=== PATIENT | male | born 1945 | race African-American/Black ===

== ENCOUNTER 2017-02-03 21:07 | Observation (INO) | payer OTHER, MEDICARE ==
[~2017-02-03] VITALS: Ht 177.8 cm; Wt 87.0 kg
[~2017-02-03 21:07] MED LIST: AMLO5TAB96 PO; ASPI81TA11 PO; ATOR40TA49 PO; CARV12.52 PO; CEFT500T PO; FURO1TAB93 PO; GLIP5TAB8 PO; LISI-357 PO; POTA10IN2 PO; WARF5 PO
[2017-02-03 21:13] VITALS: BP 134/71; PULSE 86; RESP 20; TEMP 98.8; O2SAT 98
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
[2017-02-03] MEDS ORDERED: SODIUM CHLORIDE 0.9% FLUSH 10 ML FLUSH IVF PRN (21:30)
[2017-02-03 21:34] VITALS: BP 148/81; PULSE 90; RESP 18; O2SAT 97
[2017-02-03 22:00] VITALS: BP 140/84; PULSE 74; RESP 20; O2SAT 97
[2017-02-03 22:05] LABS: AUTOMATED NEUTROPHIL # 3.5 TH/MM3 (1.8-7.7); BASOPHIL % 0.5 % (0.0-2.0); EOSINOPHIL # 0.3 TH/MM3 (0-0.4); EOSINOPHIL % 5.5 % (0.0-4.0); HEMATOCRIT 38.9 % (39.0-51.0); HEMO FLAGS DIFF FINAL; LYMPH % 21.9 % (9.0-44.0); LYMPHOCYTE # 1.3 TH/MM3 (1.0-4.8); MEAN CELL VOLUME 92.8 FL (80.0-100.0); MEAN CORPUSCULAR HEMOGLOBIN 30.5 PG (27.0-34.0); MEAN CORPUSCULAR HGB CONC 32.9 % (32.0-36.0); MONO % 13.6 % (0.0-8.0); NEUT % 58.5 % (16.0-70.0); PLATELET COUNT 170 TH/MM3 (150-450); RED BLOOD COUNT 4.19 MIL/MM3 (4.50-5.90); RED CELL DISTRIBUTION WIDTH 13.9 % (11.6-17.2)
[2017-02-03 22:24] LABS: BLOOD, URINE NEG (NEG); COMMENT (UR) CULT NOT INDICATED; CULTURE IF INDICATED CULT NOT INDICATED; GLUCOSE,URINE NEG (NEG); KETONE, URINE NEG (NEG); MUCUS URINE FEW /lpf (OCC); NITRITE,URINE NEG (NEG); SQUAMOUS EPITHELIAL CELL URINE <1 /hpf (0-5); URINE COLOR LIGHT-YELLOW (YELLW/STRAW)
[2017-02-03 22:25] LABS: APTT (PATIENT) 37.2 SEC (24.3-30.1); INTERNATIONAL NORMALIZED RATIO 1.8 RATIO; PROTHROMBIN TIME - PATIENT 20.7 SEC (9.8-11.6)
[2017-02-03 22:29] LABS: AMPHETAMINE, URINE NEG (NEG); BARBITURATES, URINE NEG (NEG); COCAINE, URINE NEG (NEG)
[2017-02-03 22:29] LABS: ALT (GPT) 20 U/L (12-78); ANION GAP 10 MEQ/L (5-15); AST (GOT) 20 U/L (15-37); BLOOD UREA NITROGEN 25 MG/DL (7-18); CHLORIDE 106 MEQ/L (98-107); GLOMERULAR FILTRATION RATE 56 ML/MIN (>89); POTASSIUM 3.9 MEQ/L (3.5-5.1); SODIUM (NA) 138 MEQ/L (136-145)
[2017-02-03 22:39] LABS: ACETAMINOPHEN LESS THAN 2.0 MCG/ML (10.0-30.0); ALKALINE PHOSPHATASE 65 U/L (45-117); CREATINE KINASE 390 U/L (39-308); TOTAL BILIRUBIN ADULT 0.8 MG/DL (0.2-1.0)
[2017-02-03 22:52] LABS: CKMB 2.9 NG/ML (0.5-3.6)
--- NOTE | 2017-02-03 22:56 | RADRPT ---
EXAM DATE/TIME: 02/03/2017 22:37 [facility] COMPARISON: CHEST SINGLE AP, April 30, 2016, 22:33. INDICATIONS : Short of breath MEDICAL HISTORY : None. SURGICAL HISTORY : CABG. Pacemaker. ENCOUNTER: Initial ACUITY: 1 day PAIN SCORE: 0/10 LOCATION: Bilateral chest FINDINGS: The lungs are clear without infiltrate, nodule, or mass. There is no appreciable pleural effusion fo r technique. Heart and mediastinum are unremarkable. Left subclavian transvenous pacer wires are pre sent with tips in the right atrium and right ventricle. There is evidence for prior median sternotomy . CONCLUSION: No acute cardiopulmonary disease. Deb Guerra MD on February 03, 2017 at 22:54 Board Certified Radiologist. This report was verified electronically.
[2017-02-03] MEDS ORDERED: ONDANSETRON HCL 4 MG/2 ML VIAL IVP PRN (23:15)
[2017-02-03] MEDS ORDERED: SODIUM CHLORIDE 0.9% FLUSH 10 ML FLUSH IV FLUSH PRN (23:15)
[2017-02-03] MEDS ORDERED: NALOXONE HCL 0.4 MG/ML AMP IV PRN (23:15)
[2017-02-03] MEDS ORDERED: ACETAMINOPHEN 325 MG TAB PO PRN (23:15)
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
[2017-02-03] MEDS ORDERED: DEXTROSE 50% IN WATER 50 ML VIAL(D50) IV PUSH PRN (23:45)
[2017-02-03] MEDS ORDERED: GLUCAGON 1 MG/ML VIAL OTHER PRN (23:45)
[2017-02-03] MEDS: ASPIRIN 325 MG TAB PO SCH (23:49)
[2017-02-04] VITALS (7 sets, daily range): BP systolic 122–150; BP diastolic 58–87; PULSE 60–71; RESP 16–20; TEMP 97.7–98.8; O2SAT 95–98
[2017-02-04] MEDS ORDERED: AMLO10TA2 PO (01:30)
[2017-02-04] MEDS ORDERED: ASPI81TA11 PO (01:50)
[2017-02-04] MEDS ORDERED: CARV12.52 PO (02:01)
[2017-02-04] MEDS ORDERED: POTA10TA8 PO (02:01)
[2017-02-04] MEDS ORDERED: ATOR40TA16 PO (02:01)
[2017-02-04] MEDS ORDERED: WARF-23 PO (02:01)
[2017-02-04] MEDS ORDERED: LISI-519 PO (02:01)
[2017-02-04] MEDS ORDERED: FURO40TA PO (02:01)
[2017-02-04] MEDS ORDERED: GLIP-157 PO (02:01)
[2017-02-04 05:58] LABS: AUTOMATED NEUTROPHIL # 3.7 TH/MM3 (1.8-7.7); BASOPHIL % 0.6 % (0.0-2.0); EOSINOPHIL # 0.3 TH/MM3 (0-0.4); EOSINOPHIL % 5.4 % (0.0-4.0); HEMATOCRIT 36.4 % (39.0-51.0); HEMO FLAGS DIFF FINAL; LYMPH % 20.8 % (9.0-44.0); LYMPHOCYTE # 1.3 TH/MM3 (1.0-4.8); MEAN CORPUSCULAR HGB CONC 33.7 % (32.0-36.0); MONO % 15.9 % (0.0-8.0); NEUT % 57.3 % (16.0-70.0); PLATELET COUNT 163 TH/MM3 (150-450); RED BLOOD COUNT 3.96 MIL/MM3 (4.50-5.90); RED CELL DISTRIBUTION WIDTH 13.9 % (11.6-17.2); WHITE BLOOD COUNT 6.5 TH/MM3 (4.0-11.0)
[2017-02-04 06:17] LABS: BICARBONATE 26.6 MEQ/L (21.0-32.0); POTASSIUM 3.8 MEQ/L (3.5-5.1)
[2017-02-04 06:26] LABS: HDL CHOLESTEROL 45.9 MG/DL (40.0-60.0)
[2017-02-04] MEDS: INSULIN ASPART SUPPLEMENTAL SCALE SQ SCH ×4 (06:30→20:19)
[2017-02-04] MEDS: SODIUM CHLORIDE 0.9% FLUSH 10 ML FLUSH IV FLUSH SCH ×2 (10:03→20:20)
[2017-02-04] MEDS: ASPIRIN 325 MG TAB PO SCH (10:03)
--- NOTE | 2017-02-04 14:40 | HHI.PR ---
Subjective Remarks Upward trends in Troponin through time, despite downward trends in creatinine ( improving renal function). Patient has no complaints of chest pain. No arrhythmias seen other than baseline. Objective Vital Signs Date Time Temp Pulse Resp B/P Pulse Ox O2 Delivery O2 Flow Rate FiO2 02/04/17 12:00 97.8 61 18 122/58 98 02/04/17 08:01 98.0 67 20 125/71 97 02/04/17 03:49 98.7 64 20 150/68 95 02/04/17 01:49 64 20 138/74 95 02/04/17 01:02 80 18 143/87 97 02/03/17 22:00 74 20 140/84 97 Room Air 02/03/17 21:34 90 18 148/81 97 Room Air 02/03/17 21:13 98.8 86 20 134/71 98 Result Diagram: 02/04/1751902/04/17 05 Objective Remarks GENERAL: NAD, A&Ox3 SKIN: Warm and dry. HEAD: Normocephalic. EYES: No scleral icterus. No injection or drainage. NECK: Supple, trachea midline. No JVD or lymphadenopathy. CARDIOVASCULAR: Regular rate and rhythm without murmurs, gallops, or rubs. RESPIRATORY: Breath sounds equal bilaterally. No accessory muscle use. GASTROINTESTINAL: Abdomen soft, non-tender, nondistended. MUSCULOSKELETAL: No cyanosis, or edema. BACK: Nontender without obvious deformity. No CVA tenderness. NEURO: Right Hemiplegia, Expressive Aphasia Medications and IVs Administered Medications Medications (Trade) Dose Ordered Sig/Kaila Route PRN Reason Start Time Stop Time Status Last Admin Dose Admin Sodium Chloride (NS Flush) 2 ml BID IV FLUSH 02/04/17 09:00 02/04/17 10:03 Aspirin (Aspirin) 325 mg DAILY PO 02/03/17 23:15 02/04/17 10:03 A/P Problem List: (1) Elevated troponin ICD Code: R79.89 Assessment & Plan: Follow troponin Consult cardiology Monitor on telemetry Follow for cardiac symptoms. (2) Atrial fibrillation ICD Code: I48.91 Assessment & Plan: Follow on telemetry (3) Hyperlipidemia ICD Code: E78.5 Assessment & Plan: Statin Follow as an outpatient (4) HTN (hypertension) ICD Code: I10 Assessment & Plan: Monitor BP Adjust if needed BP controlled right now (5) DM (diabetes mellitus) ICD Code: E11.9 Assessment & Plan: Follow blood sugars Insulin Sliding Scale Diabetic Diet (6) H/O: CVA (cerebrovascular accident) ICD Code: Z86.73 Assessment & Plan: Supportive Care Baseline of expressive aphasia and right hemiparesis Juma Williamson MD February 04, 2017 14:40
[2017-02-04] MEDS: CARVEDILOL 12.5 MG TAB PO SCH (20:20)
--- NOTE | 2017-02-04 22:45 | EKG ---
Date Performed: 02/04/2017 Time Performed: 03:45:32 PTAGE: 71 years EKG: ELECTRONIC ATRIAL PACEMAKER ELECTRONIC VENTRICULAR PACEMAKER ABNORMAL RHYTHM ECG INTERPRETA TION BASED ON A DEFAULT AGE OF 40 YEARS NO PREVIOUS TRACING DOCTOR: Denver Hansen Interpretating Date/Time 02/04/2017 22:44:40
--- NOTE | 2017-02-04 22:52 | EKG ---
Date Performed: 02/03/2017 Time Performed: 21:30:33 PTAGE: 71 years EKG: ELECTRONIC VENTRICULAR PACEMAKER ABNORMAL RHYTHM ECG PREVIOUS TRACING : 05/03/2016 13.32 Compared to prior tracing no significant change DOCTOR: Denver Hansen Interpretating Date/Time 02/04/2017 22:50:25
[2017-02-05] VITALS: BP 123/73; PULSE 63; RESP 17; TEMP 97.9; O2SAT 98
[2017-02-05 04:00] VITALS: BP 136/72; PULSE 66; RESP 16; TEMP 97; O2SAT 95
[2017-02-05 05:47] LABS: HEMATOCRIT 38.3 % (39.0-51.0); MEAN CELL VOLUME 92.9 FL (80.0-100.0); MEAN CORPUSCULAR HEMOGLOBIN 30.2 PG (27.0-34.0); MEAN CORPUSCULAR HGB CONC 32.6 % (32.0-36.0); PLATELET COUNT 162 TH/MM3 (150-450); RED BLOOD COUNT 4.12 MIL/MM3 (4.50-5.90); RED CELL DISTRIBUTION WIDTH 13.9 % (11.6-17.2); REVIEW FLAG FINAL; WHITE BLOOD COUNT 6.2 TH/MM3 (4.0-11.0)
[2017-02-05] MEDS: INSULIN ASPART SUPPLEMENTAL SCALE SQ SCH (05:53)
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
[2017-02-05 08:05] VITALS: BP 121/62; PULSE 65; RESP 18; TEMP 97.9; O2SAT 95
[2017-02-05] MEDS ORDERED: LISINOPRIL 5 MG TAB PO SCH (09:00)
[2017-02-05] MEDS ORDERED: FUROSEMIDE 40 MG TAB PO SCH (09:00)
[2017-02-05] MEDS ORDERED: ASPIRIN 81 MG CHEW TAB PO SCH (09:00)
[2017-02-05] MEDS ORDERED: ATORVASTATIN 80 MG TAB PO SCH (09:00)
[2017-02-05] MEDS ORDERED: POTASSIUM CHLORIDE 10 MEQ CONTROLLED RELEASE TAB PO SCH (09:00)
[2017-02-05] MEDS: CARVEDILOL 12.5 MG TAB PO SCH (09:02)
[2017-02-05] MEDS: SODIUM CHLORIDE 0.9% FLUSH 10 ML FLUSH IV FLUSH SCH (09:03)
[2017-02-05 09:18] VITALS: PULSE 62
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
== END 2017-02-05 13:55 | disposition home or self-care (01) ==
LOC: NEPE 21:07 → NEDA 23:10 → NEPHCDU 02-04 01:05
PROVIDERS: ADMIT Hospitalist; ATTEND Hospitalist
DX: I69.320 Aphasia following cerebral infarction (principal); I69.351 Hemiplegia and hemiparesis following cerebral infarction affecting right dominant side; I48.2 Chronic atrial fibrillation; I50.9 Heart failure, unspecified; I42.9 Cardiomyopathy, unspecified; N18.9 Chronic kidney disease, unspecified; I13.0 Hypertensive heart and chronic kidney disease with heart failure and stage 1 through stage 4 chronic kidney disease, or unspecified chronic kidney disease; E11.22 Type 2 diabetes mellitus with diabetic chronic kidney disease; J44.9 Chronic obstructive pulmonary disease, unspecified; I25.10 Atherosclerotic heart disease of native coronary artery without angina pectoris; E78.00 Pure hypercholesterolemia, unspecified; E78.5 Hyperlipidemia, unspecified; A41.9 Sepsis, unspecified organism; I25.2 Old myocardial infarction; Z79.01 Long term (current) use of anticoagulants; Z95.5 Presence of coronary angioplasty implant and graft; Z95.1 Presence of aortocoronary bypass graft; Z95.810 Presence of automatic (implantable) cardiac defibrillator; Z87.891 Personal history of nicotine dependence; V43.52XA Car driver injured in collision with other type car in traffic accident, initial encounter
CPT/HCPCS: 71010; 80048; 80053; 80061; 80307; 81001; 82140; 82550; 82552; 82948; 84443; 84484; 85025; 85027; 85610; 85730; 93005; 99285; G0378; J1815

== ENCOUNTER 2017-07-19 06:32 | Emergency (ER) | payer MEDICARE ==
[~2017-07-19] VITALS: Ht 180.3 cm; Wt 108.0 kg
[~2017-07-19 06:32] MED LIST changes: +AMLO10TA2 PO; -AMLO5TAB96 PO; +ATOR40TA16 PO; -ATOR40TA49 PO; -CEFT500T PO; -FURO1TAB93 PO; +FURO40TA PO; +GLIP-157 PO; -GLIP5TAB8 PO; -LISI-357 PO; +LISI-519 PO; -POTA10IN2 PO; +POTA10TA8 PO; +WARF-23 PO; -WARF5 PO
[2017-07-19 06:34] VITALS: BP 151/72; PULSE 82; RESP 16; TEMP 98.1; O2SAT 95
[2017-07-19] MEDS ORDERED: ALFU10TA2 PO (07:26)
[2017-07-19 07:30] LABS: AUTOMATED NEUTROPHIL # 4.9 TH/MM3 (1.8-7.7); BASOPHIL # 0.1 TH/MM3 (0-0.2); BASOPHIL % 0.9 % (0.0-2.0); EOSINOPHIL # 0.1 TH/MM3 (0-0.4); EOSINOPHIL % 1.8 % (0.0-4.0); HEMATOCRIT 37.4 % (39.0-51.0); HEMO FLAGS DIFF FINAL; LYMPH % 12.1 % (9.0-44.0); LYMPHOCYTE # 0.8 TH/MM3 (1.0-4.8); MEAN CELL VOLUME 91.8 FL (80.0-100.0); MEAN CORPUSCULAR HEMOGLOBIN 30.4 PG (27.0-34.0); MEAN CORPUSCULAR HGB CONC 33.2 % (32.0-36.0); MONO % 13.5 % (0.0-8.0); NEUT % 71.7 % (16.0-70.0); PLATELET COUNT 160 TH/MM3 (150-450); RED BLOOD COUNT 4.07 MIL/MM3 (4.50-5.90); RED CELL DISTRIBUTION WIDTH 14.5 % (11.6-17.2); WHITE BLOOD COUNT 6.8 TH/MM3 (4.0-11.0)
[2017-07-19] MEDS ORDERED: traMADol HCL 50 MG TAB PO ONE (07:30)
[2017-07-19 07:39] LABS: APTT (PATIENT) 51.8 SEC (24.3-30.1); INTERNATIONAL NORMALIZED RATIO 2.6 RATIO
[2017-07-19 08:34] LABS: ALKALINE PHOSPHATASE 75 U/L (45-117); ALT (GPT) 15 U/L (12-78); ANION GAP 8 MEQ/L (5-15); AST (GOT) 14 U/L (15-37); BLOOD UREA NITROGEN 30 MG/DL (7-18); CHLORIDE 108 MEQ/L (98-107); GLOMERULAR FILTRATION RATE 56 ML/MIN (>89); POTASSIUM 3.8 MEQ/L (3.5-5.1); SODIUM (NA) 138 MEQ/L (136-145); TOTAL BILIRUBIN ADULT 1.4 MG/DL (0.2-1.0)
[2017-07-19 09:00] VITALS: BP 133/66; PULSE 77; RESP 16; O2SAT 95
--- NOTE | 2017-07-19 10:16 | RADRPT ---
EXAM DATE/TIME: 07/19/2017 08:19 [facility] COMPARISON: US LEG BILATERAL VENOUS DOPPLER, December 25, 2014, 20:09. INDICATIONS : Bilateral leg edema. MEDICAL HISTORY : Myocardial infarction. Hypercholesterolemia. CVA. Coronary artery disease. Afib. HTN. Dyspnea. [place]. SURGICAL HISTORY : CABGPacemaker. Coronary artery stent.Cardiac cath. ENCOUNTER: Initial ACUITY: 2 day PAIN SCORE: 0/10 LOCATION: Bilateral leg. TECHNIQUE: Venous ultrasound of the left and right leg was performed from the inguinal ligament to the proximal calf. Real-time, color Doppler and spectral tracing, compression and augmentation techniques were us ed. FINDINGS: RIGHT LEG: There is normal compressibility of the deep venous system from the inguinal region to the proximal ca lf. No echogenic clot is seen in the lumen of the common femoral, femoral, popliteal, and posterior tibial veins. There is a normal response of the venous system to proximal and distal augmentation an d respiration. LEFT LEG: There is normal compressibility of the deep venous system from the inguinal region to the proximal ca lf. No echogenic clot is seen in the lumen of the common femoral, femoral, popliteal, and posterior tibial veins. There is a normal response of the venous system to proximal and distal augmentation an d respiration. CONCLUSION: 1. No evidence of deep venous thrombosis. Raymond Alcaraz MD on July 19, 2017 at 9:46 Board Certified Radiologist. This report was verified electronically.
[2017-07-19] MEDS ORDERED: TRAM50TA PO (10:53)
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
== END 2017-07-19 11:15 | disposition home or self-care (01) ==
LOC: NEPC 06:32
DX: M79.605 Pain in left leg (principal); M79.604 Pain in right leg; I48.91 Unspecified atrial fibrillation; Z79.01 Long term (current) use of anticoagulants; E78.5 Hyperlipidemia, unspecified; I25.10 Atherosclerotic heart disease of native coronary artery without angina pectoris; E11.9 Type 2 diabetes mellitus without complications; I10 Essential (primary) hypertension; I25.2 Old myocardial infarction; Z95.1 Presence of aortocoronary bypass graft; Z95.810 Presence of automatic (implantable) cardiac defibrillator; Z79.82 Long term (current) use of aspirin; Z79.899 Other long term (current) drug therapy
CPT/HCPCS: 80053; 85025; 85610; 85730; 93970; 99284

== ENCOUNTER 2017-09-13 10:36 | Emergency (ER) | payer MEDICARE ==
[~2017-09-13] VITALS: Ht 180.3 cm; Wt 110.0 kg
[~2017-09-13 10:36] MED LIST changes: +ALFU10TA2 PO; -ASPI81TA11 PO; +ASPI81TA23 PO; -POTA10TA8 PO; +TRAM50TA PO
[2017-09-13 10:48] VITALS: BP 125/59; PULSE 83; RESP 20; TEMP 97.8; O2SAT 98
[2017-09-13] MEDS ORDERED: PRED20 PO ×2 (11:03→13:59)
[2017-09-13] MEDS ORDERED: WARF-21 PO (11:03)
[2017-09-13] MEDS ORDERED: GLIP5TAB8 PO (11:03)
[2017-09-13] MEDS ORDERED: GUAI600T11 PO (11:03)
[2017-09-13] MEDS ORDERED: ALBUAER3 INH ×2 (11:03→13:59)
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
[2017-09-13 11:55] LABS: AUTOMATED NEUTROPHIL # 5.6 TH/MM3 (1.8-7.7); BASOPHIL % 0.3 % (0.0-2.0); EOSINOPHIL % 0.5 % (0.0-4.0); HEMATOCRIT 34.4 % (39.0-51.0); HEMO FLAGS DIFF FINAL; LYMPH % 11.5 % (9.0-44.0); LYMPHOCYTE # 0.8 TH/MM3 (1.0-4.8); MEAN CELL VOLUME 92.7 FL (80.0-100.0); MEAN CORPUSCULAR HEMOGLOBIN 30.2 PG (27.0-34.0); MEAN CORPUSCULAR HGB CONC 32.5 % (32.0-36.0); MONO % 7.4 % (0.0-8.0); NEUT % 80.3 % (16.0-70.0); PLATELET COUNT 196 TH/MM3 (150-450); RED BLOOD COUNT 3.71 MIL/MM3 (4.50-5.90); RED CELL DISTRIBUTION WIDTH 15.6 % (11.6-17.2); WHITE BLOOD COUNT 6.9 TH/MM3 (4.0-11.0)
[2017-09-13 12:06] LABS: INTERNATIONAL NORMALIZED RATIO 5.5 RATIO; PROTHROMBIN TIME - PATIENT 54.7 SEC (9.8-11.6)
[2017-09-13 12:13] LABS: BICARBONATE 26.4 MEQ/L (21.0-32.0); MAGNESIUM 2.2 MG/DL (1.5-2.5)
--- NOTE | 2017-09-13 12:16 | RADRPT ---
EXAM DATE/TIME: 09/13/2017 11:39 [facility] COMPARISON: CHEST SINGLE AP, February 03, 2017, 22:37. INDICATIONS : Short of breath. MEDICAL HISTORY : Myocardial infarction. Hypercholesterolemia. CVA. Coronary artery disease.Afib. HTN. Dyspnea. Diabete s. SURGICAL HISTORY : CABG,Pacemaker. Coronary artery stent.Cardiac cath. ENCOUNTER: Initial ACUITY: 1 day PAIN SCORE: 0/10 LOCATION: Bilateral chest FINDINGS: A single view of the chest demonstrates cardiomegaly with interstitial edema. Evious median sternotom y. Left-sided defibrillator unchanged. No pleural effusions or edema. Osseous structures are intact. CONCLUSION: Cardiomegaly with interstitial edema. Paresh Nichols MD on September 13, 2017 at 12:14 Board Certified Radiologist. This report was verified electronically.
[2017-09-13] MEDS ORDERED: AZIT250T3 PO (13:59)
--- NOTE | 2017-09-13 14:11 | PD ---
Data Data Last Documented VS Vital Signs Date Time Temp Pulse Resp B/P (MAP) Pulse Ox O2 Delivery O2 Flow Rate FiO2 09/13/17 10:48 97.8 83 20 125/59 (81) 98 Orders Orders Complete Blood Count With Diff (09/13/17 11:22) Basic Metabolic Panel (Bmp) (09/13/17 11:22) B-Type Natriuretic Peptide (09/13/17 11:22) Prothrombin Time / Inr (Pt) (09/13/17 11:22) Act Partial Throm Time (Ptt) (09/13/17 11:22) Magnesium (Mg) (09/13/17 11:22) Chest, Single Ap (09/13/17 11:22) Iv Access Insert/Monitor (09/13/17 11:22) Ecg Monitoring (09/13/17 11:22) Oximetry (09/13/17 11:22) Albuterol-Ipratropium Neb (Duoneb Neb) (09/13/17 11:30) Electrocardiogram (09/13/17 ) Ed Discharge Order (09/13/17 13:57) Labs Laboratory Tests Test 09/13/17 11:20 White Blood Count 6.9 TH/MM3 Red Blood Count 3.71 MIL/MM3 Hemoglobin 11.2 GM/DL Hematocrit 34.4 % Mean Corpuscular Volume 92.7 FL Mean Corpuscular Hemoglobin 30.2 PG Mean Corpuscular Hemoglobin Concent 32.5 % Red Cell Distribution Width 15.6 % Platelet Count 196 TH/MM3 Mean Platelet Volume 8.4 FL Neutrophils (%) (Auto) 80.3 % Lymphocytes (%) (Auto) 11.5 % Monocytes (%) (Auto) 7.4 % Eosinophils (%) (Auto) 0.5 % Basophils (%) (Auto) 0.3 % Neutrophils # (Auto) 5.6 TH/MM3 Lymphocytes # (Auto) 0.8 TH/MM3 Monocytes # (Auto) 0.5 TH/MM3 Eosinophils # (Auto) 0.0 TH/MM3 Basophils # (Auto) 0.0 TH/MM3 CBC Comment DIFF FINAL Differential Comment Prothrombin Time 54.7 SEC Prothromb Time International Ratio 5.5 RATIO Activated Partial Thromboplast Time 46.0 SEC Blood Urea Nitrogen 19 MG/DL Creatinine 1.16 MG/DL Random Glucose 162 MG/DL Calcium Level 8.7 MG/DL Magnesium Level 2.2 MG/DL Sodium Level 142 MEQ/L Potassium Level 4.0 MEQ/L Chloride Level 109 MEQ/L Carbon Dioxide Level 26.4 MEQ/L Anion Gap 7 MEQ/L Estimat Glomerular Filtration Rate 75 ML/MIN B-Type Natriuretic Peptide 532 PG/ML MDM Supervised Visit with ADAM: Yes Narrative Course The history, exam, and medical decision-making in the associated mid-level provider note were completed with my assistance. I reviewed and agree with the findings presented. I attest that I had a [id number] encounter with the patient on the same day, and personally performed and documented my assessment and findings in the medical record. *My assessment and Findings: Well-appearing 72-year-old, [facility], shortness of breath, out of medications for COPD, wheezy on exam, a little bit of pleural effusion increased volume was some pulmonary edema, increased BMP, some lower extremity swelling. We'll encourage compliance with diuretics, treat for COPD exacerbation. Diagnosis Primary Impression: COPD (chronic obstructive pulmonary disease) Qualified Codes: J42 - Unspecified chronic bronchitis Patient Instructions: General Instructions Additional Instruction: Take medications as prescribed. Follow with PCP. Take your Lasix (furosemide) as prescribed by your doctor. See ED for any worsening symptoms. Scripts Prednisone (Prednisone) 20 Mg Tab 20 MG PO BID for 5 Days, #10 TAB 0 Refills Prov: Kd Martinez MD 09/13/17 Azithromycin (Azithromycin) 250 Mg Tab 250 MG PO DIRECTED for Infection, #6 TAB 0 Refills Take 2 tabs (500 mg) on day 1 then 1 tab daily x 4 days. Prov: dK Martinez MD 09/13/17 Albuterol 8.5 GM Inh (Proair Hfa 8.5 GM Inh) 90 Mcg/Act Aer 2 PUFF INH Q4-6H Y for SHORTNESS OF BREATH, #1 INHALER 0 Refills 108 mcg/actuation Prov: Kd Martinez MD 09/13/17 Disposition: 01 DISCHARGE HOME Condition: Stable Kd Martinez MD Sep 13, 2017 14:11
[2017-09-13] MEDS: RESP: ALBUTEROL 2.5 MG/IPRATROPIUM 0.5 MG NEB (SCH) INH ×2 (14:29→14:46)
[2017-09-13 14:49] VITALS: BP 114/65; PULSE 81; RESP 18; O2SAT 99
--- NOTE | 2017-09-14 14:07 | EKG ---
Date Performed: 09/13/2017 Time Performed: 12:44:22 PTAGE: 72 years EKG: ELECTRONIC VENTRICULAR PACEMAKER ABNORMAL RHYTHM ECG PREVIOUS TRACING : 02/04/2017 03.45 Compared to prior tracing no significant change DOCTOR: David Noel Interpretating Date/Time 09/14/2017 14:06:26
== END 2017-09-13 15:30 | disposition home or self-care (01) ==
LOC: NEPE 10:36
DX: J44.9 Chronic obstructive pulmonary disease, unspecified (principal); I51.7 Cardiomegaly; I11.0 Hypertensive heart disease with heart failure; I50.9 Heart failure, unspecified; I69.920 Aphasia following unspecified cerebrovascular disease; I48.91 Unspecified atrial fibrillation; E11.9 Type 2 diabetes mellitus without complications; I25.10 Atherosclerotic heart disease of native coronary artery without angina pectoris; R94.31 Abnormal electrocardiogram [ECG] [EKG]
CPT/HCPCS: 71010; 80048; 83735; 83880; 85025; 85610; 85730; 93005; 94640; 94664; 99285

== ENCOUNTER 2018-01-01 13:46 | Inpatient (IN) | payer OTHER, MEDICARE ==
[2018-01-01] VITALS (10 sets, daily range): BP systolic 91–150; BP diastolic 50–84; PULSE 81–95; RESP 16–26; TEMP 97.5; O2SAT 95–100
[~2018-01-01] VITALS: Ht 180.3 cm; Wt 86.2 kg
[~2018-01-01 13:46] MED LIST changes: +ALBUAER3 INH; +AZIT250T3 PO; -GLIP-157 PO; +GLIP5TAB8 PO; +GUAI600T11 PO; +PRED20 PO; +WARF-21 PO
[2018-01-01] MEDS ORDERED: SODIUM CHLORIDE 0.9% FLUSH 10 ML FLUSH IVF PRN (14:00)
--- NOTE | 2018-01-01 14:13 | PD ---
HPI Chief Complaint: Respiratory Distress Time Seen by Provider: 14:00 Travel History International Travel<30 days: No Contact w/Intl Traveler<30days: No Traveled to known affect area: No History of Present Illness HPI 72-year-old male patient with history of previous CVA, A. fib, CAD, AICD placement, CHF, multiple medical issues, was at the [facility] today when he started getting short of breath, having dyspnea on exertion, and was put on oxygen by EMS. He states it is now subsiding. He also complains of some chest discomfort and coughing. He denies any fevers, abdominal pains, or any other symptoms. Patient's history is difficult to get because of his aphasia. Modifying Factors: None Associated Signs & Symptoms: Shortness of breath Risk Factors: CHF PFSH Past Medical History Hx Anticoagulant Therapy: Yes Arthritis: No Asthma: No Atrial Fibrillation: Yes Autoimmune Disease: No Blood Disorders: No Anxiety: No Depression: No Heart Rhythm Problems: Yes Cancer: No Cardiac Catheterization: Yes (2013) Cardiovascular Problems: Yes High Cholesterol: Yes Chemotherapy: No Chest Pain: No Congestive Heart Failure: No COPD: No Cerebrovascular Accident: Yes (SUFFERS DYSARTHRIA) Coronary Artery Disease: Yes Diabetes: Yes Diminished Hearing: No Endocrine: Yes Gastrointestinal Disorders: No GERD: No Glaucoma: No Genitourinary: No Headaches: No Hepatitis: No Hiatal Hernia: No Hypertension: Yes Immune Disorder: No Kidney Stones: No Musculoskeletal: Yes (CONTRACTED RUE) Neurologic: No Psychiatric: No Reproductive: No Respiratory: Yes Immunizations Current: No Migraines: No Myocardial Infarction: Yes (X 2) Radiation Therapy: No Renal Failure: No Seizures: No Sickle Cell Disease: No Sleep Apnea: No Thyroid Disease: No Ulcer: No Past Surgical History Abdominal Surgery: No AICD: No Appendectomy: No Arteriovenous Shunt: No Body Medical Devices: STENT PLACEMENT Cardiac Surgery: Yes (CABG 2008/ PACEMAKER/DEFIB 03/22/15) Cholecystectomy: No Coronary Artery Bypass Graft: Yes (2009 x ) Coronary Stent: Yes (2 STENTS) Ear Surgery: No Endocrine Surgery: No Eye Surgery: No Genitourinary Surgery: No Gynecologic Surgery: No Insulin Pump: No Joint Replacement: No Neurologic Surgery: No Oral Surgery: No Pacemaker: Yes (PACE AND DEFIB ) Thoracic Surgery: No Other Surgery: Yes Social History Alcohol Use: No Tobacco Use: No Substance Use: No Allergies-Medications (Allergen,Severity, Reaction): Coded Allergies: rivaroxaban (Verified Allergy, Unknown, 07/19/17) Uncoded Allergies: UNKNOWN BLOOD THINNER (Allergy, Intermediate, Hives, 04/30/16) Reported Meds & Prescriptions Reported Meds & Active Scripts Active Proair Hfa 8.5 GM Inh (Albuterol Sulfate) 90 Mcg/Act Aer 2 Puff INH Q4-6H PRN 108 mcg/actuation Reported Colchicine 0.6 Mg Cap 0.6 Mg PO DAILY Mucus Relief ER (Guaifenesin) 600 Mg Tab 400 Mg PO BID PRN Warfarin 7.5 Mg Tab 7.5 Mg PO EVERY OTHER DAY Glipizide 5 Mg Tab 5 Mg PO BIDAC Take 30 minutes before a meal Alfuzosin ER 24 HR 10 Mg Tab 10 Mg PO DAILY Lisinopril 5 Mg Tab 5 Mg PO DAILY Carvedilol 12.5 Mg Tab 25 Mg PO BID Atorvastatin (Atorvastatin Calcium) 40 Mg Tab 40 Mg PO DAILY Aspirin EC (Aspirin) 81 Mg Tabdr 81 Mg PO DAILY Amlodipine (Amlodipine Besylate) 10 Mg Tab 10 Mg PO DAILY Review of Systems ROS Limitations: Speech Impaired Except as stated in HPI: all other systems reviewed are Neg Physical Exam Narrative GENERAL: Well-developed elderly -[place] male patient currently in mild respiratory distress. Awake, alert, oriented 3. SKIN: Focused skin assessment warm/dry. HEAD: Atraumatic. Normocephalic. EYES: Pupils equal and round. No scleral icterus. No injection or drainage. ENT: No nasal bleeding or discharge. Mucous membranes pink and moist. NECK: Trachea midline. No JVD. CARDIOVASCULAR: Regular rate and rhythm. No murmur appreciated. RESPIRATORY: Mild accessory muscle use. Clear to auscultation. Breath sounds equal bilaterally. GASTROINTESTINAL: Abdomen soft, non-tender, nondistended. Hepatic and splenic margins not palpable. MUSCULOSKELETAL: No obvious deformities. No clubbing. No cyanosis. No edema. NEUROLOGICAL: Awake and alert. Mild facial asymmetry. Motor grossly within normal limits. Aphasic speech. PSYCHIATRIC: Appropriate mood and affect; insight and judgment normal. Data Data Last Documented VS Vital Signs Date Time Temp Pulse Resp B/P (MAP) Pulse Ox O2 Delivery O2 Flow Rate FiO2 01/01/18 16:05 84 20 91/56 (68) 100 Nasal Cannula 2.00 01/01/18 13:54 97.5 Orders Orders Complete Blood Count With Diff (01/01/18 14:00) Comprehensive Metabolic Panel (01/01/18 14:00) B-Type Natriuretic Peptide (01/01/18 14:00) Act Partial Throm Time (Ptt) (01/01/18 14:00) Prothrombin Time / Inr (Pt) (01/01/18 14:00) Ckmb (Isoenzyme) Profile (01/01/18 14:00) Troponin I (01/01/18 14:00) Blood Culture (01/01/18 14:00) Iv Access Insert/Monitor (01/01/18 14:00) Electrocardiogram (01/01/18 14:00) Ecg Monitoring (01/01/18 14:00) Oximetry (01/01/18 14:00) Oxygen Administration (01/01/18 14:00) Chest, Single Ap (01/01/18 14:00) Sodium Chloride 0.9% Flush (Ns Flush) (01/01/18 14:00) Furosemide Inj (Lasix Inj) (01/01/18 15:45) Resp Bipap / Cpap Non Invas Vt (01/01/18 ) Admit Order (Ed Use Only) (01/01/18 16:09) Labs Laboratory Tests Test 01/01/18 14:10 White Blood Count 4.3 TH/MM3 Red Blood Count 4.04 MIL/MM3 Hemoglobin 12.3 GM/DL Hematocrit 38.2 % Mean Corpuscular Volume 94.6 FL Mean Corpuscular Hemoglobin 30.4 PG Mean Corpuscular Hemoglobin Concent 32.1 % Red Cell Distribution Width 18.1 % Platelet Count 185 TH/MM3 Mean Platelet Volume 8.3 FL Neutrophils (%) (Auto) 71.8 % Lymphocytes (%) (Auto) 11.5 % Monocytes (%) (Auto) 14.2 % Eosinophils (%) (Auto) 1.7 % Basophils (%) (Auto) 0.8 % Neutrophils # (Auto) 3.1 TH/MM3 Lymphocytes # (Auto) 0.5 TH/MM3 Monocytes # (Auto) 0.6 TH/MM3 Eosinophils # (Auto) 0.1 TH/MM3 Basophils # (Auto) 0.0 TH/MM3 CBC Comment DIFF FINAL Differential Comment Prothrombin Time 26.6 SEC Prothromb Time International Ratio 2.6 RATIO Activated Partial Thromboplast Time 33.6 SEC Blood Urea Nitrogen 40 MG/DL Creatinine 1.53 MG/DL Random Glucose 106 MG/DL Total Protein 5.5 GM/DL Albumin 2.8 GM/DL Calcium Level 7.6 MG/DL Alkaline Phosphatase 50 U/L Aspartate Amino Transf (AST/SGOT) 31 U/L Alanine Aminotransferase (ALT/SGPT) 44 U/L Total Bilirubin 1.3 MG/DL Sodium Level 143 MEQ/L Potassium Level 4.5 MEQ/L Chloride Level 114 MEQ/L Carbon Dioxide Level 20.1 MEQ/L Anion Gap 9 MEQ/L Estimat Glomerular Filtration Rate 55 ML/MIN Total Creatine Kinase 89 U/L Troponin I 0.41 NG/ML B-Type Natriuretic Peptide 1121 PG/ML MDM Medical Decision Making Medical Screen Exam Complete: Yes Emergency Medical Condition: Yes Medical Record Reviewed: Yes Interpretation(s) EKG shows a paced rhythm at a rate of 90 bpm with no signs of acute ST elevations or depressions. Laboratory Tests Test 01/01/18 14:10 Red Blood Count 4.04 MIL/MM3 (4.50-5.90) Hemoglobin 12.3 GM/DL (13.0-17.0) Hematocrit 38.2 % (39.0-51.0) Red Cell Distribution Width 18.1 % (11.6-17.2) Neutrophils (%) (Auto) 71.8 % (16.0-70.0) Monocytes (%) (Auto) 14.2 % (0.0-8.0) Lymphocytes # (Auto) 0.5 TH/MM3 (1.0-4.8) Prothrombin Time 26.6 SEC (9.8-11.6) Activated Partial Thromboplast Time 33.6 SEC (24.3-30.1) Blood Urea Nitrogen 40 MG/DL (7-18) Creatinine 1.53 MG/DL (0.60-1.30) Total Protein 5.5 GM/DL (6.4-8.2) Albumin 2.8 GM/DL (3.4-5.0) Calcium Level 7.6 MG/DL (8.5-10.1) Total Bilirubin 1.3 MG/DL (0.2-1.0) Chloride Level 114 MEQ/L (98-107) Carbon Dioxide Level 20.1 MEQ/L (21.0-32.0) Estimat Glomerular Filtration Rate 55 ML/MIN (>89) Troponin I 0.41 NG/ML (0.02-0.05) B-Type Natriuretic Peptide 1121 PG/ML (0-100) Last 24 hours Impressions Chest X-Ray 01/01/18 1400 Signed Impressions: Service Date/Time: Monday, January 01, 2018 14:15 - CONCLUSION: CHF Jeffrey Tipton MD Differential Diagnosis CHF exacerbation versus pneumonia versus anxiety attack versus dysrhythmias Narrative Course Chest x-ray lab work indicative of CHF. Patient was ordered for Lasix, initial blood pressure was okay, however the blood pressure was much lower while he was observed in the ER. BiPAP was ordered instead. At this point, plan would be to admit the patient for further treatment evaluation. Lab work does show elevated BUN and creatinine as well and patient may have some underlying renal compromise regarding this issue. Troponin is elevated likely secondary to the CHF exacerbation. Patient does not currently have chest pain. Case has been discussed with [facility] resident service for admission. He is admitted to intermediate care. Aggregate critical care time was 25 minutes. Time to perform other separately billable procedures was not included in the critical care time. My time did not include minutes spent treating any other patients simultaneously or on activities that did not directly contribute to the patient's treatment. The services I provided to this patient were to treat and/or prevent clinically significant deterioration that could result in: Worsening respiratory distress, hypotension, respiratory failure, worsening pulmonary edema, worsening CHF, cardiac dysrhythmias, I provided critical care services requiring my management, as noted below: Chart data review, documentation time, medication orders and management, vital sign assessments/reviewing monitor data, ordering and reviewing lab tests, ordering and interpreting/reviewing x-rays and diagnostic studies, care of the patient and discussion of the patient with the admitting physicians. Diagnosis Primary Impression: CHF exacerbation Additional Impressions: Elevated troponin HTN (hypertension) Admitting Information Admitting Physician Requests: Admit Lilian Dowd MD Jan 01, 2018 14:13
[2018-01-01 14:33] LABS: AUTOMATED NEUTROPHIL # 3.1 TH/MM3 (1.8-7.7); BASOPHIL % 0.8 % (0.0-2.0); EOSINOPHIL # 0.1 TH/MM3 (0-0.4); EOSINOPHIL % 1.7 % (0.0-4.0); HEMATOCRIT 38.2 % (39.0-51.0); HEMOGLOBIN 12.3 GM/DL (13.0-17.0); LYMPH % 11.5 % (9.0-44.0); LYMPHOCYTE # 0.5 TH/MM3 (1.0-4.8); MEAN CELL VOLUME 94.6 FL (80.0-100.0); MEAN CORPUSCULAR HEMOGLOBIN 30.4 PG (27.0-34.0); MEAN CORPUSCULAR HGB CONC 32.1 % (32.0-36.0); MEAN PLATELET VOLUME 8.3 FL (7.0-11.0); MONO % 14.2 % (0.0-8.0); MONOCYTE # 0.6 TH/MM3 (0-0.9); NEUT % 71.8 % (16.0-70.0); PLATELET COUNT 185 TH/MM3 (150-450); RED BLOOD COUNT 4.04 MIL/MM3 (4.50-5.90); RED CELL DISTRIBUTION WIDTH 18.1 % (11.6-17.2); WHITE BLOOD COUNT 4.3 TH/MM3 (4.0-11.0)
[2018-01-01 14:37] LABS: INTERNATIONAL NORMALIZED RATIO 2.6 RATIO; PROTHROMBIN TIME - PATIENT 26.6 SEC (9.8-11.6)
[2018-01-01] MEDS ORDERED: COLC1CAP3 PO (14:37)
--- NOTE | 2018-01-01 14:39 | RADRPT ---
EXAM DATE/TIME: 01/01/2018 14:15 [facility] COMPARISON: CHEST SINGLE AP, September 13, 2017, 11:39. INDICATIONS : Short of breath. MEDICAL HISTORY : Hypertension. Diabetes mellitus type 2. SURGICAL HISTORY : Pacemaker. CABG. 9-10 years ago. ENCOUNTER: Initial ACUITY: 1 day PAIN SCORE: 0/10 LOCATION: Bilateral chest FINDINGS: Pacemaker device is noted with control pack over the left chest. There is hazy bilateral primarily pe rihilar and basilar pleuroparenchymal opacity which looks like developing edema and effusions. Cardia c contours are partially obscured. There does appear to be moderate central vascular congestion. CONCLUSION: CHF Jeffrey Tipton MD on January 01, 2018 at 14:36 Board Certified Radiologist. This report was verified electronically.
[2018-01-01 15:03] LABS: ALT (GPT) 44 U/L (12-78)
[2018-01-01 15:06] LABS: ALBUMIN 2.8 GM/DL (3.4-5.0); AST (GOT) 31 U/L (15-37); BICARBONATE 20.1 MEQ/L (21.0-32.0); BLOOD UREA NITROGEN 40 MG/DL (7-18); CALCIUM 7.6 MG/DL (8.5-10.1); CHLORIDE 114 MEQ/L (98-107); CREATININE 1.53 MG/DL (0.60-1.30); GLOMERULAR FILTRATION RATE 55 ML/MIN (>89); GLUCOSE,RANDOM 106 MG/DL (74-106); SODIUM (NA) 143 MEQ/L (136-145)
[2018-01-01 15:15] LABS: ALKALINE PHOSPHATASE 50 U/L (45-117); TOTAL BILIRUBIN ADULT 1.3 MG/DL (0.2-1.0); TOTAL PROTEIN 5.5 GM/DL (6.4-8.2); TROPONIN I 0.41 NG/ML (0.02-0.05)
[2018-01-01] MEDS ORDERED: FUROSEMIDE 40 MG/4 ML VIAL IV PUSH ONE (15:45)
[2018-01-01] MEDS ORDERED: SODIUM CHLORIDE 0.9% FLUSH 10 ML FLUSH IV FLUSH PRN (16:15)
--- NOTE | 2018-01-01 16:23 | HHI.HP ---
[facility] Service Family Medicine Primary Care Physician [facility] Admission Diagnosis CHF exacerbation/elevated troponin Diagnoses: International Travel<30 Days: No Contact w/Intl Traveler<30days: No History of Present Illness Patient is a 72 year old male with history significant for CVA, A fib on Coumadin, AICD, CHF, diabetes, who presents for shortness of breath. His is present who provides some history as well. He was sent over from the [place] during acute visit for the symptoms. They both note that about 1-1/2 weeks ago the symptoms started up again notes that the patient had decreased appetite. Difficulty breathing has became progressively worse over this timeframe. He does not typically use oxygen at baseline but has in the past. Over the last week and a half he has been using about 2 L rate at home. This did not help. He does take Lasix at home and took a dose this morning he thinks. He did also take his antihypertensives this morning. He also has a CPAP machine that he uses "every now and then.". [facility] Manager is Dr. Aquino and reportedly had last office visit with echo 1 month ago. Unknown last EF. states that he was admitted to [facility] about a month ago for similar symptoms and was treated for a few days with diuretics and was sent home. He does use oxygen at baseline but he did return back to baseline before discharge. His long history of CHF. At time of interview is on BiPAP and he states that he feels much better than he did at home. Review of Systems ROS Limitations: Speech Impaired Constitutional: DENIES: Fever, Chills Eyes: DENIES: Blurred vision, Diplopia Respiratory: COMPLAINS OF: Shortness of breath, DENIES: Cough Cardiovascular: DENIES: Chest pain, Palpitations, Syncope Gastrointestinal: DENIES: Abdominal pain, Black stools, Bloody stools Genitourinary: DENIES: Urinary frequency, Urinary incontinence Musculoskeletal: DENIES: Joint pain, Muscle aches Integumentary: DENIES: Pruritus, Rash Hematologic/lymphatic: DENIES: Bruising, Lymphadenopathy Neurologic: COMPLAINS OF: Poor Balance, DENIES: Abnormal gait Psychiatric: DENIES: Anxiety, Depression Past Family Social History Past Medical History CVA 11-12 years ago CAD with pacemaker placed in 2049 Previous PR HTN A fib on Warfarin CHF Diabetes Past Surgical History Cardiac stents CABG 2009 Pacemaker/AICD 03/22/2015 Reported Medications Reported Meds & Active Scripts Active Proair Hfa 8.5 GM Inh (Albuterol Sulfate) 90 Mcg/Act Aer 2 Puff INH Q4-6H PRN 108 mcg/actuation Reported Colchicine 0.6 Mg Cap 0.6 Mg PO DAILY Mucus Relief ER (Guaifenesin) 600 Mg Tab 400 Mg PO BID PRN Warfarin 7.5 Mg Tab 7.5 Mg PO EVERY OTHER DAY Glipizide 5 Mg Tab 5 Mg PO BIDAC Take 30 minutes before a meal Alfuzosin ER 24 HR 10 Mg Tab 10 Mg PO DAILY Lisinopril 5 Mg Tab 5 Mg PO DAILY Carvedilol 12.5 Mg Tab 25 Mg PO BID Atorvastatin (Atorvastatin Calcium) 40 Mg Tab 40 Mg PO DAILY Aspirin EC (Aspirin) 81 Mg Tabdr 81 Mg PO DAILY Amlodipine (Amlodipine Besylate) 10 Mg Tab 10 Mg PO DAILY Allergies: Coded Allergies: rivaroxaban (Verified Allergy, Unknown, 07/19/17) Uncoded Allergies: UNKNOWN BLOOD THINNER (Allergy, Intermediate, Hives, 04/30/16) Active Ordered Medications Inpatient Medications Aspirin (Ecotrin Ec) 81 mg DAILY PO ; Start 01/02/18 at 09:00 Atorvastatin Calcium (Lipitor) 40 mg DAILY PO ; Start 01/02/18 at 09:00 Bisacodyl (Dulcolax Supp) 10 mg DAILY PRN RECTAL SEVERE CONSITIPATION; Start at 17:45 Carvedilol (Coreg) 25 mg BID PO ; Start 01/01/18 at 21:00 Colchicine (Colchicine) 0.6 mg DAILY PO ; Start 01/02/18 at 09:00; Stop at 09:00; Status DC Dextrose (D50w (Vial) Inj) 50 ml UNSCH PRN IV PUSH HYPOGLYCEMIA-SEE COMMENTS; Start 01/01/18 at 17:45 Furosemide (Lasix Inj) 40 mg ONCE ONCE IV PUSH Last administered on 01/01/18at 17:42; Start 01/01/18 at 15:45; Stop 01/01/18 at 15:46; Status DC Glucagon (Glucagon Inj) 1 mg UNSCH PRN OTHER HYPOGLYCEMIA-SEE COMMENTS; Start 01/01/18 at 17:45 Insulin Aspart (NovoLOG SUPPLEMENTAL SCALE) 1 ACHS SLIDING SCALE SQ ; Start at 21:00 Lactulose (Lactulose Liq) 30 ml DAILY PRN PO SEVERE CONSITIPATION; Start at 17:45 Magnesium Hydroxide (Milk Of Magnesia Liq) 30 ml Q12H PRN PO Mild constipation ; Start 01/01/18 at 17:45 Senna/Docusate Sodium (Natalie-Colace) 1 tab BID PO ; Start 01/01/18 at 21:00 Sennosides (Senokot) 17.2 mg Q12H PRN PO Moderate constipation; Start 01/01/18 at 17:45 Sodium Chloride (NS Flush) 2 ml BID IV FLUSH ; Start 01/01/18 at 21:00 Warfarin Sodium (Coumadin) 7.5 mg EVERY OTHER DAY PO ; Start 01/02/18 at 16:00 Family History No reported family history Social History Denies current tobacco, alcohol, illicit drug use. Remote smoker per . Lives with whose number is [phone] Physical Exam Vital Signs Vital Signs Date Time Temp Pulse Resp B/P (MAP) Pulse Ox O2 Delivery O2 Flow Rate FiO2 01/01/18 16:05 84 20 91/56 (68) 100 Nasal Cannula 2.00 01/01/18 14:00 95 Nasal Cannula 2.00 01/01/18 14:00 97 Nasal Cannula 2.00 01/01/18 13:59 96 26 98 Room Air 01/01/18 13:54 97.5 95 26 150/84 (106) 98 Physical Exam GENERAL: This is a well-nourished, well-developed male patient who is on BiPAP. SKIN: No rashes, ecchymoses or lesions. Cool and dry. HEAD: Atraumatic. Normocephalic. No temporal or scalp tenderness. EYES: Pupils equal round and reactive. Extraocular motions intact. No scleral icterus. No injection or drainage. ENT: Nose without bleeding or purulent drainage. Airway patent. On BiPAP, other exam is limited at this time NECK: Trachea midline. No JVD or lymphadenopathy. Supple, nontender, no meningeal signs. CARDIOVASCULAR: Regular rate and rhythm without murmurs, difficult to auscultate given BiPAP RESPIRATORY: Poor air movement noted. Upper airway sounds noted. GASTROINTESTINAL: Abdomen soft, non-tender, nondistended. No hepato-splenomegaly , or palpable masses. No guarding. MUSCULOSKELETAL: Extremities without clubbing, cyanosis, or edema. No joint tenderness, effusion, or edema noted. No calf tenderness. NEUROLOGICAL: Awake and alert. Cranial nerves II through XII grossly intact. Motor and sensory grossly within normal limits. Grossly normal strength. Laboratory Laboratory Tests Test 01/01/18 14:10 White Blood Count 4.3 Red Blood Count 4.04 Hemoglobin 12.3 Hematocrit 38.2 Mean Corpuscular Volume 94.6 Mean Corpuscular Hemoglobin 30.4 Mean Corpuscular Hemoglobin Concent 32.1 Red Cell Distribution Width 18.1 Platelet Count 185 Mean Platelet Volume 8.3 Neutrophils (%) (Auto) 71.8 Lymphocytes (%) (Auto) 11.5 Monocytes (%) (Auto) 14.2 Eosinophils (%) (Auto) 1.7 Basophils (%) (Auto) 0.8 Neutrophils # (Auto) 3.1 Lymphocytes # (Auto) 0.5 Monocytes # (Auto) 0.6 Eosinophils # (Auto) 0.1 Basophils # (Auto) 0.0 CBC Comment DIFF FINAL Differential Comment Prothrombin Time 26.6 Prothromb Time International Ratio 2.6 Activated Partial Thromboplast Time 33.6 Blood Urea Nitrogen 40 Creatinine 1.53 Random Glucose 106 Total Protein 5.5 Albumin 2.8 Calcium Level 7.6 Alkaline Phosphatase 50 Aspartate Amino Transf (AST/SGOT) 31 Alanine Aminotransferase (ALT/SGPT) 44 Total Bilirubin 1.3 Sodium Level 143 Potassium Level 4.5 Chloride Level 114 Carbon Dioxide Level 20.1 Anion Gap 9 Estimat Glomerular Filtration Rate 55 Total Creatine Kinase 89 Troponin I 0.41 B-Type Natriuretic Peptide 1121 Date/Time Source Procedure Growth Status 01/01/18 14:15 Blood Peripheral Aerobic Blood Culture Pending Received 01/01/18 14:15 Blood Peripheral Anaerobic Blood Culture Pending Received Result Diagram: 01/01/18 1410 01/01/18 1410 Imaging Last Impressions Chest X-Ray 01/01/18 1400 Signed Impressions: Service Date/Time: Monday, January 01, 2018 14:15 - CONCLUSION: CHF MD Velvet Bro VTE Risk Assessment Velvet VTE Risk Assessment: Mod/High Risk (score >= 2) Caprini Risk Assessment Model Point Value = 1 Point Value = 2 Point Value = 3 Point Value = 5 Age 41-60 Minor surgery BMI > 25 kg/m2 Swollen legs Varicose veins or History of unexplained or recurrent spontaneous Oral contraceptives or hormone replacement Sepsis (< 1 month) Serious lung disease, including pneumonia (< 1 month) Abnormal pulmonary function Acute myocardial infarction Congestive heart failure (< 1 month) History of inflammatory bowel disease Medical patient at bed rest Age 61-74 Arthroscopic surgery Major open surgery (> 45 min) Laparoscopic surgery (> 45 min) Malignancy Confined to bed (> 72 hours) Immobilizing plaster cast Central venous access Age >= 75 History of VTE Family history of VTE Factor V Leiden Prothrombin [id number] Lupus anticoagulant Anticardiolipin antibodies Elevated serum homocysteine Heparin-induced thrombocytopenia Other congenital or acquired thrombophilia Stroke (< 1 month) Elective arthroplasty Hip, pelvis, or leg fracture Acute spinal cord injury (< 1 month) Prophylaxis Regimen Total Risk Factor Score Risk Level Prophylaxis Regimen 0-1 Low Early ambulation 2 Moderate Order ONE of the following: *Sequential Compression Device (SCD) *Heparin 5000 units SQ BID 3-4 Higher Order ONE of the following medications: *Heparin 5000 units SQ TID *Enoxaparin/Lovenox 40 mg SQ daily (WT < 150 kg, CrCl > 30 mL/min) *Enoxaparin/Lovenox 30 mg SQ daily (WT < 150 kg, CrCl > 10-29 mL/min) *Enoxaparin/Lovenox 30 mg SQ BID (WT < 150 kg, CrCl > 30 mL/min) AND/OR *Sequential Compression Device (SCD) 5 or more Highest Order ONE of the following medications: *Heparin 5000 units SQ TID (Preferred with Epidurals) *Enoxaparin/Lovenox 40 mg SQ daily (WT < 150 kg, CrCl > 30 mL/min) *Enoxaparin/Lovenox 30 mg SQ daily (WT < 150 kg, CrCl > 10-29 mL/min) *Enoxaparin/Lovenox 30 mg SQ BID (WT < 150 kg, CrCl > 30 mL/min) AND *Sequential Compression Device (SCD) Assessment and Plan Assessment and Plan Patient is a 72-year-old admitted with CHF exacerbation. He will be admitted and patient given requiring BiPAP at time of admission with significant fluid overload complicated by hypotension. Code Status Full code Discussed Condition With Seen and discussed with Dr. Ugalde Problem List: (1) CHF exacerbation ICD Codes: I50.9 - Heart failure, unspecified Status: Acute Plan: Patient on the Dr. Aquino, presenting with acute CHF exacerbation. He reports he had an echo 1 month ago but unknown EF. Will attempt to obtain records. Patient is on BiPAP at time of admission but recent ABG overall unremarkable. CXR showing significant pulmonary edema. BNP 1121. Initial troponin 0.41 with EKG showing paced rhythm, rate 94, QTc 478. He reportedly took his amlodipine, and lisinopril this morning. * Patient on BiPAP at time of admission to facilitate improvement of symptoms. Plan is for patient to initiate Lasix for fluid management once BP tolerating better and this will likely allow patient to be weaned from BiPAP. He received 1 dose of Lasix 40 mg IV in ED. * Patient has low BP with systolic in 90s, map approximately 70s. * Will monitor fluid response and administer Lasix once BP can tolerate. * Trend cardiac enzymes and EKG, monitoring for symptoms. Elevations are mild and likely related to CHF exacerbation. He presented with no chest pain * Obtain echocardiogram * Consult cardiology * Hold antihypertensives for now, titrate antihypertensives as tolerated, would start with Lasix given fluid overload * Continue aspirin, atorvastatin * Repeat CXR in the morning (2) SALIMA (acute kidney injury) ICD Codes: N17.9 - Acute kidney failure, unspecified Status: Acute Plan: Baseline creatinine is normal based on labs from September 2017. Creatinine 1.53 with GFR 55. Suspect SALIMA related to demand. * Trend BMP * Avoid nephrotoxic agents * Careful hydration limits given fluid overload but likely kidneys will need some gentle hydration, no additional fluids for now (3) Atrial fibrillation ICD Codes: I48.91 - Atrial fibrillation Status: Chronic Plan: Chronic A. fib, not with RVR at this time. He is on warfarin 7.5 mg reportedly Saturday and Saturday with last dose not taken today. INR at goal at time of admission. * We will continue warfarin given INR at goal at this time (4) HTN (hypertension) ICD Codes: I10 - Essential (primary) hypertension Status: Chronic Plan: Chronic essential hypertension on carvedilol 25 mg twice daily, amlodipine 10 mg daily, lisinopril 5 mg daily. He presents hypotensive with fluid overload consistent with CHF exacerbation * Management as above, hold antihypertensives for now (5) Pacemaker ICD Codes: Z95.0 - Presence of cardiac pacemaker Status: Chronic Plan: Chronic, no acute events with this. Will monitor on telemetry (6) DM (diabetes mellitus) ICD Codes: E11.9 - Diabetes mellitus Status: Chronic Plan: Chronic, not on insulin. Takes glipizide 5 mg twice daily before meals * Low-dose sliding scale Novolog while inpatient (7) CVA, old, hemiparesis ICD Codes: I69.359 - Hemiparesis following cerebrovascular accident Status: Chronic Plan: No acute neurologic deficits at this time, baseline right-sided weakness and speech difficulties. Will monitor symptoms (8) Gout ICD Codes: M10.9 - Gout, unspecified Status: Chronic Plan: No acute exacerbation. Continue colchicine 0.6 mg p.o. daily (9) Fluids/Electrolytes/Nutrition/Prophylaxis Status: Acute Plan: Fluids: Fluid restrict given CHF, will monitor Electrolytes: monitor and replete as needed Nutrition: N.p.o. for now given BiPAP and increased respiratory requirements DVT Prophylaxis: Early ambulation. On warfarin is therapeutic GI Prophylaxis: [steroids/ventilator/GIB/burn] PRN anti-HTN: Clonidine 0.1mg PO PRN for SBP > 180/ and/or DBP > 100 Physician Certification 2 Midnight Certification Type: Admission for Inpatient Services Order for Inpatient Services The services are ordered in accordance with Medicare regulations or non- Medicare payer requirements, as applicable. In the case of services not specified as inpatient-only, they are appropriately provided as inpatient services in accordance with the 2-midnight benchmark. Estimated LOS (days): 3 days is the estimated time the patient will need to remain in the hospital, assuming treatment plan goals are met and no additional complications. Post-Hospital Plan: Not yet determined Problem Qualifiers (1) CHF exacerbation: Qualified Codes: I50.23 - Acute on chronic systolic (congestive) heart failure (2) Atrial fibrillation: Qualified Codes: I48.2 - Chronic atrial fibrillation (3) HTN (hypertension): Qualified Codes: I10 - Essential (primary) hypertension (4) DM (diabetes mellitus): Rocío Buitrago MD Jan 01, 2018 16:23
[2018-01-01] MEDS ORDERED: BISACODYL 10 MG SUPP RECTAL PRN (17:45)
[2018-01-01] MEDS ORDERED: LACTULOSE SYRUP 20 GM/30 ML CUP PO PRN (17:45)
[2018-01-01] MEDS ORDERED: DEXTROSE 50% IN WATER 50 ML VIAL(D50) IV PUSH PRN (17:45)
[2018-01-01] MEDS ORDERED: GLUCAGON 1 MG/ML VIAL OTHER PRN (17:45)
[2018-01-01] MEDS ORDERED: MAGNESIUM HYDROXIDE SUSP 30 ML CUP PO PRN (17:45)
[2018-01-01] MEDS ORDERED: SENNOSIDES 8.6 MG TAB PO PRN (17:45)
[2018-01-01] MEDS ORDERED: CARVEDILOL 12.5 MG TAB PO SCH (21:00)
[2018-01-01] MEDS: SODIUM CHLORIDE 0.9% FLUSH 10 ML FLUSH IV FLUSH SCH (21:00)
[2018-01-01] MEDS: INSULIN ASPART SUPPLEMENTAL SCALE SQ SCH (21:00)
[2018-01-01] MEDS: DOCUSATE SODIUM 50 MG/SENNA 8.6 MG TAB PO SCH (22:15)
[2018-01-02] VITALS (14 sets, daily range): BP systolic 96–111; BP diastolic 54–73; PULSE 67–86; RESP 12–36; TEMP 97.6–98; O2SAT 96–100
[2018-01-02 04:00] LABS: AUTOMATED NEUTROPHIL # 2.2 TH/MM3 (1.8-7.7); EOSINOPHIL # 0.1 TH/MM3 (0-0.4); EOSINOPHIL % 3.4 % (0.0-4.0); HEMATOCRIT 37.8 % (39.0-51.0); HEMOGLOBIN 12.2 GM/DL (13.0-17.0); LYMPH % 19.7 % (9.0-44.0); LYMPHOCYTE # 0.7 TH/MM3 (1.0-4.8); MEAN CELL VOLUME 94.7 FL (80.0-100.0); MEAN CORPUSCULAR HEMOGLOBIN 30.5 PG (27.0-34.0); MEAN CORPUSCULAR HGB CONC 32.2 % (32.0-36.0); MEAN PLATELET VOLUME 8.6 FL (7.0-11.0); MONO % 15.4 % (0.0-8.0); MONOCYTE # 0.6 TH/MM3 (0-0.9); NEUT % 60.5 % (16.0-70.0); PLATELET COUNT 165 TH/MM3 (150-450); RED CELL DISTRIBUTION WIDTH 17.9 % (11.6-17.2); WHITE BLOOD COUNT 3.7 TH/MM3 (4.0-11.0)
[2018-01-02 04:10] LABS: INTERNATIONAL NORMALIZED RATIO 2.4 RATIO; PROTHROMBIN TIME - PATIENT 24.1 SEC (9.8-11.6)
[2018-01-02 04:46] LABS: BICARBONATE 20.9 MEQ/L (21.0-32.0); CALCIUM 9.2 MG/DL (8.5-10.1); CREATININE 1.82 MG/DL (0.60-1.30)
--- NOTE | 2018-01-02 07:48 | RADRPT ---
EXAM DATE/TIME: 01/02/2018 05:57 [facility] COMPARISON: No previous studies available for comparison. INDICATIONS : Shortness of breath. MEDICAL HISTORY : Hypertension. Diabetes mellitus type II. SURGICAL HISTORY : Pacemaker. CABG. ENCOUNTER: Subsequent ACUITY: 2 days PAIN SCORE: 0/10 LOCATION: Bilateral chest FINDINGS: A single view of the chest demonstrates cardiomegaly. Postop median sternotomy. Pacer leads overlie r ight actur right ventricle. Mild edema pattern. Small effusions. CONCLUSION: 1. Cardiomegaly with mild edema pattern and small effusions. Findings similar to January 01. Vipul Sherman MD on January 02, 2018 at 7:47 Board Certified Radiologist. This report was verified electronically.
[2018-01-02] MEDS: INSULIN ASPART SUPPLEMENTAL SCALE SQ SCH ×5 (07:56→20:16)
[2018-01-02] MEDS: ATORVASTATIN 40 MG TAB PO SCH (08:41)
[2018-01-02] MEDS: ASPIRIN EC 81 MG TABEC PO SCH (08:41)
[2018-01-02] MEDS: DOCUSATE SODIUM 50 MG/SENNA 8.6 MG TAB PO SCH ×2 (08:42→20:56)
[2018-01-02] MEDS: SODIUM CHLORIDE 0.9% FLUSH 10 ML FLUSH IV FLUSH SCH ×2 (08:54→20:56)
[2018-01-02] MEDS ORDERED: COLCHICINE 0.6 MG TAB PO SCH (09:00)
--- NOTE | 2018-01-02 09:31 | MB ---
cc: Pamela Aquino MD DATE: 01/02/2018 REASON FOR CONSULTATION: Congestive heart failure. HISTORY OF PRESENT ILLNESS: Mr. Bowman is a 72-year-old man who does have a history of an ischemic cardiomyopathy with a Biotronik ICD. He has a history of a CABG in 2005 with a ABDULLAHI to LAD, SVG to OM, PDA and PLB. He had subsequent stenting of his hip subsequent stenting of his RCA in 2014. He has had recurrent hospitalizations for CHF. He reports that he had been doing well until very recently, when he began having some progressive shortness of breath and a bit of edema is what precipitated his emergency room visit. He notes that he is feeling some better after diuresis from the ER, but is still having some shortness of breath. The patient does report that he has been compliant with his medications as well as his sodium and fluid intake. PAST MEDICAL HISTORY: Significant for CHF, anemia, atrial fibrillation on Coumadin, Biotronik ICD, CAD as above. His most recent nuclear stress test was in 01/2016, which showed predominantly fixed inferior and basal lateral defects consistent with WI. His EF was 30% at that time. EF by echo in 10/2017 was 35%. He also has a history of chronic kidney disease, COPD, CVA, diabetes, DVT, hypertension, hyperlipidemia, ischemic cardiomyopathy, osteoarthritis, NSVT and right bundle branch block. SOCIAL HISTORY: Reveals that he is a former smoker. FAMILY HISTORY: Noncontributory. OUTPATIENT MEDICATIONS: Included Albuterol, aspirin, atorvastatin 40 mg at bedtime, Lasix 40 mg every day as needed, glipizide, losartan 25 mg a day, metoprolol 25 mg b.i.d., potassium 10 mEq with Lasix, and Coumadin 5 mg a day, which was being managed outside of the office. PHYSICAL EXAMINATION: VITAL SIGNS: Hearty rate 84, respiratory rate 20, blood pressure 100/56 with a saturation of 99%. GENERAL: He is a morbidly obese man. He is in no apparent distress. NECK: Free from JVD. LUNGS: Decreased, but clear to auscultation. CARDIOVASCULAR: He has a normal S1 and S2. There is a II/ systolic murmur. No rubs or gallops are appreciated. ABDOMEN: Soft. EXTREMITIES: The right lower extremity has 1+ edema. The left lower extremity is free of edema. LABORATORY VALUES: Significant for a hemoglobin of 12, the creatinine is 1.82 and serial troponins are 0.41/0.46/0.44 with a BNP of 1338. IMAGING STUDIES: Chest x-ray shows cardiomegaly with mild pulmonary edema and a small effusion similar to 01/01/2018. IMPRESSION AND PLAN: 1. Acute on chronic systolic heart failure - The patient does have a history of the same. He has a known moderate to severe left ventricular impairment. At this point, it does appear that there is a significant renal impairment and thus cardiorenal syndrome making his fluid management difficult. I suspect that there is also significant chronic obstructive pulmonary disease component to his shortness of breath, contributing also to the overall picture. 2. Renal insufficiency - This does appear to be relatively new and again suggests that there may be a stronger chronic obstructive pulmonary disease component to his shortness of breath. 3. Elevated troponin - The patient does have baseline elevated troponins in this situation and thus it is felt to be secondary to his congestive heart failure. 4. Chronic obstructive pulmonary disease and shortness of breath - This will be managed by the primary team. 5. Atrial fibrillation - The patient will need to be continued at least on lower dose carvedilol. He is in sinus rhythm. I would continue his Coumadin. 6. Ischemic cardiomyopathy - Again, the patient should be continued on a lower dose beta blockade. His blood pressure is too low and renal function too impaired for any MERI inhibitor, ARB or Entresto at this point. MD JAYLEN Michele/CONCEPCIÓN , 09:04 AM , 09:30 AM
--- NOTE | 2018-01-02 14:06 | EKG ---
Date Performed: 01/01/2018 Time Performed: 13:58:29 PTAGE: 72 years EKG: Sinus rhythm WITH P-WAVE SYNCHRONOUS VENTRICULAR PACING ABNORMAL RHYTHM ECG Since PREVIOUS TRACING , no significant change noted PREVIOUS TRACIN09/13/2017 12.44 DOCTOR: Brock Crook Interpretating Date/Time 01/02/2018 14:05:32
--- NOTE | 2018-01-02 14:52 | EKG ---
Date Performed: 01/01/2018 Time Performed: 23:27:54 PTAGE: 72 years EKG: Sinus rhythm with P wave synchronis ventricular pacing similar to the prior tracing PREVIOUS TRACING : 01/01/2018 13.58 DOCTOR: Brock Crook Interpretating Date/Time 01/02/2018 14:50:44
[2018-01-02] MEDS ORDERED: HYDROCORTISONE 1% LOTN 120 ML BTL TOPICAL PRN (15:00)
[2018-01-02] MEDS ORDERED: HYDROCORTISONE 1% CREAM 30 GM TOPICAL PRN (15:00)
[2018-01-02] MEDS: RESP: ALBUTEROL 2.5 MG/IPRATROPIUM 0.5 MG NEB (SCH) INH ×2 (15:16→21:14)
[2018-01-02] MEDS ORDERED: WARFARIN SOD 7.5 MG TAB PO SCH (16:00)
--- NOTE | 2018-01-02 16:39 | ECHRPT ---
Indication: Heart Failure CONCLUSIONS The left ventricular systolic function is severely reduced with an estimated ejection fraction less than 20%. Severely dilated left ventricle. The basal posterior and basal lateral rizzo contract normally; al l other segments are severely hypokinetic or akinetic. The left atrial size is [id number] dilated. Moderately dilated right atrium. Moderately dilated proximal ascending aorta. Moderate to severe mitral valve regurgitation. Trileaflet aortic valve. Slight thickening of the aortic valve leaflets. Mild aortic valve regurgita tion. There is severe tricuspid valve regurgitation. The estimated pulmonary arterial pressure is 33 mmHg. BP: 100 / 56 HR: 84 Rhythm: Sinus MEASUREMENTS (Male / Female) Normal Values Technical Quality:Fair 2D ECHO LV Diastolic Diameter PLAX 7.3 cm 4.2 - 5.9 / 3.9 - 5.3 cm LV Systolic Diameter PLAX 6.3 cm IVS Diastolic Thickness 1.0 cm 0.6 - 1.0 / 0.6 - 0.9 cm LVPW Diastolic Thickness 1.0 cm 0.6 - 1.0 / 0.6 - 0.9 cm LV Relative Wall Thickness 0.3 RV Internal Dim ED PLAX 4.6 cm LVOT Diameter 2.0 cm LA Systolic Diameter LX 6.2 cm 3.0 - 4.0 / 2.7 - 3.8 cm M-MODE Aortic Root Diameter MM 3.3 cm LA Systolic Diameter MM 5.4 cm LA Ao Ratio MM 1.6 MV E Point Septal Separation 2.3 cm AV Cusp Separation MM 1.8 cm DOPPLER AV Peak Velocity 77.2 cm/s AV Peak Gradient 2.4 mmHg AI Peak Velocity 299.8 cm/s AI Peak Gradient 35.9 mmHg AI Pressure Half Time 306.3 ms LVOT Peak Velocity 54.0 cm/s LVOT Peak Gradient 1.2 mmHg AV Area Cont Eq pk 2.2 cm MV Area PHT 6.5 cm Mitral E Point Velocity 106.0 cm/s Mitral A Point Velocity 45.1 cm/s Mitral E to A Ratio 2.4 LV E' Lateral Velocity 10.0 cm/s Mitral E to LV E' Lateral Ratio 10.6 LV E' Septal Velocity 4.8 cm/s Mitral E to LV E' Septal Ratio 22.2 TR Peak Velocity 244.0 cm/s TR Peak Gradient 23.8 mmHg Right Atrial Pressure 10.0 mmHg Pulmonary Artery Systolic Pressu 33.8 mmHg Right Ventricular Systolic Press 33.8 mmHg FINDINGS LEFT VENTRICLE The left ventricular systolic function is severely reduced with an estimated ejection fraction less than 20%. Severely dilated left ventricle. The basal posterior and basal lateral rizzo contract normally; al l other segments are severely hypokinetic or akinetic. RIGHT VENTRICLE A pacemaker wire is noted. LEFT ATRIUM The left atrial size is [id number] dilated. RIGHT ATRIUM Moderately dilated right atrium. ATRIAL SEPTUM Normal atrial septal thickness without atrial level shunting by limited color doppler interrogation. AORTA Moderately dilated proximal ascending aorta. MITRAL VALVE Moderate to severe mitral valve regurgitation. AORTIC VALVE Trileaflet aortic valve. Slight thickening of the aortic valve leaflets. Mild aortic valve regurgita tion. TRICUSPID VALVE Structurally normal tricuspid valve. There is severe tricuspid valve regurgitation. The estimated pulmonary arterial pressure is 33 mmHg. PULMONARY VALVE Moderate pulmonary valve regurgitation. VESSELS The inferior vena cava is normal in size. PERICARDIUM No pericardial effusion. Juve Weiner MD (Electronically Signed) Final Date:02 January 2018 16:37
[2018-01-02] MEDS: TAMSULOSIN HCL 0.4 MG CAP PO SCH (16:54)
--- NOTE | 2018-01-02 17:05 | HHI.FPPN ---
Subjective Remarks No acute events overnight. Patient states that he is breathing a little better but nowhere near baseline. He is complaining of decreased urinary output - this is sometimes a chronic problem for him. Otherwise denies CP, N/V, abdominal pain. (Babak Ugalde MD R1) Objective Vitals Vital Signs Date Time Temp Pulse Resp B/P (MAP) Pulse Ox O2 Delivery O2 Flow Rate FiO2 01/02/18 15:19 99 Nasal Cannula 4.00 01/02/18 14:00 81 01/02/18 13:28 97.9 82 36 98/72 (81) 99 01/02/18 12:55 01/02/18 10:33 83 12 99/65 (76) 96 Room Air 01/02/18 07:36 84 20 100/56 (71) 99 Nasal Cannula 4.00 01/02/18 05:07 98.0 81 20 98/54 (69) 98 Nasal Cannula 4.00 01/02/18 01:38 77 16 97/73 (81) 100 Nasal Cannula 4.00 01/01/18 22:22 83 18 96/50 (65) 100 Nasal Cannula 4.00 01/01/18 19:30 88 16 102/66 (78) 95 01/01/18 18:40 99 Nasal Cannula 4.00 01/01/18 18:40 89 22 95/59 (71) 100 Nasal Cannula 4.00 01/01/18 17:59 81 18 93/65 (74) 100 BiPAP 01/01/18 17:12 83 20 97/65 (76) 100 BiPAP 01/01/18 16:35 83 20 93/59 (70) 100 BiPAP I/O 01/01/18 01/01/18 01/01/18 01/02/18 01/02/18 01/02/18 07:00 15:00 23:00 07:00 15:00 23:00 Output Total 625 ml 250 ml 200 ml Balance -625 ml -250 ml -200 ml Output Urine Total 625 ml 250 ml 200 ml # Voids 2 # Bowel Movements 1 (Babak Ugalde MD R1) Result Diagram: 01/02/1833801/02/18338 Objective Remarks GENERAL: This is a well-nourished, well-developed male sitting in chair with NC in place. Mildly labored breathing but able to speak in full sentences. SKIN: No rashes, ecchymoses or lesions. Cool and dry. HEAD: Atraumatic. Normocephalic. No temporal or scalp tenderness. EYES: Pupils equal round and reactive. Extraocular motions intact. No scleral icterus. No injection or drainage. ENT: Nose without bleeding or purulent drainage. Airway patent. NECK: Trachea midline. No JVD or lymphadenopathy. Supple, nontender, no meningeal signs. CARDIOVASCULAR: Regular rate and rhythm without murmurs, RESPIRATORY: Good air movement bilaterally with no crackles appreciated. GASTROINTESTINAL: Abdomen soft, non-tender, nondistended. No hepato-splenomegaly , or palpable masses. No guarding. MUSCULOSKELETAL: 1+ pitting edema to level of midshin appreciated in BLE. No joint tenderness, effusion, or edema noted. No calf tenderness. Fungal rash appreciated on his R foot NEUROLOGICAL: Awake and alert. Cranial nerves II through XII grossly intact. Motor and sensory grossly within normal limits. Grossly normal strength. (Babak Ugalde MD R1) A/P Assessment and Plan Patient is a 72-year-old admitted with CHF exacerbation. He will be admitted and patient given requiring BiPAP at time of admission with significant fluid overload complicated by hypotension. (Babak Ugalde MD R1) Attending Attestation Table rounds this morning with Dr Morley, Dr May Buitrago, Dr Ugalde and Dr Hawk Patients admission and hospital course discussed in detail EMR reviewed Patient interviewed and examined with medical team Agree with contents of above documentation See Orders (Jose Alberto Rivera MD) Problem List: (1) CHF exacerbation ICD Codes: I50.9 - Heart failure, unspecified Status: Acute Plan: Patient on the Dr. Aquino, presenting with acute CHF exacerbation. He reports he had an echo 1 month ago but unknown EF. Will attempt to obtain records. Patient is on BiPAP at time of admission but recent ABG overall unremarkable. CXR showing significant pulmonary edema. BNP 1121. Initial troponin 0.41 with EKG showing paced rhythm, rate 94, QTc 478. He reportedly took his amlodipine, and lisinopril on morning of admission. He received 1 dose of Lasix 40 mg IV in ED. * Weaned to NC overnight with no difficulties - patient continues to be SOB but mildly improved from admission * Patient has low BP with systolic in 90s - stable and unchanged on 01/02 * Will monitor fluid response and administer Lasix once BP can tolerate. * ACS workup negative * BNP increased to 1338 on 01/02 * Echocardiogram pending * Cardiology consulted - appreciated recommendations * Hold antihypertensives for now, titrate antihypertensives as tolerated, would start with Lasix given fluid overload * Continue aspirin, atorvastatin * Repeat CXR on 01/02 unchanged (2) COPD (chronic obstructive pulmonary disease) ICD Codes: J44.9 - Chronic obstructive pulmonary disease Status: Chronic Plan: Suspecting a component of COPD as patient's lung exam has minimal crackles, continues to be SOB Nursing staff reporting wheezing on exam on afternoon of 01/02 Duonebs q6hr scheduled Albuterol PRN Will consider adding Prednisone and Levaquin to cover a COPD exacerbation pending clinical improvement. (3) SALIMA (acute kidney injury) ICD Codes: N17.9 - Acute kidney failure, unspecified Status: Acute Plan: Baseline creatinine is normal based on labs from September 2017. Creatinine 1.53 on admission - worsened to 1.82 on 01/02. Suspect SALIMA related to demand. * Trend BMP * Avoid nephrotoxic agents * Careful hydration limits given fluid overload but likely kidneys will need some gentle hydration, no additional fluids for now (4) Atrial fibrillation ICD Codes: I48.91 - Atrial fibrillation Status: Chronic Plan: Chronic A. fib, not with RVR at this time. He is on warfarin 7.5 mg reportedly Saturday and Saturday with last dose not taken today. INR at goal at time of admission. * We will continue warfarin given INR at goal at this time * Carvedilol 3.125mg po BID (decreased from home dose as patient is hypotensive) (5) HTN (hypertension) ICD Codes: I10 - Essential (primary) hypertension Status: Chronic Plan: Chronic essential hypertension on carvedilol 25 mg twice daily, amlodipine 10 mg daily, lisinopril 5 mg daily. He presents hypotensive with fluid overload consistent with CHF exacerbation * Management as above, holding antihypertensives aside from carvedilol at 3.125mg po BID per cardiology (6) Pacemaker ICD Codes: Z95.0 - Presence of cardiac pacemaker Status: Chronic Plan: Chronic, no acute events with this. Will monitor on telemetry (7) DM (diabetes mellitus) ICD Codes: E11.9 - Diabetes mellitus Status: Chronic Plan: Chronic, not on insulin. Takes glipizide 5 mg twice daily before meals * Low-dose sliding scale Novolog while inpatient (8) CVA, old, hemiparesis ICD Codes: I69.359 - Hemiparesis following cerebrovascular accident Status: Chronic Plan: No acute neurologic deficits at this time, baseline right-sided weakness and speech difficulties. Will monitor symptoms (9) Tinea pedis ICD Codes: B35.3 - Tinea pedis Plan: Chronic fungal rash appreciated on patient's R foot Tinactin cream ordered BID (10) BPH (benign prostatic hyperplasia) ICD Codes: N40.0 - Benign prostatic hyperplasia without lower urinary tract symptoms Plan: Patient has a history of BPH Able to urinate today but reporting decreased flow Holding home Flomax due to hypotension Instructed nursing staff to obtain bladder scan Will consider placing Rolon if he is retaining urine (11) Gout ICD Codes: M10.9 - Gout, unspecified Status: Chronic Plan: No acute exacerbation. Holding home colchicine due to SALIMA (12) Fluids/Electrolytes/Nutrition/Prophylaxis Status: Acute Plan: Fluids: Fluid restrict given CHF, will monitor Electrolytes: monitor and replete as needed Nutrition: Heart healthy diet DVT Prophylaxis: Early ambulation. On warfarin is therapeutic (Babak Ugalde MD R1) Problem Qualifiers (1) CHF exacerbation: Qualified Codes: I50.23 - Acute on chronic systolic (congestive) heart failure (2) Atrial fibrillation: Qualified Codes: I48.2 - Chronic atrial fibrillation (3) HTN (hypertension): Qualified Codes: I10 - Essential (primary) hypertension (4) DM (diabetes mellitus): Babak Ugalde MD R1 Jan 02, 2018 17:05 Jose Alberto Rivera MD Jan 02, 2018 19:43
[2018-01-02] MEDS: CARVEDILOL 3.125 MG TAB PO SCH (20:56)
[2018-01-02] MEDS: TOLNAFTATE 1% CREAM 15 GM TOPICAL SCH (20:56)
[2018-01-03] VITALS (22 sets, daily range): BP systolic 88–117; BP diastolic 32–86; PULSE 84–96; RESP 18–24; TEMP 97.7–98.4; O2SAT 92–100
[2018-01-03] MEDS: RESP: ALBUTEROL 2.5 MG/IPRATROPIUM 0.5 MG NEB (SCH) INH ×4 (03:45→21:16)
[2018-01-03 07:23] LABS: AUTOMATED NEUTROPHIL # 2.7 TH/MM3 (1.8-7.7); BASOPHIL # 0.1 TH/MM3 (0-0.2); BASOPHIL % 1.4 % (0.0-2.0); EOSINOPHIL # 0.1 TH/MM3 (0-0.4); EOSINOPHIL % 2.9 % (0.0-4.0); HEMATOCRIT 40.8 % (39.0-51.0); HEMOGLOBIN 13.1 GM/DL (13.0-17.0); LYMPH % 19.2 % (9.0-44.0); LYMPHOCYTE # 0.9 TH/MM3 (1.0-4.8); MEAN CELL VOLUME 94.7 FL (80.0-100.0); MEAN CORPUSCULAR HEMOGLOBIN 30.5 PG (27.0-34.0); MEAN CORPUSCULAR HGB CONC 32.2 % (32.0-36.0); MEAN PLATELET VOLUME 8.7 FL (7.0-11.0); MONO % 16.4 % (0.0-8.0); MONOCYTE # 0.7 TH/MM3 (0-0.9); NEUT % 60.1 % (16.0-70.0); PLATELET COUNT 181 TH/MM3 (150-450); WHITE BLOOD COUNT 4.5 TH/MM3 (4.0-11.0)
[2018-01-03 08:00] LABS: BICARBONATE 23.2 MEQ/L (21.0-32.0); CALCIUM 9.1 MG/DL (8.5-10.1); CREATININE 1.8 MG/DL (0.60-1.30)
[2018-01-03] MEDS: TAMSULOSIN HCL 0.4 MG CAP PO SCH (08:11)
[2018-01-03] MEDS: DOCUSATE SODIUM 50 MG/SENNA 8.6 MG TAB PO SCH ×2 (08:12→20:27)
[2018-01-03] MEDS: ATORVASTATIN 40 MG TAB PO SCH (08:12)
[2018-01-03] MEDS: TOLNAFTATE 1% CREAM 15 GM TOPICAL SCH ×2 (08:12→20:29)
[2018-01-03] MEDS: ASPIRIN EC 81 MG TABEC PO SCH (08:12)
[2018-01-03] MEDS: SODIUM CHLORIDE 0.9% FLUSH 10 ML FLUSH IV FLUSH SCH ×2 (08:13→20:27)
[2018-01-03] MEDS: INSULIN ASPART SUPPLEMENTAL SCALE SQ SCH ×4 (08:17→20:30)
[2018-01-03] MEDS ORDERED: WARFARIN SOD 7.5 MG TAB PO SCH (09:00)
[2018-01-03] MEDS: CARVEDILOL 3.125 MG TAB PO SCH ×2 (10:10→20:27)
--- NOTE | 2018-01-03 10:33 | HHI.FPPN ---
Subjective Remarks No acute events overnight. Patient states he is feeling much better this morning and is breathing easier, but not back to 100%. Denies CP, N/V. He continues to be able to urinate without difficulty but often only in small quantities. Objective Vitals Vital Signs Date Time Temp Pulse Resp B/P (MAP) Pulse Ox O2 Delivery O2 Flow Rate FiO2 01/03/18 10:12 96 Nasal Cannula 2.00 01/03/18 08:00 98.1 85 18 98/65 (76) 98 01/03/18 07:00 98 Nasal Cannula 2.00 01/03/18 04:03 84 01/03/18 04:00 97.8 86 20 104/70 (81) 99 01/03/18 00:05 88 01/03/18 00:00 97.7 86 22 95/63 (74) 92 01/02/18 21:16 97 Nasal Cannula 2.00 01/02/18 20:06 83 01/02/18 20:00 Nasal Cannula 2.00 01/02/18 20:00 97.6 86 22 96/66 (76) 99 01/02/18 18:00 84 01/02/18 17:00 80 01/02/18 16:00 80 01/02/18 16:00 97 Nasal Cannula 3.00 01/02/18 16:00 97.9 67 30 111/60 (77) 100 01/02/18 15:19 99 Nasal Cannula 4.00 01/02/18 15:00 82 01/02/18 14:00 81 01/02/18 13:28 97.9 82 36 98/72 (81) 99 01/02/18 12:55 I/O 01/02/18 01/02/18 01/02/18 01/03/18 01/03/18 01/03/18 07:00 15:00 23:00 07:00 15:00 23:00 Intake Total 300 ml 120 ml Output Total 250 ml 200 ml 200 ml 300 ml Balance -250 ml -200 ml 100 ml -180 ml Intake Oral 300 ml 120 ml Output Urine Total 250 ml 200 ml 200 ml 300 ml Bladder Scan Volume Amount 77 ml # Voids 2 # Bowel Movements 1 2 Result Diagram: 01/03/1851801/03/18518 Objective Remarks GENERAL: This is a well-nourished, well-developed male sitting up in bed with NC in place. Able to speak in full sentences without difficulty breathing SKIN: No rashes, ecchymoses or lesions. Cool and dry. HEAD: Atraumatic. Normocephalic. No temporal or scalp tenderness. EYES: Pupils equal round and reactive. Extraocular motions intact. No scleral icterus. No injection or drainage. ENT: Nose without bleeding or purulent drainage. Airway patent. NECK: Trachea midline. No JVD or lymphadenopathy. Supple, nontender, no meningeal signs. CARDIOVASCULAR: Regular rate and rhythm without murmurs, RESPIRATORY: Good air movement bilaterally with no crackles appreciated. GASTROINTESTINAL: Abdomen soft, non-tender, nondistended. No hepato-splenomegaly , or palpable masses. No guarding. MUSCULOSKELETAL: 1+ pitting edema to level of midshin appreciated in BLE - improved from prior exams. No joint tenderness, effusion, or edema noted. No calf tenderness. NEUROLOGICAL: Awake and alert. Cranial nerves II through XII grossly intact. Motor and sensory grossly within normal limits. Grossly normal strength. A/P Assessment and Plan Patient is a 72-year-old admitted with CHF exacerbation. He required BiPAP at time of admission with significant fluid overload complicated by hypotension. Received Lasix IV x 1 in ED. Weaned to NC on day 1 of hospitalization and has had continued improvement in symptoms. Continues to be hypotensive in the 90's systolic, so Lasix were initially held. Decreased Coreg to 3.125mg po BID and holding HTN meds. Cardiology was consulted on admission and started IV Lasix 40mg BID on 01/03. Added Duonebs, Albuterol PRN on 01/02 as patient was reported to have wheezing -> improvement in symptoms. Discharge Planning Discharge likely in 1-2 more days. Typical CHF exacerbations have lasted 4 days in the past per patient. Problem List: (1) CHF exacerbation ICD Codes: I50.9 - Heart failure, unspecified Status: Acute Plan: Patient on the Dr. Aquino, presenting with acute CHF exacerbation. He reports he had an echo 1 month ago but unknown EF. Will attempt to obtain records. Patient is on BiPAP at time of admission but recent ABG overall unremarkable. CXR showing significant pulmonary edema. BNP 1121. Initial troponin 0.41 with EKG showing paced rhythm, rate 94, QTc 478. He reportedly took his amlodipine, and lisinopril on morning of admission. He received 1 dose of Lasix 40 mg IV in ED. * Weaned to NC on night of admission - has tolerated well and has improvement in symptoms. On 2L NC at home per patient's . * Patient has low BP with systolic in 90s - stable and unchanged on 01/03 * Lasix 40mg IV BID started by Cardiology on 01/03 * ACS workup negative * BNP increased to 1338 on 01/02 * Echocardiogram showing EF less than 20%, severely dilated LV, mod to severe MV regurg, severe tricuspid regurg * Cardiology consulted - appreciated recommendations * Hold antihypertensives for now, titrate antihypertensives as tolerated * Continue aspirin, atorvastatin * Repeat CXR on 01/02 unchanged (2) COPD (chronic obstructive pulmonary disease) ICD Codes: J44.9 - Chronic obstructive pulmonary disease Status: Chronic Plan: Suspecting a component of COPD as patient's lung exam has minimal crackles, continues to be SOB Nursing staff reporting wheezing on exam on afternoon of 01/02 Duonebs q6hr scheduled Albuterol PRN Symptoms improved on 01/03 (3) SALIMA (acute kidney injury) ICD Codes: N17.9 - Acute kidney failure, unspecified Status: Acute Plan: Baseline creatinine is normal based on labs from September 2017. Creatinine 1.53 on admission - increased to 1.80 on 01/03. Suspect SALIMA related to demand. * Trend BMP * Avoid nephrotoxic agents * Careful hydration limits given fluid overload but likely kidneys will need some gentle hydration, no additional fluids for now (4) Atrial fibrillation ICD Codes: I48.91 - Atrial fibrillation Status: Chronic Plan: Chronic A. fib, not with RVR at this time. He is on warfarin 7.5 mg reportedly Saturday and Saturday with last dose not taken today. INR at goal at time of admission. * We will continue warfarin given INR at goal at this time * Carvedilol 3.125mg po BID (decreased from home dose as patient is hypotensive) (5) HTN (hypertension) ICD Codes: I10 - Essential (primary) hypertension Status: Chronic Plan: Chronic essential hypertension on carvedilol 25 mg twice daily, amlodipine 10 mg daily, lisinopril 5 mg daily. He presents hypotensive with fluid overload consistent with CHF exacerbation * Management as above, holding antihypertensives aside from carvedilol at 3.125mg po BID per cardiology (6) Pacemaker ICD Codes: Z95.0 - Presence of cardiac pacemaker Status: Chronic Plan: Chronic, no acute events with this. Will monitor on telemetry (7) DM (diabetes mellitus) ICD Codes: E11.9 - Diabetes mellitus Status: Chronic Plan: Chronic, not on insulin. Takes glipizide 5 mg twice daily before meals * Low-dose sliding scale Novolog while inpatient (8) CVA, old, hemiparesis ICD Codes: I69.359 - Hemiparesis following cerebrovascular accident Status: Chronic Plan: No acute neurologic deficits at this time, baseline right-sided weakness and speech difficulties. Will monitor symptoms (9) Tinea pedis ICD Codes: B35.3 - Tinea pedis Plan: Chronic fungal rash appreciated on patient's R foot Tinactin cream ordered BID -Improvement in symptoms on 01/03 (10) BPH (benign prostatic hyperplasia) ICD Codes: N40.0 - Benign prostatic hyperplasia without lower urinary tract symptoms Plan: Patient has a history of BPH Able to urinate but reporting decreased flow Continuing home Flomax with BP parameters Instructed nursing staff to obtain bladder scan Will consider placing Rolon if he is retaining urine (11) Gout ICD Codes: M10.9 - Gout, unspecified Status: Chronic Plan: No acute exacerbation. Holding home colchicine due to SALIMA (12) Fluids/Electrolytes/Nutrition/Prophylaxis Status: Acute Plan: Fluids: Fluid restrict given CHF, will monitor Electrolytes: monitor and replete as needed Nutrition: Heart healthy diet DVT Prophylaxis: Early ambulation. On warfarin is therapeutic Problem Qualifiers (1) CHF exacerbation: Qualified Codes: I50.23 - Acute on chronic systolic (congestive) heart failure (2) Atrial fibrillation: Qualified Codes: I48.2 - Chronic atrial fibrillation (3) HTN (hypertension): Qualified Codes: I10 - Essential (primary) hypertension (4) DM (diabetes mellitus): Babak Ugalde MD R1 Jan 03, 2018 10:33
--- NOTE | 2018-01-03 11:51 | PD.CARD.PN ---
Subjective Subjective Remarks Patient mostly nonverbal - not able to elicit c/o chest pain or dyspnea Objective Medications Current Medications Medications (Trade) Dose Ordered Sig/Kaila Route Start Time Stop Time Status Last Admin (NS Flush) 2 ml UNSCH PRN IV FLUSH 01/01/18 16:15 (NS Flush) 2 ml BID IV FLUSH 01/01/18 21:00 01/03/18 08:13 (Ecotrin Ec) 81 mg DAILY PO 01/02/18 09:00 01/03/18 08:12 (Lipitor) 40 mg DAILY PO 01/02/18 09:00 01/03/18 08:12 (D50w (Vial) Inj) 50 ml UNSCH PRN IV PUSH 01/01/18 17:45 (Glucagon Inj) 1 mg UNSCH PRN OTHER 01/01/18 17:45 (NovoLOG SUPPLEMENTAL SCALE) 1 ACHS SLIDING SCALE SQ 01/01/18 21:00 (Natalie-Colace) 1 tab BID PO 01/01/18 21:00 01/03/18 08:12 (Milk Of Magnesia Liq) 30 ml Q12H PRN PO 01/01/18 17:45 (Senokot) 17.2 mg Q12H PRN PO 01/01/18 17:45 (Dulcolax Supp) 10 mg DAILY PRN RECTAL 01/01/18 17:45 (Lactulose Liq) 30 ml DAILY PRN PO 01/01/18 17:45 (Coumadin) 7.5 mg EVERY OTHER DAY PO 01/02/18 16:00 01/02/18 16:54 (Coreg) 3.125 mg Q12HR PO 01/02/18 21:00 01/03/18 10:10 (Flomax) 0.4 mg DAILY PO 01/02/18 15:00 01/03/18 08:11 (Tinactin 1% Cream) 1 applic Q12HR TOPICAL 01/02/18 21:00 01/03/18 08:12 (Duoneb Neb) 1 ampule Q6HR NEB INH 01/02/18 16:00 01/03/18 10:10 (Albuterol Neb) 2.5 mg Q2HR NEB PRN INH 01/02/18 14:00 (Hydrocortisone 1% Cream) 1 applic Q12H PRN TOPICAL 01/02/18 15:00 Vital Signs / I&O Vital Signs Date Time Temp Pulse Resp B/P (MAP) Pulse Ox O2 Delivery O2 Flow Rate FiO2 01/03/18 10:12 96 Nasal Cannula 2.00 01/03/18 08:00 98.1 85 18 98/65 (76) 98 01/03/18 07:00 98 Nasal Cannula 2.00 01/03/18 04:03 84 01/03/18 04:00 97.8 86 20 104/70 (81) 99 01/03/18 00:05 88 01/03/18 00:00 97.7 86 22 95/63 (74) 92 01/02/18 21:16 97 Nasal Cannula 2.00 01/02/18 20:06 83 01/02/18 20:00 Nasal Cannula 2.00 01/02/18 20:00 97.6 86 22 96/66 (76) 99 01/02/18 18:00 84 01/02/18 17:00 80 01/02/18 16:00 80 01/02/18 16:00 97 Nasal Cannula 3.00 01/02/18 16:00 97.9 67 30 111/60 (77) 100 01/02/18 15:19 99 Nasal Cannula 4.00 01/02/18 15:00 82 01/02/18 14:00 81 01/02/18 13:28 97.9 82 36 98/72 (81) 99 01/02/18 12:55 I/O 01/02/18 01/02/18 01/02/18 01/03/18 01/03/18 01/03/18 07:00 15:00 23:00 07:00 15:00 23:00 Intake Total 300 ml 120 ml Output Total 250 ml 200 ml 200 ml 300 ml Balance -250 ml -200 ml 100 ml -180 ml Intake Oral 300 ml 120 ml Output Urine Total 250 ml 200 ml 200 ml 300 ml Bladder Scan Volume Amount 77 ml # Voids 2 # Bowel Movements 1 2 Physical Exam Patient lethargic but arousable Neck: marked JVD Chest dcrease BS at bases CV [id number] RRR very distant Ext 2+ edema Prior CXR shows CHF Laboratory Laboratory Tests Test 01/03/18 05:19 White Blood Count 4.5 TH/MM3 Red Blood Count 4.30 MIL/MM3 Hemoglobin 13.1 GM/DL Hematocrit 40.8 % Mean Corpuscular Volume 94.7 FL Mean Corpuscular Hemoglobin 30.5 PG Mean Corpuscular Hemoglobin Concent 32.2 % Red Cell Distribution Width 18.0 % Platelet Count 181 TH/MM3 Mean Platelet Volume 8.7 FL Neutrophils (%) (Auto) 60.1 % Lymphocytes (%) (Auto) 19.2 % Monocytes (%) (Auto) 16.4 % Eosinophils (%) (Auto) 2.9 % Basophils (%) (Auto) 1.4 % Neutrophils # (Auto) 2.7 TH/MM3 Lymphocytes # (Auto) 0.9 TH/MM3 Monocytes # (Auto) 0.7 TH/MM3 Eosinophils # (Auto) 0.1 TH/MM3 Basophils # (Auto) 0.1 TH/MM3 CBC Comment DIFF FINAL Differential Comment Blood Urea Nitrogen 49 MG/DL Creatinine 1.80 MG/DL Random Glucose 113 MG/DL Calcium Level 9.1 MG/DL Sodium Level 138 MEQ/L Potassium Level 4.3 MEQ/L Chloride Level 104 MEQ/L Carbon Dioxide Level 23.2 MEQ/L Anion Gap 11 MEQ/L Estimat Glomerular Filtration Rate 45 ML/MIN Imaging Last 48 hours Impressions Chest X-Ray 01/02/18 0600 Signed Impressions: Service Date/Time: December 05:57 - CONCLUSION: 1. Cardiomegaly with mild edema pattern and small effusions. Findings similar to January 01. 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
[2018-01-03] MEDS: FUROSEMIDE 40 MG/4 ML VIAL IV PUSH SCH ×2 (12:14→17:18)
[2018-01-04] VITALS (29 sets, daily range): BP systolic 106–118; BP diastolic 76–90; PULSE 78–89; RESP 20–30; TEMP 97–98.1; O2SAT 95–100
[2018-01-04] MEDS: RESP: ALBUTEROL 2.5 MG/3 ML NEB (PRN) INH ×3 (00:50→18:35)
[2018-01-04] MEDS: RESP: ALBUTEROL 2.5 MG/IPRATROPIUM 0.5 MG NEB (SCH) INH ×4 (03:42→21:15)
[2018-01-04 07:51] LABS: ALBUMIN 3.4 GM/DL (3.4-5.0); ALKALINE PHOSPHATASE 71 U/L (45-117); ALT (GPT) 61 U/L (12-78); AST (GOT) 22 U/L (15-37); BICARBONATE 21.4 MEQ/L (21.0-32.0); BLOOD UREA NITROGEN 47 MG/DL (7-18); CALCIUM 9.3 MG/DL (8.5-10.1); CHLORIDE 106 MEQ/L (98-107); CREATININE 1.84 MG/DL (0.60-1.30); GLOMERULAR FILTRATION RATE 44 ML/MIN (>89); GLUCOSE,RANDOM 140 MG/DL (74-106); SODIUM (NA) 138 MEQ/L (136-145); TOTAL BILIRUBIN ADULT 1.2 MG/DL (0.2-1.0); TOTAL PROTEIN 6.6 GM/DL (6.4-8.2)
[2018-01-04] MEDS: INSULIN ASPART SUPPLEMENTAL SCALE SQ SCH ×4 (08:00→21:00)
[2018-01-04] MEDS: ASPIRIN EC 81 MG TABEC PO SCH (08:55)
[2018-01-04] MEDS: TAMSULOSIN HCL 0.4 MG CAP PO SCH (08:55)
[2018-01-04] MEDS: DOCUSATE SODIUM 50 MG/SENNA 8.6 MG TAB PO SCH ×2 (08:55→20:38)
[2018-01-04] MEDS: FUROSEMIDE 40 MG/4 ML VIAL IV PUSH SCH ×2 (08:56→18:02)
[2018-01-04] MEDS: CARVEDILOL 3.125 MG TAB PO SCH ×2 (08:56→20:38)
[2018-01-04] MEDS: ATORVASTATIN 40 MG TAB PO SCH (08:56)
[2018-01-04] MEDS: SODIUM CHLORIDE 0.9% FLUSH 10 ML FLUSH IV FLUSH SCH ×2 (08:57→20:38)
[2018-01-04] MEDS: TOLNAFTATE 1% CREAM 15 GM TOPICAL SCH ×2 (08:58→20:38)
--- NOTE | 2018-01-04 10:14 | HHI.FPPN ---
Subjective Remarks No acute events overnight. Patient states he is breathing easier, about 75% back to his baseline. Denies chest pain, nausea or vomiting. No complaints about urinary difficulty Objective Vitals Vital Signs Date Time Temp Pulse Resp B/P (MAP) Pulse Ox O2 Delivery O2 Flow Rate FiO2 01/04/18 09:30 98 Nasal Cannula 2.00 01/04/18 07:33 95 Nasal Cannula 3.00 01/04/18 07:28 97.1 88 30 118/90 (99) 95 01/04/18 06:00 88 01/04/18 05:00 86 01/04/18 04:00 87 01/04/18 04:00 Nasal Cannula 2.00 01/04/18 04:00 98.0 87 20 106/89 (95) 96 01/04/18 03:00 84 01/04/18 02:00 85 01/04/18 01:00 80 01/04/18 00:00 Nasal Cannula 2.00 01/04/18 00:00 89 01/04/18 00:00 98.1 89 20 106/76 (86) 96 01/03/18 23:00 87 01/03/18 22:00 90 01/03/18 21:18 100 Nasal Cannula 2.00 01/03/18 21:00 92 01/03/18 20:00 98.4 94 22 117/86 (96) 97 01/03/18 20:00 Nasal Cannula 2.00 01/03/18 20:00 94 01/03/18 18:00 87 01/03/18 17:00 87 01/03/18 16:00 98.3 88 24 116/32 (60) 95 01/03/18 16:00 88 01/03/18 15:00 88 01/03/18 14:00 86 01/03/18 13:00 84 01/03/18 12:00 96 01/03/18 12:00 97.7 87 22 88/69 (75) 97 01/03/18 11:00 86 I/O 01/03/18 01/03/18 01/03/18 01/04/18 01/04/18 01/04/18 07:00 15:00 23:00 07:00 15:00 23:00 Intake Total 120 ml 240 ml 240 ml Output Total 300 ml 350 ml 500 ml Balance -180 ml -110 ml -260 ml Intake Oral 120 ml 240 ml 240 ml Output Urine Total 300 ml 350 ml 500 ml # Voids 2 # Bowel Movements 1 2 Result Diagram: 01/03/1851801/04/18 0555 Objective Remarks GENERAL: This is a well-nourished, well-developed male laying in bed receiving a breathing treatment. SKIN: No rashes, ecchymoses or lesions. Cool and dry. HEAD: Atraumatic. Normocephalic. No temporal or scalp tenderness. EYES: Pupils equal round and reactive. Extraocular motions intact. No scleral icterus. No injection or drainage. ENT: Nose without bleeding or purulent drainage. Airway patent. NECK: Trachea midline. No JVD or lymphadenopathy. Supple, nontender, no meningeal signs. CARDIOVASCULAR: Regular rate and rhythm without murmurs, JVD appreciated RESPIRATORY: Good air movement bilaterally with no crackles appreciated. GASTROINTESTINAL: Abdomen soft, non-tender, nondistended. No hepato-splenomegaly , or palpable masses. No guarding. MUSCULOSKELETAL: 2+ pitting edema to level of midshin appreciated in BLE - stable compared to prior exams. No joint tenderness, effusion, or edema noted. No calf tenderness. NEUROLOGICAL: Awake and alert. Cranial nerves II through XII grossly intact. Motor and sensory grossly within normal limits. Grossly normal strength. A/P Assessment and Plan Patient is a 72-year-old admitted with CHF exacerbation. He required BiPAP at time of admission with significant fluid overload complicated by hypotension. Received Lasix IV x 1 in ED. Weaned to NC on day 1 of hospitalization and has had continued improvement in symptoms. Continues to be hypotensive in the 90's systolic, so Lasix were initially held. Decreased Coreg to 3.125mg po BID and holding HTN meds. Cardiology was consulted on admission and started IV Lasix 40mg BID on 01/03. Added Duonebs, Albuterol PRN on 01/02 as patient was reported to have wheezing -> improvement in symptoms. Discharge Planning Discharge likely in 1-2 more days. Typical CHF exacerbations have lasted 4 days in the past per patient. Problem List: (1) CHF exacerbation ICD Codes: I50.9 - Heart failure, unspecified Status: Acute Plan: Patient on the Dr. Aquino, presenting with acute CHF exacerbation. He reports he had an echo 1 month ago but unknown EF. Will attempt to obtain records. Patient is on BiPAP at time of admission but recent ABG overall unremarkable. CXR showing significant pulmonary edema. BNP 1121. Initial troponin 0.41 with EKG showing paced rhythm, rate 94, QTc 478. He reportedly took his amlodipine, and lisinopril on morning of admission. He received 1 dose of Lasix 40 mg IV in ED. * Weaned to NC on night of admission - has tolerated well and has improvement in symptoms. On 2L NC at home per patient's . * Patient has low BP with systolic in 90s - stable and unchanged on 01/03 * Lasix 40mg IV BID started by Cardiology on 01/03 * ACS workup negative * BNP increased to 1338 on 01/02 * Echocardiogram showing EF less than 20%, severely dilated LV, mod to severe MV regurg, severe tricuspid regurg * Cardiology consulted - appreciated recommendations * Hold antihypertensives for now, titrate antihypertensives as tolerated * Continue aspirin, atorvastatin * Repeat CXR on 01/02 unchanged (2) COPD (chronic obstructive pulmonary disease) ICD Codes: J44.9 - Chronic obstructive pulmonary disease Status: Chronic Plan: Suspecting a component of COPD as patient's lung exam has minimal crackles, continues to be SOB Nursing staff reporting wheezing on exam on afternoon of 01/02 Duonebs q6hr scheduled Albuterol PRN Symptoms have improved with breathing treatments (3) SALIMA (acute kidney injury) ICD Codes: N17.9 - Acute kidney failure, unspecified Status: Acute Plan: Baseline creatinine is normal based on labs from September 2017. Creatinine 1.53 on admission - increased to 1.84 on 01/03. Suspect SALIMA related to demand. * Trend BMP * Avoid nephrotoxic agents * Careful hydration limits given fluid overload but likely kidneys will need some gentle hydration, no additional fluids for now (4) Atrial fibrillation ICD Codes: I48.91 - Atrial fibrillation Status: Chronic Plan: Chronic A. fib, not with RVR at this time. He is on warfarin 7.5 mg reportedly Saturday and Saturday with last dose not taken today. INR at goal at time of admission. * We will continue warfarin given INR at goal at this time * Carvedilol 3.125mg po BID (decreased from home dose as patient is hypotensive) (5) HTN (hypertension) ICD Codes: I10 - Essential (primary) hypertension Status: Chronic Plan: Chronic essential hypertension on carvedilol 25 mg twice daily, amlodipine 10 mg daily, lisinopril 5 mg daily. He presents hypotensive with fluid overload consistent with CHF exacerbation * Management as above, holding antihypertensives aside from carvedilol at 3.125mg po BID per cardiology (6) Pacemaker ICD Codes: Z95.0 - Presence of cardiac pacemaker Status: Chronic Plan: Chronic, no acute events with this. Will monitor on telemetry (7) DM (diabetes mellitus) ICD Codes: E11.9 - Diabetes mellitus Status: Chronic Plan: Chronic, not on insulin. Takes glipizide 5 mg twice daily before meals * Low-dose sliding scale Novolog while inpatient (8) CVA, old, hemiparesis ICD Codes: I69.359 - Hemiparesis following cerebrovascular accident Status: Chronic Plan: No acute neurologic deficits at this time, baseline right-sided weakness and speech difficulties. Will monitor symptoms (9) Tinea pedis ICD Codes: B35.3 - Tinea pedis Plan: Chronic fungal rash appreciated on patient's R foot Tinactin cream ordered BID -Improvement in symptoms on 01/03 (10) BPH (benign prostatic hyperplasia) ICD Codes: N40.0 - Benign prostatic hyperplasia without lower urinary tract symptoms Plan: Patient has a history of BPH Able to urinate but reporting decreased flow Continuing home Flomax with BP parameters Instructed nursing staff to obtain bladder scan Will consider placing Rolon if he is retaining urine >300 mL (11) Gout ICD Codes: M10.9 - Gout, unspecified Status: Chronic Plan: No acute exacerbation. Holding home colchicine due to SALIMA (12) Fluids/Electrolytes/Nutrition/Prophylaxis Status: Acute Plan: Fluids: Fluid restrict given CHF, will monitor Electrolytes: monitor and replete as needed Nutrition: Heart healthy diet DVT Prophylaxis: Early ambulation. On warfarin is therapeutic Problem Qualifiers (1) CHF exacerbation: Qualified Codes: I50.23 - Acute on chronic systolic (congestive) heart failure (2) Atrial fibrillation: Qualified Codes: I48.2 - Chronic atrial fibrillation (3) HTN (hypertension): Qualified Codes: I10 - Essential (primary) hypertension (4) DM (diabetes mellitus): Babak Ugalde MD R1 Jan 04, 2018 10:14
[2018-01-04 12:52] LABS: INTERNATIONAL NORMALIZED RATIO 3.4 RATIO; PROTHROMBIN TIME - PATIENT 34.6 SEC (9.8-11.6)
--- NOTE | 2018-01-04 14:14 | PD.CARD.PN ---
Subjective Subjective Remarks SOB much improved Objective Medications Current Medications Medications (Trade) Dose Ordered Sig/Kaila Route Start Time Stop Time Status Last Admin (NS Flush) 2 ml UNSCH PRN IV FLUSH 01/01/18 16:15 (NS Flush) 2 ml BID IV FLUSH 01/01/18 21:00 01/04/18 08:57 (Ecotrin Ec) 81 mg DAILY PO 01/02/18 09:00 01/04/18 08:55 (Lipitor) 40 mg DAILY PO 01/02/18 09:00 01/04/18 08:56 (D50w (Vial) Inj) 50 ml UNSCH PRN IV PUSH 01/01/18 17:45 (Glucagon Inj) 1 mg UNSCH PRN OTHER 01/01/18 17:45 (NovoLOG SUPPLEMENTAL SCALE) 1 ACHS SLIDING SCALE SQ 01/01/18 21:00 01/04/18 12:57 (Natalie-Colace) 1 tab BID PO 01/01/18 21:00 01/04/18 08:55 (Milk Of Magnesia Liq) 30 ml Q12H PRN PO 01/01/18 17:45 01/03/18 12:31 (Senokot) 17.2 mg Q12H PRN PO 01/01/18 17:45 (Dulcolax Supp) 10 mg DAILY PRN RECTAL 01/01/18 17:45 (Lactulose Liq) 30 ml DAILY PRN PO 01/01/18 17:45 (Coreg) 3.125 mg Q12HR PO 01/02/18 21:00 01/04/18 08:56 (Flomax) 0.4 mg DAILY PO 01/02/18 15:00 01/04/18 08:55 (Tinactin 1% Cream) 1 applic Q12HR TOPICAL 01/02/18 21:00 01/04/18 08:58 (Duoneb Neb) 1 ampule Q6HR NEB INH 01/02/18 16:00 01/04/18 09:30 (Albuterol Neb) 2.5 mg Q2HR NEB PRN INH 01/02/18 14:00 01/04/18 12:41 (Hydrocortisone 1% Cream) 1 applic Q12H PRN TOPICAL 01/02/18 15:00 01/03/18 12:12 (Lasix Inj) 40 mg BID@09,18 IV PUSH 01/03/18 12:00 01/04/18 08:56 (Coumadin) 7.5 mg Q48H PO 01/04/18 16:00 Future hold Vital Signs / I&O Vital Signs Date Time Temp Pulse Resp B/P (MAP) Pulse Ox O2 Delivery O2 Flow Rate FiO2 01/04/18 12:17 81 01/04/18 11:07 97.1 86 21 116/77 (90) 97 01/04/18 11:00 85 01/04/18 10:00 84 01/04/18 09:30 98 Nasal Cannula 2.00 01/04/18 09:00 86 01/04/18 08:00 88 01/04/18 07:33 95 Nasal Cannula 3.00 01/04/18 07:30 78 01/04/18 07:28 97.1 88 30 118/90 (99) 95 01/04/18 06:00 88 01/04/18 05:00 86 01/04/18 04:00 87 01/04/18 04:00 Nasal Cannula 2.00 01/04/18 04:00 98.0 87 20 106/89 (95) 96 01/04/18 03:00 84 01/04/18 02:00 85 01/04/18 01:00 80 01/04/18 00:00 Nasal Cannula 2.00 01/04/18 00:00 89 01/04/18 00:00 98.1 89 20 106/76 (86) 96 01/03/18 23:00 87 01/03/18 22:00 90 01/03/18 21:18 100 Nasal Cannula 2.00 01/03/18 21:00 92 01/03/18 20:00 98.4 94 22 117/86 (96) 97 01/03/18 20:00 Nasal Cannula 2.00 01/03/18 20:00 94 01/03/18 18:00 87 01/03/18 17:00 87 01/03/18 16:00 98.3 88 24 116/32 (60) 95 01/03/18 16:00 88 01/03/18 15:00 88 I/O 01/03/18 01/03/18 01/03/18 01/04/18 01/04/18 01/04/18 07:00 15:00 23:00 07:00 15:00 23:00 Intake Total 120 ml 240 ml 240 ml Output Total 300 ml 350 ml 500 ml Balance -180 ml -110 ml -260 ml Intake Oral 120 ml 240 ml 240 ml Output Urine Total 300 ml 350 ml 500 ml # Voids 2 # Bowel Movements 1 2 Physical Exam Patient alert Neck: + JVD Chest dcrease BS at bases CV S1S2S3 RRR very distant Ext 1+ edema Laboratory Laboratory Tests Test 01/04/18 05:55 01/04/18 12:23 Blood Urea Nitrogen 47 MG/DL Creatinine 1.84 MG/DL Random Glucose 140 MG/DL Total Protein 6.6 GM/DL Albumin 3.4 GM/DL Calcium Level 9.3 MG/DL Alkaline Phosphatase 71 U/L Aspartate Amino Transf (AST/SGOT) 22 U/L Alanine Aminotransferase (ALT/SGPT) 61 U/L Total Bilirubin 1.2 MG/DL Sodium Level 138 MEQ/L Potassium Level 4.5 MEQ/L Chloride Level 106 MEQ/L Carbon Dioxide Level 21.4 MEQ/L Anion Gap 11 MEQ/L Estimat Glomerular Filtration Rate 44 ML/MIN Prothrombin Time 34.6 SEC Prothromb Time International Ratio 3.4 RATIO Assessment and Plan Problem List: (1) Acute on chronic systolic CHF (congestive heart failure) ICD Codes: I50.23 - Acute on chronic systolic (congestive) heart failure Status: Acute (2) 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
[2018-01-04] MEDS ORDERED: WARFARIN SOD 7.5 MG TAB PO SCH (16:00)
[2018-01-05] VITALS (29 sets, daily range): BP systolic 104–127; BP diastolic 65–85; PULSE 70–102; RESP 18–22; TEMP 97.7–98.8; O2SAT 93–100
[2018-01-05] MEDS: RESP: ALBUTEROL 2.5 MG/IPRATROPIUM 0.5 MG NEB (SCH) INH ×4 (03:40→22:00)
[2018-01-05 04:48] LABS: AUTOMATED NEUTROPHIL # 3.4 TH/MM3 (1.8-7.7); BASOPHIL # 0.1 TH/MM3 (0-0.2); EOSINOPHIL # 0.1 TH/MM3 (0-0.4); EOSINOPHIL % 2.6 % (0.0-4.0); HEMOGLOBIN 12.7 GM/DL (13.0-17.0); LYMPHOCYTE # 0.9 TH/MM3 (1.0-4.8); MEAN CELL VOLUME 93.8 FL (80.0-100.0); MEAN CORPUSCULAR HEMOGLOBIN 30.5 PG (27.0-34.0); MEAN CORPUSCULAR HGB CONC 32.5 % (32.0-36.0); MEAN PLATELET VOLUME 8.8 FL (7.0-11.0); MONO % 16.8 % (0.0-8.0); MONOCYTE # 0.9 TH/MM3 (0-0.9); NEUT % 62.6 % (16.0-70.0); PLATELET COUNT 179 TH/MM3 (150-450); RED BLOOD COUNT 4.16 MIL/MM3 (4.50-5.90); RED CELL DISTRIBUTION WIDTH 17.5 % (11.6-17.2); WHITE BLOOD COUNT 5.5 TH/MM3 (4.0-11.0)
[2018-01-05 05:14] LABS: BICARBONATE 23.7 MEQ/L (21.0-32.0); CALCIUM 9.3 MG/DL (8.5-10.1); CREATININE 1.73 MG/DL (0.60-1.30)
[2018-01-05] MEDS: FUROSEMIDE 40 MG/4 ML VIAL IV PUSH SCH ×2 (07:52→18:00)
[2018-01-05] MEDS: ATORVASTATIN 40 MG TAB PO SCH (07:52)
[2018-01-05] MEDS: DOCUSATE SODIUM 50 MG/SENNA 8.6 MG TAB PO SCH ×2 (07:52→20:57)
[2018-01-05] MEDS: ASPIRIN EC 81 MG TABEC PO SCH (07:53)
[2018-01-05] MEDS: CARVEDILOL 3.125 MG TAB PO SCH (07:53)
[2018-01-05] MEDS: INSULIN ASPART SUPPLEMENTAL SCALE SQ SCH ×4 (08:00→20:59)
[2018-01-05] MEDS: TOLNAFTATE 1% CREAM 15 GM TOPICAL SCH ×2 (09:00→21:00)
[2018-01-05] MEDS: SODIUM CHLORIDE 0.9% FLUSH 10 ML FLUSH IV FLUSH SCH ×2 (09:00→20:57)
[2018-01-05] MEDS: TAMSULOSIN HCL 0.4 MG CAP PO SCH (09:00)
--- NOTE | 2018-01-05 09:51 | PD.CARD.PN ---
Subjective Subjective Remarks SOB much improved Objective Medications Current Medications Medications (Trade) Dose Ordered Sig/Kaila Route Start Time Stop Time Status Last Admin (NS Flush) 2 ml UNSCH PRN IV FLUSH 01/01/18 16:15 (NS Flush) 2 ml BID IV FLUSH 01/01/18 21:00 01/05/18 09:00 (Ecotrin Ec) 81 mg DAILY PO 01/02/18 09:00 01/05/18 07:53 (Lipitor) 40 mg DAILY PO 01/02/18 09:00 01/05/18 07:52 (D50w (Vial) Inj) 50 ml UNSCH PRN IV PUSH 01/01/18 17:45 (Glucagon Inj) 1 mg UNSCH PRN OTHER 01/01/18 17:45 (NovoLOG SUPPLEMENTAL SCALE) 1 ACHS SLIDING SCALE SQ 01/01/18 21:00 01/04/18 12:57 (Natalie-Colace) 1 tab BID PO 01/01/18 21:00 01/05/18 07:52 (Milk Of Magnesia Liq) 30 ml Q12H PRN PO 01/01/18 17:45 01/03/18 12:31 (Senokot) 17.2 mg Q12H PRN PO 01/01/18 17:45 (Dulcolax Supp) 10 mg DAILY PRN RECTAL 01/01/18 17:45 (Lactulose Liq) 30 ml DAILY PRN PO 01/01/18 17:45 (Coreg) 3.125 mg Q12HR PO 01/02/18 21:00 01/05/18 07:53 (Flomax) 0.4 mg DAILY PO 01/02/18 15:00 01/05/18 09:00 (Tinactin 1% Cream) 1 applic Q12HR TOPICAL 01/02/18 21:00 01/05/18 09:00 (Duoneb Neb) 1 ampule Q6HR NEB INH 01/02/18 16:00 01/05/18 08:47 (Albuterol Neb) 2.5 mg Q2HR NEB PRN INH 01/02/18 14:00 01/04/18 18:35 (Hydrocortisone 1% Cream) 1 applic Q12H PRN TOPICAL 01/02/18 15:00 01/03/18 12:12 (Coumadin) 7.5 mg Q48H PO 01/04/18 16:00 Future hold (Lasix Inj) 80 mg BID@ IV PUSH 01/05/18 18:00 UNV Vital Signs / I&O Vital Signs Date Time Temp Pulse Resp B/P (MAP) Pulse Ox O2 Delivery O2 Flow Rate FiO2 01/05/18 08:48 93 Nasal Cannula 3.00 01/05/18 08:01 97.9 84 18 104/71 (82) 100 01/05/18 08:01 100 Nasal Cannula 2.00 01/05/18 07:01 72 01/05/18 06:00 81 01/05/18 05:00 84 01/05/18 04:00 80 01/05/18 03:59 Nasal Cannula 2.00 01/05/18 03:59 98.4 80 22 116/83 (94) 97 01/05/18 03:00 84 01/05/18 02:00 85 01/05/18 01:00 81 01/05/18 00:00 Nasal Cannula 2.00 01/05/18 00:00 98.2 86 22 127/65 (85) 98 01/05/18 00:00 86 01/04/18 23:00 81 01/04/18 22:00 83 01/04/18 21:16 96 Nasal Cannula 3.00 01/04/18 21:00 80 01/04/18 20:00 86 01/04/18 20:00 Nasal Cannula 2.00 01/04/18 20:00 98.0 86 22 111/85 (94) 96 01/04/18 18:16 83 01/04/18 17:12 82 01/04/18 16:06 97 Nasal Cannula 2.00 01/04/18 16:00 84 01/04/18 15:30 97.0 86 26 113/81 (92) 100 01/04/18 15:04 86 01/04/18 14:00 86 01/04/18 13:00 86 01/04/18 12:17 81 01/04/18 11:07 97.1 86 21 116/77 (90) 97 01/04/18 11:00 85 01/04/18 10:00 84 I/O 01/04/18 01/04/18 01/04/18 01/05/18 01/05/18 01/05/18 07:00 15:00 23:00 07:00 15:00 23:00 Intake Total 240 ml 1000 ml 240 ml Output Total 500 ml 400 ml 450 ml Balance -260 ml 600 ml -210 ml Intake Oral 240 ml 1000 ml 240 ml Output Urine Total 500 ml 400 ml 450 ml # Bowel Movements 2 1 Physical Exam Patient alert Neck: + JVD Chest dcrease BS at bases CV S1S2S3 RRR very distant Ext trace edema Laboratory Laboratory Tests Test 01/04/18 12:23 01/05/18 04:09 Prothrombin Time 34.6 SEC Prothromb Time International Ratio 3.4 RATIO White Blood Count 5.5 TH/MM3 Red Blood Count 4.16 MIL/MM3 Hemoglobin 12.7 GM/DL Hematocrit 39.0 % Mean Corpuscular Volume 93.8 FL Mean Corpuscular Hemoglobin 30.5 PG Mean Corpuscular Hemoglobin Concent 32.5 % Red Cell Distribution Width 17.5 % Platelet Count 179 TH/MM3 Mean Platelet Volume 8.8 FL Neutrophils (%) (Auto) 62.6 % Lymphocytes (%) (Auto) 17.0 % Monocytes (%) (Auto) 16.8 % Eosinophils (%) (Auto) 2.6 % Basophils (%) (Auto) 1.0 % Neutrophils # (Auto) 3.4 TH/MM3 Lymphocytes # (Auto) 0.9 TH/MM3 Monocytes # (Auto) 0.9 TH/MM3 Eosinophils # (Auto) 0.1 TH/MM3 Basophils # (Auto) 0.1 TH/MM3 CBC Comment DIFF FINAL Differential Comment Blood Urea Nitrogen 41 MG/DL Creatinine 1.73 MG/DL Random Glucose 90 MG/DL Calcium Level 9.3 MG/DL Sodium Level 137 MEQ/L Potassium Level 4.3 MEQ/L Chloride Level 105 MEQ/L Carbon Dioxide Level 23.7 MEQ/L Anion Gap 8 MEQ/L Estimat Glomerular Filtration Rate 48 ML/MIN Assessment and Plan Problem List: (1) Acute on chronic systolic CHF (congestive heart failure) ICD Codes: I50.23 - Acute on chronic systolic (congestive) heart failure Status: Acute Plan: creat too high for ACEI. BP tool low for hydralazine/isordil. 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 Check CXR in AM. Brock Crook MD Jan 05, 2018 09:51
--- NOTE | 2018-01-05 14:10 | HHI.FPPN ---
Subjective Remarks Patient seen and examined bedside by team. Nurse noticed an abnormality in the patient's vitals this morning; blood pressures on the left arm were consistently over 40 points lower than blood pressures on right arm. Vitals on the left arm at 11 AM are in the 60s over 40s, right arm 110/70. The nurse noted that the patient was fatigued this morning but was easily arousable. Patient has been irritated with the multiple blood pressures that been taken. At time of exam the patient's blood pressure taken on the right arm and is 1:30 systolic, versus left arm 100 systolic. The nurses not know as this has been an issue before for this patient. The patient continues to eat and drink without any difficulty. He is acting normal per other nurses. He follows commands and is responsive and alert. He denies any pain or any current complaints. He does say he is experiencing shortness of breath today. Objective Vitals Vital Signs Date Time Temp Pulse Resp B/P (MAP) Pulse Ox O2 Delivery O2 Flow Rate FiO2 01/05/18 12:01 70 01/05/18 11:34 112/79 (90) 01/05/18 11:01 97.7 86 18 111/73 (86) 99 01/05/18 11:00 84 01/05/18 10:00 86 01/05/18 09:00 86 01/05/18 08:48 93 Nasal Cannula 3.00 01/05/18 08:01 97.9 84 18 104/71 (82) 100 01/05/18 08:01 100 Nasal Cannula 2.00 01/05/18 08:00 82 01/05/18 07:01 72 01/05/18 06:00 81 01/05/18 05:00 84 01/05/18 04:00 80 01/05/18 03:59 Nasal Cannula 2.00 01/05/18 03:59 98.4 80 22 116/83 (94) 97 01/05/18 03:00 84 01/05/18 02:00 85 01/05/18 01:00 81 01/05/18 00:00 Nasal Cannula 2.00 01/05/18 00:00 98.2 86 22 127/65 (85) 98 01/05/18 00:00 86 01/04/18 23:00 81 01/04/18 22:00 83 01/04/18 21:16 96 Nasal Cannula 3.00 01/04/18 21:00 80 01/04/18 20:00 86 01/04/18 20:00 Nasal Cannula 2.00 01/04/18 20:00 98.0 86 22 111/85 (94) 96 01/04/18 18:16 83 01/04/18 17:12 82 01/04/18 16:06 97 Nasal Cannula 2.00 01/04/18 16:00 84 01/04/18 15:30 97.0 86 26 113/81 (92) 100 01/04/18 15:04 86 01/04/18 14:00 86 I/O 01/04/18 01/04/18 01/04/18 01/05/18 01/05/18 01/05/18 07:00 15:00 23:00 07:00 15:00 23:00 Intake Total 240 ml 1000 ml 240 ml Output Total 500 ml 400 ml 450 ml Balance -260 ml 600 ml -210 ml Intake Oral 240 ml 1000 ml 240 ml Output Urine Total 500 ml 400 ml 450 ml # Bowel Movements 2 1 Result Diagram: 01/05/189 01/05/18408 Objective Remarks GENERAL: This is a well-nourished, well-developed male laying in bed, with nasal cannula oxygen, some mildly labored respirations, O2 sat 100% SKIN: No rashes, ecchymoses or lesions. Cool and dry. HEAD: Atraumatic. Normocephalic. No temporal or scalp tenderness. EYES: Pupils equal round and reactive. Extraocular motions intact. No scleral icterus. No injection or drainage. ENT: Nose without bleeding or purulent drainage. Airway patent. NECK: Trachea midline. No JVD or lymphadenopathy. Supple, nontender, no meningeal signs. CARDIOVASCULAR: Regular rate and rhythm without murmurs, JVD appreciated RESPIRATORY: Good air movement bilaterally with no crackles appreciated. GASTROINTESTINAL: Abdomen soft, non-tender, nondistended. No hepato-splenomegaly , or palpable masses. No guarding. MUSCULOSKELETAL: 2+ pitting edema to level of midshin appreciated in BLE - stable compared to prior exams. No joint tenderness, effusion, or edema noted. No calf tenderness. NEUROLOGICAL: Awake and alert. Cranial nerves II through XII grossly intact. Motor and sensory grossly within normal limits. Grossly normal strength. A/P Assessment and Plan Patient is a 72-year-old admitted with CHF exacerbation. He required BiPAP at time of admission with significant fluid overload complicated by hypotension. Weaned to NC on day 1 of hospitalization and has had continued improvement in symptoms. Continues to be borderline hypotensive. Cardiology is following; increased carvedilol to 6.25 mg twice a day on 01/05 and increased Lasix to 80 BID on 01/05. Added Duonebs q6h scheduled on 01/02. Discharge Planning Pending clinical improvement, pt is on 2L O2 at home baseline Problem List: (1) CHF exacerbation ICD Codes: I50.9 - Heart failure, unspecified Status: Acute Plan: Patient of Dr. Aquino, presenting with acute CHF exacerbation. He reports he had an echo 1 month ago but unknown EF. Will attempt to obtain records. Patient is on BiPAP at time of admission but recent ABG overall unremarkable. CXR showing significant pulmonary edema. BNP 1121. Initial troponin 0.41 with EKG showing paced rhythm, rate 94, QTc 478. He reportedly took his amlodipine, and lisinopril on morning of admission. He received 1 dose of Lasix 40 mg IV in ED. * Weaned to NC on night of admission - has tolerated well and has improvement in symptoms. On 2L NC at home per patient's . * Patient has low BP with systolic in 90s - possibly severe hypotension on 01/05 * Lasix 80mg IV BID started by Cardiology on 01/05 * ACS workup negative * BNP increased to 1338 on 01/02, f/u repeat BNP * Echocardiogram showing EF less than 20%, severely dilated LV, mod to severe MV regurg, severe tricuspid regurg * Cardiology consulted - appreciated recommendations * Hold antihypertensives for now, titrate antihypertensives as tolerated * Continue aspirin, atorvastatin * Repeat CXR on 01/02 unchanged - f/u repeat CXR today due to labored breathing, possible severe hypotension (2) COPD (chronic obstructive pulmonary disease) ICD Codes: J44.9 - Chronic obstructive pulmonary disease Status: Chronic Plan: Suspecting a component of COPD as patient's lung exam has wheezing, labored breathing, decreased breath sounds at bases O2 Sat 100% Continue Duonebs q6hr scheduled Albuterol PRN f/u STAT CXR (3) SALIMA (acute kidney injury) ICD Codes: N17.9 - Acute kidney failure, unspecified Status: Acute Plan: Baseline creatinine is normal based on labs from September 2017. Creatinine 1.53 on admission - increased to 1.73 on 01/05. Suspect SALIMA related to demand. Improved from 1.84 yesterday * Trend BMP * Avoid nephrotoxic agents * Careful hydration limits given fluid overload but likely kidneys will need some gentle hydration, no additional fluids for now (4) Atrial fibrillation ICD Codes: I48.91 - Atrial fibrillation Status: Chronic Plan: Chronic A. fib, not with RVR at this time. He is on warfarin 7.5 mg reportedly Saturday and Saturday with last dose not taken today. INR at goal at time of admission 2.0-3.0) INR 3.4 on 01/04 - Warfarin held at this time f/u INR today We will titrate and resume accordingly * We will continue warfarin given INR at goal at this time * Carvedilol 6.5mg resumed by cardiology (5) HTN (hypertension) ICD Codes: I10 - Essential (primary) hypertension Status: Chronic Plan: Chronic essential hypertension on carvedilol 25 mg twice daily, amlodipine 10 mg daily, lisinopril 5 mg daily. He presents hypotensive with fluid overload consistent with CHF exacerbation * Management as above, holding antihypertensives aside from carvedilol at 6.5mg po BID per cardiology (6) Pacemaker ICD Codes: Z95.0 - Presence of cardiac pacemaker Status: Chronic Plan: Chronic, no acute events with this. Will monitor on telemetry (7) DM (diabetes mellitus) ICD Codes: E11.9 - Diabetes mellitus Status: Chronic Plan: Chronic, not on insulin. Takes glipizide 5 mg twice daily before meals * Low-dose sliding scale Novolog while inpatient (8) CVA, old, hemiparesis ICD Codes: I69.359 - Hemiparesis following cerebrovascular accident Status: Chronic Plan: No acute neurologic deficits at this time, baseline right-sided weakness and speech difficulties. Will monitor symptoms (9) Tinea pedis ICD Codes: B35.3 - Tinea pedis Plan: Chronic fungal rash appreciated on patient's R foot Tinactin cream ordered BID -Improvement in symptoms on 01/03 (10) BPH (benign prostatic hyperplasia) ICD Codes: N40.0 - Benign prostatic hyperplasia without lower urinary tract symptoms Plan: Patient has a history of BPH Able to urinate but reporting decreased flow Continuing home Flomax with BP parameters Instructed nursing staff to obtain bladder scan Will consider placing Rolon if he is retaining urine >300 mL (11) Gout ICD Codes: M10.9 - Gout, unspecified Status: Chronic Plan: No acute exacerbation. Holding home colchicine due to SALIMA (12) Fluids/Electrolytes/Nutrition/Prophylaxis Status: Acute Plan: Fluids: Fluid restrict given CHF, will monitor Electrolytes: monitor and replete as needed Nutrition: Heart healthy diet DVT Prophylaxis: Early ambulation. Supratherapeutic on Warfarin on 01/04, will f /u INR Problem Qualifiers (1) CHF exacerbation: Qualified Codes: I50.23 - Acute on chronic systolic (congestive) heart failure (2) Atrial fibrillation: Qualified Codes: I48.2 - Chronic atrial fibrillation (3) HTN (hypertension): Qualified Codes: I10 - Essential (primary) hypertension (4) DM (diabetes mellitus): Shruthi Rodriguez MD R2 Jan 05, 2018 14:10
[2018-01-05 16:28] LABS: PROTHROMBIN TIME - PATIENT 30.4 SEC (9.8-11.6)
--- NOTE | 2018-01-05 17:55 | RADRPT ---
EXAM DATE/TIME: 01/05/2018 17:20 [facility] COMPARISON: CHEST PA & LAT, December 25, 2014, 13:26. INDICATIONS : Shortness of breath. MEDICAL HISTORY : Hypertension. Diabetes mellitus type II. SURGICAL HISTORY : CABG. Pacemaker. ENCOUNTER: Subsequent ACUITY: 3 days PAIN SCORE: 0/10 LOCATION: Bilateral chest FINDINGS: Heart is moderately enlarged. Generalized interstitial vascular prominence is noted. There is patchy airspace disease and a right pleural effusion Cardiac pacemaker is noted in place. CONCLUSION: Cardiomegaly with mild interstitial vascular congestive changes. Small right pleural effusion Status post CABG Cardiac pacemaker Colby Steinberg MD on January 05, 2018 at 17:52 Board Certified Radiologist. This report was verified electronically.
[2018-01-05] MEDS ORDERED: ALPRAZolam 0.25 MG TAB PO PRN (18:15)
[2018-01-05] MEDS ORDERED: CARVEDILOL 3.125 MG TAB PO SCH (21:00)
[2018-01-06] VITALS (23 sets, daily range): BP systolic 87–150; BP diastolic 50–98; PULSE 70–107; RESP 15–30; TEMP 97.8–101.5; O2SAT 92–100
[2018-01-06] MEDS ORDERED: LORazepam 2 MG/ML VIAL IV PUSH ONE (00:45)
[2018-01-06] MEDS: RESP: ALBUTEROL 2.5 MG/IPRATROPIUM 0.5 MG NEB (SCH) INH ×4 (03:00→21:47)
--- NOTE | 2018-01-06 03:41 | RADRPT ---
EXAM DATE/TIME: 01/06/2018 03:21 [facility] COMPARISON: CHEST PA & LAT, January 05, 2018, 17:20. INDICATIONS : Severe shortness of breath. MEDICAL HISTORY : Hypertension. Diabetes mellitus type II. SURGICAL HISTORY : Pacemaker. CABG. ENCOUNTER: Subsequent ACUITY: 4 - 6 days PAIN SCORE: Non-responsive. LOCATION: Bilateral chest FINDINGS: Pacemaker device is noted with control pack over the left chest. There has been slight improvement in aeration with decrease in pulmonary edema and effusions. Cardiac contours are grossly stable. CONCLUSION: Slight improvement in aeration Jeffrey Tipton MD on January 06, 2018 at 3:38 Board Certified Radiologist. This report was verified electronically.
--- NOTE | 2018-01-06 05:31 | PD.CONS ---
[facility] Service Critical Care Medicine Consult Requested By Primary Care Physician [facility]illi [facility]ears[facility]S [facility] History of Present Illness 72-year-old man with a history of an ischemic cardiomyopathy with a Biotronik ICD, status post CABG in 2006 and subsequent stenting of RCA in 2015. He has had recurrent hospitalizations for CHF. He had been doing well until very recently, when he began having some progressive shortness of breath and a bit of edema is what precipitated his emergency room visit. He was admitted to [facility] medicine service where he responded somehow to diuresis, however today, despite his improving off x-ray imaging, his respiratory status is worsening requiring transfer to ICU and observation for possible intubation. Review of Systems Constitutional: DENIES: Diaphoretic episodes, Fatigue, Fever, Weight gain, Weight loss, Chills, Dizziness, Change in appetite, Night Sweats Endocrine: DENIES: Heat/cold intolerance, Polydipsia, Polyuria, Polyphagia Eyes: DENIES: Blurred vision, Diplopia, Eye inflammation, Eye pain, Vision loss , Photosensitivity, Double Vision Ears, nose, mouth, throat: DENIES: Tinnitus, Hearing loss, Vertigo, Nasal discharge, Oral lesions, Throat pain, Hoarseness, Ear Pain, Running Nose, Epistaxis, Sinus Pain, Toothache, Odynophagia Respiratory: COMPLAINS OF: Shortness of breath, DENIES: Apneas, Cough, Snoring , Wheezing, Hemoptysis, Sputum production Cardiovascular: DENIES: Chest pain, Palpitations, Syncope, Dyspnea on Exertion , PND, Lower Extremity Edema, Orthopnea, Claudication Gastrointestinal: DENIES: Abdominal pain, Black stools, Bloody stools, Constipation, Diarrhea, Nausea, Vomiting, Difficulty Swallowing, Anorexia Genitourinary: DENIES: Sexual dysfunction, Urinary frequency, Urinary incontinence, Urgency, Hematuria, Dysuria, Nocturia, Penile Discharge, Testicular Pain, Testicular Swelling Musculoskeletal: DENIES: Joint pain, Muscle aches, Stiffness, Joint Swelling, Back pain, Neck pain Integumentary: DENIES: Abnormal pigmentation, Nail changes, Pruritus, Rash Hematologic/lymphatic: DENIES: Bruising, Lymphadenopathy Immunologic/allergic: DENIES: Eczema, Urticaria Neurologic: DENIES: Abnormal gait, Headache, Localized weakness, Paresthesias, Seizures, Speech Problems, Tremor, Poor Balance Psychiatric: DENIES: Anxiety, Confusion, Mood changes, Depression, Hallucinations, Agitation, Suicidal Ideation, Homicidal Ideation, Delusions Past Family Social History Allergies: Coded Allergies: rivaroxaban (Verified Allergy, Unknown, 01/02/18) Uncoded Allergies: UNKNOWN BLOOD THINNER (Allergy, Intermediate, Hives, 04/30/16) Past Medical History Congestive heart failure EF by echo in 10/2017 was 35% Atrial fibrillation on Coumadin Biotronik ICD Coronary artery disease Chronic kidney COPD CVA Diabetes mellitus DVT Hypertension Dyslipidemia Ischemic cardiomyopathy Osteoarthritis Right bundle branch block Past Surgical History CABG in 2005 RCA stenting 2015 Biotronik ICD placement Reported Medications Reported Meds & Active Scripts Active Proair Hfa 8.5 GM Inh (Albuterol Sulfate) 90 Mcg/Act Aer 2 Puff INH Q4-6H PRN 108 mcg/actuation Reported Colchicine 0.6 Mg Cap 0.6 Mg PO DAILY Mucus Relief ER (Guaifenesin) 600 Mg Tab 400 Mg PO BID PRN Warfarin 7.5 Mg Tab 7.5 Mg PO EVERY OTHER DAY Glipizide 5 Mg Tab 5 Mg PO BIDAC Take 30 minutes before a meal Alfuzosin ER 24 HR 10 Mg Tab 10 Mg PO DAILY Lisinopril 5 Mg Tab 5 Mg PO DAILY Carvedilol 12.5 Mg Tab 25 Mg PO BID Atorvastatin (Atorvastatin Calcium) 40 Mg Tab 40 Mg PO DAILY Aspirin EC (Aspirin) 81 Mg Tabdr 81 Mg PO DAILY Amlodipine (Amlodipine Besylate) 10 Mg Tab 10 Mg PO DAILY Active Ordered Medications Current Medications Medications (Trade) Dose Ordered Sig/Kaila Route PRN Reason Start Time Stop Time Status Last Admin Dose Admin Sodium Chloride (NS Flush) 2 ml UNSCH PRN IV FLUSH FLUSH AFTER USING IV ACCESS 01/01/18 16:15 Sodium Chloride (NS Flush) 2 ml BID IV FLUSH 01/01/18 21:00 01/05/18 20:57 Aspirin (Ecotrin Ec) 81 mg DAILY PO 01/02/18 09:00 01/05/18 07:53 Atorvastatin Calcium (Lipitor) 40 mg DAILY PO 01/02/18 09:00 01/05/18 07:52 Dextrose (D50w (Vial) Inj) 50 ml UNSCH PRN IV PUSH HYPOGLYCEMIA-SEE COMMENTS 01/01/18 17:45 Glucagon (Glucagon Inj) 1 mg UNSCH PRN OTHER HYPOGLYCEMIA-SEE COMMENTS 01/01/18 17:45 Insulin Aspart (NovoLOG SUPPLEMENTAL SCALE) 1 ACHS SLIDING SCALE SQ 01/01/18 21:00 4/1/18 20:59 Senna/Docusate Sodium (Natalie-Colace) 1 tab BID PO 01/01/18 21:00 01/05/18 20:57 Magnesium Hydroxide (Milk Of Magnesia Liq) 30 ml Q12H PRN PO Mild constipation 01/01/18 17:45 01/03/18 12:31 Sennosides (Senokot) 17.2 mg Q12H PRN PO Moderate constipation 01/01/18 17:45 Bisacodyl (Dulcolax Supp) 10 mg DAILY PRN RECTAL SEVERE CONSITIPATION 01/01/18 17:45 Lactulose (Lactulose Liq) 30 ml DAILY PRN PO SEVERE CONSITIPATION 01/01/18 17:45 Tamsulosin HCl (Flomax) 0.4 mg DAILY PO 01/02/18 15:00 01/05/18 09:00 Tolnaftate (Tinactin 1% Cream) 1 applic Q12HR TOPICAL 01/02/18 21:00 01/05/18 21:00 Albuterol/ Ipratropium (Duoneb Neb) 1 ampule Q6HR NEB INH 01/02/18 16:00 01/06/18 03:00 Albuterol Sulfate (Albuterol Neb) 2.5 mg Q2HR NEB PRN INH SHORTNESS OF BREATH 01/02/18 14:00 01/04/18 18:35 Hydrocortisone (Hydrocortisone 1% Cream) 1 applic Q12H PRN TOPICAL ITCHING 01/02/18 15:00 01/03/18 12:12 Warfarin Sodium (Coumadin) 7.5 mg Q48H PO 01/04/18 16:00 Future hold Furosemide (Lasix Inj) 80 mg BID@18 IV PUSH 01/05/18 18:00 01/05/18 18:00 Alprazolam (Xanax) 0.25 mg Q12HR PRN PO ANXIETY 01/05/18 18:15 01/05/18 18:27 Carvedilol (Coreg) 3.125 mg Q12HR PO 01/06/18 09:00 Family History No family history significant of malignancy or early coronary artery disease Social History Former smoker, denies alcohol or illicit drug abuse Physical Exam Vital Signs Vital Signs Date Time Temp Pulse Resp B/P (MAP) Pulse Ox O2 Delivery O2 Flow Rate FiO2 01/06/18 04:00 105 01/06/18 04:00 Nasal Cannula 2.00 01/06/18 04:00 98.6 105 30 146/98 (114) 96 01/06/18 03:20 96 Nasal Cannula 3.00 01/06/18 03:00 92 25 01/06/18 03:00 107 01/06/18 02:00 101 01/06/18 01:00 102 01/06/18 00:00 106 01/06/18 00:00 Nasal Cannula 2.00 01/06/18 00:00 98.1 106 22 150/97 (114) 98 01/05/18 23:00 102 01/05/18 22:00 96 Nasal Cannula 2.00 01/05/18 22:00 101 01/05/18 21:00 96 01/05/18 20:00 98.4 100 22 119/85 (96) 97 01/05/18 20:00 Nasal Cannula 2.00 01/05/18 20:00 100 01/05/18 18:01 96 01/05/18 17:00 100 01/05/18 16:01 92 01/05/18 15:15 98.8 89 18 112/80 (91) 95 01/05/18 15:00 90 01/05/18 14:00 88 01/05/18 13:00 86 01/05/18 12:01 70 01/05/18 11:34 112/79 (90) 01/05/18 11:01 97.7 86 18 111/73 (86) 99 01/05/18 11:00 84 01/05/18 10:00 86 01/05/18 09:00 86 01/05/18 08:48 93 Nasal Cannula 3.00 01/05/18 08:01 97.9 84 18 104/71 (82) 100 01/05/18 08:01 100 Nasal Cannula 2.00 01/05/18 08:00 82 01/05/18 07:01 72 01/05/18 06:00 81 Physical Exam GENERAL: Well-nourished, well-developed patient. SKIN: Warm and dry. HEAD: Normocephalic. EYES: No scleral icterus. No injection or drainage. NECK: Supple, trachea midline. No JVD or lymphadenopathy. CARDIOVASCULAR: Regular rate and rhythm without murmurs, gallops, or rubs. RESPIRATORY: Breath sounds equal bilaterally. No accessory muscle use. Occasional fine rhonchi and rales bilaterally GASTROINTESTINAL: Abdomen soft, non-tender, nondistended. MUSCULOSKELETAL: No cyanosis, or edema. BACK: Nontender without obvious deformity. NEURO EXAM: GCS: 15 Mental Status: The patient is alert and oriented to person, place, and time with normal speech. Cranial Nerves: Visual acuity intact bilaterally. Visual [place] normal in all quadrants. Pupils are round, reactive to light. Extraocular movements are intact without ptosis. Hearing is normal bilaterally. Voice is normal. Tongue protrudes midline and moves symmetrically. Reflexes: Biceps, patellar, and Achilles are 2/4 bilaterally. No clonus. Laboratory Laboratory Tests Test 01/05/18 15:20 01/06/18 03:10 Prothrombin Time 30.4 Prothromb Time International Ratio 3.0 B-Type Natriuretic Peptide 1576 Blood Gas Puncture Site RT RADIAL Blood Gas Patient Temperature 98.6 Blood Gas HCO3 24 Blood Gas Base Excess 0.0 Blood Gas Oxygen Saturation 87 Arterial Blood pH 7.41 Arterial Blood Partial Pressure CO2 39 Arterial Blood Partial Pressure O2 60 Arterial Blood Oxygen Content 15.2 Arterial Blood Carboxyhemoglobin 1.6 Arterial Blood Methemoglobin 1.0 Blood Gas Hemoglobin 12.5 Oxygen Delivery Device BiPAP Blood Gas Ventilator Setting 12IPAP/5EPAP Blood Gas Inspired Oxygen 25 Date/Time Source Procedure Growth Status 01/01/18 14:15 Blood Peripheral Aerobic Blood Culture - Preliminary NO GROWTH IN 4 DAYS Resulted 01/01/18 14:15 Blood Peripheral Anaerobic Blood Culture - Preliminary NO GROWTH IN 4 DAYS Resulted Result Diagram: 01/05/189 01/05/18 0409 Imaging Last 24 hours Impressions Chest X-Ray 01/06/18 0600 Signed Impressions: Service Date/Time: Saturday, January 06, 2018 03:21 - CONCLUSION: Slight improvement in aeration Jeffrey Tipton MD Assessment and Plan Assessment and Plan Acute on chronic systolic heart failure -cardiorenal syndrome -Continue gentle diuresis -Continue carvedilol -Hold MERI inhibitor is due to renal insufficiency -Management per cardiology Chronic obstructive pulmonary disease -Worsening shortness of breath -Initiate IV steroid -Continue DuoNeb scheduled and as needed Renal insufficiency -Strict I's and O -Monitored gentle diuresis -Monitor electrolytes and creatinine trend Atrial fibrillation -Rate controlled with carvedilol -Currently in sinus rhythm -Continue Coumadin Ischemic cardiomyopathy -Cardiology consult appreciated -Continue beta-jr and diuretics -Repeat series of troponins and EKGs to rule out acute coronary syndrome DVT GI prophylax -Laron's and SCDs -Coumadin -Pepcid Critical Care: The total critical care time was 35 minutes. Time to perform other separately billable procedures was not included in the critical care time. Nic Monet MD Jan 06, 2018 5:31 am
[2018-01-06] MEDS ORDERED: ETOMIDATE 40 MG/20 ML VIAL IV PUSH ONE (07:15)
[2018-01-06] MEDS ORDERED: ROCURONIUM INJ 100 MG/10 ML VIAL IV ONE (07:15)
[2018-01-06] MEDS ORDERED: PROPOFOL 500 MG/50 ML INJ 50 ML ONE (07:36)
[2018-01-06] MEDS ORDERED: ROCURONIUM INJ 50 MG/5 ML VIAL ONE (07:36)
--- NOTE | 2018-01-06 07:48 | PD.PROCEDR ---
Procedure Note Procedure DATE: 01/06/2018 PROCEDURE: Orotracheal intubation INDICATION: Acute hypercapnic respiratory failure DETAILS OF PROCEDURE The patient was placed in optimal position and preoxygenated with 100% FiO2 via bag valve mask. At the start oxygen saturation was 100%. The patient was administered 20 mg etomidate IV and 50 milligrams rocuronium IV. I entered the oropharynx with a size 4 GVL glidescope blade and obtained a grade 2 view of the airway. On single attempt a size 8.0 cuffed endotracheal tube was passed through the vocal cords. Correct tube location was confirmed with end tidal CO2 detector and by auscultating over bilateral lung [place]. The endotracheal tube was secured with adhesive tape at a depth of 24 cm at the lips. The patient was connected to the ventilator. The patient tolerated the procedure well without any apparent complications. Oxygen saturations were maintained greater than 95% all times. STAT chest x-ray pending at time of dictation. Feliciano Holt MD Jan 06, 2018 07:48
[2018-01-06] MEDS: CHLORHEXIDINE 0.12% (ORAL KIT) 15 ML CUP MT SCH ×2 (08:00→21:32)
--- NOTE | 2018-01-06 08:20 | PD.CARD.PN ---
Subjective Subjective Remarks sedated on vent Objective Medications Current Medications Medications (Trade) Dose Ordered Sig/Kaila Route Start Time Stop Time Status Last Admin (NS Flush) 2 ml UNSCH PRN IV FLUSH 01/01/18 16:15 (NS Flush) 2 ml BID IV FLUSH 01/01/18 21:00 01/05/18 20:57 (Ecotrin Ec) 81 mg DAILY PO 01/02/18 09:00 01/05/18 07:53 (Lipitor) 40 mg DAILY PO 01/02/18 09:00 01/05/18 07:52 (D50w (Vial) Inj) 50 ml UNSCH PRN IV PUSH 01/01/18 17:45 (Glucagon Inj) 1 mg UNSCH PRN OTHER 01/01/18 17:45 (NovoLOG SUPPLEMENTAL SCALE) 1 ACHS SLIDING SCALE SQ 01/01/18 21:00 01/05/18 20:59 (Natalie-Colace) 1 tab BID PO 01/01/18 21:00 01/05/18 20:57 (Milk Of Magnesia Liq) 30 ml Q12H PRN PO 01/01/18 17:45 01/03/18 12:31 (Senokot) 17.2 mg Q12H PRN PO 01/01/18 17:45 (Dulcolax Supp) 10 mg DAILY PRN RECTAL 01/01/18 17:45 (Lactulose Liq) 30 ml DAILY PRN PO 01/01/18 17:45 (Flomax) 0.4 mg DAILY PO 01/02/18 15:00 01/05/18 09:00 (Tinactin 1% Cream) 1 applic Q12HR TOPICAL 01/02/18 21:00 01/05/18 21:00 (Albuterol Neb) 2.5 mg Q2HR NEB PRN INH 01/02/18 14:00 01/04/18 18:35 (Hydrocortisone 1% Cream) 1 applic Q12H PRN TOPICAL 01/02/18 15:00 01/03/18 12:12 (Coumadin) 7.5 mg Q48H PO 01/04/18 16:00 Future hold (Lasix Inj) 80 mg BID@18 IV PUSH 01/05/18 18:00 01/05/18 18:00 (Coreg) 3.125 mg Q12HR PO 01/06/18 09:00 (Peridex 0.12% Liq) 15 ml BID@08,20 MT 01/06/18 08:00 Propofol 100 ml @ 0 mls/hr TITRATE PRN IV 01/06/18 07:15 UNV Fentanyl Citrate 250 ml TITRATE PRN IV 01/06/18 07:15 UNV (Duoneb Neb) 1 ampule Q6HR NEB INH 01/06/18 10:00 (Prevacid Odt) 30 mg DAILY NG 01/06/18 09:00 (Pulmicort Respule Neb) 0.5 mg Q12HR NEB NEB 01/06/18 20:00 Vital Signs / I&O Vital Signs Date Time Temp Pulse Resp B/P (MAP) Pulse Ox O2 Delivery O2 Flow Rate FiO2 01/06/18 06:00 104 01/06/18 05:00 102 01/06/18 04:00 105 01/06/18 04:00 Nasal Cannula 2.00 01/06/18 04:00 98.6 105 30 146/98 (114) 96 01/06/18 03:20 96 Nasal Cannula 3.00 01/06/18 03:00 92 25 01/06/18 03:00 107 01/06/18 02:00 101 01/06/18 01:00 102 01/06/18 00:00 106 01/06/18 00:00 Nasal Cannula 2.00 01/06/18 00:00 98.1 106 22 150/97 (114) 98 01/05/18 23:00 102 01/05/18 22:00 96 Nasal Cannula 2.00 01/05/18 22:00 101 01/05/18 21:00 96 01/05/18 20:00 98.4 100 22 119/85 (96) 97 01/05/18 20:00 Nasal Cannula 2.00 01/05/18 20:00 100 01/05/18 18:01 96 01/05/18 17:00 100 01/05/18 16:01 92 01/05/18 15:15 98.8 89 18 112/80 (91) 95 01/05/18 15:00 90 01/05/18 14:00 88 01/05/18 13:00 86 01/05/18 12:01 70 01/05/18 11:34 112/79 (90) 01/05/18 11:01 97.7 86 18 111/73 (86) 99 01/05/18 11:00 84 01/05/18 10:00 86 01/05/18 09:00 86 01/05/18 08:48 93 Nasal Cannula 3.00 I/O 01/05/18 01/05/18 01/05/18 01/06/18 01/06/18 01/06/18 07:00 15:00 23:00 07:00 15:00 23:00 Intake Total 240 ml 720 ml 240 ml Output Total 450 ml 925 ml 600 ml Balance -210 ml -205 ml -360 ml Intake Oral 240 ml 720 ml 240 ml Output Urine Total 450 ml 925 ml 600 ml Stool Total 0 ml # Voids 7 # Bowel Movements 1 2 1 Physical Exam GENERAL: Well developed, well nourished. No acute distress. HEENT: Jugular venous pressure is normal. CHEST: Lungs decreased and rales auscultation bilaterally. Unlabored respiratory effort. CARDIAC: Regular rate and rhythm without S3, S4, or murmur. ABDOMEN: Soft, nontender, no hepatosplenomegaly. Bowel sounds present. EXTREMITIES: No clubbing, cyanosis, tr-1+ edema. Laboratory Laboratory Tests Test 01/05/18 15:20 01/06/18 03:10 Prothrombin Time 30.4 SEC Prothromb Time International Ratio 3.0 RATIO B-Type Natriuretic Peptide 1576 PG/ML Blood Gas Puncture Site RT RADIAL Blood Gas Patient Temperature 98.6 Blood Gas HCO3 24 mmol/L Blood Gas Base Excess 0.0 mmol/L Blood Gas Oxygen Saturation 87 % Arterial Blood pH 7.41 Arterial Blood Partial Pressure CO2 39 mmHg Arterial Blood Partial Pressure O2 60 mmHg Arterial Blood Oxygen Content 15.2 Vol % Arterial Blood Carboxyhemoglobin 1.6 % Arterial Blood Methemoglobin 1.0 % Blood Gas Hemoglobin 12.5 G/DL Oxygen Delivery Device BiPAP Blood Gas Ventilator Setting 12IPAP/5EPAP Blood Gas Inspired Oxygen 25 % Imaging Last 24 hours Impressions Chest X-Ray 01/06/18 0600 Signed Impressions: Service Date/Time: Saturday, January 06, 2018 03:21 - CONCLUSION: Slight improvement in aeration Jeffrey Tipton MD Assessment and Plan Problem List: (1) Acute on chronic systolic CHF (congestive heart failure) ICD Codes: I50.23 - Acute on chronic systolic (congestive) heart failure Status: Acute Plan: EF<20%, now resp failure on vent - prognosis poor (2) Biventricular automatic implantable cardioverter defibrillator in situ ICD Codes: Z95.810 - Biventricular automatic implantable cardioverter defibrillator in situ Status: Chronic (3) Elevated troponin ICD Codes: R79.89 - Elevated troponin Status: Acute (4) CAD (coronary artery disease) ICD Codes: I25.10 - Atherosclerosis of coronary artery Status: Chronic Pamela Aquino MD Jan 06, 2018 08:20
--- NOTE | 2018-01-06 08:21 | HHI.CCPN ---
Subjective Remarks/Hospital Course 72-year-old man with a history of an ischemic cardiomyopathy with a Biotronik ICD, status post CABG in 2006 and subsequent stenting of RCA in 2015. He has had recurrent hospitalizations for CHF. He had been doing well until very recently, when he began having some progressive shortness of breath and a bit of edema is what precipitated his emergency room visit. He was admitted to family medicine service where he responded somehow to diuresis, however today, despite his improving off x-ray imaging, his respiratory status is worsening requiring transfer to ICU and observation for possible intubation. Subjective 01/06: Patient intubated due to tachypnea/acute CHF exacerbation with patient altered and not/refusing to wear BiPAP while attempting to aggressively diurese. notified per RN. Currently hemodynamic stable. Chest x-ray post intubation currently pending. Objective Vital Signs Date Time Temp Pulse Resp B/P (MAP) Pulse Ox O2 Delivery O2 Flow Rate FiO2 01/06/18 06:00 104 01/06/18 04:00 Nasal Cannula 2.00 01/06/18 04:00 98.6 30 146/98 (114) 96 01/06/18 03:00 25 Intake and Output 01/06/18 01/06/18 01/06/18 07:59 15:59 23:59 Intake Total 240 ml Output Total 600 ml Balance -360 ml Result Diagram: 01/05/18 0409 01/05/18 0409 Other Results Microbiology Date/Time Source Procedure Growth Status 01/01/18 14:15 Blood Peripheral Aerobic Blood Culture - Preliminary NO GROWTH IN 4 DAYS Resulted 01/01/18 14:15 Blood Peripheral Anaerobic Blood Culture - Preliminary NO GROWTH IN 4 DAYS Resulted Imaging Last 24 hours Impressions Chest X-Ray 01/06/18 0600 Signed Impressions: Service Date/Time: Saturday, January 06, 2018 03:21 - CONCLUSION: Slight improvement in aeration Jeffrey Tipton MD Objective Remarks GENERAL: 72-year-old -[place] male currently orotracheally intubated SKIN: Warm and dry. HEAD: Normocephalic. EYES: No scleral icterus. No injection or drainage. NECK: Supple, trachea midline. No JVD or lymphadenopathy tongue with dry mucosa. CARDIOVASCULAR: Irregular, RR. S1, S2 no S4. 2/6 systolic pansystolic murmur RESPIRATORY: Coarse rhonchi are appreciated bilaterally. No wheezing GASTROINTESTINAL: Abdomen soft, non-tender, nondistended. Hypoactive bowel sounds appreciated MUSCULOSKELETAL: Trace bilateral upper and lower extremity edema BACK: Nontender without obvious deformity. NEURO EXAM: Cranial nerves II through XII appear grossly intact. Strength appears equal symmetric. Normal sensation. Moaning to voice only Urinary Catheter: Yes Assessment to: Continue Rolon insert reason: ICU Pt Getting Diuretics Vascular Central Line Catheter: No Assessment to: Continue A/P Assessment and Plan Neuro/Psych: Patient is written for propofol/fentanyl drips for sedation/analgesia while intubated Goal of RA SS of -2 Daily sedation vacation Acetaminophen 650 mg p.o. every 6 hours as needed fever CV: Acute on chronic systolic heart failure ejection fraction less than 20% Severe MR/TR Hypertension/essential Dyslipidemia Coronary disease status post CABG 2005 RCA stent 2014 Elevated troponin likely type II STEMI/demand ischemia AICD Currently on carvedilol 3.125 mg p.o. twice daily for hypertension 2D echocardiogram revealed EF less than 20%. LV dilatation. Generalized hypo-/ akinesis except basal posterior and lateral ventricle. Left atrial enlargement. Severe MR/TR. Pulmonary arterial pressure 33 mmHg Home medications include carvedilol 25 mg by mouth twice daily, amlodipine 10 mg by mouth daily and lisinopril 5 mg p.o. daily Continue atorvastatin 40 mg p.o. daily for dyslipidemia Continue aspirin 81 mg by tube daily Cardiology/Dr. Crook is actively following EKG/cycle troponins all pending BNP elevated greater than 1500 Resp: Acute hypercapnic respiratory failure [facility] 16/550/100 Ventilator bundle Albuterol/ipratropium aerosols every 6 hours with albuterol aerosols every 2 hours as needed for dyspnea Add budesonide 0.5/2 1 inhalation twice daily Spontaneous breathing trials when clinically indicated Follow postintubation EKG/chest x-ray GI: NG tube currently to low intermittent wall suction Start tube feeding with Glucerna 1.5 goal 50 cc an hour Lansoprazole 30 mg by tube daily for GI prophylaxis Docusate sodium/senna 1 tablet twice daily for bowel regimen : BPH Okay to Place Rolon catheter while on diuretics Holding alfuzosin 10 mg daily for BPH Currently on tamsulosin 0.4 mg p.o. daily Endo: Diabetes mellitus type 2 History of gout Sliding scale insulin with NovoLog with Accu-Cheks every 6 hours to maintain euglycemia/low regimen Holding glipizide 5 mg twice daily for diabetes Holding colchicine 0.6 mg by mouth daily for gout Renal: Acute on chronic kidney disease stage IIIa Avoid nephrotoxic drugs Monitor urine output Accurate I's and O's Creatinine yesterday is 1.7. Monitor closely Heme: Chronic anticoagulation with warfarin History of DVT Scheduled for warfarin 7.5 mg every other day. Yesterday was 3.0. A.m. laboratories all pending ID: Monitor for infection. Blood cultures 2 12/24 no growth Check sputum/influenza, UA and repeat blood cultures today MSK: Osteoarthritis PT evaluate and treat FEN: Replace electrolytes as clinically indicated Access -Utilize peripheral IV. Central line if indicated Prophylaxis -GI -lansoprazole -DVT -SCD/holding warfarin with elevated INR. Resume when clinically indicated Additional 35 minutes critical care time involved to previous supply chain engineer consultation note on chronic systolic heart failure -cardiorenal syndrome -Continue gentle diuresis -Continue carvedilol -Hold MERI inhibitor is due to renal insufficiency -Management per cardiology Chronic obstructive pulmonary disease -Worsening shortness of breath -Initiate IV steroid -Continue DuoNeb scheduled and as needed Renal insufficiency -Strict I's and O -Monitored gentle diuresis -Monitor electrolytes and creatinine trend Atrial fibrillation -Rate controlled with carvedilol -Currently in sinus rhythm -Continue Coumadin Ischemic cardiomyopathy -Cardiology consult appreciated -Continue beta-jr and diuretics -Repeat series of troponins and EKGs to rule out acute coronary syndrome DVT GI prophylax -Laron's and SCDs -Coumadin -Pepcid Critical Care: The total critical care time was 35 minutes. Time to perform other separately billable procedures was not included in the critical care time. Feliciano Holt MD Jan 06, 2018 08:21
--- NOTE | 2018-01-06 08:23 | EKG ---
Date Performed: 01/06/2018 Time Performed: 02:35:48 PTAGE: 72 years EKG: Ventricular pacing Pacemaker rhythm - no further analysis Abnormal ECG PREVIOUS TRACING : 01/01/2018 23.27 Since the previous tracing, no significant change noted DOCTOR: Sandie Rhoades Interpretating Date/Time 01/06/2018 08:21:53
[2018-01-06] MEDS: TAMSULOSIN HCL 0.4 MG CAP PO SCH (09:00)
[2018-01-06] MEDS: CARVEDILOL 3.125 MG TAB PO SCH ×2 (09:00→21:00)
[2018-01-06] MEDS: LANSOPRAZOLE SOLUTAB 30 MG TAB NG SCH (09:00)
[2018-01-06] MEDS: SODIUM CHLORIDE 0.9% FLUSH 10 ML FLUSH IV FLUSH SCH ×2 (09:00→21:33)
[2018-01-06] MEDS: ATORVASTATIN 40 MG TAB PO SCH (09:00)
[2018-01-06] MEDS: ASPIRIN 81 MG CHEW TAB CHEW SCH (09:00)
[2018-01-06] MEDS: DOCUSATE SODIUM 50 MG/SENNA 8.6 MG TAB PO SCH ×2 (09:00→21:32)
[2018-01-06] MEDS: fentaNYL DRIP 250 ML IV PRN (09:03)
[2018-01-06] MEDS: PROPOFOL 1000 MG/100 ML INJ 100 ML IV PRN ×3 (09:05→22:04)
--- NOTE | 2018-01-06 09:42 | RADRPT ---
EXAM DATE/TIME: 01/06/2018 08:23 [facility] COMPARISON: CHEST SINGLE AP, January 06, 2018, 3:21. INDICATIONS : Post intubation. MEDICAL HISTORY : Hypertension. Diabetes mellitus type II. SURGICAL HISTORY : Pacemaker. CABG. ENCOUNTER: Subsequent ACUITY: 4 - 6 days PAIN SCORE: Non-responsive. LOCATION: Bilateral chest FINDINGS: Interval placement of endotracheal tube with tip 3 cm above the shelli. Gastric tube tip and side-po rt project within the stomach. There is persistent indistinctness of the bronchopulmonary markings i n the left lower lung with mild air bronchogram formation, stable in severity from prior. Mild blunt ing of the right costophrenic angle suggests small pleural effusion. No infiltrates seen in the righ t lung. Evidence of prior median sternotomy and stable appearance pacemaker leads. CONCLUSION: ET tube in good position. Persistent left lower lobe infiltrates and small right pleural effusion. Fausto Lunsford MD on January 06, 2018 at 9:38 Board Certified Radiologist. This report was verified electronically.
[2018-01-06] MEDS: INSULIN ASPART SUPPLEMENTAL SCALE SQ SCH ×2 (12:00→18:25)
[2018-01-06] MEDS ORDERED: Vancomycin Consult Pharmacy 1 EA OTHER PRN (12:15)
[2018-01-06] MEDS: ARTIFICIAL TEARS OPTH SOLN 15 ML BTL EACH EYE SCH ×2 (13:05→21:32)
[2018-01-06] MEDS: TOLNAFTATE 1% CREAM 15 GM TOPICAL SCH ×2 (13:05→21:32)
[2018-01-06] MEDS: FUROSEMIDE 40 MG/4 ML VIAL IV PUSH SCH ×2 (13:05→18:24)
[2018-01-06] MEDS: PIPERACIL-TAZO 3.375 GM PREMIX 50 ML IV SCH ×2 (13:53→21:31)
[2018-01-06] MEDS ORDERED: VANCOMYCIN INJ 1,250 MG in SODIUM CHLOR 0.9% 250 ML INJ 250 ML IV SCH (14:00)
[2018-01-06] MEDS ORDERED: VANCOMYCIN INJ 1,500 MG in SODIUM CHLORID 0.9% 500 ML INJ 500 ML IV ONE (15:00)
--- NOTE | 2018-01-06 15:32 | HHI.FPPN ---
Subjective Remarks Intubated, appears comfortable. Significant other at the bedside. Objective Vitals Vital Signs Date Time Temp Pulse Resp B/P (MAP) Pulse Ox O2 Delivery O2 Flow Rate FiO2 01/06/18 13:10 100 40 01/06/18 07:45 100 100 01/06/18 06:00 104 01/06/18 05:00 102 01/06/18 04:00 105 01/06/18 04:00 Nasal Cannula 2.00 01/06/18 04:00 98.6 105 30 146/98 (114) 96 01/06/18 03:20 96 Nasal Cannula 3.00 01/06/18 03:00 92 25 01/06/18 03:00 107 01/06/18 02:00 101 01/06/18 01:00 102 01/06/18 00:00 106 01/06/18 00:00 Nasal Cannula 2.00 01/06/18 00:00 98.1 106 22 150/97 (114) 98 01/05/18 23:00 102 01/05/18 22:00 96 Nasal Cannula 2.00 01/05/18 22:00 101 01/05/18 21:00 96 01/05/18 20:00 98.4 100 22 119/85 (96) 97 01/05/18 20:00 Nasal Cannula 2.00 01/05/18 20:00 100 01/05/18 18:01 96 01/05/18 17:00 100 01/05/18 16:01 92 I/O 01/05/18 01/05/18 01/05/18 01/06/18 01/06/18 01/06/18 07:00 15:00 23:00 07:00 15:00 23:00 Intake Total 240 ml 720 ml 240 ml 25 ml Output Total 450 ml 925 ml 600 ml Balance -210 ml -205 ml -360 ml 25 ml Intake Oral 240 ml 720 ml 240 ml IV Total 25 ml Output Urine Total 450 ml 925 ml 600 ml Stool Total 0 ml # Voids 7 # Bowel Movements 1 2 1 Result Diagram: 01/05/1840801/05/18408 Objective Remarks GENERAL: On ventilator, FiO2 of 50%, PEEP 5, tidal volume 525. SKIN: No rashes, ecchymoses or lesions. Cool and dry. HEAD: Atraumatic. Normocephalic. No temporal or scalp tenderness. EYES: Pupils equal round and reactive. Extraocular motions intact. No scleral icterus. No injection or drainage. ENT: Nose without bleeding or purulent drainage. Airway patent. NECK: Trachea midline. No JVD or lymphadenopathy. Supple, nontender, no meningeal signs. CARDIOVASCULAR: Regular rate and rhythm without murmurs, JVD appreciated RESPIRATORY: Good air movement bilaterally with no crackles appreciated. GASTROINTESTINAL: Abdomen soft, non-tender, nondistended. No hepato-splenomegaly , or palpable masses. No guarding. MUSCULOSKELETAL: 2+ pitting edema to level of midshin appreciated in BLE - stable compared to prior exams. No joint tenderness, effusion, or edema noted. No calf tenderness. NEUROLOGICAL: Awake and alert. Cranial nerves II through XII grossly intact. Motor and sensory grossly within normal limits. Grossly normal strength. A/P Assessment and Plan Patient is a 72-year-old admitted with CHF exacerbation. He required BiPAP at time of admission with significant fluid overload complicated by hypotension. This surely weaned to 1 L nasal cannula, however on 01/06 at 0600 hrs suffered worsening respiratory distress, needed to be intubated. Discharge Planning Pending clinical improvement, pt is on 2L O2 at home baseline Problem List: (1) CHF exacerbation ICD Codes: I50.9 - Heart failure, unspecified Status: Acute Plan: Patient of Dr. Aquino, presenting with acute CHF exacerbation. He reports he had an echo 1 month ago but unknown EF. Will attempt to obtain records. Patient is on BiPAP at time of admission but recent ABG overall unremarkable. CXR showing significant pulmonary edema. BNP 1121. Initial troponin 0.41 with EKG showing paced rhythm, rate 94, QTc 478. He reportedly took his amlodipine, and lisinopril on morning of admission. He received 1 dose of Lasix 40 mg IV in ED. * Intubated and sedated in the ICU. FiO2 at 50% this a.m. Continue with propofol, and fentanyl. * Lasix 80mg IV BID started by Cardiology on 01/05. 1.5 L output over the past 24 hours. * ACS workup negative * BNP increased to 1338 on 01/02, repeat BNP increased to 1576 on 01/05. * Echocardiogram showing EF less than 20%, severely dilated LV, mod to severe MV regurg, severe tricuspid regurg * Cardiology consulted - appreciated recommendations * Hold antihypertensives for now, titrate antihypertensives as tolerated * Continue aspirin, atorvastatin * Repeat CXR on 01/02 unchanged - f/u repeat CXR status post intubation showed slight improvement in aeration. (2) COPD (chronic obstructive pulmonary disease) ICD Codes: J44.9 - Chronic obstructive pulmonary disease Status: Chronic Plan: Suspecting a component of COPD as patient's lung exam has wheezing, labored breathing, decreased breath sounds at bases O2 Sat 100% Continue Duonebs q6hr scheduled Albuterol PRN Will start broad-spectrum antibiotics including vancomycin and Zosyn, given worsening respiratory status, and possibility of community acquired pneumonia. Continue with breathing treatments as above. Anticipate that his respiratory status will improve with positive pressure ventilation/intubation and diuresis. (3) SALIMA (acute kidney injury) ICD Codes: N17.9 - Acute kidney failure, unspecified Status: Acute Plan: Baseline creatinine is normal based on labs from September 2017. Creatinine 1.53 on admission - increased to 1.73 on 01/05. * Trend BMP * Avoid nephrotoxic agents * Careful hydration limits given fluid overload but likely kidneys will need some gentle hydration, no additional fluids for now (4) Atrial fibrillation ICD Codes: I48.91 - Atrial fibrillation Status: Chronic Plan: Chronic A. fib, not with RVR at this time. He is on warfarin 7.5 mg reportedly Saturday and Saturday with last dose not taken today. INR at goal at time of admission 2.0-3.0) INR on 01/05 was 3.0. Resume warfarin 5 mg daily. Recheck INR in the morning. * Carvedilol 6.5mg resumed by cardiology (5) HTN (hypertension) ICD Codes: I10 - Essential (primary) hypertension Status: Chronic Plan: Chronic essential hypertension on carvedilol 25 mg twice daily, amlodipine 10 mg daily, lisinopril 5 mg daily. He presents hypotensive with fluid overload consistent with CHF exacerbation * Management as above, holding antihypertensives aside from carvedilol at 6.5mg po BID per cardiology (6) Pacemaker ICD Codes: Z95.0 - Presence of cardiac pacemaker Status: Chronic Plan: Chronic, no acute events with this. Will monitor on telemetry (7) DM (diabetes mellitus) ICD Codes: E11.9 - Diabetes mellitus Status: Chronic Plan: Chronic, not on insulin. Takes glipizide 5 mg twice daily before meals * Low-dose sliding scale Novolog while inpatient (8) CVA, old, hemiparesis ICD Codes: I69.359 - Hemiparesis following cerebrovascular accident Status: Chronic Plan: No acute neurologic deficits at this time, baseline right-sided weakness and speech difficulties. Will monitor symptoms (9) Tinea pedis ICD Codes: B35.3 - Tinea pedis Plan: Chronic fungal rash appreciated on patient's R foot Tinactin cream ordered BID -Improvement in symptoms on 01/03 (10) BPH (benign prostatic hyperplasia) ICD Codes: N40.0 - Benign prostatic hyperplasia without lower urinary tract symptoms Plan: Patient has a history of BPH Able to urinate but reporting decreased flow Continuing home Flomax with BP parameters Instructed nursing staff to obtain bladder scan Will consider placing Rolon if he is retaining urine >300 mL (11) Gout ICD Codes: M10.9 - Gout, unspecified Status: Chronic Plan: No acute exacerbation. Holding home colchicine due to SALIMA (12) Fluids/Electrolytes/Nutrition/Prophylaxis Status: Acute Plan: Fluids: Fluid restrict given CHF, will monitor Electrolytes: monitor and replete as needed Nutrition: Heart healthy diet DVT Prophylaxis: Early ambulation. Warfarin as above. Problem Qualifiers (1) CHF exacerbation: Qualified Codes: I50.23 - Acute on chronic systolic (congestive) heart failure (2) Atrial fibrillation: Qualified Codes: I48.2 - Chronic atrial fibrillation (3) HTN (hypertension): Qualified Codes: I10 - Essential (primary) hypertension (4) DM (diabetes mellitus): Kenneth Correia MD, R3 Jan 06, 2018 15:32
[2018-01-06] MEDS ORDERED: WARFARIN SOD 5 MG TAB PO ONE (15:45)
[2018-01-06] MEDS: ACETAMINOPHEN 650 MG/20.3 ML UDC PO PRN ×2 (18:24→22:08)
[2018-01-06 19:45] LABS: BACTERIA, URINE MOD /hpf; BILIRUBIN, URINE NEG (NEG); BLOOD, URINE LARGE (NEG); GLUCOSE,URINE NEG (NEG); KETONE, URINE NEG (NEG); NITRITE,URINE NEG (NEG); SQUAMOUS EPITHELIAL CELL URINE 2 /hpf (0-5); URINE LEUKOCYTE ESTERASE LARGE (NEG); WHITE BLOOD CELL CLUMPS MANY
[2018-01-06 19:48] LABS: URINE COLOR LIGHT-RED (YELLW/STRAW)
[2018-01-06 20:29] LABS: CREATININE, RANDOM URINE LESS THAN 13.0 MG/DL; SODIUM,RANDOM URINE 114 MEQ/L
[2018-01-06 20:43] LABS: BASOPHIL % 0.3 % (0.0-2.0); EOSINOPHIL # 0.1 TH/MM3 (0-0.4); EOSINOPHIL % 0.6 % (0.0-4.0); HEMATOCRIT 38.8 % (39.0-51.0); HEMOGLOBIN 12.6 GM/DL (13.0-17.0); LYMPH % 2.3 % (9.0-44.0); LYMPHOCYTE # 0.3 TH/MM3 (1.0-4.8); MEAN CELL VOLUME 92.9 FL (80.0-100.0); MEAN CORPUSCULAR HEMOGLOBIN 30.2 PG (27.0-34.0); MEAN CORPUSCULAR HGB CONC 32.4 % (32.0-36.0); MEAN PLATELET VOLUME 8.4 FL (7.0-11.0); MONO % 7.3 % (0.0-8.0); MONOCYTE # 0.8 TH/MM3 (0-0.9); NEUT % 89.5 % (16.0-70.0); PLATELET COUNT 173 TH/MM3 (150-450); RED BLOOD COUNT 4.17 MIL/MM3 (4.50-5.90); RED CELL DISTRIBUTION WIDTH 17.2 % (11.6-17.2); WHITE BLOOD COUNT 11.1 TH/MM3 (4.0-11.0)
[2018-01-06 21:01] LABS: INTERNATIONAL NORMALIZED RATIO 1.8 RATIO; PROTHROMBIN TIME - PATIENT 18.3 SEC (9.8-11.6)
[2018-01-06 21:38] LABS: ALBUMIN 2.8 GM/DL (3.4-5.0); ALKALINE PHOSPHATASE 63 U/L (45-117); ALT (GPT) 36 U/L (12-78); AST (GOT) 19 U/L (15-37); BICARBONATE 25.2 MEQ/L (21.0-32.0); BLOOD UREA NITROGEN 32 MG/DL (7-18); CALCIUM 8.8 MG/DL (8.5-10.1); CHLORIDE 106 MEQ/L (98-107); CREATININE 1.75 MG/DL (0.60-1.30); GLOMERULAR FILTRATION RATE 47 ML/MIN (>89); GLUCOSE,RANDOM 69 MG/DL (74-106); MAGNESIUM 2.2 MG/DL (1.5-2.5); PHOSPHORUS 2.1 MG/DL (2.5-4.9); SODIUM (NA) 141 MEQ/L (136-145); TOTAL BILIRUBIN ADULT 1.9 MG/DL (0.2-1.0); TROPONIN I 0.54 NG/ML (0.02-0.05)
[2018-01-06] MEDS: RESP: BUDESONIDE 0.5 MG/2 ML NEB NEB SCH (21:47)
[2018-01-07] VITALS (17 sets, daily range): BP systolic 94–102; BP diastolic 55–68; PULSE 78–84; RESP 15–20; TEMP 97.9–101.2; O2SAT 97–100
[2018-01-07] MEDS: PROPOFOL 1000 MG/100 ML INJ 100 ML IV PRN (02:23)
[2018-01-07] MEDS: PIPERACIL-TAZO 3.375 GM PREMIX 50 ML IV SCH ×4 (02:23→21:56)
[2018-01-07] MEDS: fentaNYL DRIP 250 ML IV PRN (03:38)
[2018-01-07] MEDS: RESP: ALBUTEROL 2.5 MG/IPRATROPIUM 0.5 MG NEB (SCH) INH ×4 (04:31→21:24)
[2018-01-07] MEDS: ARTIFICIAL TEARS OPTH SOLN 15 ML BTL EACH EYE SCH ×3 (06:00→21:57)
[2018-01-07] MEDS: INSULIN ASPART SUPPLEMENTAL SCALE SQ SCH ×4 (06:00→17:58)
[2018-01-07] MEDS: CHLORHEXIDINE 0.12% (ORAL KIT) 15 ML CUP MT SCH ×2 (08:00→21:57)
--- NOTE | 2018-01-07 08:50 | RADRPT ---
EXAM DATE/TIME: 01/07/2018 07:50 [facility] COMPARISON: CHEST SINGLE AP, January 06, 2018, 8:23. INDICATIONS : Congestive heart failure exacerbation. MEDICAL HISTORY : None. SURGICAL HISTORY : Pacemaker. ENCOUNTER: Subsequent ACUITY: 1 week PAIN SCORE: Non-responsive. LOCATION: chest FINDINGS: Stable ETT and NGT. Slight progression of small right pleural effusion with associated airspace disea se in the right lower lung zone. Persistent left lower lung zone airspace disease. Cardiac silhouette is enlarged with indistinct central pulmonary vasculature. Remainder of exam is unchanged. CONCLUSION: 1. Stable ETT and NGT. 2. Cardiomegaly with pulmonary vascular congestion. 3. Slight interval enlargement of small right pleural effusion with associated right lower lobe airsp cecy disease, presumably compressive atelectasis. 4. Stable left lower lobe airspace disease. Young Baldwin MD on January 07, 2018 at 8:46 Board Certified Radiologist. This report was verified electronically.
[2018-01-07] MEDS: SODIUM CHLORIDE 0.9% FLUSH 10 ML FLUSH IV FLUSH SCH ×2 (09:00→21:56)
[2018-01-07] MEDS: ASPIRIN 81 MG CHEW TAB CHEW SCH (09:00)
[2018-01-07] MEDS: FUROSEMIDE 40 MG/4 ML VIAL IV PUSH SCH (09:00)
[2018-01-07] MEDS: DOCUSATE SODIUM 50 MG/SENNA 8.6 MG TAB PO SCH ×2 (09:00→21:55)
[2018-01-07] MEDS: CARVEDILOL 3.125 MG TAB PO SCH ×2 (09:00→21:00)
[2018-01-07] MEDS: TOLNAFTATE 1% CREAM 15 GM TOPICAL SCH ×2 (09:00→21:57)
[2018-01-07] MEDS: TAMSULOSIN HCL 0.4 MG CAP PO SCH (09:00)
[2018-01-07] MEDS: ATORVASTATIN 40 MG TAB PO SCH (09:00)
[2018-01-07] MEDS: LANSOPRAZOLE SOLUTAB 30 MG TAB NG SCH (09:00)
--- NOTE | 2018-01-07 09:13 | HHI.CCPN ---
Subjective Remarks/Hospital Course 72-year-old man with a history of an ischemic cardiomyopathy with a Biotronik ICD, status post CABG in 2006 and subsequent stenting of RCA in 2015. He has had recurrent hospitalizations for CHF. He had been doing well until very recently, when he began having some progressive shortness of breath and a bit of edema is what precipitated his emergency room visit. He was admitted to family medicine service where he responded somehow to diuresis, however today, despite his improving off x-ray imaging, his respiratory status is worsening requiring transfer to ICU and observation for possible intubation. 01/06: Patient intubated due to tachypnea/acute CHF exacerbation with patient altered and not/refusing to wear BiPAP while attempting to aggressively diurese. notified per RN. Currently hemodynamic stable. Chest x-ray post intubation currently pending. Subjective 01/07: T-max 101.5. Currently 99.3. Diuresis 2.5 liters past 24 hours. A.m. laboratories pending. Hematuria resolving. Sedated on the ventilator. Objective Vital Signs Date Time Temp Pulse Resp B/P (MAP) Pulse Ox O2 Delivery O2 Flow Rate FiO2 01/07/18 06:00 78 01/07/18 04:31 100 40 01/07/18 04:00 99.3 15 96/55 (69) 01/06/18 20:00 Mechanical Ventilator 01/06/18 07:00 2.00 Intake and Output 01/07/18 01/07/18 01/08/18 08:00 16:00 00:00 Intake Total 930 ml Output Total 520.0 ml Balance 410.0 ml Result Diagram: 01/06/18 1950 01/06/18 1950 Other Results Microbiology Date/Time Source Procedure Growth Status 01/06/18 20:31 Blood Peripheral Aerobic Blood Culture Pending Received 01/06/18 20:31 Blood Peripheral Anaerobic Blood Culture Pending Received 01/06/18 18:00 Nasal Aspirate Influenza Types A,B Antigen (MELIDA) - Final NEGATIVE FOR FLU A AND B ANTIGEN.... Complete 01/06/18 18:00 Urine Clean Catch Urine Culture Pending Received Imaging Last Impressions Chest X-Ray 01/07/18 0800 Signed Impressions: Service Date/Time: Sunday, January 07, 2018 07:50 - CONCLUSION: 1. Stable ETT and NGT. 2. Cardiomegaly with pulmonary vascular congestion. 3. Slight interval enlargement of small right pleural effusion with associated right lower lobe airspace disease, presumably compressive atelectasis. 4. Stable left lower lobe airspace disease. Young Baldwin MD Objective Remarks GENERAL: 72-year-old -[place] male currently orotracheally intubated SKIN: Warm and dry. HEAD: Normocephalic. EYES: No scleral icterus. No injection or drainage. NECK: Supple, trachea midline. No JVD or lymphadenopathy tongue with dry mucosa. CARDIOVASCULAR: Irregular, RR. S1, S2 no S4. 2/6 systolic pansystolic murmur RESPIRATORY: Coarse rhonchi are appreciated bilaterally. No wheezing GASTROINTESTINAL: Abdomen soft, non-tender, nondistended. Hypoactive bowel sounds appreciated MUSCULOSKELETAL: Trace bilateral upper and lower extremity edema BACK: Nontender without obvious deformity. NEURO EXAM: Cranial nerves II through XII appear grossly intact. Strength appears equal symmetric. Normal sensation. Moaning to voice only Urinary Catheter: Yes Assessment to: Continue Rolon insert reason: Prolonged Immobilization Vascular Central Line Catheter: No Assessment to: Continue A/P Assessment and Plan Neuro/Psych: Patient is written for propofol drip at 20 mcg/kg/min/fentanyl drips at 100 mg an hour for sedation/analgesia while intubated Goal of RASS of -2 Daily sedation vacation Acetaminophen 650 mg p.o. every 6 hours as needed fever CV: Acute on chronic systolic heart failure ejection fraction less than 20% Severe MR/TR Hypertension/essential Dyslipidemia Coronary disease status post CABG 2005 RCA stent 2014 Elevated troponin likely type II STEMI/demand ischemia AICD Currently on carvedilol 3.125 mg p.o. twice daily for hypertension 2D echocardiogram revealed EF less than 20%. LV dilatation. Generalized hypo-/ akinesis except basal posterior and lateral ventricle. Left atrial enlargement. Severe MR/TR. Pulmonary arterial pressure 33 mmHg Home medications include carvedilol 25 mg by mouth twice daily, amlodipine 10 mg by mouth daily and lisinopril 5 mg p.o. daily Continue atorvastatin 40 mg p.o. daily for dyslipidemia Continue aspirin 81 mg by tube daily Cardiology/Dr. Crook is actively following EKG/cycle troponins all pending BNP elevated greater than 1000 Currently on furosemide 80 mg IV twice daily Resp: Acute hypercapnic respiratory failure COPD [facility] /10/11/39 Ventilator bundle Albuterol/ipratropium aerosols every 6 hours with albuterol aerosols every 2 hours as needed for dyspnea Add budesonide 0.5/2 1 inhalation twice daily Spontaneous breathing trials when clinically indicated Attempt extubation this afternoon for/3 if clinically stable GI: Hypoalbuminemia Start tube feeding with Glucerna 1.5 goal 50 cc an hour Lansoprazole 30 mg by tube daily for GI prophylaxis Docusate sodium/senna 1 tablet twice daily for bowel regimen : BPH Hematuria CBI until clear Okay to Place Rolon catheter while on diuretics Holding alfuzosin 10 mg daily for BPH Currently on tamsulosin 0.4 mg p.o. daily Currently holding warfarin with hematuria Endo: Diabetes mellitus type 2 History of gout Sliding scale insulin with NovoLog with Accu-Cheks every 6 hours to maintain euglycemia/low regimen Holding glipizide 5 mg twice daily for diabetes Holding colchicine 0.6 mg by mouth daily for gout TSH 0.73 Renal: Acute on chronic kidney disease stage IIIa Avoid nephrotoxic drugs Monitor urine output Accurate I's and O's Creatinine yesterday is 1.7. Monitor closely Heme: Chronic anticoagulation with warfarin History of DVT Scheduled for warfarin 7.5 mg every other day. Today 1.8. A.m. laboratories pending ID: Pleomorphic gram-positive speedy bacteremia? Likely contaminant corynebacterium/ deteriorates etc. Monitor for infection. Blood cultures 01/01 revealed 1 out of 4 gram-positive rods Blood cultures 2 / including blood cultures 2/urine/sputum and urine pneumococcal and Legionella antigens all pending Negative influenza. MSK: Osteoarthritis PT evaluate and treat FEN: Hypophosphatemia Replace electrolytes as clinically indicated Potassium phosphorus 15 mmol IV 1 now. Recheck in a.m. Access -Utilize peripheral IV. Central line if indicated Prophylaxis -GI -lansoprazole -DVT -SCD/holding warfarin with elevated INR. Resume when clinically indicated Level 3 follow-up Feliciano Holt MD Jan 07, 2018 09:13
[2018-01-07] MEDS: RESP: BUDESONIDE 0.5 MG/2 ML NEB NEB SCH ×2 (09:19→21:24)
[2018-01-07 10:19] LABS: INTERNATIONAL NORMALIZED RATIO 2.3 RATIO; PROTHROMBIN TIME - PATIENT 23.4 SEC (9.8-11.6)
[2018-01-07 10:44] LABS: BICARBONATE 23.9 MEQ/L (21.0-32.0); CREATININE 2.4 MG/DL (0.60-1.30); MAGNESIUM 2.4 MG/DL (1.5-2.5)
[2018-01-07 10:51] LABS: PHOSPHORUS 3.6 MG/DL (2.5-4.9); RANDOM VANCOMYCIN 14.9 COMMENT
--- NOTE | 2018-01-07 11:08 | HHI.FPPN ---
Subjective Remarks Patient seen and examined bedside this morning. He shouldn't is intubated on mechanical vent into the ICU. Family is bedside and we discussed the situation with family. Shouldn't has been tolerating the vent well and plan is to do spontaneous breathing trials this afternoon. Events overnight. Urine output decreased adequate. Objective Vitals Vital Signs Date Time Temp Pulse Resp B/P (MAP) Pulse Ox O2 Delivery O2 Flow Rate FiO2 01/07/18 09:19 97 40 01/07/18 06:00 78 01/07/18 04:31 100 40 01/07/18 04:00 82 01/07/18 04:00 40 01/07/18 04:00 99.3 82 15 96/55 (69) 100 01/07/18 02:00 84 01/07/18 01:28 99 40 01/07/18 00:00 101.2 82 20 102/60 (74) 100 01/07/18 00:00 82 01/07/18 00:00 40 01/06/18 22:00 94 01/06/18 21:00 99.1 01/06/18 20:30 96/50 (65) 100 01/06/18 20:00 100 Mechanical Ventilator 40 01/06/18 20:00 40 01/06/18 20:00 90 01/06/18 20:00 101.5 78 15 87/50 (62) 100 01/06/18 18:00 90 01/06/18 16:24 100 40 01/06/18 16:00 84 01/06/18 15:00 100.0 84 16 107/63 (78) 100 01/06/18 14:00 76 01/06/18 13:10 100 40 01/06/18 12:00 70 01/06/18 11:00 97.8 70 15 100/64 (76) 100 I/O 01/06/18 01/06/18 01/06/18 01/07/18 01/07/18 01/07/18 06:59 14:59 22:59 06:59 14:59 22:59 Intake Total 240 ml 25 ml 0 ml 930 ml Output Total 600 ml 2900 ml 520.0 ml Balance -360 ml 25 ml -2900 ml 410.0 ml Intake Oral 240 ml 0 ml IV Total 25 ml 600 ml Tube Feeding 210 ml Other 120 ml Output Urine Total 600 ml 2900 ml 400 ml Stool Total 0 ml Tube Feeding Residual Discard 120.0 ml # Bowel Movements 1 Result Diagram: 01/06/18 1950 01/06/181949 Objective Remarks GENERAL: On ventilator SKIN: No rashes, ecchymoses or lesions. Cool and dry. HEAD: Atraumatic. Normocephalic. No temporal or scalp tenderness. EYES: Pupils equal round and reactive. Extraocular motions intact. No scleral icterus. No injection or drainage. ENT: Nose without bleeding or purulent drainage. Airway patent. NECK: Trachea midline. No JVD or lymphadenopathy. Supple, nontender, no meningeal signs. CARDIOVASCULAR: Regular rate and rhythm without murmurs, JVD appreciated RESPIRATORY: Auscultation anteriorly; Good air movement bilaterally with no crackles appreciated. GASTROINTESTINAL: Abdomen soft, non-tender, nondistended. No hepato-splenomegaly , or palpable masses. No guarding. MUSCULOSKELETAL: No Pitting edema, decreased from prior exams. No joint tenderness, effusion, or edema noted. No calf tenderness. NEUROLOGICAL: Awake and alert. Cranial nerves II through XII grossly intact. Motor and sensory grossly within normal limits. Grossly normal strength. A/P Assessment and Plan Patient is a 72-year-old admitted with CHF exacerbation. He required BiPAP at time of admission with significant fluid overload complicated by hypotension. This surely weaned to 1 L nasal cannula, however on 01/06 at 0600 hrs suffered worsening respiratory distress, needed to be intubated. Discharge Planning Pending clinical improvement, pt is on 2L O2 at home baseline Problem List: (1) CHF exacerbation ICD Codes: I50.9 - Heart failure, unspecified Status: Acute Plan: Patient of Dr. Aquino, presenting with acute CHF exacerbation. He reports he had an echo 1 month ago but unknown EF. Will attempt to obtain records. Patient is on BiPAP at time of admission but recent ABG overall unremarkable. CXR showing significant pulmonary edema. BNP 1121. Initial troponin 0.41 with EKG showing paced rhythm, rate 94, QTc 478. He reportedly took his amlodipine, and lisinopril on morning of admission. He received 1 dose of Lasix 40 mg IV in ED. * Intubated and sedated in the ICU. Continue sedation, breathing trials and possible extubation this afternoon * ACS workup negative * BNP increased to 1338 on 01/02, repeat BNP increased to 1576 on 01/05. * Echocardiogram showing EF less than 20%, severely dilated LV, mod to severe MV regurg, severe tricuspid regurg * Cardiology consulted - appreciated recommendations; elevated troponin likely due to STEMI/demand ischemia, AICD placed * Hold antihypertensives for now, titrate antihypertensives as tolerated * Continue aspirin, atorvastatin (2) COPD (chronic obstructive pulmonary disease) ICD Codes: J44.9 - Chronic obstructive pulmonary disease Status: Chronic Plan: Status post acute hypercapnic respiratory failure due to COPD, possible nosocomial pneumonia, possible CHF component On ventilator as stated above Continue vancomycin and Zosyn Continue Pulmicort twice a day, DuoNeb every 6, furosemide 80 mg IV twice a day (3) SALIMA (acute kidney injury) ICD Codes: N17.9 - Acute kidney failure, unspecified Status: Acute Plan: Acute on chronic CKD, worsening Baseline creatinine is normal based on labs from September 2017. Creatinine 1.53 on admission -creatinine continues to increase; 2.4 today from 1.75 yesterday * Trend BMP * Avoid nephrotoxic agents * Careful hydration limits given fluid overload but likely kidneys will need some gentle hydration, no additional fluids for now (4) Atrial fibrillation ICD Codes: I48.91 - Atrial fibrillation Status: Chronic Plan: Chronic A. fib, not with RVR at this time. He is on warfarin 7.5 mg reportedly Saturday and Saturday with last dose not taken today. INR at goal at time of admission 2.0-3.0) INR therapeutic at 2.3 today, continue current warfarin dosing Continue to follow INR and titrate warfarin dosing (5) HTN (hypertension) ICD Codes: I10 - Essential (primary) hypertension Status: Chronic Plan: Borderline hypertension, cardiology following; hold all antihypertensive medication Chronic essential hypertension on carvedilol 25 mg twice daily, amlodipine 10 mg daily, lisinopril 5 mg daily. (6) Pacemaker ICD Codes: Z95.0 - Presence of cardiac pacemaker Status: Chronic Plan: Chronic, no acute events with this. Will monitor on telemetry (7) DM (diabetes mellitus) ICD Codes: E11.9 - Diabetes mellitus Status: Chronic Plan: Chronic, not on insulin. Takes glipizide 5 mg twice daily before meals * Low-dose sliding scale Novolog while inpatient (8) CVA, old, hemiparesis ICD Codes: I69.359 - Hemiparesis following cerebrovascular accident Status: Chronic Plan: No acute neurologic deficits at this time, baseline right-sided weakness and speech difficulties. Will monitor symptoms (9) Tinea pedis ICD Codes: B35.3 - Tinea pedis Plan: Chronic fungal rash appreciated on patient's R foot Tinactin cream ordered BID -Improvement in symptoms on 01/03 (10) BPH (benign prostatic hyperplasia) ICD Codes: N40.0 - Benign prostatic hyperplasia without lower urinary tract symptoms Plan: Patient has a history of BPH Rolon catheter in place, 3420 out overnight, and negative balance of -2465 (11) Gout ICD Codes: M10.9 - Gout, unspecified Status: Chronic Plan: No acute exacerbation. Holding home colchicine due to SALIMA (12) Fluids/Electrolytes/Nutrition/Prophylaxis Status: Acute Plan: Fluids: Fluid restrict given CHF, will monitor Electrolytes: Potassium 5.5 however hemolysis noted, follow up repeat BMP Nutrition: Pending extubation DVT Prophylaxis: Early ambulation. Warfarin as above. Problem Qualifiers (1) CHF exacerbation: Qualified Codes: I50.23 - Acute on chronic systolic (congestive) heart failure (2) Atrial fibrillation: Qualified Codes: I48.2 - Chronic atrial fibrillation (3) HTN (hypertension): Qualified Codes: I10 - Essential (primary) hypertension (4) DM (diabetes mellitus): Shruthi Rodriguez MD R2 Jan 07, 2018 11:08
[2018-01-07] MEDS ORDERED: VANCOMYCIN INJ 1,500 MG in SODIUM CHLORID 0.9% 500 ML INJ 500 ML IV ONE (13:00)
[2018-01-07] MEDS ORDERED: SODIUM BICARBONATE 8.4% SOLN 50 MEQ/50 ML VIAL SLOW IVP ONE (16:15)
[2018-01-07] MEDS ORDERED: RESP: ALBUTEROL 2.5 MG/3 ML NEB (PRN) NEB (16:15)
[2018-01-07] MEDS ORDERED: DEXTROSE 50% IN WATER 50 ML VIAL(D50) IV PUSH ONE (16:15)
[2018-01-07] MEDS ORDERED: SODIUM POLYSTYRENE SULFONATE SUSP 15 GM/60 ML CUP PO ONE (16:15)
[2018-01-07] MEDS ORDERED: CALCIUM GLUCONATE 10% 1 GM/10 ML VIAL SLOW IVP ONE (16:15)
[2018-01-07] MEDS ORDERED: INSULIN HUMAN REGULAR 1,000 UNITS/10 ML VIAL IV PUSH ONE (16:15)
[2018-01-07] MEDS ORDERED: CALCIUM GLUCONATE INJ 1 GM in SODIUM CHLORIDE 0.9% INJ 100 ML IV ONE (17:00)
[2018-01-07 17:47] LABS: CALCIUM 8.9 MG/DL (8.5-10.1); CREATININE 2.89 MG/DL (0.60-1.30)
[2018-01-07 17:53] LABS: AUTOMATED NEUTROPHIL # 15.6 TH/MM3 (1.8-7.7); BASOPHIL % 0.1 % (0.0-2.0); EOSINOPHIL # 0.1 TH/MM3 (0-0.4); EOSINOPHIL % 0.3 % (0.0-4.0); HEMATOCRIT 43.7 % (39.0-51.0); HEMOGLOBIN 13.9 GM/DL (13.0-17.0); LYMPH % 2.3 % (9.0-44.0); LYMPHOCYTE # 0.4 TH/MM3 (1.0-4.8); MEAN CELL VOLUME 95.9 FL (80.0-100.0); MEAN CORPUSCULAR HEMOGLOBIN 30.5 PG (27.0-34.0); MEAN CORPUSCULAR HGB CONC 31.8 % (32.0-36.0); MEAN PLATELET VOLUME 8.7 FL (7.0-11.0); MONO % 11.4 % (0.0-8.0); MONOCYTE # 2.1 TH/MM3 (0-0.9); NEUT % 85.9 % (16.0-70.0); PLATELET COUNT 104 TH/MM3 (150-450); RED BLOOD COUNT 4.55 MIL/MM3 (4.50-5.90); RED CELL DISTRIBUTION WIDTH 17.9 % (11.6-17.2); WHITE BLOOD COUNT 18.2 TH/MM3 (4.0-11.0)
[2018-01-07] MEDS: FREE WATER G-TUBE SCH (18:15)
[2018-01-08] VITALS (20 sets, daily range): BP systolic 95–107; BP diastolic 56–69; PULSE 76–96; RESP 15–20; TEMP 97.4–99; O2SAT 98–100
[2018-01-08] MEDS: INSULIN ASPART SUPPLEMENTAL SCALE SQ SCH ×4 (00:31→17:54)
[2018-01-08] MEDS: PIPERACIL-TAZO 3.375 GM PREMIX 50 ML IV SCH ×4 (03:11→21:08)
[2018-01-08] MEDS: PROPOFOL 1000 MG/100 ML INJ 100 ML IV PRN (03:18)
[2018-01-08] MEDS: RESP: ALBUTEROL 2.5 MG/IPRATROPIUM 0.5 MG NEB (SCH) INH ×4 (04:23→21:22)
[2018-01-08] MEDS: FREE WATER G-TUBE SCH ×3 (05:07→12:00)
[2018-01-08 05:47] LABS: INTERNATIONAL NORMALIZED RATIO 2.3 RATIO; PROTHROMBIN TIME - PATIENT 23.6 SEC (9.8-11.6)
[2018-01-08 05:52] LABS: CALCIUM 9.1 MG/DL (8.5-10.1); CREATININE 3.5 MG/DL (0.60-1.30); MAGNESIUM 2.6 MG/DL (1.5-2.5); PHOSPHORUS 3.8 MG/DL (2.5-4.9)
--- NOTE | 2018-01-08 06:07 | RADRPT ---
EXAM DATE/TIME: 01/08/2018 04:59 [facility] COMPARISON: CHEST SINGLE AP, January 07, 2018, 7:50. INDICATIONS : Shortness of breath. MEDICAL HISTORY : None. SURGICAL HISTORY : Pacemaker. ENCOUNTER: Subsequent ACUITY: 1 week PAIN SCORE: Non-responsive. LOCATION: Bilateral chest FINDINGS: Pacemaker device is noted with control pack over the left chest. Endotracheal tube and nasogastric tu be are stable. Hazy bilateral lower lung zone pleural-parenchymal opacities persist unchanged. Cardia c contours are grossly stable. CONCLUSION: No significant change Jeffrey Tipton MD on January 08, 2018 at 6:04 Board Certified Radiologist. This report was verified electronically.
[2018-01-08 06:18] LABS: HEMATOCRIT 41.5 % (39.0-51.0); MEAN CELL VOLUME 94.7 FL (80.0-100.0); MEAN CORPUSCULAR HEMOGLOBIN 29.7 PG (27.0-34.0); MEAN CORPUSCULAR HGB CONC 31.4 % (32.0-36.0); MEAN PLATELET VOLUME 8.7 FL (7.0-11.0); PLATELET COUNT 142 TH/MM3 (150-450); RED BLOOD COUNT 4.38 MIL/MM3 (4.50-5.90); RED CELL DISTRIBUTION WIDTH 17.7 % (11.6-17.2)
[2018-01-08] MEDS: ARTIFICIAL TEARS OPTH SOLN 15 ML BTL EACH EYE SCH ×3 (06:34→21:09)
--- NOTE | 2018-01-08 07:26 | PD.CARD.PN ---
Subjective Subjective Remarks sedated on vent Objective Medications Current Medications Medications (Trade) Dose Ordered Sig/Kaila Route Start Time Stop Time Status Last Admin (NS Flush) 2 ml UNSCH PRN IV FLUSH 01/01/18 16:15 (NS Flush) 2 ml BID IV FLUSH 01/01/18 21:00 01/07/18 21:56 (Lipitor) 40 mg DAILY PO 01/02/18 09:00 01/07/18 09:00 (D50w (Vial) Inj) 50 ml UNSCH PRN IV PUSH 01/01/18 17:45 (Glucagon Inj) 1 mg UNSCH PRN OTHER 01/01/18 17:45 (Natalie-Colace) 1 tab BID PO 01/01/18 21:00 01/07/18 21:55 (Milk Of Magnesia Liq) 30 ml Q12H PRN PO 01/01/18 17:45 01/03/18 12:31 (Senokot) 17.2 mg Q12H PRN PO 01/01/18 17:45 (Dulcolax Supp) 10 mg DAILY PRN RECTAL 01/01/18 17:45 (Lactulose Liq) 30 ml DAILY PRN PO 01/01/18 17:45 (Flomax) 0.4 mg DAILY PO 01/02/18 15:00 01/07/18 09:00 (Tinactin 1% Cream) 1 applic Q12HR TOPICAL 01/02/18 21:00 01/07/18 21:57 (Hydrocortisone 1% Cream) 1 applic Q12H PRN TOPICAL 01/02/18 15:00 01/03/18 12:12 (Coreg) 3.125 mg Q12HR PO 01/06/18 09:00 (Peridex 0.12% Liq) 15 ml BID@08,20 MT 01/06/18 08:00 01/07/18 21:57 Propofol 100 ml @ 3 mls/hr TITRATE PRN IV 01/06/18 07:15 01/08/18 03:18 Fentanyl Citrate 250 ml @ 5 mls/hr TITRATE PRN IV 01/06/18 07:15 01/07/18 03:38 (Duoneb Neb) 1 ampule Q6HR NEB INH 01/06/18 10:00 01/08/18 04:23 (Prevacid Odt) 30 mg DAILY NG 01/06/18 09:00 01/07/18 09:00 (Pulmicort Respule Neb) 0.5 mg Q12HR NEB NEB 01/06/18 20:00 01/07/18 21:24 (Tears Naturale Opth Soln) 1 drop Q8HR EACH EYE 01/06/18 14:00 01/08/18 06:34 (Aspirin Chew) 81 mg DAILY CHEW 01/06/18 09:00 01/07/18 09:00 (Tylenol 650 Mg/ 20 ml Liq) 650 mg Q6H PRN PO 01/06/18 08:15 01/06/18 22:08 (NovoLOG SUPPLEMENTAL SCALE) 1 Q6HR SQ 01/06/18 12:00 01/08/18 06:33 Piperacillin Sod/ Tazobactam Sod 50 ml @ 100 mls/hr Q6H IV 01/06/18 14:00 01/08/18 03:11 (Coumadin) 7.5 mg Q48H PO 01/09/18 16:00 (Albuterol Neb) 2.5 mg Q2HR NEB PRN NEB 01/07/18 16:15 (Free Water) VOLUME: 300 ML Q6HR G-TUBE 01/07/18 18:15 01/08/18 12:01 01/08/18 05:07 Vital Signs / I&O Vital Signs Date Time Temp Pulse Resp B/P (MAP) Pulse Ox O2 Delivery O2 Flow Rate FiO2 01/08/18 06:00 86 01/08/18 04:24 100 30 01/08/18 04:00 99.0 84 15 96/61 (73) 99 01/08/18 04:00 30 01/08/18 04:00 85 01/08/18 02:00 84 01/08/18 00:47 100 30 01/08/18 00:00 84 01/08/18 00:00 97.4 84 15 95/64 (74) 100 01/08/18 00:00 30 01/07/18 22:00 84 01/07/18 21:24 100 30 01/07/18 20:00 98.4 82 15 101/68 (79) 100 01/07/18 20:00 30 01/07/18 20:00 100 Mechanical Ventilator 30 01/07/18 20:00 82 01/07/18 18:00 78 01/07/18 16:54 98 30 01/07/18 16:00 97.9 82 15 100/55 (70) 100 01/07/18 16:00 78 01/07/18 16:00 40 01/07/18 15:10 30 01/07/18 15:10 99 30 01/07/18 14:13 99 40 01/07/18 12:22 40 01/07/18 12:00 98.0 82 15 94/56 (69) 100 01/07/18 09:19 97 40 01/07/18 08:00 40 I/O 01/07/18 01/07/18 01/07/18 01/08/18 01/08/18 01/08/18 07:00 15:00 23:00 07:00 15:00 23:00 Intake Total 930 ml 1723 ml Output Total 520.0 ml 300 ml Balance 410.0 ml 1423 ml IV Total 600 ml 707 ml Tube Feeding 210 ml 416 ml Other 120 ml 600 ml Output Urine Total 400 ml 300 ml Tube Feeding Residual Discard 120.0 ml # Bowel Movements 0 Physical Exam GENERAL: Well developed, well nourished. No acute distress. HEENT: Jugular venous pressure is normal. CHEST: Lungs decreased and CTA bilaterally. Unlabored respiratory effort. CARDIAC: Regular rate and rhythm without S3, S4, or murmur. ABDOMEN: Soft, nontender, no hepatosplenomegaly. Bowel sounds present. EXTREMITIES: No clubbing, cyanosis, no edema. Laboratory Laboratory Tests Test 01/07/18 09:52 01/07/18 16:19 01/07/18 21:25 01/08/18 05:13 Prothrombin Time 23.4 SEC 23.6 SEC Prothromb Time International Ratio 2.3 RATIO 2.3 RATIO Blood Urea Nitrogen 38 MG/DL 40 MG/DL 50 MG/DL Creatinine 2.40 MG/DL 2.89 MG/DL 3.50 MG/DL Random Glucose 111 MG/DL 126 MG/DL 183 MG/DL Calcium Level 9.0 MG/DL 8.9 MG/DL 9.1 MG/DL Phosphorus Level 3.6 MG/DL 3.8 MG/DL Magnesium Level 2.4 MG/DL 2.6 MG/DL Sodium Level 136 MEQ/L 136 MEQ/L 137 MEQ/L Potassium Level 5.5 MEQ/L 5.1 MEQ/L 4.7 MEQ/L 4.9 MEQ/L Chloride Level 102 MEQ/L 102 MEQ/L 101 MEQ/L Carbon Dioxide Level 23.9 MEQ/L 21.0 MEQ/L 24.0 MEQ/L Anion Gap 10 MEQ/L 13 MEQ/L 12 MEQ/L Estimat Glomerular Filtration Rate 33 ML/MIN 26 ML/MIN 21 ML/MIN Random Vancomycin Level 14.9 COMMENT White Blood Count 18.2 TH/MM3 18.0 TH/MM3 Red Blood Count 4.55 MIL/MM3 4.38 MIL/MM3 Hemoglobin 13.9 GM/DL 13.0 GM/DL Hematocrit 43.7 % 41.5 % Mean Corpuscular Volume 95.9 FL 94.7 FL Mean Corpuscular Hemoglobin 30.5 PG 29.7 PG Mean Corpuscular Hemoglobin Concent 31.8 % 31.4 % Red Cell Distribution Width 17.9 % 17.7 % Platelet Count 104 TH/MM3 142 TH/MM3 Mean Platelet Volume 8.7 FL 8.7 FL Neutrophils (%) (Auto) 85.9 % Lymphocytes (%) (Auto) 2.3 % Monocytes (%) (Auto) 11.4 % Eosinophils (%) (Auto) 0.3 % Basophils (%) (Auto) 0.1 % Neutrophils # (Auto) 15.6 TH/MM3 Lymphocytes # (Auto) 0.4 TH/MM3 Monocytes # (Auto) 2.1 TH/MM3 Eosinophils # (Auto) 0.1 TH/MM3 Basophils # (Auto) 0.0 TH/MM3 CBC Comment DIFF FINAL Differential Comment Hematology Comments Imaging Last 24 hours Impressions Chest X-Ray 01/08/18 0600 Signed Impressions: Service Date/Time: Monday, January 08, 2018 04:59 - CONCLUSION: No significant change Jeffrey Tipton MD Chest X-Ray 01/07/18 0800 Signed Impressions: Service Date/Time: Sunday, January 07, 2018 07:50 - CONCLUSION: 1. Stable ETT and NGT. 2. Cardiomegaly with pulmonary vascular congestion. 3. Slight interval enlargement of small right pleural effusion with associated right lower lobe airspace disease, presumably compressive atelectasis. 4. Stable left lower lobe airspace disease. Young Baldwin MD Assessment and Plan Problem List: (1) Acute on chronic systolic CHF (congestive heart failure) ICD Codes: I50.23 - Acute on chronic systolic (congestive) heart failure Status: Acute Plan: EF<20%, now multi system failure on vent - prognosis poor - on BB, no MERI with renal insufficiency (2) Atrial fibrillation ICD Codes: I48.91 - Atrial fibrillation Status: Chronic (3) SALIMA (acute kidney injury) ICD Codes: N17.9 - Acute kidney failure, unspecified Status: Acute Plan: per [facility], diuretics already stopped, on antibiotics (4) Respiratory failure ICD Codes: J96.90 - Respiratory failure, unspecified, unspecified whether with hypoxia or hypercapnia (5) Biventricular automatic implantable cardioverter defibrillator in situ ICD Codes: Z95.810 - Biventricular automatic implantable cardioverter defibrillator in situ Status: Chronic (6) Elevated troponin ICD Codes: R79.89 - Elevated troponin Status: Acute (7) CAD (coronary artery disease) ICD Codes: I25.10 - Atherosclerosis of coronary artery Status: Chronic (8) DM (diabetes mellitus) ICD Codes: E11.9 - Diabetes mellitus Status: Chronic Problem Qualifiers (1) Atrial fibrillation: Qualified Codes: I48.2 - Chronic atrial fibrillation (2) DM (diabetes mellitus): Pamela Aquino MD Jan 08, 2018 07:26
[2018-01-08] MEDS: CHLORHEXIDINE 0.12% (ORAL KIT) 15 ML CUP MT SCH ×2 (08:00→21:09)
[2018-01-08] MEDS: RESP: BUDESONIDE 0.5 MG/2 ML NEB NEB SCH ×2 (08:41→21:20)
[2018-01-08] MEDS: TOLNAFTATE 1% CREAM 15 GM TOPICAL SCH ×2 (09:00→21:00)
[2018-01-08] MEDS: SODIUM CHLORIDE 0.9% FLUSH 10 ML FLUSH IV FLUSH SCH ×2 (09:00→21:09)
[2018-01-08] MEDS: ATORVASTATIN 40 MG TAB PO SCH (09:49)
[2018-01-08] MEDS: ASPIRIN 81 MG CHEW TAB CHEW SCH (09:49)
[2018-01-08] MEDS: DOCUSATE SODIUM 50 MG/SENNA 8.6 MG TAB PO SCH ×2 (09:49→21:08)
[2018-01-08] MEDS: TAMSULOSIN HCL 0.4 MG CAP PO SCH (09:49)
[2018-01-08] MEDS: LANSOPRAZOLE SOLUTAB 30 MG TAB NG SCH (09:49)
[2018-01-08] MEDS: CARVEDILOL 3.125 MG TAB PO SCH ×2 (09:49→21:08)
--- NOTE | 2018-01-08 13:15 | HHI.FPPN ---
Subjective Remarks Patient seen and examined bedside this morning. Patient only tolerated spontaneous breathing trial yesterday for 30 minutes. They have been weaning sedation and he is on a lower dose of stents now. There are BV CPAP trials today. No acute events overnight. Urine output remains good Objective Vitals Vital Signs Date Time Temp Pulse Resp B/P (MAP) Pulse Ox O2 Delivery O2 Flow Rate FiO2 01/08/18 12:00 30 01/08/18 12:00 82 01/08/18 11:54 98 30 01/08/18 11:05 98.3 94 20 107/69 (82) 99 01/08/18 10:17 30 01/08/18 10:00 96 01/08/18 08:41 100 30 01/08/18 08:00 98.0 80 15 99/66 (77) 100 01/08/18 08:00 30 01/08/18 08:00 82 01/08/18 07:00 100 Mechanical Ventilator 30 01/08/18 06:00 86 01/08/18 04:24 100 30 01/08/18 04:00 99.0 84 15 96/61 (73) 99 01/08/18 04:00 30 01/08/18 04:00 85 01/08/18 02:00 84 01/08/18 00:47 100 30 01/08/18 00:00 84 01/08/18 00:00 97.4 84 15 95/64 (74) 100 01/08/18 00:00 30 01/07/18 22:00 84 01/07/18 21:24 100 30 01/07/18 20:00 98.4 82 15 101/68 (79) 100 01/07/18 20:00 30 01/07/18 20:00 100 Mechanical Ventilator 30 01/07/18 20:00 82 01/07/18 18:00 78 01/07/18 16:54 98 30 01/07/18 16:00 97.9 82 15 100/55 (70) 100 01/07/18 16:00 78 01/07/18 16:00 40 01/07/18 15:10 30 01/07/18 15:10 99 30 01/07/18 14:13 99 40 I/O 01/07/18 01/07/18 01/07/18 01/08/18 01/08/18 01/08/18 07:00 15:00 23:00 07:00 15:00 23:00 Intake Total 930 ml 1723 ml Output Total 520.0 ml 300 ml Balance 410.0 ml 1423 ml IV Total 600 ml 707 ml Tube Feeding 210 ml 416 ml Other 120 ml 600 ml Output Urine Total 400 ml 300 ml Tube Feeding Residual Discard 120.0 ml # Bowel Movements 0 Result Diagram: 01/08/1851201/08/18512 Objective Remarks GENERAL: On ventilator, opens eyes on command SKIN: No rashes, ecchymoses or lesions. Cool and dry. HEAD: Atraumatic. Normocephalic. No temporal or scalp tenderness. EYES: Pupils equal round and reactive. Extraocular motions intact. No scleral icterus. No injection or drainage. ENT: Nose without bleeding or purulent drainage. Airway patent. NECK: Trachea midline. No JVD or lymphadenopathy. Supple, nontender, no meningeal signs. CARDIOVASCULAR: Regular rate and rhythm without murmurs, JVD appreciated RESPIRATORY: Auscultation anteriorly; Good air movement bilaterally with no crackles appreciated. GASTROINTESTINAL: Abdomen soft, non-tender, nondistended. No hepato-splenomegaly , or palpable masses. No guarding. MUSCULOSKELETAL: No Pitting edema, decreased from prior exams. No joint tenderness, effusion, or edema noted. No calf tenderness. NEUROLOGICAL: Awake and alert. Cranial nerves II through XII grossly intact. Motor and sensory grossly within normal limits. Grossly normal strength. A/P Assessment and Plan Patient is a 72-year-old admitted with CHF exacerbation. He required BiPAP at time of admission with significant fluid overload complicated by hypotension. This surely weaned to 1 L nasal cannula, however on 01/06 at 0600 hrs suffered worsening respiratory distress, needed to be intubated. He has been on vent since 01/06. Discharge Planning Pending clinical improvement, pt is on 2L O2 at home baseline Problem List: (1) Hyperkalemia ICD Codes: E87.5 - Hyperkalemia Status: Acute Plan: 5.1 on 01/07 4.9 on 01/08 f/u BMP in AM s/p Calcium gluconate IV x 1 s/p albuterol neb s/p insulin, dextrose 50% in H20 50ml s/p sodium bicarb IV s/p kayaxelate (2) CHF exacerbation ICD Codes: I50.9 - Heart failure, unspecified Status: Acute Plan: Patient of Dr. Aquino, presenting with acute CHF exacerbation. He reports he had an echo 1 month ago but unknown EF. Will attempt to obtain records. Patient is on BiPAP at time of admission but recent ABG overall unremarkable. CXR showing significant pulmonary edema. BNP 1121. Initial troponin 0.41 with EKG showing paced rhythm, rate 94, QTc 478. He reportedly took his amlodipine, and lisinopril on morning of admission. He received 1 dose of Lasix 40 mg IV in ED. * Intubated and sedated in the ICU. Continue sedation, breathing trials and possible extubation this afternoon * ACS workup negative * BNP increased to 1338 on 01/02, repeat BNP increased to 1576 on 01/05. * Echocardiogram showing EF less than 20%, severely dilated LV, mod to severe MV regurg, severe tricuspid regurg * Cardiology consulted - appreciated recommendations; elevated troponin likely due to STEMI/demand ischemia, AICD placed * Hold antihypertensives for now, titrate antihypertensives as tolerated * Continue aspirin, atorvastatin (3) COPD (chronic obstructive pulmonary disease) ICD Codes: J44.9 - Chronic obstructive pulmonary disease Status: Chronic Plan: Status post acute hypercapnic respiratory failure due to COPD, possible nosocomial pneumonia, possible CHF component On ventilator as stated above Continue vancomycin and Zosyn Continue Pulmicort twice a day, DuoNeb every 6, furosemide 80 mg IV twice a day (4) SALIMA (acute kidney injury) ICD Codes: N17.9 - Acute kidney failure, unspecified Status: Acute Plan: Acute on chronic CKD, worsening Baseline creatinine is normal based on labs from September 2017. Creatinine 1.53 on admission -creatinine continues to increase; 3.5 today from 2.89 yesterday, f/u ultrasound of kidney * Trend BMP * Avoid nephrotoxic agents * Careful hydration limits given fluid overload but likely kidneys will need some gentle hydration, no additional fluids for now (5) Atrial fibrillation ICD Codes: I48.91 - Atrial fibrillation Status: Chronic Plan: Chronic A. fib, not with RVR at this time. He is on warfarin 7.5 mg reportedly Saturday and Saturday with last dose not taken today. INR at goal at time of admission 2.0-3.0) INR therapeutic at 2.3 today, continue current warfarin dosing Continue to follow INR and titrate warfarin dosing (6) HTN (hypertension) ICD Codes: I10 - Essential (primary) hypertension Status: Chronic Plan: Borderline hypertension, cardiology following; hold all antihypertensive medication Chronic essential hypertension on carvedilol 25 mg twice daily, amlodipine 10 mg daily, lisinopril 5 mg daily. (7) Pacemaker ICD Codes: Z95.0 - Presence of cardiac pacemaker Status: Chronic Plan: Chronic, no acute events with this. Will monitor on telemetry (8) DM (diabetes mellitus) ICD Codes: E11.9 - Diabetes mellitus Status: Chronic Plan: Chronic, not on insulin. Takes glipizide 5 mg twice daily before meals * Low-dose sliding scale Novolog while inpatient (9) CVA, old, hemiparesis ICD Codes: I69.359 - Hemiparesis following cerebrovascular accident Status: Chronic Plan: No acute neurologic deficits at this time, baseline right-sided weakness and speech difficulties. Will monitor symptoms (10) Tinea pedis ICD Codes: B35.3 - Tinea pedis Plan: Chronic fungal rash appreciated on patient's R foot Tinactin cream ordered BID -Improvement in symptoms on 01/03 (11) BPH (benign prostatic hyperplasia) ICD Codes: N40.0 - Benign prostatic hyperplasia without lower urinary tract symptoms Plan: Patient has a history of BPH Rolon catheter in place, 3420 out overnight, and negative balance of -2465 (12) Gout ICD Codes: M10.9 - Gout, unspecified Status: Chronic Plan: No acute exacerbation. Holding home colchicine due to SALIMA (13) Fluids/Electrolytes/Nutrition/Prophylaxis Status: Acute Plan: Fluids: Fluid restrict given CHF, will monitor Electrolytes: Potassium 5.5 however hemolysis noted, follow up repeat BMP Nutrition: Pending extubation DVT Prophylaxis: Early ambulation. Warfarin as above. Problem Qualifiers (1) CHF exacerbation: Qualified Codes: I50.23 - Acute on chronic systolic (congestive) heart failure (2) Atrial fibrillation: Qualified Codes: I48.2 - Chronic atrial fibrillation (3) HTN (hypertension): Qualified Codes: I10 - Essential (primary) hypertension (4) DM (diabetes mellitus): Shruthi Rodriguez MD R2 Jan 08, 2018 13:15
--- NOTE | 2018-01-08 16:57 | RADRPT ---
EXAM DATE/TIME: 01/08/2018 13:40 [facility] COMPARISON: No previous studies available for comparison. INDICATIONS : Increased BUN/creatinine. MEDICAL HISTORY : Myocardial infarction. Hypercholesterolemia. CVA. Coronary artery disease. Afib. HTN. Dyspnea. Diabet es. SURGICAL HISTORY : CABG. Pacemaker. Coronary artery stent. Cardiac cath. ENCOUNTER: Initial ACUITY: 1 day PAIN SCORE: Nonresponsive. LOCATION: Bilateral flank MEASUREMENTS: RIGHT KIDNEY: 8.6 x 5.6 x 4.7 cm LEFT KIDNEY: 12.5 x 5.9 x 5.4 cm FINDINGS: RIGHT KIDNEY: Right kidney is small in size with diffuse increased cortical echogenicity. No hydronephrosis or ariel s focal mass. LEFT KIDNEY: Mild prominence of the central renal collecting system and renal pelvis. No stone or focal mass. BLADDER: Moderately distended bladder. CONCLUSION: 1. Mild to moderately atrophic right kidney. 2. Moderate bladder distention with mild prominence of the left renal collecting system. The findings may reflect some degree of bladder outlet obstruction or neurogenic bladder. Consider reevaluation o f the left renal collecting system following Rolon decompression. Young Baldwin MD on January 08, 2018 at 16:48 Board Certified Radiologist. This report was verified electronically.
--- NOTE | 2018-01-08 19:20 | HHI.CCPN ---
Subjective Remarks/Hospital Course 72-year-old man with a history of an ischemic cardiomyopathy with a Biotronik ICD, status post CABG in 2006 and subsequent stenting of RCA in 2015. He has had recurrent hospitalizations for CHF. He had been doing well until very recently, when he began having some progressive shortness of breath and a bit of edema is what precipitated his emergency room visit. He was admitted to family medicine service where he responded somehow to diuresis, however today, despite his improving off x-ray imaging, his respiratory status is worsening requiring transfer to ICU and observation for possible intubation. 01/06: Patient intubated due to tachypnea/acute CHF exacerbation with patient altered and not/refusing to wear BiPAP while attempting to aggressively diurese. notified per RN. Currently hemodynamic stable. Chest x-ray post intubation currently pending. Subjective 01/07: T-max 101.5. Currently 99.3. Diuresis 2.5 liters past 24 hours. A.m. laboratories pending. Hematuria resolving. Sedated on the ventilator. 01/08: minimal urine this morning. renal ultrasound with > 2L in the bladder without evidence of intra-vesicular marquez catheter. I replaced marquez catheter at bedside and immediately had return of 2L urine. however, around the marquez catheter was bright red blood. I initially placed the marquez catheter to traction which worsened the bleeding. I called the on-call urologist Dr. Lambert , who came to bedside and recommended conservative management, as the bleeding was improving. He also recommended holding the coumadin for 24-48h to allow time for the bleeding to stop. we will proceed with 24h of CBI as well to ensure no vessicular bleeding or clots. poor diuresis overnight yesterday and rising Cr likely due to obstruction. otherwise remains intubated and encephalopathic. Objective Vital Signs Date Time Temp Pulse Resp B/P (MAP) Pulse Ox O2 Delivery O2 Flow Rate FiO2 01/08/18 16:00 82 01/08/18 15:00 97.8 18 97/68 (78) 99 01/08/18 14:39 30 01/08/18 07:00 Mechanical Ventilator 01/06/18 07:00 2.00 Intake and Output 01/08/18 01/08/18 01/09/18 08:00 16:00 00:00 Intake Total 1723 ml Output Total 300 ml Balance 1423 ml Result Diagram: 01/08/18 0513 01/08/18 0513 Other Results Microbiology Date/Time Source Procedure Growth Status 01/06/18 18:00 Nasal Aspirate Influenza Types A,B Antigen (MELIDA) - Final NEGATIVE FOR FLU A AND B ANTIGEN.... Complete 01/06/18 10:30 Sputum Endotracheal Gram Stain - Final Complete 01/06/18 10:30 Sputum Endotracheal Sputum Culture - Final NO GROWTH IN 48 HOURS. Complete 01/06/18 18:00 Urine Clean Catch Urine Culture - Final <10,000 CFU/ML GRAM NEGATIVE RENÉ Complete 01/06/18 18:00 Urine Catheterized Urine Legionella Antigen - Final PRESUMPTIVE NEGATIVE FOR LEGIONELLA P... Complete 01/06/18 18:00 Urine Catheterized Urine Streptococcus pneumoniae Antigen (M - Final PRESUMPTIVE NEGATIVE FOR STREPTOCOCCU... Complete Imaging Last Impressions Chest X-Ray 01/07/18 0800 Signed Impressions: Service Date/Time: Sunday, January 07, 2018 07:50 - CONCLUSION: 1. Stable ETT and NGT. 2. Cardiomegaly with pulmonary vascular congestion. 3. Slight interval enlargement of small right pleural effusion with associated right lower lobe airspace disease, presumably compressive atelectasis. 4. Stable left lower lobe airspace disease. Young Baldwin MD Objective Remarks GENERAL: 72-year-old -[place] male currently orotracheally intubated SKIN: Warm and dry. HEAD: Normocephalic. EYES: No scleral icterus. No injection or drainage. NECK: Supple, trachea midline. No JVD CARDIOVASCULAR: Irregular, RR. RESPIRATORY: equal chest rise. prvc. 40% fio2. GASTROINTESTINAL: Abdomen soft, non-tender, nondistended. MUSCULOSKELETAL: Trace bilateral upper and lower extremity edema : moderate amount of bright red blood coming around the marquez catheter at the urethral meatus. uncircumcised male. 24Fr 3-way marquez in place. blood tinged urine in urometer. NEURO EXAM: intubated, RASS -3. w/d to pain. A/P Assessment and Plan Neuro/Psych: prop/fent for goal RASS -2. Daily sedation vacation Acetaminophen 650 mg p.o. every 6 hours as needed fever CV: Acute on chronic systolic heart failure ejection fraction less than 20% Severe MR/TR Hypertension/essential Dyslipidemia Coronary disease status post CABG 2006 RCA stent 2014 Elevated troponin likely type II STEMI/demand ischemia AICD Currently on carvedilol 3.125 mg p.o. twice daily for hypertension 2D echocardiogram revealed EF less than 20%. LV dilatation. Generalized hypo-/ akinesis except basal posterior and lateral ventricle. Left atrial enlargement. Severe MR/TR. Pulmonary arterial pressure 33 mmHg Home medications include carvedilol 25 mg by mouth twice daily, amlodipine 10 mg by mouth daily and lisinopril 5 mg p.o. daily Continue atorvastatin 40 mg p.o. daily for dyslipidemia Continue aspirin 81 mg by tube daily Cardiology/Dr. Crook is actively following EKG/cycle troponins all pending BNP elevated greater than 1000 Currently on furosemide 80 mg IV twice daily Resp: Acute hypercapnic respiratory failure COPD [facility] /10/11/39 Ventilator bundle Albuterol/ipratropium aerosols every 6 hours with albuterol aerosols every 2 hours as needed for dyspnea Add budesonide 0.5/2 1 inhalation twice daily Spontaneous breathing trials when clinically indicated still failing SBTs. will continue daily trials. GI: Hypoalbuminemia Tube feeding with Glucerna 1.5 goal 50 cc an hour Lansoprazole 30 mg by tube daily for GI prophylaxis Docusate sodium/senna 1 tablet twice daily for bowel regimen : BPH Hematuria obstructive uropathy acute kidney injury urethral bleeding continue CBI another 24h Dr. Lambert to re-evaluate tomorrow Currently on tamsulosin 0.4 mg p.o. daily Currently holding warfarin with hematuria check cbc in AM. Endo: Diabetes mellitus type 2 History of gout Sliding scale insulin with NovoLog with Accu-Cheks every 6 hours to maintain euglycemia/low regimen Holding glipizide 5 mg twice daily for diabetes Holding colchicine 0.6 mg by mouth daily for gout TSH 0.73 Renal: Acute on chronic kidney disease stage IIIa Avoid nephrotoxic drugs Monitor urine output Accurate I's and O's Heme: Chronic anticoagulation with warfarin History of DVT hold coumadin given bleeding. check am cbc. ID: Pleomorphic gram-positive rené bacteremia? Likely contaminant corynebacterium/ deteriorates etc. Monitor for infection. Blood cultures 01/01 revealed 1 out of 4 gram-positive rods Blood cultures 2 01/06 including blood cultures 2/urine/sputum and urine pneumococcal and Legionella antigens all pending Negative influenza. MSK: Osteoarthritis PT evaluate and treat FEN: Hypophosphatemia Replace electrolytes as clinically indicated Potassium phosphorus 15 mmol IV 1 now. Recheck in a.m. Access -Utilize peripheral IV. Central line if indicated Prophylaxis -GI -lansoprazole -DVT -SCD/holding warfarin with elevated INR. Resume when clinically indicated Level 3 follow-up Chucky Pitts MD Jan 08, 2018 19:20
--- NOTE | 2018-01-08 19:23 | PD.PROCEDR ---
Procedure Note Procedure Complicated Urinary Catheter Placement Diagnosis: Obstructive uropathy Indications: This is a 9-year-old male with CHF exacerbation acute on chronic kidney disease. Renal ultrasound today demonstrates greater than 2 L of fluid in the bladder without evidence of intravesicular Rolon. I was called to the bedside. I deflated the former Rolon catheter and removed it immediately got a gush of bright red blood. I inserted a 24 [place] three-way Rolon into the urethra and into the bladder where I got return of approximately 2 L of your sanguinous fluid. The balloon was inflated easily without resistance. After this, a moderate amount of bright red blood came from around the Rolon catheter through the urethral meatus. Successful placement: 24 [place] three-way Rolon Description of the Procedure: See above documentation. Very complicated placement with active hematuria in a patient with known prior traumatic insertion and ongoing CBI. I personally performed the procedure. Chucky Pitts MD Jan 08, 2018 19:22
[2018-01-08] MEDS: fentaNYL DRIP 250 ML IV PRN (21:29)
[2018-01-09] VITALS (19 sets, daily range): BP systolic 88–99; BP diastolic 59–67; PULSE 76–91; RESP 10–19; TEMP 97.6–98.9; O2SAT 98–100
[2018-01-09] MEDS: PIPERACIL-TAZO 3.375 GM PREMIX 50 ML IV SCH ×3 (01:42→14:13)
[2018-01-09] MEDS: INSULIN ASPART SUPPLEMENTAL SCALE SQ SCH ×4 (01:43→17:42)
[2018-01-09] MEDS: RESP: ALBUTEROL 2.5 MG/IPRATROPIUM 0.5 MG NEB (SCH) INH ×3 (03:51→21:14)
[2018-01-09] MEDS: ARTIFICIAL TEARS OPTH SOLN 15 ML BTL EACH EYE SCH ×3 (06:03→21:22)
[2018-01-09 06:41] LABS: AUTOMATED NEUTROPHIL # 14.4 TH/MM3 (1.8-7.7); BASOPHIL % 0.2 % (0.0-2.0); EOSINOPHIL # 0.2 TH/MM3 (0-0.4); EOSINOPHIL % 1.1 % (0.0-4.0); HEMATOCRIT 37.3 % (39.0-51.0); HEMOGLOBIN 11.6 GM/DL (13.0-17.0); LYMPH % 3.1 % (9.0-44.0); LYMPHOCYTE # 0.5 TH/MM3 (1.0-4.8); MEAN CORPUSCULAR HEMOGLOBIN 29.3 PG (27.0-34.0); MEAN CORPUSCULAR HGB CONC 31.2 % (32.0-36.0); MEAN PLATELET VOLUME 8.6 FL (7.0-11.0); MONO % 11.1 % (0.0-8.0); MONOCYTE # 1.9 TH/MM3 (0-0.9); NEUT % 84.5 % (16.0-70.0); PLATELET COUNT 187 TH/MM3 (150-450); RED BLOOD COUNT 3.96 MIL/MM3 (4.50-5.90); RED CELL DISTRIBUTION WIDTH 17.6 % (11.6-17.2)
[2018-01-09 06:51] LABS: INTERNATIONAL NORMALIZED RATIO 1.7 RATIO
[2018-01-09 07:06] LABS: ALBUMIN 2.4 GM/DL (3.4-5.0); AST (GOT) 19 U/L (15-37); BICARBONATE 25.5 MEQ/L (21.0-32.0); BLOOD UREA NITROGEN 66 MG/DL (7-18); CHLORIDE 99 MEQ/L (98-107); CREATININE 3.89 MG/DL (0.60-1.30); GLOMERULAR FILTRATION RATE 19 ML/MIN (>89); GLUCOSE,RANDOM 155 MG/DL (74-106); SODIUM (NA) 136 MEQ/L (136-145)
[2018-01-09 07:07] LABS: ALT (GPT) 24 U/L (12-78)
[2018-01-09 07:09] LABS: ALKALINE PHOSPHATASE 75 U/L (45-117); TOTAL BILIRUBIN ADULT 1.4 MG/DL (0.2-1.0); TOTAL PROTEIN 6.7 GM/DL (6.4-8.2)
[2018-01-09] MEDS ORDERED: METOLAZONE 5 MG TAB PO ONE (08:15)
[2018-01-09] MEDS: RESP: BUDESONIDE 0.5 MG/2 ML NEB NEB SCH ×2 (08:29→21:14)
[2018-01-09] MEDS: PROPOFOL 1000 MG/100 ML INJ 100 ML IV PRN (08:29)
[2018-01-09] MEDS: LANSOPRAZOLE SOLUTAB 30 MG TAB NG SCH (08:29)
--- NOTE | 2018-01-09 08:29 | HHI.CCPN ---
Subjective Remarks/Hospital Course 72-year-old man with a history of an ischemic cardiomyopathy with a Biotronik ICD, status post CABG in 2006 and subsequent stenting of RCA in 2015. He has had recurrent hospitalizations for CHF. He had been doing well until very recently, when he began having some progressive shortness of breath and a bit of edema is what precipitated his emergency room visit. He was admitted to family medicine service where he responded somehow to diuresis, however today, despite his improving off x-ray imaging, his respiratory status is worsening requiring transfer to ICU and observation for possible intubation. 01/06: Patient intubated due to tachypnea/acute CHF exacerbation with patient altered and not/refusing to wear BiPAP while attempting to aggressively diurese. notified per RN. Currently hemodynamic stable. Chest x-ray post intubation currently pending. Subjective 01/07: T-max 101.5. Currently 99.3. Diuresis 2.5 liters past 24 hours. A.m. laboratories pending. Hematuria resolving. Sedated on the ventilator. 01/08: minimal urine this morning. renal ultrasound with > 2L in the bladder without evidence of intra-vesicular marquez catheter. I replaced marquez catheter at bedside and immediately had return of 2L urine. however, around the marquez catheter was bright red blood. I initially placed the marquez catheter to traction which worsened the bleeding. I called the on-call urologist Dr. Lambert , who came to bedside and recommended conservative management, as the bleeding was improving. He also recommended holding the coumadin for 24-48h to allow time for the bleeding to stop. we will proceed with 24h of CBI as well to ensure no vessicular bleeding or clots. poor diuresis overnight yesterday and rising Cr likely due to obstruction. otherwise remains intubated and encephalopathic. 01/09: remains volume overloaded. Cr continues to rise. bleeding from urethra has subsided. INR 1.7 today. more awake on ventilator, still not following commands. Objective Vital Signs Date Time Temp Pulse Resp B/P (MAP) Pulse Ox O2 Delivery O2 Flow Rate FiO2 01/09/18 06:00 81 01/09/18 04:00 30 01/09/18 04:00 97.9 19 91/59 (70) 100 01/08/18 19:00 Mechanical Ventilator 01/06/18 07:00 2.00 Intake and Output 01/09/18 01/09/18 01/10/18 08:00 16:00 00:00 Intake Total 734 ml Output Total 675 ml Balance 59 ml Result Diagram: 01/09/18 0540 01/09/18 0540 Other Results Microbiology Date/Time Source Procedure Growth Status 01/06/18 18:00 Nasal Aspirate Influenza Types A,B Antigen (MELIDA) - Final NEGATIVE FOR FLU A AND B ANTIGEN.... Complete 01/06/18 10:30 Sputum Endotracheal Gram Stain - Final Complete 01/06/18 10:30 Sputum Endotracheal Sputum Culture - Final NO GROWTH IN 48 HOURS. Complete 01/06/18 18:00 Urine Clean Catch Urine Culture - Final <10,000 CFU/ML GRAM NEGATIVE RENÉ Complete 01/06/18 18:00 Urine Catheterized Urine Legionella Antigen - Final PRESUMPTIVE NEGATIVE FOR LEGIONELLA P... Complete 01/06/18 18:00 Urine Catheterized Urine Streptococcus pneumoniae Antigen (M - Final PRESUMPTIVE NEGATIVE FOR STREPTOCOCCU... Complete Imaging Last Impressions Chest X-Ray 01/07/18 0800 Signed Impressions: Service Date/Time: Sunday, January 07, 2018 07:50 - CONCLUSION: 1. Stable ETT and NGT. 2. Cardiomegaly with pulmonary vascular congestion. 3. Slight interval enlargement of small right pleural effusion with associated right lower lobe airspace disease, presumably compressive atelectasis. 4. Stable left lower lobe airspace disease. Young Baldwin MD Objective Remarks GENERAL: 72-year-old -[place] male currently orotracheally intubated SKIN: Warm and dry. HEAD: Normocephalic. EYES: No scleral icterus. No injection or drainage. NECK: Supple, trachea midline. No JVD CARDIOVASCULAR: Irregular, RR. RESPIRATORY: equal chest rise. prvc. 40% fio2. GASTROINTESTINAL: Abdomen soft, non-tender, nondistended. MUSCULOSKELETAL: Trace bilateral upper and lower extremity edema : no active bleeding around the urethral meatus. small amount of blood on a soft dressing applied to the meatus. urine in marquez is clear. NEURO EXAM: intubated, RASS -3. w/d to pain. A/P Assessment and Plan Assessment: 72yM with ICM EF 20% and acute intravascular volume overload, acute systolic CHF exacerbation complicated by acute hypoxic respiratory failure and now multi-factorial acute kidney injury including cardiorenal syndrome, renal congestion, and now obstructive uropathy. Still must pursue forced diuresis despite SALIMA. will work towards from mechanical ventilation, but given volume overload, will be very difficult. remains critically ill, off pathway, and organs worse than yesterday, particularly renal function worse than yesterday. Neuro/Psych: prop/fent for goal RASS -2. Daily sedation vacation Acetaminophen 650 mg p.o. every 6 hours as needed fever CV: Acute on chronic systolic heart failure exacerbation, ejection fraction less than 20% Severe MR/TR Hypertension/essential Dyslipidemia Coronary disease status post CABG 2005 RCA stent 2014 Elevated troponin likely type II STEMI/demand ischemia AICD Currently on carvedilol 3.125 mg p.o. twice daily for hypertension 2D echocardiogram revealed EF less than 20%. LV dilatation. Generalized hypo-/ akinesis except basal posterior and lateral ventricle. Left atrial enlargement. Severe MR/TR. Pulmonary arterial pressure 33 mmHg Home medications include carvedilol 25 mg by mouth twice daily, amlodipine 10 mg by mouth daily and lisinopril 5 mg p.o. daily Continue atorvastatin 40 mg p.o. daily for dyslipidemia Continue aspirin 81 mg by tube daily Cardiology/Dr. Crook is actively following EKG/cycle troponins all pending BNP elevated greater than 1000 increase lasix to 100mg iv q6h. add metolazone 5mg po once, add diamox 250mg iv once. Resp: Acute hypercapnic respiratory failure COPD [facility] 16/550/40 Ventilator bundle Albuterol/ipratropium aerosols every 6 hours with albuterol aerosols every 2 hours as needed for dyspnea Add budesonide 0.5/2 1 inhalation twice daily Spontaneous breathing trials when clinically indicated still failing SBTs. will continue daily trials. GI: Hypoalbuminemia Tube feeding with Glucerna 1.5 goal 50 cc an hour Lansoprazole 30 mg by tube daily for GI prophylaxis Docusate sodium/senna 1 tablet twice daily for bowel regimen : BPH Hematuria obstructive uropathy acute kidney injury urethral bleeding can stop CBI. Dr. Lambert to re-evaluate today Currently on tamsulosin 0.4 mg p.o. daily Currently holding warfarin with hematuria: restart warfarin in 48h: 01/11. hgb 13-->11. would recommend keeping marquez catheter in place for at least 7-14 days to allow for urethral healing prior to removal. (placed 01/08) Endo: Diabetes mellitus type 2 History of gout Sliding scale insulin with NovoLog with Accu-Cheks every 6 hours to maintain euglycemia/low regimen Holding glipizide 5 mg twice daily for diabetes Holding colchicine 0.6 mg by mouth daily for gout TSH 0.73 Renal: Acute on chronic kidney disease stage IIIa- worsening. Avoid nephrotoxic drugs Monitor urine output Accurate I's and O's keep marquez continue forced diuresis despite volume overload. Heme: Chronic anticoagulation with warfarin History of DVT hold coumadin given bleeding. continue to trend coags and hgb. plan to restart coumadin 01/11. ID: Pleomorphic gram-positive rené bacteremia? Likely contaminant corynebacterium/ deteriorates etc. Monitor for infection. Blood cultures 01/01 revealed 1 out of 4 gram-positive rods Blood cultures 2 01/06 including blood cultures 2/urine/sputum and urine pneumococcal and Legionella antigens all pending Negative influenza. MSK: Osteoarthritis PT evaluate and treat FEN: Hypophosphatemia Replace electrolytes as clinically indicated Potassium phosphorus 15 mmol IV 1 now. Recheck in a.m. Access -Utilize peripheral IV. Central line if indicated Prophylaxis -GI -lansoprazole -DVT -SCD/holding warfarin with elevated INR. Resume when clinically indicated Critical care time: 31 minutes, exclusive of separately billable procedures. Chucky Pitts MD Jan 09, 2018 08:28
[2018-01-09] MEDS: CARVEDILOL 3.125 MG TAB PO SCH ×2 (08:30→21:22)
[2018-01-09] MEDS: TAMSULOSIN HCL 0.4 MG CAP PO SCH (08:30)
[2018-01-09] MEDS: DOCUSATE SODIUM 50 MG/SENNA 8.6 MG TAB PO SCH ×2 (08:30→21:00)
[2018-01-09] MEDS: ASPIRIN 81 MG CHEW TAB CHEW SCH (08:30)
[2018-01-09] MEDS: ATORVASTATIN 40 MG TAB PO SCH (08:30)
[2018-01-09] MEDS: SODIUM CHLORIDE 0.9% FLUSH 10 ML FLUSH IV FLUSH SCH ×2 (08:31→21:22)
[2018-01-09] MEDS: CHLORHEXIDINE 0.12% (ORAL KIT) 15 ML CUP MT SCH ×2 (08:31→20:00)
[2018-01-09] MEDS: FUROSEMIDE 100 MG/10 ML VIAL IV PUSH SCH ×3 (08:41→21:21)
[2018-01-09] MEDS: TOLNAFTATE 1% CREAM 15 GM TOPICAL SCH ×2 (08:43→21:00)
--- NOTE | 2018-01-09 09:32 | PD.CARD.PN ---
Subjective Subjective Remarks Intubated. Sedated. Objective Medications Item Value Date Time Furosemide 100 mg 01/09/18 0815 (Lasix Inj) Q6H/IV PUSH 01/09/18 0841 Carvedilol 3.125 mg 01/06/18 0900 (Coreg) Q12HR/PO Aspirin 81 mg 01/06/18 0900 (Aspirin Chew) DAILY/CHEW 01/09/18 0830 Atorvastatin 40 mg 01/02/18 0900 Calcium DAILY/PO 01/09/18 0830 (Lipitor) Current Medications Medications (Trade) Dose Ordered Sig/Kaila Route Start Time Stop Time Status Last Admin (NS Flush) 2 ml UNSCH PRN IV FLUSH 01/01/18 16:15 (NS Flush) 2 ml BID IV FLUSH 01/01/18 21:00 01/09/18 08:31 (Lipitor) 40 mg DAILY PO 01/02/18 09:00 01/09/18 08:30 (D50w (Vial) Inj) 50 ml UNSCH PRN IV PUSH 01/01/18 17:45 (Glucagon Inj) 1 mg UNSCH PRN OTHER 01/01/18 17:45 (Natalie-Colace) 1 tab BID PO 01/01/18 21:00 01/09/18 08:30 (Milk Of Magnesia Liq) 30 ml Q12H PRN PO 01/01/18 17:45 01/03/18 12:31 (Senokot) 17.2 mg Q12H PRN PO 01/01/18 17:45 (Dulcolax Supp) 10 mg DAILY PRN RECTAL 01/01/18 17:45 (Lactulose Liq) 30 ml DAILY PRN PO 01/01/18 17:45 (Flomax) 0.4 mg DAILY PO 01/02/18 15:00 01/08/18 09:49 (Tinactin 1% Cream) 1 applic Q12HR TOPICAL 01/02/18 21:00 01/09/18 08:43 (Hydrocortisone 1% Cream) 1 applic Q12H PRN TOPICAL 01/02/18 15:00 01/03/18 12:12 (Coreg) 3.125 mg Q12HR PO 01/06/18 09:00 01/08/18 21:08 (Peridex 0.12% Liq) 15 ml BID@08,20 MT 01/06/18 08:00 01/09/18 08:31 Propofol 100 ml @ 3 mls/hr TITRATE PRN IV 01/06/18 07:15 01/09/18 08:29 Fentanyl Citrate 250 ml @ 5 mls/hr TITRATE PRN IV 01/06/18 07:15 01/08/18 21:29 (Duoneb Neb) 1 ampule Q6HR NEB INH 01/06/18 10:00 01/09/18 08:29 (Prevacid Odt) 30 mg DAILY NG 01/06/18 09:00 01/09/18 08:29 (Pulmicort Respule Neb) 0.5 mg Q12HR NEB NEB 01/06/18 20:00 01/09/18 08:29 (Tears Naturale Opth Soln) 1 drop Q8HR EACH EYE 01/06/18 14:00 01/09/18 06:03 (Aspirin Chew) 81 mg DAILY CHEW 01/06/18 09:00 01/09/18 08:30 (Tylenol 650 Mg/ 20 ml Liq) 650 mg Q6H PRN PO 01/06/18 08:15 01/06/18 22:08 (NovoLOG SUPPLEMENTAL SCALE) 1 Q6HR SQ 01/06/18 12:00 01/09/18 06:00 Piperacillin Sod/ Tazobactam Sod 50 ml @ 100 mls/hr Q6H IV 01/06/18 14:00 01/09/18 08:29 (Albuterol Neb) 2.5 mg Q2HR NEB PRN NEB 01/07/18 16:15 (Lasix Inj) 100 mg Q6H IV PUSH 01/09/18 08:15 01/09/18 08:41 Vital Signs / I&O Vital Signs Date Time Temp Pulse Resp B/P (MAP) Pulse Ox O2 Delivery O2 Flow Rate FiO2 01/09/18 08:30 100 30 01/09/18 07:50 30 01/09/18 06:00 81 01/09/18 04:00 84 01/09/18 04:00 30 01/09/18 04:00 97.9 80 19 91/59 (70) 100 01/09/18 03:51 98 30 01/09/18 02:00 85 01/09/18 00:12 100 30 01/09/18 00:00 97.6 77 16 88/67 (74) 100 01/09/18 00:00 87 01/09/18 00:00 30 01/08/18 22:00 77 01/08/18 21:23 100 30 01/08/18 20:00 98.0 76 15 98/56 (70) 100 01/08/18 20:00 30 01/08/18 20:00 82 01/08/18 19:00 100 Mechanical Ventilator 30 01/08/18 18:00 96 01/08/18 16:00 30 01/08/18 16:00 82 01/08/18 15:00 97.8 86 18 97/68 (78) 99 01/08/18 14:39 99 30 01/08/18 14:00 96 01/08/18 12:00 30 01/08/18 12:00 82 01/08/18 11:54 98 30 01/08/18 11:05 98.3 94 20 107/69 (82) 99 01/08/18 10:17 30 01/08/18 10:00 96 I/O 01/08/18 01/08/18 01/08/18 01/09/18 01/09/18 01/09/18 07:00 15:00 23:00 07:00 15:00 23:00 Intake Total 1723 ml 360 ml 734 ml Output Total 300 ml 950 ml 675 ml Balance 1423 ml -590 ml 59 ml Intake Oral 0 ml IV Total 707 ml Tube Feeding 416 ml 360 ml 674 ml Tube Irrigant 60 ml Other 600 ml Output Urine Total 300 ml 950 ml 675 ml # Bowel Movements 0 0 1 Physical Exam rGENERAL: Well developed, well nourished. Intubated. Sedated. HEENT: Jugular venous pressure is normal. CHEST: Lungs clear to auscultation anteriorly. CARDIAC: Regular rate and rhythm without S3, S4, or murmur. ABDOMEN: Soft, no hepatosplenomegaly. Bowel sounds present. EXTREMITIES: No clubbing, cyanosis, or edema. Laboratory Laboratory Tests Test 01/09/18 05:40 White Blood Count 17.0 TH/MM3 Red Blood Count 3.96 MIL/MM3 Hemoglobin 11.6 GM/DL Hematocrit 37.3 % Mean Corpuscular Volume 94.0 FL Mean Corpuscular Hemoglobin 29.3 PG Mean Corpuscular Hemoglobin Concent 31.2 % Red Cell Distribution Width 17.6 % Platelet Count 187 TH/MM3 Mean Platelet Volume 8.6 FL Neutrophils (%) (Auto) 84.5 % Lymphocytes (%) (Auto) 3.1 % Monocytes (%) (Auto) 11.1 % Eosinophils (%) (Auto) 1.1 % Basophils (%) (Auto) 0.2 % Neutrophils # (Auto) 14.4 TH/MM3 Lymphocytes # (Auto) 0.5 TH/MM3 Monocytes # (Auto) 1.9 TH/MM3 Eosinophils # (Auto) 0.2 TH/MM3 Basophils # (Auto) 0.0 TH/MM3 CBC Comment DIFF FINAL Differential Comment Prothrombin Time 17.0 SEC Prothromb Time International Ratio 1.7 RATIO Blood Urea Nitrogen 66 MG/DL Creatinine 3.89 MG/DL Random Glucose 155 MG/DL Total Protein 6.7 GM/DL Albumin 2.4 GM/DL Calcium Level 9.0 MG/DL Alkaline Phosphatase 75 U/L Aspartate Amino Transf (AST/SGOT) 19 U/L Alanine Aminotransferase (ALT/SGPT) 24 U/L Total Bilirubin 1.4 MG/DL Sodium Level 136 MEQ/L Potassium Level 4.9 MEQ/L Chloride Level 99 MEQ/L Carbon Dioxide Level 25.5 MEQ/L Anion Gap 12 MEQ/L Estimat Glomerular Filtration Rate 19 ML/MIN Assessment and Plan Problem List: (1) Acute on chronic systolic CHF (congestive heart failure) ICD Codes: I50.23 - Acute on chronic systolic (congestive) heart failure Status: Acute Plan: Persistent CHF/respiratory failure. Difficult diuresis and also with worsening renal indices. EF < 20% by echo this admission. Consider renal dose dopamine and/or dobutamine. (2) CAD (coronary artery disease) ICD Codes: I25.10 - Atherosclerosis of coronary artery Status: Chronic Plan: Stable. No definite evidence for ACS. CK's negative for [place]. (3) Paroxysmal atrial fibrillation ICD Codes: I48.0 - Paroxysmal atrial fibrillation Status: Chronic Plan: Remains in sinus rhythm. INR 1.7. Rec resume warfarin. (4) Biventricular automatic implantable cardioverter defibrillator in situ ICD Codes: Z95.810 - Biventricular automatic implantable cardioverter defibrillator in situ Status: Chronic Code Status full code Problem Qualifiers (1) CAD (coronary artery disease): Qualified Codes: I25.10 - Atherosclerotic heart disease of [place] coronary artery without angina pectoris Juve Weiner MD Jan 09, 2018 09:32
--- NOTE | 2018-01-09 10:51 | HHI.FPPN ---
Subjective Remarks Patient seen and examined bedside this morning. Patient did not tolerate CPAP trials this morning although sedation remains low. During CPAP trial his heart rate went into the 140s and nurse ordered EKG. The heart rate went up the symptoms patient was agitated and quickly came down. Objective Vitals Vital Signs Date Time Temp Pulse Resp B/P (MAP) Pulse Ox O2 Delivery O2 Flow Rate FiO2 01/09/18 08:30 100 30 01/09/18 07:50 30 01/09/18 06:00 81 01/09/18 04:00 84 01/09/18 04:00 30 01/09/18 04:00 97.9 80 19 91/59 (70) 100 01/09/18 03:51 98 30 01/09/18 02:00 85 01/09/18 00:12 100 30 01/09/18 00:00 97.6 77 16 88/67 (74) 100 01/09/18 00:00 87 01/09/18 00:00 30 01/08/18 22:00 77 01/08/18 21:23 100 30 01/08/18 20:00 98.0 76 15 98/56 (70) 100 01/08/18 20:00 30 01/08/18 20:00 82 01/08/18 19:00 100 Mechanical Ventilator 30 01/08/18 18:00 96 01/08/18 16:00 30 01/08/18 16:00 82 01/08/18 15:00 97.8 86 18 97/68 (78) 99 01/08/18 14:39 99 30 01/08/18 14:00 96 01/08/18 12:00 30 01/08/18 12:00 82 01/08/18 11:54 98 30 01/08/18 11:05 98.3 94 20 107/69 (82) 99 I/O 01/08/18 01/08/18 01/08/18 01/09/18 01/09/18 01/09/18 07:00 15:00 23:00 07:00 15:00 23:00 Intake Total 1723 ml 360 ml 734 ml Output Total 300 ml 950 ml 675 ml Balance 1423 ml -590 ml 59 ml Intake Oral 0 ml IV Total 707 ml Tube Feeding 416 ml 360 ml 674 ml Tube Irrigant 60 ml Other 600 ml Output Urine Total 300 ml 950 ml 675 ml # Bowel Movements 0 0 1 Result Diagram: 01/09/18 0540 01/09/18 0540 Objective Remarks GENERAL: On ventilator, not responding to commands, eyes half open and not tracking SKIN: No rashes, ecchymoses or lesions. Cool and dry. HEAD: Atraumatic. Normocephalic. No temporal or scalp tenderness. EYES: Pupils equal round and reactive. Extraocular motions intact. No scleral icterus. No injection or drainage. ENT: Nose without bleeding or purulent drainage. Airway patent. NECK: Trachea midline. No JVD or lymphadenopathy. Supple, nontender, no meningeal signs. CARDIOVASCULAR: Regular rate and rhythm without murmurs, JVD appreciated RESPIRATORY: Auscultation anteriorly; Good air movement bilaterally with no crackles appreciated. GASTROINTESTINAL: Abdomen soft, non-tender, nondistended. No hepato-splenomegaly , or palpable masses. No guarding. MUSCULOSKELETAL: No Pitting edema, decreased from prior exams. No joint tenderness, effusion, or edema noted. No calf tenderness. NEUROLOGICAL: Awake and alert. Cranial nerves II through XII grossly intact. Motor and sensory grossly within normal limits. Grossly normal strength. A/P Assessment and Plan Patient is a 72-year-old admitted with CHF exacerbation. He required BiPAP at time of admission with significant fluid overload complicated by hypotension. This surely weaned to 1 L nasal cannula, however on 01/06 at 0600 hrs suffered worsening respiratory distress, needed to be intubated. He has been on vent since 01/06. Discharge Planning Pending clinical improvement, pt is on 2L O2 at home baseline Problem List: (1) Elevated troponin ICD Codes: R74.8 - Abnormal levels of other serum enzymes Status: Acute Plan: EKG changes (no ST elevations) and elevated troponin on 01/09 f/u troponin trend Contour Sander aware, agrees this is due to severe CKD No action will be taken regardless of trend f/u cardio recs f/u CC recs (2) CHF exacerbation ICD Codes: I50.9 - Heart failure, unspecified Status: Acute Plan: Patient of Dr. Aquino, presenting with acute CHF exacerbation. He reports he had an echo 1 month ago but unknown EF. Will attempt to obtain records. Patient is on BiPAP at time of admission but recent ABG overall unremarkable. CXR showing significant pulmonary edema. BNP 1121. Initial troponin 0.41 with EKG showing paced rhythm, rate 94, QTc 478. He reportedly took his amlodipine, and lisinopril on morning of admission. He received 1 dose of Lasix 40 mg IV in ED. * Intubated and sedated in the ICU. Continue sedation, breathing trials and possible extubation this afternoon * ACS workup negative * BNP increased to 1338 on 01/02, repeat BNP increased to 1576 on 01/05. * Echocardiogram showing EF less than 20%, severely dilated LV, mod to severe MV regurg, severe tricuspid regurg * Cardiology consulted - appreciated recommendations; elevated troponin likely due to STEMI/demand ischemia, AICD placed * Hold antihypertensives for now, titrate antihypertensives as tolerated * Continue aspirin, atorvastatin (3) COPD (chronic obstructive pulmonary disease) ICD Codes: J44.9 - Chronic obstructive pulmonary disease Status: Chronic Plan: Status post acute hypercapnic respiratory failure due to COPD, possible nosocomial pneumonia, possible CHF component On ventilator as stated above Continue vancomycin and Zosyn Continue Pulmicort twice a day, DuoNeb every 6, furosemide 80 mg IV twice a day (4) SALIMA (acute kidney injury) ICD Codes: N17.9 - Acute kidney failure, unspecified Status: Acute Plan: Acute on chronic CKD, worsening Baseline creatinine is normal based on labs from September 2017. creat remains elevated, continue to f/u BMP * Trend BMP * Avoid nephrotoxic agents * Careful hydration limits given fluid overload but likely kidneys will need some gentle hydration, no additional fluids for now (5) Atrial fibrillation ICD Codes: I48.91 - Atrial fibrillation Status: Chronic Plan: Chronic A. fib, not with RVR at this time. He is on warfarin 7.5 mg reportedly Saturday and Saturday with last dose not taken today. INR at goal at time of admission 2.0-3.0) pharmacy following INR, continue current warfarin dosing Continue to follow INR and titrate warfarin dosing (6) HTN (hypertension) ICD Codes: I10 - Essential (primary) hypertension Status: Chronic Plan: Borderline hypertension, cardiology following; hold all antihypertensive medication Chronic essential hypertension on carvedilol 25 mg twice daily, amlodipine 10 mg daily, lisinopril 5 mg daily. (7) Pacemaker ICD Codes: Z95.0 - Presence of cardiac pacemaker Status: Chronic Plan: Chronic, no acute events with this. Will monitor on telemetry (8) DM (diabetes mellitus) ICD Codes: E11.9 - Diabetes mellitus Status: Chronic Plan: Chronic, not on insulin. Takes glipizide 5 mg twice daily before meals * Low-dose sliding scale Novolog while inpatient (9) CVA, old, hemiparesis ICD Codes: I69.359 - Hemiparesis following cerebrovascular accident Status: Chronic Plan: No acute neurologic deficits at this time, baseline right-sided weakness and speech difficulties. Will monitor symptoms (10) Tinea pedis ICD Codes: B35.3 - Tinea pedis Plan: Chronic fungal rash appreciated on patient's R foot Tinactin cream ordered BID -Improvement in symptoms on 01/03 (11) BPH (benign prostatic hyperplasia) ICD Codes: N40.0 - Benign prostatic hyperplasia without lower urinary tract symptoms Plan: Patient has a history of BPH Rolon catheter in place, 3420 out overnight, and negative balance of -2465 (12) Gout ICD Codes: M10.9 - Gout, unspecified Status: Chronic Plan: No acute exacerbation. Holding home colchicine due to SALIMA (13) Fluids/Electrolytes/Nutrition/Prophylaxis Status: Acute Plan: Fluids: Fluid restrict given CHF, will monitor Electrolytes: f/u BMP and replete as needed Nutrition: Pending extubation DVT Prophylaxis: Early ambulation. Warfarin as above. (14) Hyperkalemia ICD Codes: E87.5 - Hyperkalemia Status: Resolved Plan: 5.1 on 01/07 4.9 on 01/08 f/u BMP in AM s/p Calcium gluconate IV x 1 s/p albuterol neb s/p insulin, dextrose 50% in H20 50ml s/p sodium bicarb IV s/p kayaxelate Problem Qualifiers (1) CHF exacerbation: Qualified Codes: I50.23 - Acute on chronic systolic (congestive) heart failure (2) Atrial fibrillation: Qualified Codes: I48.2 - Chronic atrial fibrillation (3) HTN (hypertension): Qualified Codes: I10 - Essential (primary) hypertension (4) DM (diabetes mellitus): Shruthi Rodriguez MD R2 Jan 09, 2018 10:51
--- NOTE | 2018-01-09 13:46 | EKG ---
Date Performed: 01/09/2018 Time Performed: 09:08:28 PTAGE: 72 years EKG: Ventricular pacing. Lead(s) unsuitable for analysis: V1 Pacemaker rhythm - no further tremaine sis Abnormal ECG Since the PREVIOUS TRACING , no significant change noted PREVIOUS TRACING 01/06/2018 02.35.48 DOCTOR: Oriana Gutierrez Interpretating Date/Time 01/09/2018 13:43:45
--- NOTE | 2018-01-09 14:19 | PD.CONS ---
Consult Service Palliative Care Consult Requested By Dr Leblanc . Primary Care Physician [facility] Reason for Consultation a. To assist with evaluation and management of symptoms including: dyspnea b. To assist medical decision maker(s) with: better understanding of current medical conditions; weighing benefits/burdens of medical treatment options; making medical treatment decisions. (Carina Austin) HPI History of Present Illness 72-year-old patient presented to the ED 01/01/18 from [facility] with reports of shortness of breath, dyspnea on exertion. EMS applied oxygen. He reported subsiding at ER presentation. He reports some chest discomfort and cough. Denied fever, abdominal pain or other symptoms. He also has some aphasia so history is difficult to obtain. Known history of CVA, atrial fibrillation, CAD , AICD, CHF. * CXR notes CHF. Patient ordered for Lasix in the ED. Some hypotension noted BiPAP initiated. BUN and creatinine elevated 40/1.53. Troponin 0 0.41. BNP 1121. Troponin elevation felt to be secondary to CHF exacerbation. Patient denies chest pain. He was admitted for further evaluation and management. * Additional history provided to medical attending: Patient and report 1-1 -1/2 weeks ago patient with decreased appetite, symptoms onset, dyspnea progressively worse. Does not use O2 usually at home, has in the past. Over the preceding week and a half has used 2 L at home with no relief. He has CPAP machine uses every now and then. Apparently saw cardiology Dr. Aquino about 1 month ago echo apparently done. Patient reported recent admission to [facility] 1 month ago for similar symptoms, treated a few days with diuretics and discharged home. * 2D echo 01/02 LV systolic function severely reduced estimated EF less than 20 % severely dilated left ventricle. Basal posterior lung basal lateral rizzo contract normally all other segments severely hypokinetic or akinetic. * cardiology consulted: Acute on chronic systolic heart failure. Known moderate to severe left ventricular impairment. Does appear to have significant renal impairment and thus cardiorenal syndrome makes fluid management difficult suspect also COPD component. Baseline troponin elevation, likely secondary to CHF. Renal insufficiently relatively new. Continue lower dose carvedilol for atrial fibrillation. Ischemic cardiomyopathy: Continue low- dose beta-jr// blood pressure too low, renal function to impaired for MERI inhibitor arms or interest. * 01/04 patient stable tolerating nasal cannula. Endorsing subjectively breathing improved. Voiding though decreased amounts. Eating and drinking well. * 01/06 CXR is g with slight improvement however, clinical respiratory status worsening, transferred to ICU considered for possible intubation. A few hours after arriving patient with acute hypercapnic respiratory failure, he was intubated by critical care. He was started on broad-spectrum antibiotics vancomycin, Zosyn for concern of community-acquired pneumonia. * 01/07 febrile 101.5. Ongoing diuresis 2.5 L. Had some hematuria, resolved. CPAP trials to determine if able to wean off ventilator. Warfarin held due to hematuria. Blood cultures 01/01 revealed 1 out of 4 gram-positive rods Blood cultures 2 01/06 including blood cultures 2/urine/sputum and urine pneumococcal and Legionella antigens all pending Negative influenza. * 01/08 CXR not significantly changed. Cardiology continues to follow continues to follow. Patient now with multisystem organ failure on ventilator prognosis poor. Minimal urine output== >> renal ultrasound notes greater than 2 L in the bladder without evidence of intra-been vesicular Rolon catheter, Rolon catheter was replaced by critical care with immediate return. This was noted with bright red blood. This worsens with traction, urology was consulted and recommended conservative management. Recommended Coumadin continue to be held. Continue with 24 hour CBI. Increasing creatinine likely secondary to obstruction. Remains intubated, encephalopathic. * 01/09 renal functions continue to increase BUN 66/creatinine 3.89 GFR 19 per. + Still fluid volume positive. Troponin 1.41. Plan for ventilator weaning though difficulty due to fluid volume status, continuing with diuresis. Cardiology recommends consider renal dose dopamine and/or dobutamine. Not tolerating CPAP, during trials heart rate up to the 140s. Blood cultures 01/06 no growth 3 days. Palliative care consulted to assist with clarification of goals of treatment Pt seen in room no visitors present. Nursing reports at work. Only responsive no eye opening. Withdrawals bilateral lower extremities to pain, withdraws left upper. Right upper contracted, flaccid. On CPAP, respiratory rate 24-25, some abdominal use noted during breathing. Decreased air movement. Following exam call to patient , left voicemail. Additionally left palliative contact information at bedside. Will attempt to set up meeting with patient's family to discuss conditions prognosis and goals. Call to sons number spoke to him very briefly he indicated his mother was at work and that he would relay a message to call to set up a meeting. He asked if everything was okay assured him patient currently stable just wanted to talk to them further regarding conditions and options going forward. . (Carina Austin) Review of Systems ROS Limitations: Clinical Condition, Intubated, Altered Mental Status (Carina Austin) Past Family Social History Coded Allergies: rivaroxaban (Verified Allergy, Unknown, 01/02/18) Uncoded Allergies: UNKNOWN BLOOD THINNER (Allergy, Intermediate, Hives, 04/30/16) Past Medical History Atrial fibrillation CVA Hypercholesterolemia CAD Diabetes Hypothyroid Hypertension RI hx DVT . Past Surgical History Cardiac bypass 2008 Pacemaker/defibrillator 2014 Coronary artery stents . Reported Medications Proair Hfa 8.5 GM Inh (Albuterol Sulfate) 90 Mcg/Act Aer 2 Puff INH Q4-6H PRN 108 mcg/actuation Colchicine 0.6 Mg Cap 0.6 Mg PO DAILY Mucus Relief ER (Guaifenesin) 600 Mg Tab 400 Mg PO BID PRN Warfarin 7.5 Mg Tab 7.5 Mg PO EVERY OTHER DAY Glipizide 5 Mg Tab 5 Mg PO BIDAC Take 30 minutes before a meal Alfuzosin ER 24 HR 10 Mg Tab 10 Mg PO DAILY Lisinopril 5 Mg Tab 5 Mg PO DAILY Carvedilol 12.5 Mg Tab 25 Mg PO BID Atorvastatin (Atorvastatin Calcium) 40 Mg Tab 40 Mg PO DAILY Aspirin EC (Aspirin) 81 Mg Tabdr 81 Mg PO DAILY Amlodipine (Amlodipine Besylate) 10 Mg Tab 10 Mg PO DAILY Current Medications Medications (Trade) Dose Ordered Sig/Kaila Route Start Time Stop Time Status Last Admin (NS Flush) 2 ml UNSCH PRN IV FLUSH 01/01/18 16:15 (NS Flush) 2 ml BID IV FLUSH 01/01/18 21:00 01/09/18 08:31 (Lipitor) 40 mg DAILY PO 01/02/18 09:00 01/09/18 08:30 (D50w (Vial) Inj) 50 ml UNSCH PRN IV PUSH 01/01/18 17:45 (Glucagon Inj) 1 mg UNSCH PRN OTHER 01/01/18 17:45 (Natalie-Colace) 1 tab BID PO 01/01/18 21:00 01/09/18 08:30 (Milk Of Magnesia Liq) 30 ml Q12H PRN PO 01/01/18 17:45 01/03/18 12:31 (Senokot) 17.2 mg Q12H PRN PO 01/01/18 17:45 (Dulcolax Supp) 10 mg DAILY PRN RECTAL 01/01/18 17:45 (Lactulose Liq) 30 ml DAILY PRN PO 01/01/18 17:45 (Flomax) 0.4 mg DAILY PO 01/02/18 15:00 01/08/18 09:49 (Tinactin 1% Cream) 1 applic Q12HR TOPICAL 01/02/18 21:00 01/09/18 08:43 (Hydrocortisone 1% Cream) 1 applic Q12H PRN TOPICAL 01/02/18 15:00 01/03/18 12:12 (Coreg) 3.125 mg Q12HR PO 01/06/18 09:00 01/08/18 21:08 (Peridex 0.12% Liq) 15 ml BID@08,20 MT 01/06/18 08:00 01/09/18 08:31 Propofol 100 ml @ 3 mls/hr TITRATE PRN IV 01/06/18 07:15 01/09/18 08:29 Fentanyl Citrate 250 ml @ 5 mls/hr TITRATE PRN IV 01/06/18 07:15 01/08/18 21:29 (Duoneb Neb) 1 ampule Q6HR NEB INH 01/06/18 10:00 01/09/18 08:29 (Prevacid Odt) 30 mg DAILY NG 01/06/18 09:00 01/09/18 08:29 (Pulmicort Respule Neb) 0.5 mg Q12HR NEB NEB 01/06/18 20:00 01/09/18 08:29 (Tears Naturale Opth Soln) 1 drop Q8HR EACH EYE 01/06/18 14:00 01/09/18 06:03 (Aspirin Chew) 81 mg DAILY CHEW 01/06/18 09:00 01/09/18 08:30 (Tylenol 650 Mg/ 20 ml Liq) 650 mg Q6H PRN PO 01/06/18 08:15 01/06/18 22:08 (NovoLOG SUPPLEMENTAL SCALE) 1 Q6HR SQ 01/06/18 12:00 01/09/18 06:00 Piperacillin Sod/ Tazobactam Sod 50 ml @ 100 mls/hr Q6H IV 01/06/18 14:00 01/09/18 08:29 (Albuterol Neb) 2.5 mg Q2HR NEB PRN NEB 01/07/18 16:15 (Lasix Inj) 100 mg Q6H IV PUSH 01/09/18 08:15 01/09/18 08:41 (Coumadin) 5 mg DAILY@1600 PO 01/09/18 16:00 Family History Per EMR Mother had diabetes. No history of blood clots in the family. . Substance Use Tobacco: Former smoker Alcohol: None Prescription med abuse: None Illicits:none . Psychosocial History Per EMR , with one child. Spiritual/Cultural Factors Episcopalian . (Carina Austin) Living Will: Never completed Health Care Surrogate: Never completed Durable Power of Hanger: Never completed Ethical and Legal Issues Patient currently unable to participate in decision making due to clinical condition. Not clear if he will regain ability to participate. Has 1 son, a . No known advanced directives. Per [place] statute his would be appropriate legal proxy. (Carina Austin) Physical Exam Vital Signs Date Time Temp Pulse Resp B/P (MAP) Pulse Ox O2 Delivery O2 Flow Rate FiO2 01/09/18 12:00 98.9 88 10 94/59 (71) 100 01/09/18 12:00 88 01/09/18 12:00 30 01/09/18 11:28 100 30 01/09/18 10:00 90 01/09/18 08:30 100 30 01/09/18 08:00 30 01/09/18 08:00 90 01/09/18 08:00 98.6 90 15 99/62 (74) 100 01/09/18 07:50 30 01/09/18 07:00 100 Mechanical Ventilator 30 01/09/18 06:00 81 01/09/18 04:00 84 01/09/18 04:00 30 01/09/18 04:00 97.9 80 19 91/59 (70) 100 01/09/18 03:51 98 30 01/09/18 02:00 85 01/09/18 00:12 100 30 01/09/18 00:00 97.6 77 16 88/67 (74) 100 01/09/18 00:00 87 01/09/18 00:00 30 01/08/18 22:00 77 01/08/18 21:23 100 30 01/08/18 20:00 98.0 76 15 98/56 (70) 100 01/08/18 20:00 30 01/08/18 20:00 82 01/08/18 19:00 100 Mechanical Ventilator 30 01/08/18 18:00 96 01/08/18 16:00 30 01/08/18 16:00 82 01/08/18 15:00 97.8 86 18 97/68 (78) 99 01/08/18 14:39 99 30 01/08/18 14:00 96 Exam CONSTITUTIONAL/GENERAL: This is an adequately nourished patient, in no apparent distress, on mechanical vent TUBES/LINES/DRAINS: Peripheral IV bilateral upper extremity, ET tube, OG tube, rectal drain, Rolon catheter SKIN: No jaundice, rashes, or lesions.No wounds seen anteriorly. Skin temperature appropriate. Not diaphoretic. HEAD: Atraumatic. Normocephalic. EYES: Pupils 3 mm sluggish reaction to light. No scleral icterus. No injection or drainage. Fundi not examined. ENT: Nose without bleeding or purulent drainage. Unable to visualize oropharynx secondary ET tube, OG tube NECK: Trachea midline. Supple, nontender. No palpable thyroid enlargement or nodularity. CARDIOVASCULAR: Regular rate and rhythm without murmur. No JVD. Peripheral pulses symmetric, pedal pulses faint. RESPIRATORY/CHEST: Symmetric, slightly labored respiratory shins via ET tube to mechanical vent. On CPAP. Abdominal muscle use noted during respiratory effort. Lungs are clear with decreased air movement. Mildly tachypneic rate 24 -25 GASTROINTESTINAL: Abdomen soft, round, nondistended. No hepato-splenomegaly, or palpable masses. Bowel sounds present. Tube feed infusing via OG tube. GENITOURINARY: Without palpable bladder distension. Rolon catheter in place, CBI also in place, pink tinged urine noted MUSCULOSKELETAL: Extremities without clubbing, cyanosis, or edema. Right hand, lower arm contracted LYMPHATICS: No palpable cervical or supraclavicular adenopathy. NEUROLOGICAL: Lightly sedated on mechanical vent, fentanyl drip at 75 mics/ hour. No eye opening. Does not follow commands.+ Spontaneous respirations on vent. Withdraws lower extremities to pain, withdraws left upper extremity pain. Right upper extremity contracted, flaccid. PSYCHIATRIC: No obvious anxiety/depression--limited assessment due to clinical condition . (Carina Austin) Diagnostic Tests Laboratory Laboratory Tests Test 01/06/18 18:00 01/06/18 19:50 01/07/18 09:52 01/07/18 16:19 Urine Color LIGHT-RED (YELLW/STRAW) Urine Turbidity CLOUDY (CLEAR) Urine pH 6.0 (5.0-8.5) Urine Specific [place] 1.017 (1.002-1.035) Urine Protein 30 mg/dL (NEG-TRACE) Urine Glucose (UA) NEG mg/dL (NEG) Urine Ketones NEG mg/dL (NEG) Urine Occult Blood LARGE (NEG) Urine Nitrite NEG (NEG) Urine Bilirubin NEG (NEG) Urine Urobilinogen LESS THAN 2.0 MG/DL (LESS Urine Leukocyte Esterase LARGE (NEG) Urine RBC /hpf (0-3) Urine WBC /hpf (0-5) Urine WBC Clumps MANY (NONE) Urine Squamous Epithelial Cells 2 /hpf (0-5) Urine Bacteria MOD /hpf (NONE) Microscopic Urinalysis Comment CULTURE INDICATED Urine Eosinophils RARE /HPF (NONE SEEN) Urine Random Creatinine LESS THAN 13.0 MG/DL Urine Random Sodium 114 MEQ/L Nasal Screen MRSA (PCR) MRSA NOT DETECTED (NOT White Blood Count 11.1 TH/MM3 (4.0-11.0) 18.2 TH/MM3 (4.0-11.0) Red Blood Count 4.17 MIL/MM3 (4.50-5.90) 4.55 MIL/MM3 (4.50-5.90) Hemoglobin 12.6 GM/DL (13.0-17.0) 13.9 GM/DL (13.0-17.0) Hematocrit 38.8 % (39.0-51.0) 43.7 % (39.0-51.0) Mean Corpuscular Volume 92.9 FL (80.0-100.0) 95.9 FL (80.0-100.0) Mean Corpuscular Hemoglobin 30.2 PG (27.0-34.0) 30.5 PG (27.0-34.0) Mean Corpuscular Hemoglobin Concent 32.4 % (32.0-36.0) 31.8 % (32.0-36.0) Red Cell Distribution Width 17.2 % (11.6-17.2) 17.9 % (11.6-17.2) Platelet Count 173 TH/MM3 (150-450) 104 TH/MM3 (150-450) Mean Platelet Volume 8.4 FL (7.0-11.0) 8.7 FL (7.0-11.0) Neutrophils (%) (Auto) 89.5 % (16.0-70.0) 85.9 % (16.0-70.0) Lymphocytes (%) (Auto) 2.3 % (9.0-44.0) 2.3 % (9.0-44.0) Monocytes (%) (Auto) 7.3 % (0.0-8.0) 11.4 % (0.0-8.0) Eosinophils (%) (Auto) 0.6 % (0.0-4.0) 0.3 % (0.0-4.0) Basophils (%) (Auto) 0.3 % (0.0-2.0) 0.1 % (0.0-2.0) Neutrophils # (Auto) 10.0 TH/MM3 (1.8-7.7) 15.6 TH/MM3 (1.8-7.7) Lymphocytes # (Auto) 0.3 TH/MM3 (1.0-4.8) 0.4 TH/MM3 (1.0-4.8) Monocytes # (Auto) 0.8 TH/MM3 (0-0.9) 2.1 TH/MM3 (0-0.9) Eosinophils # (Auto) 0.1 TH/MM3 (0-0.4) 0.1 TH/MM3 (0-0.4) Basophils # (Auto) 0.0 TH/MM3 (0-0.2) 0.0 TH/MM3 (0-0.2) CBC Comment DIFF FINAL DIFF FINAL Differential Comment Prothrombin Time 18.3 SEC (9.8-11.6) 23.4 SEC (9.8-11.6) Prothromb Time International Ratio 1.8 RATIO 2.3 RATIO Activated Partial Thromboplast Time 30.4 SEC (24.3-30.1) Blood Urea Nitrogen 32 MG/DL (7-18) 38 MG/DL (7-18) 40 MG/DL (7-18) Creatinine 1.75 MG/DL (0.60-1.30) 2.40 MG/DL (0.60-1.30) 2.89 MG/DL (0.60-1.30) Random Glucose 69 MG/DL (74-106) 111 MG/DL (74-106) 126 MG/DL (74-106) Total Protein 6.0 GM/DL (6.4-8.2) Albumin 2.8 GM/DL (3.4-5.0) Calcium Level 8.8 MG/DL (8.5-10.1) 9.0 MG/DL (8.5-10.1) 8.9 MG/DL (8.5-10.1) Phosphorus Level 2.1 MG/DL (2.5-4.9) 3.6 MG/DL (2.5-4.9) Magnesium Level 2.2 MG/DL (1.5-2.5) 2.4 MG/DL (1.5-2.5) Alkaline Phosphatase 63 U/L (45-117) Aspartate Amino Transf (AST/SGOT) 19 U/L (15-37) Alanine Aminotransferase (ALT/SGPT) 36 U/L (12-78) Total Bilirubin 1.9 MG/DL (0.2-1.0) Sodium Level 141 MEQ/L (136-145) 136 MEQ/L (136-145) 136 MEQ/L (136-145) Potassium Level 3.9 MEQ/L (3.5-5.1) 5.5 MEQ/L (3.5-5.1) 5.1 MEQ/L (3.5-5.1) Chloride Level 106 MEQ/L (98-107) 102 MEQ/L (98-107) 102 MEQ/L (98-107) Carbon Dioxide Level 25.2 MEQ/L (21.0-32.0) 23.9 MEQ/L (21.0-32.0) 21.0 MEQ/L (21.0-32.0) Anion Gap 10 MEQ/L (5-15) 10 MEQ/L (5-15) 13 MEQ/L (5-15) Estimat Glomerular Filtration Rate 47 ML/MIN (>89) 33 ML/MIN (>89) 26 ML/MIN (>89) Lactic Acid Level 1.8 mmol/L (0.4-2.0) Total Creatine Kinase 50 U/L (39-308) Troponin I 0.54 NG/ML (0.02-0.05) B-Type Natriuretic Peptide 1080 PG/ML (0-100) Thyroid Stimulating Hormone 3rd Gen 0.730 uIU/ML (0.358-3.740) Random Vancomycin Level 14.9 COMMENT Test 01/07/18 21:25 01/08/18 05:13 01/09/18 05:40 01/09/18 09:30 Potassium Level 4.7 MEQ/L (3.5-5.1) 4.9 MEQ/L (3.5-5.1) 4.9 MEQ/L (3.5-5.1) White Blood Count 18.0 TH/MM3 (4.0-11.0) 17.0 TH/MM3 (4.0-11.0) Red Blood Count 4.38 MIL/MM3 (4.50-5.90) 3.96 MIL/MM3 (4.50-5.90) Hemoglobin 13.0 GM/DL (13.0-17.0) 11.6 GM/DL (13.0-17.0) Hematocrit 41.5 % (39.0-51.0) 37.3 % (39.0-51.0) Mean Corpuscular Volume 94.7 FL (80.0-100.0) 94.0 FL (80.0-100.0) Mean Corpuscular Hemoglobin 29.7 PG (27.0-34.0) 29.3 PG (27.0-34.0) Mean Corpuscular Hemoglobin Concent 31.4 % (32.0-36.0) 31.2 % (32.0-36.0) Red Cell Distribution Width 17.7 % (11.6-17.2) 17.6 % (11.6-17.2) Platelet Count 142 TH/MM3 (150-450) 187 TH/MM3 (150-450) Mean Platelet Volume 8.7 FL (7.0-11.0) 8.6 FL (7.0-11.0) Hematology Comments Prothrombin Time 23.6 SEC (9.8-11.6) 17.0 SEC (9.8-11.6) Prothromb Time International Ratio 2.3 RATIO 1.7 RATIO Blood Urea Nitrogen 50 MG/DL (7-18) 66 MG/DL (7-18) Creatinine 3.50 MG/DL (0.60-1.30) 3.89 MG/DL (0.60-1.30) Random Glucose 183 MG/DL (74-106) 155 MG/DL (74-106) Calcium Level 9.1 MG/DL (8.5-10.1) 9.0 MG/DL (8.5-10.1) Phosphorus Level 3.8 MG/DL (2.5-4.9) Magnesium Level 2.6 MG/DL (1.5-2.5) Sodium Level 137 MEQ/L (136-145) 136 MEQ/L (136-145) Chloride Level 101 MEQ/L (98-107) 99 MEQ/L (98-107) Carbon Dioxide Level 24.0 MEQ/L (21.0-32.0) 25.5 MEQ/L (21.0-32.0) Anion Gap 12 MEQ/L (5-15) 12 MEQ/L (5-15) Estimat Glomerular Filtration Rate 21 ML/MIN (>89) 19 ML/MIN (>89) Neutrophils (%) (Auto) 84.5 % (16.0-70.0) Lymphocytes (%) (Auto) 3.1 % (9.0-44.0) Monocytes (%) (Auto) 11.1 % (0.0-8.0) Eosinophils (%) (Auto) 1.1 % (0.0-4.0) Basophils (%) (Auto) 0.2 % (0.0-2.0) Neutrophils # (Auto) 14.4 TH/MM3 (1.8-7.7) Lymphocytes # (Auto) 0.5 TH/MM3 (1.0-4.8) Monocytes # (Auto) 1.9 TH/MM3 (0-0.9) Eosinophils # (Auto) 0.2 TH/MM3 (0-0.4) Basophils # (Auto) 0.0 TH/MM3 (0-0.2) CBC Comment DIFF FINAL Differential Comment Total Protein 6.7 GM/DL (6.4-8.2) Albumin 2.4 GM/DL (3.4-5.0) Alkaline Phosphatase 75 U/L (45-117) Aspartate Amino Transf (AST/SGOT) 19 U/L (15-37) Alanine Aminotransferase (ALT/SGPT) 24 U/L (12-78) Total Bilirubin 1.4 MG/DL (0.2-1.0) Troponin I 1.41 NG/ML (0.02-0.05) (Carina Austin) Result Diagram: 01/09/18 0540 01/09/18 0540 Microbiology Microbiology Date/Time Source Procedure Growth Status 01/06/18 20:31 Blood Peripheral Aerobic Blood Culture - Preliminary NO GROWTH IN 3 DAYS Resulted 01/06/18 20:31 Blood Peripheral Anaerobic Blood Culture - Preliminary NO GROWTH IN 3 DAYS Resulted 01/06/18 20:26 Blood Peripheral Aerobic Blood Culture - Preliminary NO GROWTH IN 3 DAYS Resulted 01/06/18 20:26 Blood Peripheral Anaerobic Blood Culture - Preliminary NO GROWTH IN 3 DAYS Resulted 01/06/18 18:00 Nasal Aspirate Influenza Types A,B Antigen (MELIDA) - Final NEGATIVE FOR FLU A AND B ANTIGEN.... Complete 01/06/18 18:00 Urine Clean Catch Urine Culture - Final <10,000 CFU/ML GRAM NEGATIVE RENÉ Complete 01/06/18 18:00 Urine Catheterized Urine Legionella Antigen - Final PRESUMPTIVE NEGATIVE FOR LEGIONELLA P... Complete 01/06/18 18:00 Urine Catheterized Urine Streptococcus pneumoniae Antigen (M - Final PRESUMPTIVE NEGATIVE FOR STREPTOCOCCU... Complete Imaging Last Impressions Chest X-Ray 01/08/18 0600 Signed Impressions: Service Date/Time: Monday, January 08, 2018 04:59 - CONCLUSION: No significant change Jeffrey Tipton MD Renal Ultrasound 01/08/18 0000 Signed Impressions: Service Date/Time: Monday, January 08, 2018 13:40 - CONCLUSION: 1. Mild to moderately atrophic right kidney. 2. Moderate bladder distention with mild prominence of the left renal collecting system. The findings may reflect some degree of bladder outlet obstruction or neurogenic bladder. Consider reevaluation of the left renal collecting system following Rolon decompression. Young Baldwin MD (Carina Austin) Patient/Family Conference Issues Discussed: Draft/pending/template; awaiting contact with family to establish palliative meeting. Would plan to discuss: * Palliative care role, purpose, approach * Additional medical, psychosocial, and spiritual history * Patients general health, functional status, and cognitive changes in the months leading up to the current hospitalization * Patient/family understanding of the current medical problems * Patient/family understanding of prognosis * Patients goals of care as best understood from advance directives and/or conversations and/or values * Current medical treatment options and benefits/burdens of those options * Likely scenarios comparing ongoing aggressive care with a transition to comfort measures only * Questions answered to the best of my ability * Palliative care contact information provided (Carina Austin) Assessment and Plan Disease Oriented Problem List: (1) Acute on chronic systolic CHF (congestive heart failure) (2) Respiratory failure (3) Ischemic cardiomyopathy (4) SALIMA (acute kidney injury) (5) Hematuria (6) Obstructive uropathy (7) Elevated troponin (8) Atrial fibrillation (9) Gout (10) HTN (hypertension) (11) CVA, old, hemiparesis (12) COPD (chronic obstructive pulmonary disease) (13) Biventricular automatic implantable cardioverter defibrillator in situ (14) Acute on chronic systolic CHF (congestive heart failure) (15) CAD (coronary artery disease) (16) DM (diabetes mellitus) (17) Other and unspecified hyperlipidemia (18) Hyperlipidemia Symptom Scale: (1) Dyspnea 0-10 Scale: Unable to quantify Pertinent Non-Medical Issues Psychosocial: Spiritual: Episcopalian Legal:Patient currently unable to participate in decision making due to clinical condition. Not clear if he will regain ability to participate. Has 1 son, a . No known advanced directives. Per [place] statute his would be appropriate legal proxy. Ethical issues impacting care: No ethical issues identified. Important Contacts Son Medina Bowman Ra [phone] Spouse Shelly Brownlee [phone] . Prognosis admitted for SOB. Multiple chronic medical conditions, underlying severe cardiomyopathy (EF < 20%). Now with cardio-renal, difficulty weaning from ventilator. Prognosis for exterminator survival poor. High risk for ongoing complications/setbacks/hospitalizations if he gets through current acute hospitalization. . Code Status: Full Code Plan * Legal decision maker:Patient currently unable to participate in decision making due to clinical condition. Not clear if he will regain ability to participate. Has 1 son, a . No known advanced directives. Per [place] statute his would be appropriate legal proxy. * Goals: TBD, palliative contact information left for family, voicemail left for , also left message w son to setup meeting. * CODE STATUS: Full code by default * SYMPTOMS: --Dyspnea-presented to the ED with acute and worsening shortness of breath. Urgently intubated for respiratory failure. Remains on mechanical vent. CPAP trials underway though currently tachypneic not clear he will be able to medically extubate today. --Pain-no reports of pain though potential sources would include intubation, recent invasive procedures. Bedbound status. Currently appears comfortable on fentanyl drip. Will continue to evaluate. * Palliative care will continue to follow during hospital course as condition evolves, to assist patient/decision-maker with understanding of medical conditions, weighing benefits/burdens of treatment options, for clarification of goals of treatment. Additionally will assist with any symptoms of palliative concern (Carina Austin) Thank you for the opportunity to participate in the care of Mr. Bowman. (Carina Austin) Attestation To help prompt me to consider important information that might be impacting today's encounter and assessment, information from prior notes written by myself or my colleagues may have been "brought forward" into today's note. My signature on this note, however, is an attestation that I personally performed the exam, history, and/or decision-making noted today, and, unless otherwise indicated, the interactions with patient, family, and staff as well as the review of records all occurred today. I also attest that the listed assessment and stated plan reflect my best clinical judgment today based on the combination of historical information, prior notes, and today's exam/ interactions. When time spent is documented, it refers only to time spent today by the signer, or if indicated, combined time spent today by collaborating physician/nurse practitioner. (Carina Austin) Collaborating MD Comments Chart reviewed. Case discussed with palliative care INFRASTRUCTURE DEVELOPER. Above GINO note reviewed and I concur. . (Daniel Mosquera MD) Carina Austin Jan 09, 2018 14:19 Daniel Mosquera MD Jan 13, 2018 05:48
[2018-01-09] MEDS ORDERED: WARFARIN SOD 7.5 MG TAB PO SCH (16:00)
[2018-01-09] MEDS ORDERED: WARFARIN SOD 5 MG TAB PO SCH (16:00)
[2018-01-09] MEDS: PIPERACIL-TAZO 2.25 GM PREMIX 50 ML IV SCH (21:25)
[2018-01-10] VITALS (17 sets, daily range): BP systolic 91–109; BP diastolic 57–68; PULSE 79–102; RESP 15–20; TEMP 97.7–99; O2SAT 96–100
[2018-01-10] MEDS: PROPOFOL 1000 MG/100 ML INJ 100 ML IV PRN (01:25)
[2018-01-10] MEDS: PIPERACIL-TAZO 2.25 GM PREMIX 50 ML IV SCH ×4 (03:25→20:23)
[2018-01-10] MEDS: ARTIFICIAL TEARS OPTH SOLN 15 ML BTL EACH EYE SCH ×3 (03:26→20:24)
[2018-01-10] MEDS: FUROSEMIDE 100 MG/10 ML VIAL IV PUSH SCH ×3 (03:26→20:23)
[2018-01-10] MEDS: RESP: ALBUTEROL 2.5 MG/IPRATROPIUM 0.5 MG NEB (SCH) INH ×2 (04:21→08:35)
[2018-01-10 05:21] LABS: AUTOMATED NEUTROPHIL # 10.9 TH/MM3 (1.8-7.7); BASOPHIL % 0.2 % (0.0-2.0); EOSINOPHIL # 0.3 TH/MM3 (0-0.4); EOSINOPHIL % 2.2 % (0.0-4.0); HEMATOCRIT 36.9 % (39.0-51.0); HEMOGLOBIN 11.9 GM/DL (13.0-17.0); LYMPH % 3.4 % (9.0-44.0); LYMPHOCYTE # 0.5 TH/MM3 (1.0-4.8); MEAN CELL VOLUME 92.5 FL (80.0-100.0); MEAN CORPUSCULAR HGB CONC 32.4 % (32.0-36.0); MEAN PLATELET VOLUME 8.7 FL (7.0-11.0); MONO % 12.4 % (0.0-8.0); MONOCYTE # 1.7 TH/MM3 (0-0.9); NEUT % 81.8 % (16.0-70.0); PLATELET COUNT 180 TH/MM3 (150-450); RED BLOOD COUNT 3.99 MIL/MM3 (4.50-5.90); RED CELL DISTRIBUTION WIDTH 17.2 % (11.6-17.2); WHITE BLOOD COUNT 13.4 TH/MM3 (4.0-11.0)
[2018-01-10 05:26] LABS: INTERNATIONAL NORMALIZED RATIO 1.3 RATIO; PROTHROMBIN TIME - PATIENT 13.3 SEC (9.8-11.6)
[2018-01-10] MEDS: INSULIN ASPART SUPPLEMENTAL SCALE SQ SCH ×5 (05:47→21:09)
[2018-01-10 06:29] LABS: BICARBONATE 28.6 MEQ/L (21.0-32.0); CREATININE 3.07 MG/DL (0.60-1.30)
--- NOTE | 2018-01-10 07:55 | PD.CARD.PN ---
Subjective Subjective Remarks Intubated. Sedated. Objective Medications Item Value Date Time Furosemide 100 mg 01/09/18 0815 (Lasix Inj) Q6H/IV PUSH 01/10/18 0326 Carvedilol 3.125 mg 01/06/18 0900 (Coreg) Q12HR/PO 01/09/182121 Aspirin 81 mg 01/06/18 09 (Aspirin Chew) DAILY/CHEW 01/09/18 0830 Atorvastatin 40 mg 01/02/18 09 Calcium DAILY/PO 01/09/18 08 (Lipitor) Current Medications Medications (Trade) Dose Ordered Sig/Kaila Route Start Time Stop Time Status Last Admin (NS Flush) 2 ml UNSCH PRN IV FLUSH 01/01/18 16:15 (NS Flush) 2 ml BID IV FLUSH 01/01/18 21:00 01/09/18 21:22 (Lipitor) 40 mg DAILY PO 01/02/18 09:00 01/09/18 08:30 (D50w (Vial) Inj) 50 ml UNSCH PRN IV PUSH 01/01/18 17:45 (Glucagon Inj) 1 mg UNSCH PRN OTHER 01/01/18 17:45 (Natalie-Colace) 1 tab BID PO 01/01/18 21:00 01/09/18 08:30 (Milk Of Magnesia Liq) 30 ml Q12H PRN PO 01/01/18 17:45 01/03/18 12:31 (Senokot) 17.2 mg Q12H PRN PO 01/01/18 17:45 (Dulcolax Supp) 10 mg DAILY PRN RECTAL 01/01/18 17:45 (Lactulose Liq) 30 ml DAILY PRN PO 01/01/18 17:45 (Flomax) 0.4 mg DAILY PO 01/02/18 15:00 01/08/18 09:49 (Tinactin 1% Cream) 1 applic Q12HR TOPICAL 01/02/18 21:00 01/09/18 21:00 (Hydrocortisone 1% Cream) 1 applic Q12H PRN TOPICAL 01/02/18 15:00 01/03/18 12:12 (Coreg) 3.125 mg Q12HR PO 01/06/18 09:00 01/09/18 21:22 (Peridex 0.12% Liq) 15 ml BID@08,20 MT 01/06/18 08:00 01/09/18 20:00 Propofol 100 ml @ 3 mls/hr TITRATE PRN IV 01/06/18 07:15 01/10/18 01:25 Fentanyl Citrate 250 ml @ 5 mls/hr TITRATE PRN IV 01/06/18 07:15 01/08/18 21:29 (Duoneb Neb) 1 ampule Q6HR NEB INH 01/06/18 10:00 01/10/18 04:21 (Prevacid Odt) 30 mg DAILY NG 01/06/18 09:00 01/09/18 08:29 (Pulmicort Respule Neb) 0.5 mg Q12HR NEB NEB 01/06/18 20:00 01/09/18 21:14 (Tears Naturale Opth Soln) 1 drop Q8HR EACH EYE 01/06/18 14:00 01/10/18 03:26 (Aspirin Chew) 81 mg DAILY CHEW 01/06/18 09:00 01/09/18 08:30 (Tylenol 650 Mg/ 20 ml Liq) 650 mg Q6H PRN PO 01/06/18 08:15 01/06/18 22:08 (NovoLOG SUPPLEMENTAL SCALE) 1 Q6HR SQ 01/06/18 12:00 01/10/18 05:47 (Albuterol Neb) 2.5 mg Q2HR NEB PRN NEB 01/07/18 16:15 (Lasix Inj) 100 mg Q6H IV PUSH 01/09/18 08:15 01/10/18 03:26 Piperacillin Sod/ Tazobactam Sod 50 ml @ 100 mls/hr Q6H IV 01/09/18 20:00 01/10/18 03:25 Vital Signs / I&O Vital Signs Date Time Temp Pulse Resp B/P (MAP) Pulse Ox O2 Delivery O2 Flow Rate FiO2 01/10/18 06:00 91 01/10/18 04:19 99 40 01/10/18 04:00 80 01/10/18 04:00 40 01/10/18 04:00 97.8 88 16 101/67 (78) 99 01/10/18 01:23 100 40 01/10/18 00:00 80 01/10/18 00:00 40 01/09/18 22:00 80 01/09/18 21:14 100 40 01/09/18 20:00 97.7 76 16 98/62 (74) 100 01/09/18 20:00 40 01/09/18 20:00 76 01/09/18 19:00 100 Mechanical Ventilator 40 01/09/18 18:00 84 01/09/18 16:35 100 40 01/09/18 16:00 30 01/09/18 16:00 91 01/09/18 16:00 97.9 91 15 96/59 (71) 100 01/09/18 14:24 100 30 01/09/18 14:00 88 01/09/18 12:00 98.9 88 10 94/59 (71) 100 01/09/18 12:00 30 01/09/18 12:00 88 01/09/18 12:00 30 01/09/18 11:28 100 30 01/09/18 10:00 90 01/09/18 08:30 100 30 01/09/18 08:00 30 01/09/18 08:00 90 01/09/18 08:00 98.6 90 15 99/62 (74) 100 I/O 01/09/18 01/09/18 01/09/18 01/10/18 01/10/18 01/10/18 06:59 14:59 22:59 06:59 14:59 22:59 Intake Total 734 ml 100 ml 450 ml 709 ml Output Total 675 ml 2975 ml 2600 ml Balance 59 ml 100 ml -2525 ml -1891 ml Intake Oral 0 ml IV Total 100 ml Tube Feeding 674 ml 450 ml 589 ml Tube Irrigant 60 ml 120 ml Output Urine Total 675 ml 2975 ml 2600 ml # Bowel Movements 1 Physical Exam rGENERAL: Well developed, well nourished. Intubated. Sedated. HEENT: Jugular venous pressure is normal. CHEST: Lungs clear to auscultation anteriorly. CARDIAC: Regular rate and rhythm without S3, S4, or murmur. ABDOMEN: Soft, no hepatosplenomegaly. Bowel sounds present. EXTREMITIES: No clubbing, cyanosis, or edema. Laboratory Laboratory Tests Test 01/09/18 09:30 01/09/18 16:12 01/09/18 21:45 01/10/18 04:51 Troponin I 1.41 NG/ML 1.35 NG/ML 1.29 NG/ML White Blood Count 13.4 TH/MM3 Red Blood Count 3.99 MIL/MM3 Hemoglobin 11.9 GM/DL Hematocrit 36.9 % Mean Corpuscular Volume 92.5 FL Mean Corpuscular Hemoglobin 30.0 PG Mean Corpuscular Hemoglobin Concent 32.4 % Red Cell Distribution Width 17.2 % Platelet Count 180 TH/MM3 Mean Platelet Volume 8.7 FL Neutrophils (%) (Auto) 81.8 % Lymphocytes (%) (Auto) 3.4 % Monocytes (%) (Auto) 12.4 % Eosinophils (%) (Auto) 2.2 % Basophils (%) (Auto) 0.2 % Neutrophils # (Auto) 10.9 TH/MM3 Lymphocytes # (Auto) 0.5 TH/MM3 Monocytes # (Auto) 1.7 TH/MM3 Eosinophils # (Auto) 0.3 TH/MM3 Basophils # (Auto) 0.0 TH/MM3 CBC Comment DIFF FINAL Differential Comment Prothrombin Time 13.3 SEC Prothromb Time International Ratio 1.3 RATIO Blood Urea Nitrogen 75 MG/DL Creatinine 3.07 MG/DL Random Glucose 205 MG/DL Calcium Level 9.0 MG/DL Sodium Level 136 MEQ/L Potassium Level 3.9 MEQ/L Chloride Level 96 MEQ/L Carbon Dioxide Level 28.6 MEQ/L Anion Gap 11 MEQ/L Estimat Glomerular Filtration Rate 25 ML/MIN Assessment and Plan Problem List: (1) Acute on chronic systolic CHF (congestive heart failure) ICD Codes: I50.23 - Acute on chronic systolic (congestive) heart failure Status: Acute Plan: Excellent diuresis yesterday. Creatinine better today. EF < 20% by echo this admission. Consider renal dose dopamine and/or dobutamine. Dr. Batista to see patient PRN over the weekend. (2) CAD (coronary artery disease) ICD Codes: I25.10 - Atherosclerosis of coronary artery Status: Chronic Plan: Stable. No definite evidence for ACS. CK's negative for AL. Troponin levels mildly increased though in the setting of renal insufficiency, CHF. (3) Paroxysmal atrial fibrillation ICD Codes: I48.0 - Paroxysmal atrial fibrillation Status: Chronic Plan: Remains in atrial sensed, ventricular paced rhythm. INR 1.3. Rec resume warfarin if possible. (4) Biventricular automatic implantable cardioverter defibrillator in situ ICD Codes: Z95.810 - Biventricular automatic implantable cardioverter defibrillator in situ Status: Chronic Code Status full code Problem Qualifiers (1) CAD (coronary artery disease): Qualified Codes: I25.10 - Atherosclerotic heart disease of [place] coronary artery without angina pectoris Juve Weiner MD Jan 10, 2018 07:55
[2018-01-10] MEDS: SODIUM CHLORIDE 0.9% FLUSH 10 ML FLUSH IV FLUSH SCH ×2 (08:31→20:23)
[2018-01-10] MEDS: ATORVASTATIN 40 MG TAB PO SCH (08:32)
[2018-01-10] MEDS: ASPIRIN 81 MG CHEW TAB CHEW SCH (08:33)
[2018-01-10] MEDS: LANSOPRAZOLE SOLUTAB 30 MG TAB NG SCH (08:33)
[2018-01-10] MEDS: TAMSULOSIN HCL 0.4 MG CAP PO SCH (08:33)
[2018-01-10] MEDS: RESP: BUDESONIDE 0.5 MG/2 ML NEB NEB SCH ×2 (08:35→21:14)
[2018-01-10] MEDS: CARVEDILOL 3.125 MG TAB PO SCH ×2 (08:37→20:23)
[2018-01-10] MEDS: DOCUSATE SODIUM 50 MG/SENNA 8.6 MG TAB PO SCH ×2 (09:00→20:23)
[2018-01-10] MEDS: CHLORHEXIDINE 0.12% (ORAL KIT) 15 ML CUP MT SCH ×2 (09:29→19:28)
[2018-01-10] MEDS: TOLNAFTATE 1% CREAM 15 GM TOPICAL SCH ×2 (09:30→20:24)
--- NOTE | 2018-01-10 10:17 | HHI.CCPN ---
Subjective Remarks/Hospital Course 72-year-old man with a history of an ischemic cardiomyopathy with a Biotronik ICD, status post CABG in 2006 and subsequent stenting of RCA in 2015. He has had recurrent hospitalizations for CHF. He had been doing well until very recently, when he began having some progressive shortness of breath and a bit of edema is what precipitated his emergency room visit. He was admitted to family medicine service where he responded somehow to diuresis, however today, despite his improving off x-ray imaging, his respiratory status is worsening requiring transfer to ICU and observation for possible intubation. /2: Patient intubated due to tachypnea/acute CHF exacerbation with patient altered and not/refusing to wear BiPAP while attempting to aggressively diurese. notified per RN. Currently hemodynamic stable. Chest x-ray post intubation currently pending. 01/07: T-max 101.5. Currently 99.3. Diuresis 2.5 liters past 24 hours. A.m. laboratories pending. Hematuria resolving. Sedated on the ventilator. 01/08: minimal urine this morning. renal ultrasound with > 2L in the bladder without evidence of intra-vesicular marquez catheter. I replaced marquez catheter at bedside and immediately had return of 2L urine. however, around the marquez catheter was bright red blood. I initially placed the marquez catheter to traction which worsened the bleeding. I called the on-call urologist Dr. Lambert , who came to bedside and recommended conservative management, as the bleeding was improving. He also recommended holding the coumadin for 24-48h to allow time for the bleeding to stop. we will proceed with 24h of CBI as well to ensure no vessicular bleeding or clots. poor diuresis overnight yesterday and rising Cr likely due to obstruction. otherwise remains intubated and encephalopathic. 5: remains volume overloaded. Cr continues to rise. bleeding from urethra has subsided. INR 1.7 today. more awake on ventilator, still not following commands. Subjective 01/10: Afebrile. Diuresis -5.5 L overnight. Marquez replaced yesterday. Will recheck renal ultrasound tomorrow to evaluate left renal collecting system. Tolerating tube feeds. Objective Vital Signs Date Time Temp Pulse Resp B/P (MAP) Pulse Ox O2 Delivery O2 Flow Rate FiO2 01/10/18 08:40 100 40 01/10/18 06:00 91 01/10/18 04:00 97.8 16 101/67 (78) 01/09/18 19:00 Mechanical Ventilator 01/06/18 07:00 2.00 Intake and Output 01/10/18 01/10/18 01/10/18 07:59 15:59 23:59 Intake Total 709 ml Output Total 2600 ml Balance -1891 ml Result Diagram: 01/10/18 0451 01/10/18 0451 Other Results Microbiology Date/Time Source Procedure Growth Status 01/06/18 20:31 Blood Peripheral Aerobic Blood Culture - Preliminary NO GROWTH IN 3 DAYS Resulted 01/06/18 20:31 Blood Peripheral Anaerobic Blood Culture - Preliminary NO GROWTH IN 3 DAYS Resulted 01/06/18 18:00 Nasal Aspirate Influenza Types A,B Antigen (MELIDA) - Final NEGATIVE FOR FLU A AND B ANTIGEN.... Complete 01/06/18 18:00 Urine Clean Catch Urine Culture - Final <10,000 CFU/ML GRAM NEGATIVE RENÉ Complete Imaging Last Impressions Chest X-Ray 01/08/18 0600 Signed Impressions: Service Date/Time: Monday, January 08, 2018 04:59 - CONCLUSION: No significant change Jeffrey Tipton MD Renal Ultrasound 01/08/18 0000 Signed Impressions: Service Date/Time: Monday, January 08, 2018 13:40 - CONCLUSION: 1. Mild to moderately atrophic right kidney. 2. Moderate bladder distention with mild prominence of the left renal collecting system. The findings may reflect some degree of bladder outlet obstruction or neurogenic bladder. Consider reevaluation of the left renal collecting system following Marquez decompression. Young Baldwin MD Objective Remarks GENERAL: 72-year-old -[place] male currently orotracheally intubated SKIN: Warm and dry. HEAD: Normocephalic. EYES: No scleral icterus. No injection or drainage. NECK: Supple, trachea midline. No JVD CARDIOVASCULAR: Irregular, RR. S1, S2 no S4. RESPIRATORY: Few crackles patient bases. No rashes GASTROINTESTINAL: Abdomen soft, non-tender, nondistended. MUSCULOSKELETAL: Trace bilateral upper and lower extremity edema : Marquez catheter in place. Minimal scrotal edema. NEURO EXAM: Cranial nerves II through XII grossly intact. Strength is 4 out of 5 right upper lower extremity. 5 out of 5 left upper lower cavity. 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 every 6 hours as needed fever CV: Acute on chronic systolic heart failure exacerbation, ejection fraction less than 20% Severe MR/TR Hypertension/essential Dyslipidemia Coronary disease status post CABG 2005 RCA stent 2014 Elevated troponin likely type II STEMI/demand ischemia AICD Currently on carvedilol 3.125 mg p.o. twice daily for hypertension 2D echocardiogram revealed EF less than 20%. LV dilatation. Generalized hypo-/ akinesis except basal posterior and lateral ventricle. Left atrial enlargement. Severe MR/TR. Pulmonary arterial pressure 33 mmHg Home medications include carvedilol 25 mg by mouth twice daily, amlodipine 10 mg by mouth daily and lisinopril 5 mg p.o. daily Continue atorvastatin 40 mg p.o. daily for dyslipidemia Continue aspirin 81 mg by tube daily Cardiology/Dr. Crook is actively following Noted troponin in the setting of renal failure noted Decrease furosemide to 40 mg IV twice daily Resp: Acute hypercapnic respiratory failure COPD [facility] 16/550/40 Ventilator bundle Albuterol/ipratropium aerosols every 6 hours with albuterol aerosols every 2 hours as needed for dyspnea Add budesonide 0.5/2 1 inhalation twice daily Spontaneous breathing trials when clinically indicated still failing SBTs. will continue daily trials. GI: Hypoalbuminemia Tube feeding with Glucerna 1.5 goal 50 cc an hour Lansoprazole 30 mg by tube daily for GI prophylaxis Docusate sodium/senna 1 tablet twice daily for bowel regimen : BPH Hematuria obstructive uropathy acute kidney injury urethral bleeding Dr. Lambert to re-evaluate today Currently on tamsulosin 0.4 mg p.o. daily Currently holding warfarin with hematuria: Possibly restart warfarin in 48h: 01/11. hgb 13-->11. would recommend keeping marquez catheter in place for at least 7-14 days to allow for urethral healing prior to removal. (placed 01/08) Endo: Diabetes mellitus type 2 History of gout Sliding scale insulin with NovoLog with Accu-Cheks every 6 hours to maintain euglycemia/low regimen Holding glipizide 5 mg twice daily for diabetes Holding colchicine 0.6 mg by mouth daily for gout TSH 0.73 Renal: Acute on chronic kidney disease stage IIIa- worsening. Avoid nephrotoxic drugs Monitor urine output Accurate I's and O's keep marquez Creatinine currently 3.1 Heme: Chronic anticoagulation with warfarin History of DVT hold warfarin given bleeding. continue to trend coags and hgb. plan to restart warfarin 01/11. ID: Pleomorphic gram-positive rené bacteremia? Likely contaminant corynebacterium/ deteriorates etc. Monitor for infection. Blood cultures 01/01 revealed 1 out of 4 gram-positive rods Blood cultures 2 01/06 including blood cultures 2/urine/sputum and urine pneumococcal and Legionella antigens all pending Negative influenza. MSK: Osteoarthritis PT evaluate and treat FEN: Replace electrolytes as clinically indicated Access -Utilize peripheral IV. Central line if indicated Prophylaxis -GI -lansoprazole -DVT -SCD/holding warfarin with elevated INR. Resume when clinically indicated Level 3 follow-up Feliciano Holt MD Jan 10, 2018 10:17
--- NOTE | 2018-01-10 12:03 | HHI.CCPN ---
Subjective Remarks/Hospital Course 72-year-old man with a history of an ischemic cardiomyopathy with a Biotronik ICD, status post CABG in 2006 and subsequent stenting of RCA in 2015. He has had recurrent hospitalizations for CHF. He had been doing well until very recently, when he began having some progressive shortness of breath and a bit of edema is what precipitated his emergency room visit. He was admitted to family medicine service where he responded somehow to diuresis, however today, despite his improving off x-ray imaging, his respiratory status is worsening requiring transfer to ICU and observation for possible intubation. 2: Patient intubated due to tachypnea/acute CHF exacerbation with patient altered and not/refusing to wear BiPAP while attempting to aggressively diurese. notified per RN. Currently hemodynamic stable. Chest x-ray post intubation currently pending. 01/07: T-max 101.5. Currently 99.3. Diuresis 2.5 liters past 24 hours. A.m. laboratories pending. Hematuria resolving. Sedated on the ventilator. 01/08: minimal urine this morning. renal ultrasound with > 2L in the bladder without evidence of intra-vesicular marquez catheter. I replaced marquez catheter at bedside and immediately had return of 2L urine. however, around the marquez catheter was bright red blood. I initially placed the marquez catheter to traction which worsened the bleeding. I called the on-call urologist Dr. Lambert , who came to bedside and recommended conservative management, as the bleeding was improving. He also recommended holding the coumadin for 24-48h to allow time for the bleeding to stop. we will proceed with 24h of CBI as well to ensure no vessicular bleeding or clots. poor diuresis overnight yesterday and rising Cr likely due to obstruction. otherwise remains intubated and encephalopathic. 5: remains volume overloaded. Cr continues to rise. bleeding from urethra has subsided. INR 1.7 today. more awake on ventilator, still not following commands. Subjective 01/10: Afebrile. Diuresis -5.5 L overnight. Marquez replaced yesterday. Will recheck renal ultrasound tomorrow to evaluate left renal collecting system. Tolerating tube feeds. Objective Vital Signs Date Time Temp Pulse Resp B/P (MAP) Pulse Ox O2 Delivery O2 Flow Rate FiO2 01/10/18 11:21 98 Nasal Cannula 3.00 01/10/18 10:00 79 01/10/18 08:40 40 01/10/18 08:00 98.3 15 91/57 (68) Intake and Output 01/10/18 01/10/18 01/11/18 08:00 16:00 00:00 Intake Total 709 ml Output Total 2600 ml Balance -1891 ml Result Diagram: 01/10/18 0451 01/10/18 0451 Imaging Last Impressions Chest X-Ray 01/08/18 0600 Signed Impressions: Service Date/Time: Monday, January 08, 2018 04:59 - CONCLUSION: No significant change Jeffrey Tipton MD Renal Ultrasound 01/08/18 0000 Signed Impressions: Service Date/Time: Monday, January 08, 2018 13:40 - CONCLUSION: 1. Mild to moderately atrophic right kidney. 2. Moderate bladder distention with mild prominence of the left renal collecting system. The findings may reflect some degree of bladder outlet obstruction or neurogenic bladder. Consider reevaluation of the left renal collecting system following Marquez decompression. Young Baldwin MD Objective Remarks GENERAL: 72-year-old -[place] male currently orotracheally intubated SKIN: Warm and dry. HEAD: Normocephalic. EYES: No scleral icterus. No injection or drainage. NECK: Supple, trachea midline. No JVD CARDIOVASCULAR: Irregular, RR. S1, S2 no S4. RESPIRATORY: Few crackles patient bases. No rashes GASTROINTESTINAL: Abdomen soft, non-tender, nondistended. MUSCULOSKELETAL: Trace bilateral upper and lower extremity edema : Marquez catheter in place. Minimal scrotal edema. NEURO EXAM: Cranial nerves II through XII grossly intact. Strength is 4 out of 5 right upper lower extremity. 5 out of 5 left upper lower cavity. 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 every 6 hours as needed fever CV: Acute on chronic systolic heart failure exacerbation, ejection fraction less than 20% Severe MR/TR Hypertension/essential Dyslipidemia Coronary disease status post CABG 2005 RCA stent 2014 Elevated troponin likely type II STEMI/demand ischemia AICD Currently on carvedilol 3.125 mg p.o. twice daily for hypertension 2D echocardiogram revealed EF less than 20%. LV dilatation. Generalized hypo-/ akinesis except basal posterior and lateral ventricle. Left atrial enlargement. Severe MR/TR. Pulmonary arterial pressure 33 mmHg Home medications include carvedilol 25 mg by mouth twice daily, amlodipine 10 mg by mouth daily and lisinopril 5 mg p.o. daily Continue atorvastatin 40 mg p.o. daily for dyslipidemia Continue aspirin 81 mg by tube daily Cardiology/Dr. Crook is actively following Noted troponin in the setting of renal failure noted Decrease furosemide to 40 mg IV twice daily Resp: Acute hypercapnic respiratory failure COPD [facility] /10/11/39 Ventilator bundle Albuterol/ipratropium aerosols every 6 hours with albuterol aerosols every 2 hours as needed for dyspnea Add budesonide 0.5/2 1 inhalation twice daily Spontaneous breathing trials when clinically indicated still failing SBTs. will continue daily trials. GI: Hypoalbuminemia Tube feeding with Glucerna 1.5 goal 50 cc an hour Lansoprazole 30 mg by tube daily for GI prophylaxis Docusate sodium/senna 1 tablet twice daily for bowel regimen : BPH Hematuria obstructive uropathy acute kidney injury urethral bleeding Dr. Lambert to re-evaluate today Currently on tamsulosin 0.4 mg p.o. daily Currently holding warfarin with hematuria: Possibly restart warfarin in 48h: 01/11. hgb 13-->11. would recommend keeping marquez catheter in place for at least 7-14 days to allow for urethral healing prior to removal. (placed 01/08) Endo: Diabetes mellitus type 2 History of gout Sliding scale insulin with NovoLog with Accu-Cheks every 6 hours to maintain euglycemia/low regimen Holding glipizide 5 mg twice daily for diabetes Holding colchicine 0.6 mg by mouth daily for gout TSH 0.73 Renal: Acute on chronic kidney disease stage IIIa- worsening. Avoid nephrotoxic drugs Monitor urine output Accurate I's and O's keep marquez Creatinine currently 3.1 Heme: Chronic anticoagulation with warfarin History of DVT hold warfarin given bleeding. continue to trend coags and hgb. plan to restart warfarin 01/11. ID: Pleomorphic gram-positive speedy bacteremia? Likely contaminant corynebacterium/ deteriorates etc. Monitor for infection. Blood cultures 01/01 revealed 1 out of 4 gram-positive rods Blood cultures 2 4/2 including blood cultures 2/urine/sputum and urine pneumococcal and Legionella antigens all pending Negative influenza. MSK: Osteoarthritis PT evaluate and treat FEN: Replace electrolytes as clinically indicated Access -Utilize peripheral IV. Central line if indicated Prophylaxis -GI -lansoprazole -DVT -SCD/holding warfarin with elevated INR. Resume when clinically indicated Level 3 follow-up Feliciano Holt MD Jan 10, 2018 12:03
--- NOTE | 2018-01-10 12:33 | HHI.HCPN ---
Reason for visit a. To assist with evaluation and management of symptoms including: dyspnea b. To assist medical decision maker(s) with: better understanding of current medical conditions; weighing benefits/burdens of medical treatment options; making medical treatment decisions. (Carina Austin) Subjective/Interval History Patient seen today to follow-up on comfort, goals and possible meeting with family. (Have not gotten a call back from yet) Remains in the ICU, stable. Extubated this morning about an hour before my exam. BUN remains elevated at 75/creatinine 3.07. Urine output adequate. Urine clearing, CBI has been discontinued as of 3 PM yesterday afternoon. Afebrile. Blood cultures from 01/06- negative to date. Patient examined in room no visitors present. He is awake. He verbalizes some yes/no, otherwise minimally verbal weeks grumble sounds . (Reported history of residual aphasia) he does follow simple commands with lower extremities, left upper extremity. Right upper extremity remains flaccid. He does not answer my review of systems questions. No apparent distress or dyspnea. . Family/friend interactions Following exam call to patient . Spoke to her at length on phone discussion included: Palliative care role, team members, reason for consult Additional medical/social/spiritual history Patient cognitive and functional status in the months to weeks prior to this admission Patient and/or family understanding of current medical conditions, prognosis , limited treatment options for significant cardiomyopathy/EF less than 20 Overall condition, prognosis CODE STATUS[] review benefits/burdens and limitations of CPR// full code for now will discuss/consider Palliative care contact information provided Spoke with at length on phone. Provided update of current condition and assessments, review hospital clinical course up until this point. Review his underlying status. She indicates he has been retired not working since his initial stroke left him with deficits. He stays at home and is able to care for himself, while she works during the day. Their adult son also lives in the home with them and helps with things as needed. Much review of cardiac status and that with advanced and severe heart failure such as his with an EF less than 20 and the significant akinesis that he has treatments are very limited and even medications become ineffective, and cannot be used in very end-stage heart disease. This is complicated further by his renal dysfunction. Gently explored that he will remain at high risk for ongoing complications and hospitalization secondary to his conditions, and likely to experience limited life expectancy secondary to. Review following this acute hospitalization he may require home health for additional assistance or possibly inpatient rehabilitation depending on his course in the coming days. Gentle exploration of CODE STATUS and limitations, benefits of resuscitation. She is appreciative of update she will discuss further with patient and family no changes elected to conditions for now. She does have questions regarding if there "any surgery that can be done for his heart "advised that at this point medical management is the only treatment, which in itself is limited. (Carina Austin) Advance Directives Living Will: Never completed Health Care Surrogate: Never completed Durable Power of Automotive Technician: Never completed (Carina Austin) Objective Vital Signs Date Time Temp Pulse Resp B/P (MAP) Pulse Ox O2 Delivery O2 Flow Rate FiO2 01/10/18 11:21 98 Nasal Cannula 3.00 01/10/18 11:20 98 Nasal Cannula 3 01/10/18 10:00 79 01/10/18 08:40 100 40 01/10/18 08:00 84 01/10/18 08:00 98.3 84 15 91/57 (68) 100 01/10/18 08:00 40 01/10/18 07:00 100 Mechanical Ventilator 40 01/10/18 06:00 91 01/10/18 04:19 99 40 01/10/18 04:00 80 01/10/18 04:00 40 01/10/18 04:00 97.8 88 16 101/67 (78) 99 01/10/18 01:23 100 40 01/10/18 00:00 80 01/10/18 00:00 40 01/09/18 22:00 80 01/09/18 21:14 100 40 01/09/18 20:00 97.7 76 16 98/62 (74) 100 01/09/18 20:00 40 01/09/18 20:00 76 01/09/18 19:00 100 Mechanical Ventilator 40 01/09/18 18:00 84 01/09/18 16:35 100 40 01/09/18 16:00 30 01/09/18 16:00 91 01/09/18 16:00 97.9 91 15 96/59 (71) 100 01/09/18 14:24 100 30 01/09/18 14:00 88 Intake & Output 01/10/18 01/10/18 07:00 19:00 Intake Total 709 ml Output Total 2600 ml Balance -1891 ml Intake Oral 0 ml Tube Feeding 589 ml Tube Irrigant 120 ml Output Urine Total 2600 ml Physical Exam CONSTITUTIONAL/GENERAL: This is an adequately nourished patient, in no apparent distress, extubated on nasal cannula TUBES/LINES/DRAINS: Peripheral IV bilateral upper extremity, rectal drain, Rolon catheter SKIN: No jaundice, rashes, or lesions.No wounds seen anteriorly. Skin temperature appropriate. Not diaphoretic. NECK: Trachea midline. Supple, nontender. No palpable thyroid enlargement or nodularity. CARDIOVASCULAR: Regular rate and rhythm without murmur. No JVD. Peripheral pulses symmetric, pedal pulses faint. RESPIRATORY/CHEST: Symmetric, unlabored respirations. On nasal cannula. Breath sounds clear, equal bilaterally. GASTROINTESTINAL: Abdomen soft, round, nondistended. No hepato-splenomegaly, or palpable masses. Bowel sounds present. No tenderness. GENITOURINARY: Without palpable bladder distension. Rolon catheter in place, yellow/pink urine MUSCULOSKELETAL: Extremities without clubbing, cyanosis, or edema. Right hand, lower arm contracted NEUROLOGICAL: Alert. Minimally verbal. Answers some yes/no questions though otherwise speech is grunts, grumbles. Does not answer other orientation questions unable to assess. Follow simple commands with lower extremities, left upper. Right upper extremity flaccid, contracted. PSYCHIATRIC: No obvious anxiety/depression--limited assessment due to clinical condition . (Carina Austin) Diagnostic Tests Laboratory Laboratory Tests Test 01/07/18 16:19 01/07/18 21:25 01/08/18 05:13 01/09/18 05:40 White Blood Count 18.2 TH/MM3 (4.0-11.0) 18.0 TH/MM3 (4.0-11.0) 17.0 TH/MM3 (4.0-11.0) Red Blood Count 4.55 MIL/MM3 (4.50-5.90) 4.38 MIL/MM3 (4.50-5.90) 3.96 MIL/MM3 (4.50-5.90) Hemoglobin 13.9 GM/DL (13.0-17.0) 13.0 GM/DL (13.0-17.0) 11.6 GM/DL (13.0-17.0) Hematocrit 43.7 % (39.0-51.0) 41.5 % (39.0-51.0) 37.3 % (39.0-51.0) Mean Corpuscular Volume 95.9 FL (80.0-100.0) 94.7 FL (80.0-100.0) 94.0 FL (80.0-100.0) Mean Corpuscular Hemoglobin 30.5 PG (27.0-34.0) 29.7 PG (27.0-34.0) 29.3 PG (27.0-34.0) Mean Corpuscular Hemoglobin Concent 31.8 % (32.0-36.0) 31.4 % (32.0-36.0) 31.2 % (32.0-36.0) Red Cell Distribution Width 17.9 % (11.6-17.2) 17.7 % (11.6-17.2) 17.6 % (11.6-17.2) Platelet Count 104 TH/MM3 (150-450) 142 TH/MM3 (150-450) 187 TH/MM3 (150-450) Mean Platelet Volume 8.7 FL (7.0-11.0) 8.7 FL (7.0-11.0) 8.6 FL (7.0-11.0) Neutrophils (%) (Auto) 85.9 % (16.0-70.0) 84.5 % (16.0-70.0) Lymphocytes (%) (Auto) 2.3 % (9.0-44.0) 3.1 % (9.0-44.0) Monocytes (%) (Auto) 11.4 % (0.0-8.0) 11.1 % (0.0-8.0) Eosinophils (%) (Auto) 0.3 % (0.0-4.0) 1.1 % (0.0-4.0) Basophils (%) (Auto) 0.1 % (0.0-2.0) 0.2 % (0.0-2.0) Neutrophils # (Auto) 15.6 TH/MM3 (1.8-7.7) 14.4 TH/MM3 (1.8-7.7) Lymphocytes # (Auto) 0.4 TH/MM3 (1.0-4.8) 0.5 TH/MM3 (1.0-4.8) Monocytes # (Auto) 2.1 TH/MM3 (0-0.9) 1.9 TH/MM3 (0-0.9) Eosinophils # (Auto) 0.1 TH/MM3 (0-0.4) 0.2 TH/MM3 (0-0.4) Basophils # (Auto) 0.0 TH/MM3 (0-0.2) 0.0 TH/MM3 (0-0.2) CBC Comment DIFF FINAL DIFF FINAL Differential Comment Blood Urea Nitrogen 40 MG/DL (7-18) 50 MG/DL (7-18) 66 MG/DL (7-18) Creatinine 2.89 MG/DL (0.60-1.30) 3.50 MG/DL (0.60-1.30) 3.89 MG/DL (0.60-1.30) Random Glucose 126 MG/DL (74-106) 183 MG/DL (74-106) 155 MG/DL (74-106) Calcium Level 8.9 MG/DL (8.5-10.1) 9.1 MG/DL (8.5-10.1) 9.0 MG/DL (8.5-10.1) Sodium Level 136 MEQ/L (136-145) 137 MEQ/L (136-145) 136 MEQ/L (136-145) Potassium Level 5.1 MEQ/L (3.5-5.1) 4.7 MEQ/L (3.5-5.1) 4.9 MEQ/L (3.5-5.1) 4.9 MEQ/L (3.5-5.1) Chloride Level 102 MEQ/L (98-107) 101 MEQ/L (98-107) 99 MEQ/L (98-107) Carbon Dioxide Level 21.0 MEQ/L (21.0-32.0) 24.0 MEQ/L (21.0-32.0) 25.5 MEQ/L (21.0-32.0) Anion Gap 13 MEQ/L (5-15) 12 MEQ/L (5-15) 12 MEQ/L (5-15) Estimat Glomerular Filtration Rate 26 ML/MIN (>89) 21 ML/MIN (>89) 19 ML/MIN (>89) Hematology Comments Prothrombin Time 23.6 SEC (9.8-11.6) 17.0 SEC (9.8-11.6) Prothromb Time International Ratio 2.3 RATIO 1.7 RATIO Phosphorus Level 3.8 MG/DL (2.5-4.9) Magnesium Level 2.6 MG/DL (1.5-2.5) Total Protein 6.7 GM/DL (6.4-8.2) Albumin 2.4 GM/DL (3.4-5.0) Alkaline Phosphatase 75 U/L (45-117) Aspartate Amino Transf (AST/SGOT) 19 U/L (15-37) Alanine Aminotransferase (ALT/SGPT) 24 U/L (12-78) Total Bilirubin 1.4 MG/DL (0.2-1.0) Test 01/09/18 09:30 01/09/18 16:12 01/09/18 21:45 01/10/18 04:51 Troponin I 1.41 NG/ML (0.02-0.05) 1.35 NG/ML (0.02-0.05) 1.29 NG/ML (0.02-0.05) White Blood Count 13.4 TH/MM3 (4.0-11.0) Red Blood Count 3.99 MIL/MM3 (4.50-5.90) Hemoglobin 11.9 GM/DL (13.0-17.0) Hematocrit 36.9 % (39.0-51.0) Mean Corpuscular Volume 92.5 FL (80.0-100.0) Mean Corpuscular Hemoglobin 30.0 PG (27.0-34.0) Mean Corpuscular Hemoglobin Concent 32.4 % (32.0-36.0) Red Cell Distribution Width 17.2 % (11.6-17.2) Platelet Count 180 TH/MM3 (150-450) Mean Platelet Volume 8.7 FL (7.0-11.0) Neutrophils (%) (Auto) 81.8 % (16.0-70.0) Lymphocytes (%) (Auto) 3.4 % (9.0-44.0) Monocytes (%) (Auto) 12.4 % (0.0-8.0) Eosinophils (%) (Auto) 2.2 % (0.0-4.0) Basophils (%) (Auto) 0.2 % (0.0-2.0) Neutrophils # (Auto) 10.9 TH/MM3 (1.8-7.7) Lymphocytes # (Auto) 0.5 TH/MM3 (1.0-4.8) Monocytes # (Auto) 1.7 TH/MM3 (0-0.9) Eosinophils # (Auto) 0.3 TH/MM3 (0-0.4) Basophils # (Auto) 0.0 TH/MM3 (0-0.2) CBC Comment DIFF FINAL Differential Comment Prothrombin Time 13.3 SEC (9.8-11.6) Prothromb Time International Ratio 1.3 RATIO Blood Urea Nitrogen 75 MG/DL (7-18) Creatinine 3.07 MG/DL (0.60-1.30) Random Glucose 205 MG/DL (74-106) Calcium Level 9.0 MG/DL (8.5-10.1) Sodium Level 136 MEQ/L (136-145) Potassium Level 3.9 MEQ/L (3.5-5.1) Chloride Level 96 MEQ/L (98-107) Carbon Dioxide Level 28.6 MEQ/L (21.0-32.0) Anion Gap 11 MEQ/L (5-15) Estimat Glomerular Filtration Rate 25 ML/MIN (>89) (Carina Austin [facility]) Result Diagram: 01/10/18 0451 01/10/18 0451 Microbiology Microbiology Date/Time Source Procedure Growth Status 01/06/18 20:31 Blood Peripheral Aerobic Blood Culture - Preliminary NO GROWTH IN 4 DAYS Resulted 01/06/18 20:31 Blood Peripheral Anaerobic Blood Culture - Preliminary NO GROWTH IN 4 DAYS Resulted 01/06/18 18:00 Nasal Aspirate Influenza Types A,B Antigen (MELIDA) - Final NEGATIVE FOR FLU A AND B ANTIGEN.... Complete 01/06/18 18:00 Urine Clean Catch Urine Culture - Final <10,000 CFU/ML GRAM NEGATIVE RENÉ Complete Imaging Last Impressions Chest X-Ray 01/08/18 0600 Signed Impressions: Service Date/Time: Monday, January 08, 2018 04:59 - CONCLUSION: No significant change Jeffrey Tipton MD Renal Ultrasound 01/08/18 0000 Signed Impressions: Service Date/Time: Monday, January 08, 2018 13:40 - CONCLUSION: 1. Mild to moderately atrophic right kidney. 2. Moderate bladder distention with mild prominence of the left renal collecting system. The findings may reflect some degree of bladder outlet obstruction or neurogenic bladder. Consider reevaluation of the left renal collecting system following Rolon decompression. Young Baldwin MD (Carina Austin) Assessment and Plan Disease Oriented Problem List: (1) Acute on chronic systolic CHF (congestive heart failure) (2) Respiratory failure (3) Ischemic cardiomyopathy (4) SALIMA (acute kidney injury) (5) Hematuria (6) Obstructive uropathy (7) Elevated troponin (8) Atrial fibrillation (9) Gout (10) HTN (hypertension) (11) CVA, old, hemiparesis (12) COPD (chronic obstructive pulmonary disease) (13) Biventricular automatic implantable cardioverter defibrillator in situ (14) Acute on chronic systolic CHF (congestive heart failure) (15) CAD (coronary artery disease) (16) DM (diabetes mellitus) (17) Other and unspecified hyperlipidemia (18) Hyperlipidemia Symptom Scale: (1) Dyspnea 0-10 Scale: Unable to quantify Pertinent Non-Medical Issues Psychosocial: Spiritual: Anabaptism Legal:Patient currently unable to participate in decision making due to clinical condition. Not clear if he will regain ability to participate. Has 1 son, a . No known advanced directives. Per [place] statute his would be appropriate legal proxy. Ethical issues impacting care: No ethical issues identified. Important Contacts Son Medina Bowman Ra [phone] Spouse Shelly Brownlee [phone] . Prognosis admitted for SOB. Multiple chronic medical conditions, underlying severe cardiomyopathy (EF < 20%). Now with cardio-renal, difficulty weaning from ventilator. Prognosis for oysterman survival poor. High risk for ongoing complications/setbacks/hospitalizations if he gets through current acute hospitalization. . Code Status: Full Code Plan * Legal decision maker:Patient currently unable to participate in decision making due to clinical condition. Not clear if he will regain ability to participate. Has 1 son, a . No known advanced directives. Per [place] statute his would be appropriate legal proxy. * Goals: Goals aggressive at this time, continue maximum medical management available for his conditions. CODE STATUS was discussed will continue to discuss with family, patient no changes elected at this time. * CODE STATUS: Full code * SYMPTOMS: --Dyspnea-presented to the ED with acute and worsening shortness of breath. Urgently intubated for respiratory failure. Remains on mechanical vent. CPAP trials ongoing, extubated today about an hour before my exam. Tolerating nasal cannula without distress. Breathing comfortably at time of my exam. Will continue to monitor. Remains at risk for possible respiratory compromise secondary to prior CVA, possible dysphasia, underlying cardiac disease --Pain-no reports of pain though potential sources would include intubation, recent invasive procedures. Bedbound status. Currently appears comfortable - does not endorse or deny pain upon my exam. Will continue to evaluate. * Palliative care will continue to follow during hospital course as condition evolves, to assist patient/decision-maker with understanding of medical conditions, weighing benefits/burdens of treatment options, for clarification of goals of treatment. Additionally will assist with any symptoms of palliative concern (Carina Austin) Time Spent Total Floor Time (mins): 35 (PE, discussion with critical care, discussion with nursing, and discussion with family) (Carina Austin) Attestation To help prompt me to consider important information that might be impacting today's encounter and assessment, information from prior notes written by myself or my colleagues may have been "brought forward" into today's note. My signature on this note, however, is an attestation that I personally performed the exam, history, and/or decision-making noted today, and, unless otherwise indicated, the interactions with patient, family, and staff as well as the review of records all occurred today. I also attest that the listed assessment and stated plan reflect my best clinical judgment today based on the combination of historical information, prior notes, and today's exam/ interactions. When time spent is documented, it refers only to time spent today by the signer, or if indicated, combined time spent today by collaborating physician/nurse practitioner. (Carina Austin) Collaborating MD Comments Chart reviewed. Case discussed with palliative care MEDIA ANALYTICS MANAGER. Above GINO note reviewed and I concur. . (Daniel Mosquera MD) Carina Austin Jan 10, 2018 12:33 Daniel Mosquera MD Jan 13, 2018 05:52
[2018-01-10] MEDS: RESP: ALBUTEROL 2.5 MG/IPRATROPIUM 0.5 MG NEB (SCH) NEB ×2 (15:48→21:14)
--- NOTE | 2018-01-10 16:26 | HHI.FPPN ---
Subjective Remarks Pt extubated earlier today and maintaining sats on 3lpm by nasal cannula. Nursing reports no new concerns. After swallow eval, puree food and honey thickened liquid recommended. Pt without complains, says he is "alright". Pt with residual aphasia after his prior stroke. Objective Vitals Vital Signs Date Time Temp Pulse Resp B/P (MAP) Pulse Ox O2 Delivery O2 Flow Rate FiO2 01/10/18 12:00 40 01/10/18 12:00 98.8 98 17 107/68 (81) 96 01/10/18 12:00 98 01/10/18 11:21 98 Nasal Cannula 3.00 01/10/18 11:20 98 Nasal Cannula 3 01/10/18 10:00 79 01/10/18 08:40 100 40 01/10/18 08:00 84 01/10/18 08:00 98.3 84 15 91/57 (68) 100 01/10/18 08:00 40 01/10/18 07:00 100 Mechanical Ventilator 40 01/10/18 06:00 91 01/10/18 04:19 99 40 01/10/18 04:00 80 01/10/18 04:00 40 01/10/18 04:00 97.8 88 16 101/67 (78) 99 01/10/18 01:23 100 40 01/10/18 00:00 80 01/10/18 00:00 40 01/09/18 22:00 80 01/09/18 21:14 100 40 01/09/18 20:00 97.7 76 16 98/62 (74) 100 01/09/18 20:00 40 01/09/18 20:00 76 01/09/18 19:00 100 Mechanical Ventilator 40 01/09/18 18:00 84 01/09/18 16:35 100 40 I/O 01/09/18 01/09/18 01/09/18 01/10/18 01/10/18 01/10/18 07:00 15:00 23:00 07:00 15:00 23:00 Intake Total 734 ml 100 ml 450 ml 709 ml Output Total 675 ml 2975 ml 2600 ml Balance 59 ml 100 ml -2525 ml -1891 ml Intake Oral 0 ml IV Total 100 ml Tube Feeding 674 ml 450 ml 589 ml Tube Irrigant 60 ml 120 ml Output Urine Total 675 ml 2975 ml 2600 ml # Bowel Movements 1 Result Diagram: 01/10/181 01/10/18 0451 Objective Remarks GENERAL: Awake, alert. Some verbal communication. on 3lpm by nasal cannula. SKIN: No rashes, ecchymoses or lesions. Cool and dry. HEAD: Atraumatic. Normocephalic. No temporal or scalp tenderness. EYES: Pupils equal round and reactive. Extraocular motions intact. No scleral icterus. No injection or drainage. ENT: Nose without bleeding or purulent drainage. Airway patent. NECK: Trachea midline. No JVD or lymphadenopathy. Supple, nontender, no meningeal signs. CARDIOVASCULAR: Regular rate and rhythm without murmurs RESPIRATORY: Auscultation anteriorly; Good air movement bilaterally with no crackles appreciated. GASTROINTESTINAL: Abdomen soft, non-tender, nondistended. No hepato-splenomegaly , or palpable masses. No guarding. MUSCULOSKELETAL: No Pitting edema. No joint tenderness, effusion, or edema noted. No calf tenderness. NEUROLOGICAL: Awake and alert. Cranial nerves II through XII grossly intact. Weakness of right upper extremity; flaccid. A/P Assessment and Plan Patient is a 72-year-old admitted with CHF exacerbation. He required BiPAP at time of admission with significant fluid overload complicated by hypotension. This surely weaned to 1 L nasal cannula, however on 01/06 at 0600 hrs suffered worsening respiratory distress, needed to be intubated. He has been on vent since 01/06. Discharge Planning Pending clinical improvement, pt is on 2L O2 at home baseline. Pt extubated 01/10/2018. Problem List: (1) Elevated troponin ICD Codes: R74.8 - Abnormal levels of other serum enzymes Status: Acute Plan: EKG changes (no ST elevations) and elevated troponin on 01/09 Troponin improved overnight 01/09-->01/10. Likely secondary to kidney disease. Pt is a poor candidate for surgical intervention even if myocardial infarction were suspected. (2) CHF exacerbation ICD Codes: I50.9 - Heart failure, unspecified Status: Acute Plan: At presentation: Patient of Dr. Aquino, presenting with acute CHF exacerbation. He reports he had an echo 1 month ago but unknown EF. Will attempt to obtain records. Patient is on BiPAP at time of admission but recent ABG overall unremarkable. CXR showing significant pulmonary edema. BNP 1121. Initial troponin 0.41 with EKG showing paced rhythm, rate 94, QTc 478. He reportedly took his amlodipine, and lisinopril on morning of admission. He received 1 dose of Lasix 40 mg IV in ED. * Extubated 01/10/2018 * ACS workup negative * Echocardiogram showing EF less than 20%, severely dilated LV, mod to severe MV regurg, severe tricuspid regurg * Cardiology consulted - appreciated recommendations; elevated troponin likely due to STEMI/demand ischemia, AICD placed * Continue medications as ordered, for diuresis and cardiac benefits. * Continue aspirin, atorvastatin (3) COPD (chronic obstructive pulmonary disease) ICD Codes: J44.9 - Chronic obstructive pulmonary disease Status: Chronic Plan: Status post acute hypercapnic respiratory failure due to COPD, possible nosocomial pneumonia, possible CHF component Extubated today. Continue vancomycin and Zosyn Continue Pulmicort twice a day, DuoNeb every 6, furosemide 80 mg IV twice a day (4) SALIMA (acute kidney injury) ICD Codes: N17.9 - Acute kidney failure, unspecified Status: Acute Plan: Acute on chronic CKD, worsening Baseline creatinine is normal based on labs from September 2017. creat remains elevated, continue to f/u BMP * Trend BMP * Avoid nephrotoxic agents * Careful hydration limits given fluid overload but likely kidneys will need some gentle hydration, no additional fluids for now (5) Atrial fibrillation ICD Codes: I48.91 - Atrial fibrillation Status: Chronic Plan: Chronic A. fib, not with RVR at this time. He is on warfarin 7.5 mg reportedly Saturday and Saturday at home. Pt with some bleeding at urinary catheter site, and anticoagulation has been held. Will need to readdress anticoagulation in near future should bleeding stabilize. (6) HTN (hypertension) ICD Codes: I10 - Essential (primary) hypertension Status: Chronic Plan: BP under good control. Continue medications as currently ordered. (7) Pacemaker ICD Codes: Z95.0 - Presence of cardiac pacemaker Status: Chronic Plan: Chronic, no acute events with this. Will monitor on telemetry. (8) DM (diabetes mellitus) ICD Codes: E11.9 - Diabetes mellitus Status: Chronic Plan: Chronic, not on insulin. Takes glipizide 5 mg twice daily before meals * Low-dose sliding scale Novolog while inpatient. (9) CVA, old, hemiparesis ICD Codes: I69.359 - Hemiparesis following cerebrovascular accident Status: Chronic Plan: No acute neurologic deficits at this time, baseline right-sided weakness and speech difficulties. Will monitor symptoms Would benefit from PT while inpatient. (10) Tinea pedis ICD Codes: B35.3 - Tinea pedis Status: Resolved Plan: Chronic fungal rash appreciated on patient's R foot Tinactin cream ordered BID. Will need treatment x 4 weeks, per epocrates. -Improvement in symptoms on 01/03 (11) BPH (benign prostatic hyperplasia) ICD Codes: N40.0 - Benign prostatic hyperplasia without lower urinary tract symptoms Status: Chronic Plan: Patient has a history of BPH Rolon catheter in place. (12) Gout ICD Codes: M10.9 - Gout, unspecified Status: Chronic Plan: No acute exacerbation. Holding home colchicine due to SALIMA (13) Fluids/Electrolytes/Nutrition/Prophylaxis Status: Acute Plan: Fluids: Fluid restrict given CHF, will monitor Electrolytes: f/u BMP and replete as needed Nutrition: Pending extubation DVT Prophylaxis: Early ambulation. Warfarin as above. (14) Hyperkalemia ICD Codes: E87.5 - Hyperkalemia Status: Resolved Plan: 5.1 on 01/07 4.9 on 01/08 f/u BMP in AM s/p Calcium gluconate IV x 1 s/p albuterol neb s/p insulin, dextrose 50% in H20 50ml s/p sodium bicarb IV s/p kayaxelate Problem Qualifiers (1) CHF exacerbation: Qualified Codes: I50.23 - Acute on chronic systolic (congestive) heart failure (2) Atrial fibrillation: Qualified Codes: I48.2 - Chronic atrial fibrillation (3) HTN (hypertension): Qualified Codes: I10 - Essential (primary) hypertension (4) DM (diabetes mellitus): (5) Tinea pedis: Qualified Codes: B35.3 - Tinea pedis Francoise House MD Jan 10, 2018 16:26
[2018-01-10] MEDS: MORPHINE SULFATE 2 MG/ML SYRINGE IV PUSH PRN (20:50)
[2018-01-11] VITALS (11 sets, daily range): BP systolic 106–125; BP diastolic 58–75; PULSE 86–128; RESP 17–25; TEMP 97–98.6; O2SAT 93–100
[2018-01-11] MEDS: PIPERACIL-TAZO 2.25 GM PREMIX 50 ML IV SCH ×4 (01:48→20:00)
[2018-01-11] MEDS: RESP: ALBUTEROL 2.5 MG/IPRATROPIUM 0.5 MG NEB (SCH) NEB ×4 (03:35→20:59)
[2018-01-11 05:04] LABS: AUTOMATED NEUTROPHIL # 7.9 TH/MM3 (1.8-7.7); BASOPHIL % 0.3 % (0.0-2.0); EOSINOPHIL # 0.2 TH/MM3 (0-0.4); EOSINOPHIL % 1.5 % (0.0-4.0); HEMATOCRIT 38.5 % (39.0-51.0); HEMOGLOBIN 12.4 GM/DL (13.0-17.0); LYMPH % 5.9 % (9.0-44.0); LYMPHOCYTE # 0.6 TH/MM3 (1.0-4.8); MEAN CORPUSCULAR HEMOGLOBIN 29.7 PG (27.0-34.0); MEAN CORPUSCULAR HGB CONC 32.3 % (32.0-36.0); MEAN PLATELET VOLUME 8.7 FL (7.0-11.0); MONO % 18.7 % (0.0-8.0); NEUT % 73.6 % (16.0-70.0); PLATELET COUNT 202 TH/MM3 (150-450); RED BLOOD COUNT 4.18 MIL/MM3 (4.50-5.90); RED CELL DISTRIBUTION WIDTH 17.1 % (11.6-17.2); WHITE BLOOD COUNT 10.7 TH/MM3 (4.0-11.0)
[2018-01-11 05:16] LABS: ALBUMIN 2.5 GM/DL (3.4-5.0); AST (GOT) 36 U/L (15-37); BICARBONATE 32.2 MEQ/L (21.0-32.0); BLOOD UREA NITROGEN 69 MG/DL (7-18); CALCIUM 9.5 MG/DL (8.5-10.1); CHLORIDE 94 MEQ/L (98-107); CREATININE 2.45 MG/DL (0.60-1.30); GLOMERULAR FILTRATION RATE 32 ML/MIN (>89); GLUCOSE,RANDOM 136 MG/DL (74-106); MAGNESIUM 2.6 MG/DL (1.5-2.5); SODIUM (NA) 136 MEQ/L (136-145)
[2018-01-11 05:21] LABS: ALKALINE PHOSPHATASE 72 U/L (45-117); ALT (GPT) 33 U/L (12-78); PHOSPHORUS 3.3 MG/DL (2.5-4.9); TOTAL BILIRUBIN ADULT 1.6 MG/DL (0.2-1.0); TOTAL PROTEIN 7.1 GM/DL (6.4-8.2)
[2018-01-11 05:26] LABS: INTERNATIONAL NORMALIZED RATIO 1.1 RATIO; PROTHROMBIN TIME - PATIENT 11.6 SEC (9.8-11.6)
[2018-01-11] MEDS: ARTIFICIAL TEARS OPTH SOLN 15 ML BTL EACH EYE SCH ×3 (06:11→21:18)
[2018-01-11] MEDS: MORPHINE SULFATE 2 MG/ML SYRINGE IV PUSH PRN ×2 (07:02→21:11)
[2018-01-11] MEDS: RESP: BUDESONIDE 0.5 MG/2 ML NEB NEB SCH ×2 (07:59→20:59)
[2018-01-11] MEDS: CHLORHEXIDINE 0.12% (ORAL KIT) 15 ML CUP MT SCH ×2 (08:00→20:00)
[2018-01-11] MEDS: TOLNAFTATE 1% CREAM 15 GM TOPICAL SCH ×2 (09:00→21:18)
[2018-01-11] MEDS: DOCUSATE SODIUM 50 MG/SENNA 8.6 MG TAB PO SCH ×2 (09:00→21:00)
[2018-01-11] MEDS: TAMSULOSIN HCL 0.4 MG CAP PO SCH (09:00)
[2018-01-11] MEDS: SODIUM CHLORIDE 0.9% FLUSH 10 ML FLUSH IV FLUSH SCH ×2 (09:00→21:18)
[2018-01-11] MEDS ORDERED: POTASSIUM CHLORIDE 20 MEQ PWD PACKET PO ONE (09:15)
--- NOTE | 2018-01-11 09:40 | RADRPT ---
EXAM DATE/TIME: 01/11/2018 08:36 [place] COMPARISON: US KIDNEY/RENAL/BLADDER, January 08, 2018, 13:40. INDICATIONS : Reevaluation of collecting system. MEDICAL HISTORY : Myocardial infarction. Hypercholesterolemia. CVA. Coronary artery disease. Afib. HTN. Dyspnea. [place]. SURGICAL HISTORY : CABG. Pacemaker. Coronary artery stent. Cardiac cath. ENCOUNTER: Subsequent ACUITY: 3 days PAIN SCORE: 8/10 LOCATION: Bilateral flank MEASUREMENTS: RIGHT KIDNEY: 8.8 x 3.7 x 4.6 cm LEFT KIDNEY: 11.2 x 5.1 x 5.2 cm FINDINGS: RIGHT KIDNEY: Renal cortex is normal in thickness and echotexture. No hydronephrosis, stone, or mass. LEFT KIDNEY: Renal cortex is normal in thickness and echotexture. No hydronephrosis, stone, or mass. The previous ly noted prominence of the left renal collecting system has resolved. No residual fluid identified. BLADDER: The bladder is decompressed with a Rolon catheter present. CONCLUSION: Interval placement of a Rolon catheter with decompression of the bladder and left-sided mild hydronep hrosis. Currently no evidence of hydronephrosis visualized. Zoraida Arriola MD on January 11, 2018 at 9:35 Board Certified Radiologist. This report was verified electronically.
[2018-01-11] MEDS: FUROSEMIDE 100 MG/10 ML VIAL IV PUSH SCH ×2 (10:05→21:11)
[2018-01-11] MEDS: CARVEDILOL 3.125 MG TAB PO SCH ×2 (10:06→21:11)
[2018-01-11] MEDS: ATORVASTATIN 40 MG TAB PO SCH (10:06)
[2018-01-11] MEDS: ASPIRIN 81 MG CHEW TAB CHEW SCH (10:06)
--- NOTE | 2018-01-11 10:09 | HHI.CCPN ---
Subjective Remarks/Hospital Course 72-year-old man with a history of an ischemic cardiomyopathy with a Biotronik ICD, status post CABG in 2006 and subsequent stenting of RCA in 2015. He has had recurrent hospitalizations for CHF. He had been doing well until very recently, when he began having some progressive shortness of breath and a bit of edema is what precipitated his emergency room visit. He was admitted to family medicine service where he responded somehow to diuresis, however today, despite his improving off x-ray imaging, his respiratory status is worsening requiring transfer to ICU and observation for possible intubation. 2: Patient intubated due to tachypnea/acute CHF exacerbation with patient altered and not/refusing to wear BiPAP while attempting to aggressively diurese. notified per RN. Currently hemodynamic stable. Chest x-ray post intubation currently pending. 01/07: T-max 101.5. Currently 99.3. Diuresis 2.5 liters past 24 hours. A.m. laboratories pending. Hematuria resolving. Sedated on the ventilator. 01/08: minimal urine this morning. renal ultrasound with > 2L in the bladder without evidence of intra-vesicular marquez catheter. I replaced marquez catheter at bedside and immediately had return of 2L urine. however, around the marquez catheter was bright red blood. I initially placed the marquez catheter to traction which worsened the bleeding. I called the on-call urologist Dr. Lambert , who came to bedside and recommended conservative management, as the bleeding was improving. He also recommended holding the coumadin for 24-48h to allow time for the bleeding to stop. we will proceed with 24h of CBI as well to ensure no vessicular bleeding or clots. poor diuresis overnight yesterday and rising Cr likely due to obstruction. otherwise remains intubated and encephalopathic. 5: remains volume overloaded. Cr continues to rise. bleeding from urethra has subsided. INR 1.7 today. more awake on ventilator, still not following commands. Subjective 6: Afebrile. Diuresis -5.5 L overnight. Marquez replaced yesterday. Will recheck renal ultrasound tomorrow to evaluate left renal collecting system. Tolerating tube feeds. 01/11: Extubated for over 24 hours and continues to breathe comfortably. Urine output acceptable. Renal ultrasound without obstruction. Objective Vital Signs Date Time Temp Pulse Resp B/P (MAP) Pulse Ox O2 Delivery O2 Flow Rate FiO2 01/11/18 08:02 95 Nasal Cannula 2.00 01/11/18 06:00 98 01/11/18 04:00 98.2 23 111/63 (79) 01/10/18 12:00 40 Intake and Output 01/11/18 01/11/18 01/12/18 08:00 16:00 00:00 Intake Total 530 ml Output Total 2575 ml Balance -2045 ml Result Diagram: 01/11/18 0413 01/11/18 0412 Imaging Last Impressions Chest X-Ray 01/08/18 0600 Signed Impressions: Service Date/Time: Monday, January 08, 2018 04:59 - CONCLUSION: No significant change Jeffrey Tipton MD Renal Ultrasound 01/08/18 0000 Signed Impressions: Service Date/Time: Monday, January 08, 2018 13:40 - CONCLUSION: 1. Mild to moderately atrophic right kidney. 2. Moderate bladder distention with mild prominence of the left renal collecting system. The findings may reflect some degree of bladder outlet obstruction or neurogenic bladder. Consider reevaluation of the left renal collecting system following Marquez decompression. Young Baldwin MD Objective Remarks GENERAL: 72-year-old -[place] male currently orotracheally intubated SKIN: Warm and dry. HEAD: Normocephalic. EYES: No scleral icterus. No injection or drainage. NECK: Supple, trachea midline. Airway widely patent. CARDIOVASCULAR: Irregular, RR. S1, S2 no S4. RESPIRATORY: Few crackles persist. Comfortable pattern. GASTROINTESTINAL: Abdomen large, soft, non-tender, nondistended. BS active. MUSCULOSKELETAL: Trace bilateral upper and lower extremity edema : Marquez catheter in place. Minimal scrotal edema. NEURO EXAM: Conversant, quiet mostly. Strength is 4 out of 5 right upper lower extremity. 5 out of 5 left upper lower cavity. 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 every 6 hours as needed fever CV: Acute on chronic systolic heart failure exacerbation, ejection fraction less than 20% Severe MR/TR Hypertension/essential Dyslipidemia Coronary disease status post CABG 2005 RCA stent 2014 Elevated troponin likely type II STEMI/demand ischemia AICD Currently on carvedilol 3.125 mg p.o. twice daily for hypertension 2D echocardiogram revealed EF less than 20%. LV dilatation. Generalized hypo-/ akinesis except basal posterior and lateral ventricle. Left atrial enlargement. Severe MR/TR. Pulmonary arterial pressure 33 mmHg Home medications include carvedilol 25 mg by mouth twice daily, amlodipine 10 mg by mouth daily and lisinopril 5 mg p.o. daily Continue atorvastatin 40 mg p.o. daily for dyslipidemia Continue aspirin 81 mg by tube daily Cardiology/Dr. Crook is actively following Noted troponin in the setting of renal failure noted Decrease furosemide to 40 mg IV twice daily Resp: Acute hypercapnic respiratory failure COPD [facility] /10/11/39 Ventilator bundle Albuterol/ipratropium aerosols every 6 hours with albuterol aerosols every 2 hours as needed for dyspnea Add budesonide 0.5/2 1 inhalation twice daily Spontaneous breathing trials when clinically indicated Extubated 01/10 GI: Hypoalbuminemia Tube feeding with Glucerna 1.5 goal 50 cc an hour Lansoprazole 30 mg by tube daily for GI prophylaxis Docusate sodium/senna 1 tablet twice daily for bowel regimen : BPH Hematuria obstructive uropathy acute kidney injury urethral bleeding Dr. Lambert to re-evaluate today Currently on tamsulosin 0.4 mg p.o. daily Currently holding warfarin with hematuria: Possibly restart warfarin in 48h: 01/11. hgb 13-->11. would recommend keeping marquez catheter in place for at least 7-14 days to allow for urethral healing prior to removal. (placed 01/08) Endo: Diabetes mellitus type 2 History of gout Sliding scale insulin with NovoLog with Accu-Cheks every 6 hours to maintain euglycemia/low regimen Holding glipizide 5 mg twice daily for diabetes Holding colchicine 0.6 mg by mouth daily for gout TSH 0.73 Renal: Acute on chronic kidney disease stage IIIa- worsening. Avoid nephrotoxic drugs Monitor urine output Accurate I's and O's keep marquez Creatinine currently 3.1 Heme: Chronic anticoagulation with warfarin History of DVT hold warfarin given bleeding. continue to trend coags and hgb. plan to restart warfarin 01/11. ID: Pleomorphic gram-positive speedy bacteremia? Likely contaminant corynebacterium/ deteriorates etc. Monitor for infection. Blood cultures 01/01 revealed 1 out of 4 gram-positive rods Blood cultures 2 01/06 including blood cultures 2/urine/sputum and urine pneumococcal and Legionella antigens all pending Negative influenza. MSK: Osteoarthritis PT evaluate and treat FEN: Replace electrolytes as clinically indicated Access -Utilize peripheral IV. Central line if indicated Prophylaxis -GI -lansoprazole -DVT -SCD/holding warfarin with elevated INR. Resume when clinically indicated Overall impression: Once Marquez was replaced and bladder decompressed he started to improve. Lenny Mcneal MD Jan 11, 2018 10:09
[2018-01-11] MEDS: INSULIN ASPART SUPPLEMENTAL SCALE SQ SCH ×3 (11:31→21:00)
--- NOTE | 2018-01-11 16:26 | OTSOAPIP ---
TIME SESSION COMPLETED: 1530 TREATMENT TIME: 0 MINS. CHART REVIEWED. INTERDISCIPLINARY COMMUNICATION: ATTEMPTED TO SEE PATIENT HOWEVER PATIENT WAS RECEIVING HYGIENE CARE PLAN: WILL SEE PATIENT NEXT TREATMENT DAY Therapist: JACQUELINE SANDOVAL/Jessica Signature on file
[2018-01-11] MEDS: ACETAMINOPHEN/HYDROcodone 325 MG/5 MG TAB PO PRN (16:45)
--- NOTE | 2018-01-11 16:47 | HHI.FPPN ---
Subjective Remarks Patient was seen and evaluated this morning. He feels better. He denies pain, nausea, vomiting, diarrhea and constipation. He requests a speech reevaluation because he is hungry for "real food." All questions were answered. (Zoe Goel MD R1) Objective Vitals Vital Signs Date Time Temp Pulse Resp B/P (MAP) Pulse Ox O2 Delivery O2 Flow Rate FiO2 01/11/18 12:04 Nasal Cannula 2.00 01/11/18 12:00 97.0 99 17 106/58 (74) 96 01/11/18 10:00 98 01/11/18 08:02 95 Nasal Cannula 2.00 01/11/18 08:00 97.9 96 25 117/67 (84) 93 01/11/18 08:00 96 01/11/18 07:00 94 Nasal Cannula 2.00 01/11/18 06:00 98 01/11/18 04:00 96 01/11/18 04:00 98.2 96 23 111/63 (79) 94 01/11/18 02:00 96 01/11/18 00:00 97.4 94 21 111/66 (81) 95 01/11/18 00:00 94 01/10/18 22:00 95 01/10/18 21:14 99 Nasal Cannula 2.00 01/10/18 20:00 97.7 102 20 107/64 (78) 100 01/10/18 20:00 89 01/10/18 19:00 95 Nasal Cannula 4.00 01/10/18 18:00 98 I/O 01/10/18 01/10/18 01/10/18 01/11/18 01/11/18 01/11/18 07:00 15:00 23:00 07:00 15:00 23:00 Intake Total 720.5 ml 50 ml 210 ml 530 ml Output Total 2600 ml 2850 ml 2575 ml Balance -1879.5 ml 50 ml -2640 ml -2045 ml Intake Oral 0 ml 480 ml IV Total 11.5 ml 50 ml 100 ml 50 ml Tube Feeding 589 ml 50 ml Tube Irrigant 120 ml 60 ml Output Urine Total 2600 ml 2650 ml 2425 ml Stool Total 200 ml 150 ml Bladder Scan Volume Amount 77 ml (Zoe Goel MD R1) Result Diagram: 01/11/18 0413 01/11/18 0412 Imaging Last 72 hours Impressions Renal Ultrasound 01/11/18 0800 Signed Impressions: Service Date/Time: Thursday, January 11, 2018 08:36 - CONCLUSION: Interval placement of a Rolon catheter with decompression of the bladder and left-sided mild hydronephrosis. Currently no evidence of hydronephrosis visualized. Zoraida Arriola MD Objective Remarks GENERAL: Awake, alert. Verbal. SKIN: Warm and dry. HEAD: Atraumatic. Normocephalic. EYES: Pupils equal round. Extraocular motions intact. No scleral icterus. No injection or drainage. ENT: Nose without bleeding or purulent drainage. Airway patent. NECK: Supple, nontender, no meningeal signs. CARDIOVASCULAR: Regular rate and rhythm without murmurs RESPIRATORY: Auscultation anteriorly: good air movement bilaterally with no crackles appreciated. GASTROINTESTINAL: Abdomen soft, non-tender, nondistended. No hepato-splenomegaly , or palpable masses. No guarding. MUSCULOSKELETAL: No joint tenderness, effusion, or edema noted. No calf tenderness. NEUROLOGICAL: Awake and alert. Cranial nerves II through XII grossly intact. Generalized weakness of extremities. Medications and IVs Current Medications Medications (Trade) Dose Ordered Sig/Kaila Route Start Time Stop Time Status Last Admin (NS Flush) 2 ml UNSCH PRN IV FLUSH 01/01/18 16:15 (NS Flush) 2 ml BID IV FLUSH 01/01/18 21:00 01/11/18 09:00 (Lipitor) 40 mg DAILY PO 01/02/18 09:00 01/11/18 10:06 (D50w (Vial) Inj) 50 ml UNSCH PRN IV PUSH 01/01/18 17:45 (Glucagon Inj) 1 mg UNSCH PRN OTHER 01/01/18 17:45 (Natalie-Colace) 1 tab BID PO 01/01/18 21:00 01/09/18 08:30 (Milk Of Magnesia Liq) 30 ml Q12H PRN PO 01/01/18 17:45 01/03/18 12:31 (Senokot) 17.2 mg Q12H PRN PO 01/01/18 17:45 (Dulcolax Supp) 10 mg DAILY PRN RECTAL 01/01/18 17:45 (Lactulose Liq) 30 ml DAILY PRN PO 01/01/18 17:45 (Flomax) 0.4 mg DAILY PO 01/02/18 15:00 01/08/18 09:49 (Tinactin 1% Cream) 1 applic Q12HR TOPICAL 01/02/18 21:00 01/11/18 09:00 (Hydrocortisone 1% Cream) 1 applic Q12H PRN TOPICAL 01/02/18 15:00 01/03/18 12:12 (Coreg) 3.125 mg Q12HR PO 01/06/18 09:00 01/11/18 10:06 (Peridex 0.12% Liq) 15 ml BID@08,20 MT 01/06/18 08:00 01/10/18 09:29 (Pulmicort Respule Neb) 0.5 mg Q12HR NEB NEB 01/06/18 20:00 01/11/18 07:59 (Tears Naturale Opth Soln) 1 drop Q8HR EACH EYE 01/06/18 14:00 01/11/18 14:00 (Aspirin Chew) 81 mg DAILY CHEW 01/06/18 09:00 01/11/18 10:06 (Tylenol 650 Mg/ 20 ml Liq) 650 mg Q6H PRN PO 01/06/18 08:15 01/06/18 22:08 (Albuterol Neb) 2.5 mg Q2HR NEB PRN NEB 01/07/18 16:15 Piperacillin Sod/ Tazobactam Sod 50 ml @ 100 mls/hr Q6H IV 01/09/18 20:00 01/11/18 14:00 (Lasix Inj) 40 mg BID IV PUSH 01/10/18 21:00 01/11/18 10:05 (Duoneb Neb) 1 ampule Q6HR NEB NEB 01/10/18 16:00 01/11/18 15:50 (NovoLOG SUPPLEMENTAL SCALE) 1 ACHS SQ 01/10/18 17:00 01/11/18 11:31 ([place] 5-325 Mg) 1 tab Q6H PRN PO 01/10/18 12:15 (Morphine Inj) 2 mg Q3H PRN IV PUSH 01/10/18 12:15 01/11/18 07:02 (Zoe Goel MD R1) A/P Assessment and Plan Patient is a 72-year-old admitted with CHF exacerbation. He required BiPAP at time of admission with significant fluid overload complicated by hypotension. Weaned to 1 L nasal cannula, however, on 01/06 suffered worsening respiratory distress, needed to be intubated. Extubated 01/10. Improving. Discharge Planning Pending clinical improvement, pt is on 2L O2 at home baseline. Pt extubated 01/10/2018. (Zoe Goel MD R1) Attending Attestation Patient seen and examined, discussed with Dr Goel. I agree with assessment and management as documented and discussed with me. Pt without complaints. He denies pain, SOB. Transfer from ICU. (Francoise House MD) Problem List: (1) COPD (chronic obstructive pulmonary disease) ICD Codes: J44.9 - Chronic obstructive pulmonary disease Status: Acute Plan: Status post acute hypercapnic respiratory failure due to COPD, possible nosocomial pneumonia, possible CHF component. Extubated 01/10. Medications: * Continue Pulmicort BID, DuoNeb q6hr, furosemide 80 mg IV BID. * Zosyn. Pharmacy consult. (2) CHF exacerbation ICD Codes: I50.9 - Heart failure, unspecified Status: Acute Plan: At presentation: Patient of Dr. Aquino, presenting with acute CHF exacerbation. He reports he had an echo 1 month ago but unknown EF. Patient is on BiPAP at time of admission. CXR showing significant pulmonary edema. BNP 1121. Initial troponin 0.41 with EKG showing paced rhythm, rate 94, QTc 478. He reportedly took his amlodipine, and lisinopril on morning of admission. He received 1 dose of Lasix 40 mg IV in ED. * Echocardiogram showing EF less than 20%, severely dilated LV, mod to severe MV regurg, severe tricuspid regurg. * ACS workup negative. * Continue medications as ordered, for diuresis and cardiac benefits. * Continue aspirin, atorvastatin. (3) Elevated troponin ICD Codes: R74.8 - Abnormal levels of other serum enzymes Status: Acute Plan: EKG changes (no ST elevations) and elevated troponin on 01/09. Troponin improved overnight 01/09-->01/10. Likely secondary to kidney disease. Pt is a poor candidate for surgical intervention even if myocardial infarction were suspected. (4) SALIMA (acute kidney injury) ICD Codes: N17.9 - Acute kidney failure, unspecified Status: Acute Plan: Acute on chronic CKD, improving. Baseline creatinine is normal based on labs from September 2017. * Trend BMP. * Avoid nephrotoxic agents. * Careful hydration limits given fluid overload but likely kidneys will need some gentle hydration, no additional fluids for now. (5) Atrial fibrillation ICD Codes: I48.91 - Atrial fibrillation Status: Chronic Plan: Chronic A. fib, not with RVR at this time. He is on warfarin 7.5 mg reportedly Saturday, Saturday, Saturday, and Saturday at home. Pt with some bleeding at urinary catheter site, and anticoagulation has been held. Will need to readdress anticoagulation in near future should bleeding stabilize. (6) HTN (hypertension) ICD Codes: I10 - Essential (primary) hypertension Status: Chronic Plan: BP under good control. Continue medications as currently ordered. (7) Pacemaker ICD Codes: Z95.0 - Presence of cardiac pacemaker Status: Chronic Plan: Chronic, no acute events with this. Will monitor on telemetry. (8) DM (diabetes mellitus) ICD Codes: E11.9 - Diabetes mellitus Status: Chronic Plan: Chronic, not on insulin. Takes glipizide 5 mg twice daily before meals * Low-dose sliding scale Novolog while inpatient. (9) CVA, old, hemiparesis ICD Codes: I69.359 - Hemiparesis following cerebrovascular accident Status: Chronic Plan: No acute neurologic deficits at this time, baseline right-sided weakness and speech difficulties. Will monitor symptoms Would benefit from PT while inpatient. (10) Tinea pedis ICD Codes: B35.3 - Tinea pedis Status: Resolved Plan: Chronic fungal rash appreciated on patient's R foot Tinactin cream ordered BID. Will need treatment x 4 weeks, per epocrates. -Improvement in symptoms on 01/03 (11) BPH (benign prostatic hyperplasia) ICD Codes: N40.0 - Benign prostatic hyperplasia without lower urinary tract symptoms Status: Chronic Plan: Patient has a history of BPH Rolon catheter in place. (12) Gout ICD Codes: M10.9 - Gout, unspecified Status: Chronic Plan: No acute exacerbation. Holding home colchicine due to SALIMA (13) Fluids/Electrolytes/Nutrition/Prophylaxis Status: Acute Plan: Fluids: Fluid restrict given CHF, will monitor Electrolytes: f/u BMP and replete as needed Nutrition: Puree. Honey Thick. DVT Prophylaxis: Early ambulation. Warfarin as above. (LaBell,Zoe MD R1) Problem Qualifiers (1) CHF exacerbation: Qualified Codes: I50.23 - Acute on chronic systolic (congestive) heart failure (2) Atrial fibrillation: Qualified Codes: I48.2 - Chronic atrial fibrillation (3) HTN (hypertension): Qualified Codes: I10 - Essential (primary) hypertension (4) DM (diabetes mellitus): (5) Tinea pedis: Qualified Codes: B35.3 - Tinea pedis Zoe Goel MD R1 Jan 11, 2018 16:46 Francoise House MD Jan 12, 2018 08:08
[2018-01-12] VITALS (8 sets, daily range): BP systolic 96–106; BP diastolic 55–62; PULSE 87–100; RESP 17–20; TEMP 97.9–98.9; O2SAT 95–98
[2018-01-12] MEDS: PIPERACIL-TAZO 2.25 GM PREMIX 50 ML IV SCH ×4 (00:14→21:31)
[2018-01-12] MEDS: RESP: ALBUTEROL 2.5 MG/IPRATROPIUM 0.5 MG NEB (SCH) NEB ×4 (03:39→21:17)
[2018-01-12] MEDS: ACETAMINOPHEN/HYDROcodone 325 MG/5 MG TAB PO PRN (04:50)
[2018-01-12] MEDS: ARTIFICIAL TEARS OPTH SOLN 15 ML BTL EACH EYE SCH ×3 (06:00→22:00)
[2018-01-12] MEDS: CHLORHEXIDINE 0.12% (ORAL KIT) 15 ML CUP MT SCH ×2 (08:00→20:00)
[2018-01-12] MEDS: RESP: BUDESONIDE 0.5 MG/2 ML NEB NEB SCH ×2 (09:02→21:17)
[2018-01-12] MEDS: CARVEDILOL 3.125 MG TAB PO SCH ×2 (09:27→21:30)
[2018-01-12] MEDS: TAMSULOSIN HCL 0.4 MG CAP PO SCH (09:27)
[2018-01-12] MEDS: DOCUSATE SODIUM 50 MG/SENNA 8.6 MG TAB PO SCH ×2 (09:28→21:00)
[2018-01-12] MEDS: ATORVASTATIN 40 MG TAB PO SCH (09:28)
[2018-01-12] MEDS: ASPIRIN 81 MG CHEW TAB CHEW SCH (09:28)
[2018-01-12] MEDS: INSULIN ASPART SUPPLEMENTAL SCALE SQ SCH ×4 (09:30→21:32)
[2018-01-12] MEDS: FUROSEMIDE 100 MG/10 ML VIAL IV PUSH SCH ×2 (09:30→21:31)
[2018-01-12] MEDS: SODIUM CHLORIDE 0.9% FLUSH 10 ML FLUSH IV FLUSH SCH ×2 (09:31→21:31)
[2018-01-12] MEDS: TOLNAFTATE 1% CREAM 15 GM TOPICAL SCH ×2 (09:33→21:00)
--- NOTE | 2018-01-12 13:05 | HHI.FPPN ---
Subjective Remarks Patient was seen and evaluated this morning. He is tired but says that he feels well otherwise. He denies pain, nausea, vomiting, diarrhea and constipation. All questions were answered. (Zoe Goel MD R1) Objective Vitals Vital Signs Date Time Temp Pulse Resp B/P (MAP) Pulse Ox O2 Delivery O2 Flow Rate FiO2 01/12/18 12:00 98.3 90 20 96/55 (69) 97 01/12/18 09:02 97 Nasal Cannula 2.00 01/12/18 08:00 100 01/12/18 08:00 98.4 89 18 100/55 (70) 95 01/12/18 07:00 Nasal Cannula 3.00 01/12/18 04:00 98.3 89 18 103/56 (72) 98 01/12/18 04:00 94 01/12/18 00:00 98.1 93 18 101/55 (70) 98 01/12/18 00:00 Nasal Cannula 2.00 01/12/18 00:00 96 01/11/18 21:05 Nasal Cannula 2.00 01/11/18 21:00 97 Nasal Cannula 2.00 01/11/18 20:00 86 01/11/18 20:00 98.6 88 18 106/60 (75) 98 01/11/18 16:00 91 01/11/18 16:00 97.3 128 17 125/75 (92) 100 01/11/18 16:00 97.3 128 17 125/75 (92) 100 I/O 01/11/18 01/11/18 01/11/18 01/12/18 01/12/18 01/12/18 07:00 15:00 23:00 07:00 15:00 23:00 Intake Total 530 ml 720 ml Output Total 2575 ml 500 ml 800 ml Balance -2045 ml 220 ml -800 ml Intake Oral 480 ml 720 ml IV Total 50 ml Output Urine Total 2425 ml 500 ml 800 ml Stool Total 150 ml Bladder Scan Volume Amount 77 ml (Zoe Goel MD R1) Result Diagram: 01/11/18 0413 01/11/18 041 Imaging Last 72 hours Impressions Renal Ultrasound 01/11/18 0800 Signed Impressions: Service Date/Time: Thursday, January 11, 2018 08:36 - CONCLUSION: Interval placement of a Rolon catheter with decompression of the bladder and left-sided mild hydronephrosis. Currently no evidence of hydronephrosis visualized. Zoraida Arriola MD Objective Remarks GENERAL: No apparent distress. SKIN: Warm and dry. HEAD: Atraumatic. Normocephalic. EYES: Pupils equal round. Extraocular motions intact. No scleral icterus. No injection or drainage. ENT: Nose without bleeding or purulent drainage. Airway patent. NECK: Supple, nontender, no meningeal signs. CARDIOVASCULAR: Regular rate and rhythm without murmurs RESPIRATORY: Good air movement bilaterally with crackles appreciated at the bases. GASTROINTESTINAL: Abdomen soft, non-tender, nondistended. No hepato-splenomegaly , or palpable masses. No guarding. MUSCULOSKELETAL: No joint tenderness, effusion, or edema noted. No calf tenderness. NEUROLOGICAL: Lethargic. Cranial nerves II through XII grossly intact. Generalized weakness of extremities. Medications and IVs Current Medications Medications (Trade) Dose Ordered Sig/Kaila Route Start Time Stop Time Status Last Admin (NS Flush) 2 ml UNSCH PRN IV FLUSH 01/01/18 16:15 (NS Flush) 2 ml BID IV FLUSH 01/01/18 21:00 01/12/18 09:31 (Lipitor) 40 mg DAILY PO 01/02/18 09:00 01/12/18 09:28 (D50w (Vial) Inj) 50 ml UNSCH PRN IV PUSH 01/01/18 17:45 (Glucagon Inj) 1 mg UNSCH PRN OTHER 01/01/18 17:45 (Natalie-Colace) 1 tab BID PO 01/01/18 21:00 01/12/18 09:28 (Milk Of Magnesia Liq) 30 ml Q12H PRN PO 01/01/18 17:45 01/03/18 12:31 (Senokot) 17.2 mg Q12H PRN PO 01/01/18 17:45 (Dulcolax Supp) 10 mg DAILY PRN RECTAL 01/01/18 17:45 (Lactulose Liq) 30 ml DAILY PRN PO 01/01/18 17:45 (Flomax) 0.4 mg DAILY PO 01/02/18 15:00 01/12/18 09:27 (Tinactin 1% Cream) 1 applic Q12HR TOPICAL 01/02/18 21:00 01/12/18 09:33 (Hydrocortisone 1% Cream) 1 applic Q12H PRN TOPICAL 01/02/18 15:00 01/03/18 12:12 (Coreg) 3.125 mg Q12HR PO 01/06/18 09:00 01/12/18 09:27 (Peridex 0.12% Liq) 15 ml BID@08,20 MT 01/06/18 08:00 01/12/18 08:00 (Pulmicort Respule Neb) 0.5 mg Q12HR NEB NEB 01/06/18 20:00 01/12/18 09:02 (Tears Naturale Opth Soln) 1 drop Q8HR EACH EYE 01/06/18 14:00 01/12/18 06:00 (Aspirin Chew) 81 mg DAILY CHEW 01/06/18 09:00 01/12/18 09:28 (Tylenol 650 Mg/ 20 ml Liq) 650 mg Q6H PRN PO 01/06/18 08:15 01/06/18 22:08 (Albuterol Neb) 2.5 mg Q2HR NEB PRN NEB 01/07/18 16:15 Piperacillin Sod/ Tazobactam Sod 50 ml @ 100 mls/hr Q6H IV 01/09/18 20:00 01/12/18 09:29 (Lasix Inj) 40 mg BID IV PUSH 01/10/18 21:00 01/12/18 09:30 (Duoneb Neb) 1 ampule Q6HR NEB NEB 01/10/18 16:00 01/12/18 09:02 (NovoLOG SUPPLEMENTAL SCALE) 1 ACHS SQ 01/10/18 17:00 01/12/18 09:30 ([place] 5-325 Mg) 1 tab Q6H PRN PO 01/10/18 12:15 01/12/18 04:50 (Morphine Inj) 2 mg Q3H PRN IV PUSH 01/10/18 12:15 01/11/18 21:11 (Zoe Goel MD R1) Urinary Catheter: Yes (Zoe Goel MD R1) Vascular Central Line Catheter: No (Zoe Goel MD R1) A/P Assessment and Plan Patient is a 72-year-old admitted with CHF exacerbation. He required BiPAP at time of admission with significant fluid overload complicated by hypotension. Weaned to 1 L nasal cannula, however, on 01/06 suffered worsening respiratory distress, needed to be intubated. Extubated 01/10. Improving. Discharge Planning Pending clinical improvement, pt is on 2L O2 at home baseline. Pt extubated 01/10/2018. (Zoe Goel MD R1) Attending Attestation Patient seen and examined, discussed with Dr Goel. I agree with assessment and management as documented and discussed with me. Pt without complaints. Continue routine care. To work with PT/OT. May require rehab. (Francoise House MD) Problem List: (1) COPD (chronic obstructive pulmonary disease) ICD Codes: J44.9 - Chronic obstructive pulmonary disease Status: Acute Plan: Status post acute hypercapnic respiratory failure due to COPD, possible nosocomial pneumonia, possible CHF component. Extubated 01/10. Will repeat CXR in morning to decide on antibiotic course. Medications: * Continue Pulmicort BID, DuoNeb q6hr, furosemide 80 mg IV BID. * Zosyn. Pharmacy consult. (2) CHF exacerbation ICD Codes: I50.9 - Heart failure, unspecified Status: Acute Plan: At presentation: Patient of Dr. Aquino, presenting with acute CHF exacerbation. He reports he had an echo 1 month ago but unknown EF. Patient is on BiPAP at time of admission. CXR showing significant pulmonary edema. BNP 1121. Initial troponin 0.41 with EKG showing paced rhythm, rate 94, QTc 478. He reportedly took his amlodipine, and lisinopril on morning of admission. He received 1 dose of Lasix 40 mg IV in ED. * Echocardiogram showing EF less than 20%, severely dilated LV, mod to severe MV regurg, severe tricuspid regurg. * ACS workup negative. * Continue medications as ordered, for diuresis and cardiac benefits. * Continue aspirin, atorvastatin. (3) Elevated troponin ICD Codes: R74.8 - Abnormal levels of other serum enzymes Status: Acute Plan: EKG changes (no ST elevations) and elevated troponin on 01/09. Troponin improved overnight 01/09-->01/10. Likely secondary to kidney disease. Pt is a poor candidate for surgical intervention even if myocardial infarction were suspected. (4) SALIMA (acute kidney injury) ICD Codes: N17.9 - Acute kidney failure, unspecified Status: Acute Plan: Acute on chronic CKD, improving. Baseline creatinine is normal based on labs from September 2017. * Trend BMP. * Avoid nephrotoxic agents. * Careful hydration limits given fluid overload but likely kidneys will need some gentle hydration, no additional fluids for now. (5) Atrial fibrillation ICD Codes: I48.91 - Atrial fibrillation Status: Chronic Plan: Chronic A. fib, not with RVR at this time. He is on warfarin 7.5 mg reportedly Saturday, Saturday, Saturday, and Saturday at home. Pt with some bleeding at urinary catheter site, and anticoagulation has been held. Will need to readdress anticoagulation in near future should bleeding stabilize. (6) HTN (hypertension) ICD Codes: I10 - Essential (primary) hypertension Status: Chronic Plan: BP under good control. Continue medications as currently ordered. (7) Pacemaker ICD Codes: Z95.0 - Presence of cardiac pacemaker Status: Chronic Plan: Chronic, no acute events with this. Will monitor on telemetry. (8) DM (diabetes mellitus) ICD Codes: E11.9 - Diabetes mellitus Status: Chronic Plan: Chronic, not on insulin. Takes glipizide 5 mg twice daily before meals * Low-dose sliding scale Novolog while inpatient. (9) CVA, old, hemiparesis ICD Codes: I69.359 - Hemiparesis following cerebrovascular accident Status: Chronic Plan: No acute neurologic deficits at this time, baseline right-sided weakness and speech difficulties. Will monitor symptoms Would benefit from PT while inpatient. (10) Tinea pedis ICD Codes: B35.3 - Tinea pedis Status: Resolved Plan: Chronic fungal rash appreciated on patient's R foot Tinactin cream ordered BID. Will need treatment x 4 weeks, per epocrates. -Improvement in symptoms on 01/03 (11) BPH (benign prostatic hyperplasia) ICD Codes: N40.0 - Benign prostatic hyperplasia without lower urinary tract symptoms Status: Chronic Plan: Patient has a history of BPH Rolon catheter in place. (12) Gout ICD Codes: M10.9 - Gout, unspecified Status: Chronic Plan: No acute exacerbation. Holding home colchicine due to SALIMA (13) Fluids/Electrolytes/Nutrition/Prophylaxis Status: Acute Plan: Fluids: Fluid restrict given CHF, will monitor Electrolytes: f/u BMP and replete as needed Nutrition: Puree. Honey Thick. DVT Prophylaxis: Early ambulation. Warfarin as above. (LaBell,Zoe MD R1) Problem Qualifiers (1) CHF exacerbation: Qualified Codes: I50.23 - Acute on chronic systolic (congestive) heart failure (2) Atrial fibrillation: Qualified Codes: I48.2 - Chronic atrial fibrillation (3) HTN (hypertension): Qualified Codes: I10 - Essential (primary) hypertension (4) DM (diabetes mellitus): (5) Tinea pedis: Qualified Codes: B35.3 - Tinea pedis Zoe Goel MD R1 Jan 12, 2018 13:05 Francoise House MD Jan 13, 2018 14:36
[2018-01-13] VITALS (9 sets, daily range): BP systolic 91–123; BP diastolic 60–72; PULSE 79–105; RESP 16–20; TEMP 97.7–99.8; O2SAT 93–99
[2018-01-13] MEDS: PIPERACIL-TAZO 2.25 GM PREMIX 50 ML IV SCH ×2 (01:45→10:25)
[2018-01-13] MEDS: RESP: ALBUTEROL 2.5 MG/IPRATROPIUM 0.5 MG NEB (SCH) NEB ×4 (04:56→20:58)
[2018-01-13] MEDS: ARTIFICIAL TEARS OPTH SOLN 15 ML BTL EACH EYE SCH ×3 (05:44→22:29)
[2018-01-13 07:29] LABS: AUTOMATED NEUTROPHIL # 6.7 TH/MM3 (1.8-7.7); BASOPHIL % 0.5 % (0.0-2.0); EOSINOPHIL # 0.2 TH/MM3 (0-0.4); EOSINOPHIL % 2.5 % (0.0-4.0); HEMATOCRIT 33.8 % (39.0-51.0); HEMOGLOBIN 11.1 GM/DL (13.0-17.0); LYMPH % 7.3 % (9.0-44.0); LYMPHOCYTE # 0.7 TH/MM3 (1.0-4.8); MEAN CORPUSCULAR HEMOGLOBIN 29.9 PG (27.0-34.0); MEAN CORPUSCULAR HGB CONC 32.9 % (32.0-36.0); MEAN PLATELET VOLUME 8.4 FL (7.0-11.0); MONO % 16.7 % (0.0-8.0); MONOCYTE # 1.5 TH/MM3 (0-0.9); PLATELET COUNT 208 TH/MM3 (150-450); RED BLOOD COUNT 3.71 MIL/MM3 (4.50-5.90); RED CELL DISTRIBUTION WIDTH 16.9 % (11.6-17.2); WHITE BLOOD COUNT 9.1 TH/MM3 (4.0-11.0)
[2018-01-13] MEDS: ACETAMINOPHEN/HYDROcodone 325 MG/5 MG TAB PO PRN (07:38)
[2018-01-13] MEDS: CHLORHEXIDINE 0.12% (ORAL KIT) 15 ML CUP MT SCH ×2 (08:00→20:00)
[2018-01-13 08:02] LABS: ALBUMIN 2.3 GM/DL (3.4-5.0); ALKALINE PHOSPHATASE 65 U/L (45-117); ALT (GPT) 29 U/L (12-78); AST (GOT) 24 U/L (15-37); BICARBONATE 31.9 MEQ/L (21.0-32.0); BLOOD UREA NITROGEN 47 MG/DL (7-18); CALCIUM 9.2 MG/DL (8.5-10.1); CHLORIDE 89 MEQ/L (98-107); CREATININE 1.65 MG/DL (0.60-1.30); GLOMERULAR FILTRATION RATE 50 ML/MIN (>89); GLUCOSE,RANDOM 228 MG/DL (74-106); SODIUM (NA) 129 MEQ/L (136-145); TOTAL PROTEIN 6.9 GM/DL (6.4-8.2)
[2018-01-13] MEDS: DOCUSATE SODIUM 50 MG/SENNA 8.6 MG TAB PO SCH ×3 (09:00→22:27)
[2018-01-13] MEDS: INSULIN ASPART SUPPLEMENTAL SCALE SQ SCH ×4 (09:06→22:28)
[2018-01-13] MEDS: RESP: BUDESONIDE 0.5 MG/2 ML NEB NEB SCH ×2 (10:10→20:58)
[2018-01-13] MEDS: CARVEDILOL 3.125 MG TAB PO SCH ×2 (10:17→22:27)
[2018-01-13] MEDS: ATORVASTATIN 40 MG TAB PO SCH (10:18)
[2018-01-13] MEDS: ASPIRIN 81 MG CHEW TAB CHEW SCH (10:18)
[2018-01-13] MEDS: TAMSULOSIN HCL 0.4 MG CAP PO SCH (10:18)
[2018-01-13] MEDS: SODIUM CHLORIDE 0.9% FLUSH 10 ML FLUSH IV FLUSH SCH ×2 (10:25→22:27)
[2018-01-13] MEDS: TOLNAFTATE 1% CREAM 15 GM TOPICAL SCH ×2 (10:26→22:29)
[2018-01-13] MEDS: FUROSEMIDE 100 MG/10 ML VIAL IV PUSH SCH ×2 (10:26→22:27)
[2018-01-13] MEDS ORDERED: POTASSIUM CHLORIDE 20 MEQ PWD PACKET PO ONE (10:30)
--- NOTE | 2018-01-13 11:07 | RADRPT ---
EXAM DATE/TIME: 01/13/2018 09:17 [place] COMPARISON: CHEST PA & LAT, January 05, 2018, 17:20. INDICATIONS : Shortness of breath MEDICAL HISTORY : Myocardial infarction. Hypercholesterolemia. Hypertension. CVA, a-fib, diabetes SURGICAL HISTORY : CABG. Pacemaker. Coronary artery stent. cardiac cath ENCOUNTER: Initial ACUITY: 1 week PAIN SCORE: Non-responsive. LOCATION: Bilateral chest FINDINGS: The cardiac silhouette is enlarged in transverse diameter. There are findings of congestive heart parker lure with interstitial and alveolar opacity bilaterally. A defibrillator device is in place via a lef t sided approach. CONCLUSION: Cardiomegaly and findings of congestive heart failure. The findings are similar to the prior exam. Raymond Alcaraz MD on January 13, 2018 at 11:04 Board Certified Radiologist. This report was verified electronically.
[2018-01-13 13:04] LABS: CALCIUM 9.4 MG/DL (8.5-10.1); CREATININE 1.63 MG/DL (0.60-1.30)
[2018-01-13 13:05] LABS: BICARBONATE 32.3 MEQ/L (21.0-32.0)
[2018-01-13] MEDS: POTASSIUM CHLORIDE 10 MEQ CAP PO SCH (17:59)
[2018-01-13] MEDS ORDERED: WARFARIN SOD 7.5 MG TAB PO SCH (20:00)
--- NOTE | 2018-01-13 20:06 | HHI.FPPN ---
Subjective Remarks Patient was seen and evaluated this morning. He feels well. He denies chest pain , shortness of breath, nausea, vomiting, diarrhea and constipation. All questions were answered. (Zoe Goel MD R1) Objective Vitals Vital Signs Date Time Temp Pulse Resp B/P (MAP) Pulse Ox O2 Delivery O2 Flow Rate FiO2 01/13/18 16:00 96 01/13/18 16:00 98.2 97 18 98/66 (77) 96 01/13/18 12:00 99 01/13/18 12:00 98.6 105 18 91/60 (70) 95 01/13/18 10:21 96 Nasal Cannula 2.00 01/13/18 08:00 97.7 79 18 115/72 (86) 93 01/13/18 08:00 Nasal Cannula 2.00 01/13/18 08:00 85 01/13/18 04:00 98.0 89 16 101/71 (81) 94 01/13/18 04:00 93 01/13/18 00:00 91 01/13/18 00:00 99.8 89 18 117/66 (83) 96 01/12/18 21:19 95 Nasal Cannula 2.00 01/12/18 21:00 Nasal Cannula 2.00 01/12/18 20:00 98.9 94 20 98/62 (74) 95 01/12/18 20:00 90 I/O 01/12/18 01/12/18 01/12/18 01/13/18 01/13/18 01/13/18 07:00 15:00 23:00 07:00 15:00 23:00 Intake Total 1250 ml 1130 ml 50 ml 480 ml Output Total 800 ml 500 ml 650 ml Balance -800 ml 750 ml 1130 ml 50 ml -170 ml Intake Oral 1200 ml 1080 ml 480 ml IV Total 50 ml 50 ml 50 ml Output Urine Total 800 ml 500 ml 550 ml Stool Total 100 ml (Zoe Goel MD R1) Result Diagram: 01/13/18 0650 01/13/18 1229 Imaging Last 72 hours Impressions Chest X-Ray 01/13/18 0600 Signed Impressions: Service Date/Time: Saturday, January 13, 2018 09:17 - CONCLUSION: Cardiomegaly and findings of congestive heart failure. The findings are similar to the prior exam. Raymond Alcaraz MD Renal Ultrasound 01/11/18 0800 Signed Impressions: Service Date/Time: Thursday, January 11, 2018 08:36 - CONCLUSION: Interval placement of a Rolon catheter with decompression of the bladder and left-sided mild hydronephrosis. Currently no evidence of hydronephrosis visualized. Zoraida Arriola MD Objective Remarks GENERAL: No apparent distress. SKIN: Warm and dry. HEAD: Atraumatic. Normocephalic. EYES: Pupils equal round. Extraocular motions intact. No scleral icterus. No injection or drainage. ENT: Nose without bleeding or purulent drainage. Airway patent. NECK: Supple, nontender, no meningeal signs. CARDIOVASCULAR: Regular rate and rhythm without murmurs RESPIRATORY: Good air movement bilaterally with crackles appreciated at the bases. GASTROINTESTINAL: Abdomen soft, non-tender, nondistended. No hepato-splenomegaly , or palpable masses. No guarding. MUSCULOSKELETAL: No joint tenderness, effusion, or edema noted. No calf tenderness. NEUROLOGICAL: Lethargic. Cranial nerves II through XII grossly intact. Generalized weakness of extremities. Medications and IVs Current Medications Medications (Trade) Dose Ordered Sig/Kaila Route Start Time Stop Time Status Last Admin (NS Flush) 2 ml UNSCH PRN IV FLUSH 01/01/18 16:15 (NS Flush) 2 ml BID IV FLUSH 01/01/18 21:00 01/13/18 10:25 (Lipitor) 40 mg DAILY PO 01/02/18 09:00 01/13/18 10:18 (D50w (Vial) Inj) 50 ml UNSCH PRN IV PUSH 01/01/18 17:45 (Glucagon Inj) 1 mg UNSCH PRN OTHER 01/01/18 17:45 (Natalie-Colace) 1 tab BID PO 01/01/18 21:00 01/12/18 09:28 (Milk Of Magnesia Liq) 30 ml Q12H PRN PO 01/01/18 17:45 01/03/18 12:31 (Senokot) 17.2 mg Q12H PRN PO 01/01/18 17:45 (Dulcolax Supp) 10 mg DAILY PRN RECTAL 01/01/18 17:45 (Lactulose Liq) 30 ml DAILY PRN PO 01/01/18 17:45 (Flomax) 0.4 mg DAILY PO 01/02/18 15:00 01/13/18 10:18 (Tinactin 1% Cream) 1 applic Q12HR TOPICAL 01/02/18 21:00 01/13/18 10:26 (Hydrocortisone 1% Cream) 1 applic Q12H PRN TOPICAL 01/02/18 15:00 01/03/18 12:12 (Coreg) 3.125 mg Q12HR PO 01/06/18 09:00 01/13/18 10:17 (Peridex 0.12% Liq) 15 ml BID@08,20 MT 01/06/18 08:00 01/12/18 08:00 (Pulmicort Respule Neb) 0.5 mg Q12HR NEB NEB 01/06/18 20:00 01/13/18 10:10 (Tears Naturale Opth Soln) 1 drop Q8HR EACH EYE 01/06/18 14:00 01/13/18 13:03 (Aspirin Chew) 81 mg DAILY CHEW 01/06/18 09:00 01/13/18 10:18 (Tylenol 650 Mg/ 20 ml Liq) 650 mg Q6H PRN PO 01/06/18 08:15 01/06/18 22:08 (Albuterol Neb) 2.5 mg Q2HR NEB PRN NEB 01/07/18 16:15 (Lasix Inj) 40 mg BID IV PUSH 01/10/18 21:00 01/13/18 10:26 (Duoneb Neb) 1 ampule Q6HR NEB NEB 01/10/18 16:00 01/13/18 17:25 (NovoLOG SUPPLEMENTAL SCALE) 1 ACHS SQ 01/10/18 17:00 01/13/18 13:02 ([place] 5-325 Mg) 1 tab Q6H PRN PO 01/10/18 12:15 01/13/18 07:38 (Morphine Inj) 2 mg Q3H PRN IV PUSH 01/10/18 12:15 01/11/18 21:11 (KCl) 20 meq DAILY PO 01/13/18 14:45 01/13/18 17:59 (Zoe Goel MD R1) A/P Assessment and Plan Patient is a 72-year-old admitted with CHF exacerbation. He required BiPAP at time of admission with significant fluid overload complicated by hypotension. Weaned to 1 L nasal cannula, however, on 01/06 suffered worsening respiratory distress, needed to be intubated. Extubated 01/10. Improving. Discharge Planning Pending clinical improvement, pt is on 2L O2 at home baseline. (Zoe Goel MD R1) Attending Attestation Patient seen and examined, discussed with resident team. I agree with assessment and management as documented and discussed with me. No new concerns. Pt remains stable. Multiple attempts by team to contact family members to discuss discharge planning, but no answer. Rehab is recommended by PT/OT. (Francoise House MD) Problem List: (1) COPD (chronic obstructive pulmonary disease) ICD Codes: J44.9 - Chronic obstructive pulmonary disease Status: Acute Plan: Status post acute hypercapnic respiratory failure due to COPD, possible nosocomial pneumonia, possible CHF component. Extubated 01/10. CXR 01/13: Cardiomegaly and findings of congestive heart failure. Findings similar to prior exam. Medications: * Continue Pulmicort BID, DuoNeb q6hr, furosemide 80 mg IV BID. * Zosyn (01/09-01/13). (2) CHF exacerbation ICD Codes: I50.9 - Heart failure, unspecified Status: Acute Plan: At presentation: Patient of Dr. Aquino, presenting with acute CHF exacerbation. He reports he had an echo 1 month ago but unknown EF. Patient is on BiPAP at time of admission. CXR showing significant pulmonary edema. BNP 1121. Initial troponin 0.41 with EKG showing paced rhythm, rate 94, QTc 478. He reportedly took his amlodipine, and lisinopril on morning of admission. He received 1 dose of Lasix 40 mg IV in ED. * Echocardiogram showing EF less than 20%, severely dilated LV, mod to severe MV regurg, severe tricuspid regurg. * ACS workup negative. * Continue medications as ordered, for diuresis and cardiac benefits. * Continue aspirin, atorvastatin. (3) Elevated troponin ICD Codes: R74.8 - Abnormal levels of other serum enzymes Status: Acute Plan: EKG changes (no ST elevations) and elevated troponin on 01/09. Troponin improved overnight 01/09-->01/10. Likely secondary to kidney disease. Pt is a poor candidate for surgical intervention even if myocardial infarction were suspected. (4) SALIMA (acute kidney injury) ICD Codes: N17.9 - Acute kidney failure, unspecified Status: Acute Plan: Acute on chronic CKD, improving. Baseline creatinine is normal based on labs from September 2017. * Trend BMP. * Avoid nephrotoxic agents. * Careful hydration limits given fluid overload but likely kidneys will need some gentle hydration, no additional fluids for now. (5) Atrial fibrillation ICD Codes: I48.91 - Atrial fibrillation Status: Chronic Plan: Chronic A. fib, not with RVR at this time. He is on warfarin 7.5 mg reportedly Saturday, Saturday, Saturday, and Saturday at home. (6) HTN (hypertension) ICD Codes: I10 - Essential (primary) hypertension Status: Chronic Plan: BP under good control. Continue medications as currently ordered. (7) Pacemaker ICD Codes: Z95.0 - Presence of cardiac pacemaker Status: Chronic Plan: Chronic, no acute events with this. Will monitor on telemetry. (8) DM (diabetes mellitus) ICD Codes: E11.9 - Diabetes mellitus Status: Chronic Plan: Chronic, not on insulin. Takes glipizide 5 mg twice daily before meals * Low-dose sliding scale Novolog while inpatient. (9) CVA, old, hemiparesis ICD Codes: I69.359 - Hemiparesis following cerebrovascular accident Status: Chronic Plan: No acute neurologic deficits at this time, baseline right-sided weakness and speech difficulties. Will monitor symptoms Would benefit from PT while inpatient. (10) BPH (benign prostatic hyperplasia) ICD Codes: N40.0 - Benign prostatic hyperplasia without lower urinary tract symptoms Status: Chronic Plan: Patient has a history of BPH Rolon catheter in place. (11) Gout ICD Codes: M10.9 - Gout, unspecified Status: Chronic Plan: No acute exacerbation. Holding home colchicine due to SALIMA (12) Fluids/Electrolytes/Nutrition/Prophylaxis Status: Acute Plan: Fluids: Fluid restrict given CHF, will monitor Electrolytes: f/u BMP and replete as needed Nutrition: Puree. Honey Thick. DVT Prophylaxis: Early ambulation. Warfarin as above. (Zoe Goel MD R1) Problem Qualifiers (1) CHF exacerbation: Qualified Codes: I50.23 - Acute on chronic systolic (congestive) heart failure (2) Atrial fibrillation: Qualified Codes: I48.2 - Chronic atrial fibrillation (3) HTN (hypertension): Qualified Codes: I10 - Essential (primary) hypertension (4) DM (diabetes mellitus): Zoe Goel MD R1 Jan 13, 2018 20:06 Francoise House MD Jan 13, 2018 20:26
[2018-01-14] VITALS (10 sets, daily range): BP systolic 95–114; BP diastolic 54–68; PULSE 83–104; RESP 16–20; TEMP 97.9–98.7; O2SAT 90–99
[2018-01-14] MEDS ORDERED: LORazepam 2 MG/ML VIAL IV PUSH PRN (01:45)
[2018-01-14] MEDS: RESP: ALBUTEROL 2.5 MG/IPRATROPIUM 0.5 MG NEB (SCH) NEB ×2 (04:00→10:04)
[2018-01-14] MEDS: ARTIFICIAL TEARS OPTH SOLN 15 ML BTL EACH EYE SCH ×3 (04:22→22:24)
[2018-01-14 07:09] LABS: HEMATOCRIT 33.2 % (39.0-51.0); MEAN CELL VOLUME 90.5 FL (80.0-100.0); MEAN CORPUSCULAR HEMOGLOBIN 29.8 PG (27.0-34.0); MEAN PLATELET VOLUME 8.5 FL (7.0-11.0); PLATELET COUNT 260 TH/MM3 (150-450); RED BLOOD COUNT 3.67 MIL/MM3 (4.50-5.90); RED CELL DISTRIBUTION WIDTH 16.8 % (11.6-17.2); WHITE BLOOD COUNT 8.5 TH/MM3 (4.0-11.0)
[2018-01-14 07:42] LABS: ALBUMIN 2.2 GM/DL (3.4-5.0); BICARBONATE 31.6 MEQ/L (21.0-32.0); BLOOD UREA NITROGEN 42 MG/DL (7-18); CALCIUM 9.4 MG/DL (8.5-10.1); CHLORIDE 94 MEQ/L (98-107); CREATININE 1.36 MG/DL (0.60-1.30); GLOMERULAR FILTRATION RATE 63 ML/MIN (>89); GLUCOSE,RANDOM 112 MG/DL (74-106); SODIUM (NA) 135 MEQ/L (136-145)
[2018-01-14 07:43] LABS: ALT (GPT) 28 U/L (12-78); AST (GOT) 24 U/L (15-37)
[2018-01-14 07:45] LABS: ALKALINE PHOSPHATASE 68 U/L (45-117); TOTAL BILIRUBIN ADULT 0.9 MG/DL (0.2-1.0)
[2018-01-14] MEDS: CHLORHEXIDINE 0.12% (ORAL KIT) 15 ML CUP MT SCH ×2 (08:00→20:00)
[2018-01-14] MEDS: INSULIN ASPART SUPPLEMENTAL SCALE SQ SCH ×4 (08:00→22:24)
--- NOTE | 2018-01-14 08:02 | EKG ---
Date Performed: 01/14/2018 Time Performed: 01:19:40 PTAGE: 72 years EKG: Demand pacing Abnormal ECG No significant change from prior electrocardiogram. DOCTOR: Petr Soto Interpretating Date/Time 01/14/2018 08:01:28
[2018-01-14] MEDS: CARVEDILOL 3.125 MG TAB PO SCH ×2 (08:19→22:22)
[2018-01-14] MEDS: ATORVASTATIN 40 MG TAB PO SCH (08:19)
[2018-01-14] MEDS: DOCUSATE SODIUM 50 MG/SENNA 8.6 MG TAB PO SCH ×2 (08:19→21:00)
[2018-01-14] MEDS: ASPIRIN 81 MG CHEW TAB CHEW SCH (08:19)
[2018-01-14] MEDS: POTASSIUM CHLORIDE 10 MEQ CAP PO SCH (08:19)
[2018-01-14] MEDS: TAMSULOSIN HCL 0.4 MG CAP PO SCH (08:19)
[2018-01-14] MEDS: FUROSEMIDE 100 MG/10 ML VIAL IV PUSH SCH (08:20)
[2018-01-14] MEDS: SODIUM CHLORIDE 0.9% FLUSH 10 ML FLUSH IV FLUSH SCH ×2 (08:20→22:23)
[2018-01-14] MEDS: TOLNAFTATE 1% CREAM 15 GM TOPICAL SCH ×2 (08:21→22:24)
[2018-01-14] MEDS ORDERED: FUROSEMIDE 40 MG TAB PO SCH (09:00)
[2018-01-14 09:42] LABS: INTERNATIONAL NORMALIZED RATIO 1.3 RATIO; PROTHROMBIN TIME - PATIENT 13.2 SEC (9.8-11.6)
[2018-01-14] MEDS: RESP: BUDESONIDE 0.5 MG/2 ML NEB NEB SCH ×2 (10:04→20:00)
--- NOTE | 2018-01-14 11:07 | HHI.HCPN ---
Reason for visit a. To assist with evaluation and management of symptoms including: dyspnea b. To assist medical decision maker(s) with: better understanding of current medical conditions; weighing benefits/burdens of medical treatment options; making medical treatment decisions. Subjective/Interval History Patient seen today to follow-up on comfort, goals, with pt as he is now extubated. Has been transferred out of the ICU. Tolerating extubation, nasal cannula 2 L . CXR yesterday indicative of cardiomegaly, CHF similar to previous exams. CBC unremarkable, stable. BUN and creatinine remain elevated though stable 42/ 1.36. Hypokalemic 3.0, repletion per medical attending. ST following patient recommended for pured diet with honey thick liquids when able to advance from full liquid. Patient continues to have aphasia. + Having loose BMs. Patient examined in room no visitors present. He is awake. He verbalizes some yes/no, however otherwise does not speak many words, some delay to response. He does answer yes/no ROS questions. Denies pain, denies shortness of breath, denies abdominal pain or any other pain, denies any nausea. Indicates his appetite is good. When asked orientation questions he tells me he "knows where we're at " --when asked if he is at [facility] he tells me yes. Difficult to fully assess orientation based on yes/no questions appears to be partially mostly oriented. Right upper extremity remains flaccid. Explore that he is recently been on a mechanical ventilator for cardiac, renal, respiratory failure. He agrees with this. I asked him if he thinks he would ever want to go on a ventilator again if he had difficulty with his heart or breathing, he tells me I do not know. Advised that he should discuss this further with his . Gently explored that his heart condition is currently stabilized but that he also has a very weak heart, and he will continue to experience episodes of failure, and the medications may not always help. . Family/friend interactions Call to , VM left. . Advance Directives Living Will: Never completed Health Care Surrogate: Never completed Durable Power of Lathe Set Up Operator: Never completed Objective Vital Signs Date Time Temp Pulse Resp B/P (MAP) Pulse Ox O2 Delivery O2 Flow Rate FiO2 01/14/18 10:05 96 Nasal Cannula 2.00 01/14/18 05:45 98.3 95 18 95/54 (68) 99 01/14/18 04:00 94 01/14/18 00:55 98.5 104 18 100/56 (71) 97 01/14/18 00:00 83 01/13/18 22:00 99.1 103 20 123/64 (83) 96 01/13/18 20:58 99 Nasal Cannula 2.00 01/13/18 20:00 91 01/13/18 20:00 Nasal Cannula 2.00 01/13/18 16:00 96 01/13/18 16:00 98.2 97 18 98/66 (77) 96 01/13/18 12:00 99 01/13/18 12:00 98.6 105 18 91/60 (70) 95 Intake & Output 01/14/18 01/14/18 07:00 19:00 Intake Total 0 ml Output Total 1150 ml Balance -1150 ml Intake Oral 0 ml Output Urine Total 1150 ml # Bowel Movements 0 Physical Exam CONSTITUTIONAL/GENERAL: This is an adequately nourished patient, in no apparent distress, on nasal cannula TUBES/LINES/DRAINS: Peripheral IV upper extremity, rectal drain, Rolon catheter SKIN: No jaundice, rashes, or lesions.No wounds seen anteriorly. Skin temperature appropriate. Not diaphoretic. NECK: Trachea midline. Supple, nontender. No palpable thyroid enlargement or nodularity. CARDIOVASCULAR: Regular rate and rhythm without murmur. No JVD. Peripheral pulses symmetric, pedal pulses faint. RESPIRATORY/CHEST: Symmetric, unlabored respirations. On nasal cannula. Breath sounds clear, equal bilaterally. GASTROINTESTINAL: Abdomen soft, round, nondistended. No hepato-splenomegaly, or palpable masses. Bowel sounds present. + light brown loose stool in rectal bag. GENITOURINARY: Without palpable bladder distension. Rolon catheter in place, yellow urine MUSCULOSKELETAL: Extremities without clubbing, cyanosis, or edema. Right hand, lower arm contracted NEUROLOGICAL: Alert. Minimally verbal. Answers yes/no questions though otherwise does not speak many words. Difficult to fully assess orientation though appears to answer yes/no questions appropriately appears at least partially to mostly oriented. Follow commands with lower extremities, left upper. Right upper extremity flaccid, contracted. PSYCHIATRIC: No obvious anxiety/depression . Diagnostic Tests Laboratory Laboratory Tests Test 01/13/18 06:50 01/13/18 10:41 01/13/18 12:29 01/14/18 05:25 White Blood Count 9.1 TH/MM3 (4.0-11.0) 8.5 TH/MM3 (4.0-11.0) Red Blood Count 3.71 MIL/MM3 (4.50-5.90) 3.67 MIL/MM3 (4.50-5.90) Hemoglobin 11.1 GM/DL (13.0-17.0) 11.0 GM/DL (13.0-17.0) Hematocrit 33.8 % (39.0-51.0) 33.2 % (39.0-51.0) Mean Corpuscular Volume 91.0 FL (80.0-100.0) 90.5 FL (80.0-100.0) Mean Corpuscular Hemoglobin 29.9 PG (27.0-34.0) 29.8 PG (27.0-34.0) Mean Corpuscular Hemoglobin Concent 32.9 % (32.0-36.0) 33.0 % (32.0-36.0) Red Cell Distribution Width 16.9 % (11.6-17.2) 16.8 % (11.6-17.2) Platelet Count 208 TH/MM3 (150-450) 260 TH/MM3 (150-450) Mean Platelet Volume 8.4 FL (7.0-11.0) 8.5 FL (7.0-11.0) Neutrophils (%) (Auto) 73.0 % (16.0-70.0) Lymphocytes (%) (Auto) 7.3 % (9.0-44.0) Monocytes (%) (Auto) 16.7 % (0.0-8.0) Eosinophils (%) (Auto) 2.5 % (0.0-4.0) Basophils (%) (Auto) 0.5 % (0.0-2.0) Neutrophils # (Auto) 6.7 TH/MM3 (1.8-7.7) Lymphocytes # (Auto) 0.7 TH/MM3 (1.0-4.8) Monocytes # (Auto) 1.5 TH/MM3 (0-0.9) Eosinophils # (Auto) 0.2 TH/MM3 (0-0.4) Basophils # (Auto) 0.0 TH/MM3 (0-0.2) CBC Comment DIFF FINAL Differential Comment Blood Urea Nitrogen 47 MG/DL (7-18) 46 MG/DL (7-18) 42 MG/DL (7-18) Creatinine 1.65 MG/DL (0.60-1.30) 1.63 MG/DL (0.60-1.30) 1.36 MG/DL (0.60-1.30) Random Glucose 228 MG/DL (74-106) 191 MG/DL (74-106) 169 MG/DL (74-106) 112 MG/DL (74-106) Total Protein 6.9 GM/DL (6.4-8.2) 7.0 GM/DL (6.4-8.2) Albumin 2.3 GM/DL (3.4-5.0) 2.2 GM/DL (3.4-5.0) Calcium Level 9.2 MG/DL (8.5-10.1) 9.4 MG/DL (8.5-10.1) 9.4 MG/DL (8.5-10.1) Alkaline Phosphatase 65 U/L (45-117) 68 U/L (45-117) Aspartate Amino Transf (AST/SGOT) 24 U/L (15-37) 24 U/L (15-37) Alanine Aminotransferase (ALT/SGPT) 29 U/L (12-78) 28 U/L (12-78) Total Bilirubin 1.0 MG/DL (0.2-1.0) 0.9 MG/DL (0.2-1.0) Sodium Level 129 MEQ/L (136-145) 131 MEQ/L (136-145) 135 MEQ/L (136-145) Potassium Level 2.8 MEQ/L (3.5-5.1) 3.5 MEQ/L (3.5-5.1) 3.0 MEQ/L (3.5-5.1) Chloride Level 89 MEQ/L (98-107) 91 MEQ/L (98-107) 94 MEQ/L (98-107) Carbon Dioxide Level 31.9 MEQ/L (21.0-32.0) 32.3 MEQ/L (21.0-32.0) 31.6 MEQ/L (21.0-32.0) Anion Gap 8 MEQ/L (5-15) 8 MEQ/L (5-15) 9 MEQ/L (5-15) Estimat Glomerular Filtration Rate 50 ML/MIN (>89) 51 ML/MIN (>89) 63 ML/MIN (>89) Test 01/14/18 08:40 Prothrombin Time 13.2 SEC (9.8-11.6) Prothromb Time International Ratio 1.3 RATIO Result Diagram: 01/14/1852401/14/18 05 Imaging Last Impressions Chest X-Ray 01/13/18 06 Signed Impressions: Service Date/Time: Saturday, January 13, 2018 09:17 - CONCLUSION: Cardiomegaly and findings of congestive heart failure. The findings are similar to the prior exam. Raymond Alcaraz MD Renal Ultrasound 01/11/18 08 Signed Impressions: Service Date/Time: Thursday, January 11, 2018 08:36 - CONCLUSION: Interval placement of a Rolon catheter with decompression of the bladder and left-sided mild hydronephrosis. Currently no evidence of hydronephrosis visualized. Zoraida Arriola MD Assessment and Plan Disease Oriented Problem List: (1) Acute on chronic systolic CHF (congestive heart failure) (2) Respiratory failure (3) Ischemic cardiomyopathy (4) SALIMA (acute kidney injury) (5) Hematuria (6) Obstructive uropathy (7) Elevated troponin (8) Atrial fibrillation (9) Gout (10) HTN (hypertension) (11) CVA, old, hemiparesis (12) COPD (chronic obstructive pulmonary disease) (13) Biventricular automatic implantable cardioverter defibrillator in situ (14) Acute on chronic systolic CHF (congestive heart failure) (15) CAD (coronary artery disease) (16) DM (diabetes mellitus) (17) Other and unspecified hyperlipidemia (18) Hyperlipidemia Symptom Scale: (1) Dyspnea 0-10 Scale: Unable to quantify Pertinent Non-Medical Issues Psychosocial:lives at home w , adult son. disabled since CVA. Spiritual: [employer]ah[employer]ism Legal:Patient currently unable to participate in decision making due to clinical condition. Not clear if he will regain ability to participate. Has 1 son, a . No known advanced directives. Per [place] statute his would be appropriate legal proxy. Ethical issues impacting care: No ethical issues identified. Important Contacts Son Medina Bowman Junior [phone] Spouse Shelly Brownlee [phone] . Prognosis admitted for SOB. Multiple chronic medical conditions, underlying severe cardiomyopathy (EF < 20%). Now with cardio-renal, difficulty weaning from ventilator. Prognosis for prison survival poor. High risk for ongoing complications/setbacks/hospitalizations if he gets through current acute hospitalization. . Code Status: Full Code Plan * Legal decision maker:Patient currently unable to participate in decision making due to clinical condition. Not clear if he will regain ability to participate. Has 1 son, a . No known advanced directives. Per [place] statute his would be appropriate legal proxy. * Goals: Goals aggressive at this time, continue maximum medical management available for his conditions. CODE STATUS was discussed will continue to discuss with family, patient no changes elected at this time. 01/14/18-voicemail left for . Patient not sure if he would want ventilation or life support again, difficult to discuss with him secondary to aphasia. * CODE STATUS: Full code * SYMPTOMS: --Dyspnea-presented to the ED with acute and worsening shortness of breath. Urgently intubated for respiratory failure. -extubated last week, Tolerating nasal cannula without distress. Breathing comfortably at time of my exam. Will continue to monitor. Remains at risk for possible respiratory compromise secondary to prior CVA, possible dysphasia, underlying cardiac disease, heart failure --Pain-no reports of pain though potential sources would include intubation, recent invasive procedures. Bedbound status. Currently appears comfortable - does not endorse or deny pain upon my exam. Will continue to evaluate. * Palliative care will continue to follow during hospital course as condition evolves, to assist patient/decision-maker with understanding of medical conditions, weighing benefits/burdens of treatment options, for clarification of goals of treatment. Additionally will assist with any symptoms of palliative concern Attestation To help prompt me to consider important information that might be impacting today's encounter and assessment, information from prior notes written by myself or my colleagues may have been "brought forward" into today's note. My signature on this note, however, is an attestation that I personally performed the exam, history, and/or decision-making noted today, and, unless otherwise indicated, the interactions with patient, family, and staff as well as the review of records all occurred today. I also attest that the listed assessment and stated plan reflect my best clinical judgment today based on the combination of historical information, prior notes, and today's exam/ interactions. When time spent is documented, it refers only to time spent today by the signer, or if indicated, combined time spent today by collaborating physician/nurse practitioner. Carina Austin Jan 14, 2018 11:06
[2018-01-14] MEDS ORDERED: HEPARIN SODIUM - SQ 10,000 UNITS/ML VIAL SQ SCH (12:00)
--- NOTE | 2018-01-14 12:15 | HHI.FPPN ---
Subjective Remarks Patient was seen and evaluated this morning. He feels well. He denies chest pain , shortness of breath, nausea, vomiting, diarrhea and constipation. All questions were answered. (Zoe Goel MD R1) Objective Vitals Vital Signs Date Time Temp Pulse Resp B/P (MAP) Pulse Ox O2 Delivery O2 Flow Rate FiO2 01/14/18 10:05 96 Nasal Cannula 2.00 01/14/18 08:00 98.2 97 20 110/60 (77) 95 01/14/18 05:45 98.3 95 18 95/54 (68) 99 01/14/18 04:00 94 01/14/18 00:55 98.5 104 18 100/56 (71) 97 01/14/18 00:00 83 01/13/18 22:00 99.1 103 20 123/64 (83) 96 01/13/18 20:58 99 Nasal Cannula 2.00 01/13/18 20:00 91 01/13/18 20:00 Nasal Cannula 2.00 01/13/18 16:00 96 01/13/18 16:00 98.2 97 18 98/66 (77) 96 I/O 01/13/18 01/13/18 01/13/18 01/14/18 01/14/18 01/14/18 07:00 15:00 23:00 07:00 15:00 23:00 Intake Total 1130 ml 50 ml 480 ml 0 ml Output Total 650 ml 1150 ml 350 ml Balance 1130 ml 50 ml -170 ml -1150 ml -350 ml Intake Oral 1080 ml 480 ml 0 ml IV Total 50 ml 50 ml Output Urine Total 550 ml 1150 ml 350 ml Stool Total 100 ml # Bowel Movements 0 (Zoe Goel MD R1) Result Diagram: 01/14/18 0525 01/14/18 0525 Imaging Last 72 hours Impressions Chest X-Ray 01/13/18 0600 Signed Impressions: Service Date/Time: Saturday, January 13, 2018 09:17 - CONCLUSION: Cardiomegaly and findings of congestive heart failure. The findings are similar to the prior exam. Raymond Alcaraz MD Objective Remarks GENERAL: No apparent distress. SKIN: Warm and dry. HEAD: Atraumatic. Normocephalic. EYES: Pupils equal round. Extraocular motions intact. No scleral icterus. No injection or drainage. ENT: Nose without bleeding or purulent drainage. Airway patent. NECK: Supple, nontender, no meningeal signs. CARDIOVASCULAR: Regular rate and rhythm without murmurs RESPIRATORY: Good air movement bilaterally with crackles appreciated at the bases. GASTROINTESTINAL: Abdomen soft, non-tender, nondistended. No hepato-splenomegaly , or palpable masses. No guarding. MUSCULOSKELETAL: No joint tenderness, effusion, or edema noted. No calf tenderness. NEUROLOGICAL: Alert. Aphasic. Cranial nerves II through XII grossly intact. Generalized weakness of extremities. Medications and IVs Current Medications Medications (Trade) Dose Ordered Sig/Kaila Route Start Time Stop Time Status Last Admin (NS Flush) 2 ml UNSCH PRN IV FLUSH 01/01/18 16:15 (NS Flush) 2 ml BID IV FLUSH 01/01/18 21:00 01/14/18 08:20 (Lipitor) 40 mg DAILY PO 01/02/18 09:00 01/14/18 08:19 (D50w (Vial) Inj) 50 ml UNSCH PRN IV PUSH 01/01/18 17:45 (Glucagon Inj) 1 mg UNSCH PRN OTHER 01/01/18 17:45 (Natalie-Colace) 1 tab BID PO 01/01/18 21:00 01/14/18 08:19 (Milk Of Magnesia Liq) 30 ml Q12H PRN PO 01/01/18 17:45 01/03/18 12:31 (Senokot) 17.2 mg Q12H PRN PO 01/01/18 17:45 (Dulcolax Supp) 10 mg DAILY PRN RECTAL 01/01/18 17:45 (Lactulose Liq) 30 ml DAILY PRN PO 01/01/18 17:45 (Flomax) 0.4 mg DAILY PO 01/02/18 15:00 01/14/18 08:19 (Tinactin 1% Cream) 1 applic Q12HR TOPICAL 01/02/18 21:00 01/14/18 08:21 (Hydrocortisone 1% Cream) 1 applic Q12H PRN TOPICAL 01/02/18 15:00 01/03/18 12:12 (Coreg) 3.125 mg Q12HR PO 01/06/18 09:00 01/14/18 08:19 (Peridex 0.12% Liq) 15 ml BID@08,20 MT 01/06/18 08:00 01/12/18 08:00 (Pulmicort Respule Neb) 0.5 mg Q12HR NEB NEB 01/06/18 20:00 01/14/18 10:04 (Tears Naturale Opth Soln) 1 drop Q8HR EACH EYE 01/06/18 14:00 01/14/18 04:22 (Aspirin Chew) 81 mg DAILY CHEW 01/06/18 09:00 01/14/18 08:19 (Tylenol 650 Mg/ 20 ml Liq) 650 mg Q6H PRN PO 01/06/18 08:15 01/06/18 22:08 (Albuterol Neb) 2.5 mg Q2HR NEB PRN NEB 01/07/18 16:15 (Duoneb Neb) 1 ampule Q6HR NEB NEB 01/10/18 16:00 01/14/18 10:04 (NovoLOG SUPPLEMENTAL SCALE) 1 ACHS SQ 01/10/18 17:00 01/13/18 22:28 ([place] 5-325 Mg) 1 tab Q6H PRN PO 01/10/18 12:15 01/13/18 07:38 (KCl) 20 meq DAILY PO 01/13/18 14:45 01/14/18 08:19 (Coumadin) 7.5 mg Q48H PO 01/13/18 20:00 01/13/18 22:27 (Ativan Inj) 1 mg Q4HR PRN IV PUSH 01/14/18 01:45 (Lasix) 40 mg BID@,18 PO 01/14/18 18:00 (Heparin Inj) 5,000 units Q12HR SQ 01/14/18 12:00 (Zoe Goel MD R1) Urinary Catheter: Yes Assessment to: Remove (Zoe Goel MD R1) Vascular Central Line Catheter: No (Zoe Goel MD R1) A/P Assessment and Plan Patient is a 72-year-old admitted with CHF exacerbation. He required BiPAP at time of admission with significant fluid overload complicated by hypotension. Weaned to 1 L nasal cannula, however, on 01/06 suffered worsening respiratory distress, needed to be intubated. Extubated 01/10. Improving. Discharge Planning Pending clinical improvement, pt is on 2L O2 at home baseline. (Zoe Goel MD R1) Attending Attestation Patient seen and examined, discussed with resident team. I agree with assessment and management as documented and discussed with me. Pt without complaints. He was put in restraints overnight, for pulling at lines/ tubes/IV. (Francoise House MD) Problem List: (1) COPD (chronic obstructive pulmonary disease) ICD Codes: J44.9 - Chronic obstructive pulmonary disease Status: Chronic Plan: Status post acute hypercapnic respiratory failure due to COPD, possible nosocomial pneumonia, possible CHF component. Extubated 01/10. CXR 01/13: Cardiomegaly and findings of congestive heart failure. Findings similar to prior exam. Medications: * Continue Pulmicort BID, DuoNeb q6hr, furosemide 80 mg IV BID. * Zosyn (01/09-01/13). (2) CHF exacerbation ICD Codes: I50.9 - Heart failure, unspecified Status: Acute Plan: At presentation: Patient of Dr. Aquino, presenting with acute CHF exacerbation. He reports he had an echo 1 month ago but unknown EF. Patient is on BiPAP at time of admission. CXR showing significant pulmonary edema. BNP 1121. Initial troponin 0.41 with EKG showing paced rhythm, rate 94, QTc 478. He reportedly took his amlodipine, and lisinopril on morning of admission. He received 1 dose of Lasix 40 mg IV in ED. * Echocardiogram showing EF less than 20%, severely dilated LV, mod to severe MV regurg, severe tricuspid regurg. * ACS workup negative. * Continue medications as ordered, for diuresis and cardiac benefits. Transition to PO meds in anticipation for discharge. * Continue aspirin, atorvastatin. (3) Elevated troponin ICD Codes: R74.8 - Abnormal levels of other serum enzymes Status: Resolved Plan: EKG changes (no ST elevations) and elevated troponin on 01/09. Troponin improved overnight 01/09-->01/10. Likely secondary to kidney disease. Pt is a poor candidate for surgical intervention even if myocardial infarction were suspected. (4) SALIMA (acute kidney injury) ICD Codes: N17.9 - Acute kidney failure, unspecified Status: Acute Plan: Acute on chronic CKD, improving. Baseline creatinine is normal based on labs from September 2017. * Trend BMP. * Avoid nephrotoxic agents. * Careful hydration limits given fluid overload but likely kidneys will need some gentle hydration, no additional fluids for now. (5) Atrial fibrillation ICD Codes: I48.91 - Atrial fibrillation Status: Chronic Plan: Chronic A. fib, not with RVR at this time. He is on warfarin 7.5 mg reportedly Saturday, Saturday, Saturday, and Saturday at home. (6) HTN (hypertension) ICD Codes: I10 - Essential (primary) hypertension Status: Chronic Plan: BP under good control. Continue medications as currently ordered. (7) Pacemaker ICD Codes: Z95.0 - Presence of cardiac pacemaker Status: Chronic Plan: Chronic. Continued monitoring via telemetry. (8) DM (diabetes mellitus) ICD Codes: E11.9 - Diabetes mellitus Status: Chronic Plan: Chronic, not on insulin. Takes glipizide 5 mg twice daily before meals. * Low-dose sliding scale Novolog while inpatient. (9) CVA, old, hemiparesis ICD Codes: I69.359 - Hemiparesis following cerebrovascular accident Status: Chronic Plan: No acute neurologic deficits at this time, baseline right-sided weakness and speech difficulties. Will monitor symptoms Would benefit from PT while inpatient. (10) BPH (benign prostatic hyperplasia) ICD Codes: N40.0 - Benign prostatic hyperplasia without lower urinary tract symptoms Status: Chronic Plan: Patient has a history of BPH Rolon catheter dc'ed 01/14. (11) Gout ICD Codes: M10.9 - Gout, unspecified Status: Chronic Plan: No acute exacerbation. Holding home colchicine due to SALIMA (12) Fluids/Electrolytes/Nutrition/Prophylaxis Status: Acute Plan: Fluids: Fluid restrict given CHF, will monitor Electrolytes: f/u BMP and replete as needed Nutrition: Puree. Honey Thick. DVT Prophylaxis: Warfarin as above. Heparin 5,000 units q12hr until therapeutic INR achieved. (Zoe Goel MD R1) Problem Qualifiers (1) CHF exacerbation: Qualified Codes: I50.23 - Acute on chronic systolic (congestive) heart failure (2) Atrial fibrillation: Qualified Codes: I48.2 - Chronic atrial fibrillation (3) HTN (hypertension): Qualified Codes: I10 - Essential (primary) hypertension (4) DM (diabetes mellitus): Zoe Goel MD R1 Jan 14, 2018 12:15 Francoise House MD Jan 15, 2018 12:32
[2018-01-14] MEDS: FUROSEMIDE 40 MG TAB PO SCH (17:17)
[2018-01-14] MEDS: ACETAMINOPHEN/HYDROcodone 325 MG/5 MG TAB PO PRN (18:21)
--- NOTE | 2018-01-14 20:34 | HHI.PR ---
Addendum to Inpatient Note Addendum Reason: Additional Documentation Additional Information Responded to page around 1940 of patient with bladder scan 350 mL, no UOP since earlier in the day when Marquez was removed. Nurses tried to place in/out catheter per protocol, however were unable to advance. Arrived to bedside with Dr. Dahl. Patient resting comfortably in bed. Dr. Dahl attempted to place I&O catheter. Unable to advance catheter into bladder. On removal of catheter, moderate amount of blood noted to be coming out of ureteral meatus. Hemostasis not achieved after 1 min pressure. Plan Urinary retention: Continue to monitor I&O. If patient does not spontaneously void by morning, may need to place suprapubic catheter prior to sending to SNF or else arrange urology follow up (likely etiology BPH per ). Urethral bleeding from traumatic marquez: Hold heparin ppx, continue patient's coumadin. Hemorrhage persists may need vitamin K. Will continue to monitor. calew Abraham Livingston MD R2 Jan 14, 2018 20:34
[2018-01-15] VITALS (8 sets, daily range): BP systolic 102–129; BP diastolic 55–77; PULSE 86–102; RESP 17–24; TEMP 98–99.2; O2SAT 96–100
[2018-01-15] MEDS ORDERED: LORazepam 2 MG/ML VIAL IV PUSH ONE (04:00)
[2018-01-15] MEDS ORDERED: HALOPERIDOL LACTATE 5 MG/ML AMP IM ONE (05:00)
[2018-01-15] MEDS: ARTIFICIAL TEARS OPTH SOLN 15 ML BTL EACH EYE SCH ×3 (05:11→21:24)
[2018-01-15 06:59] LABS: HEMATOCRIT 34.4 % (39.0-51.0); HEMOGLOBIN 11.3 GM/DL (13.0-17.0); MEAN CELL VOLUME 91.3 FL (80.0-100.0); MEAN CORPUSCULAR HEMOGLOBIN 30.1 PG (27.0-34.0); MEAN PLATELET VOLUME 8.3 FL (7.0-11.0); PLATELET COUNT 292 TH/MM3 (150-450); RED BLOOD COUNT 3.77 MIL/MM3 (4.50-5.90); RED CELL DISTRIBUTION WIDTH 16.5 % (11.6-17.2); WHITE BLOOD COUNT 8.9 TH/MM3 (4.0-11.0)
[2018-01-15 07:26] LABS: BICARBONATE 33.3 MEQ/L (21.0-32.0); CALCIUM 9.8 MG/DL (8.5-10.1); CREATININE 1.33 MG/DL (0.60-1.30)
[2018-01-15] MEDS: INSULIN ASPART SUPPLEMENTAL SCALE SQ SCH ×4 (08:00→21:00)
[2018-01-15] MEDS: TOLNAFTATE 1% CREAM 15 GM TOPICAL SCH ×2 (09:00→21:24)
[2018-01-15] MEDS: TAMSULOSIN HCL 0.4 MG CAP PO SCH ×2 (09:54→14:52)
[2018-01-15] MEDS: POTASSIUM CHLORIDE 10 MEQ CAP PO SCH ×2 (09:54→14:51)
[2018-01-15] MEDS: FUROSEMIDE 40 MG TAB PO SCH ×3 (09:54→17:59)
[2018-01-15] MEDS: DOCUSATE SODIUM 50 MG/SENNA 8.6 MG TAB PO SCH ×3 (09:54→21:00)
[2018-01-15] MEDS: CARVEDILOL 3.125 MG TAB PO SCH ×3 (09:55→21:24)
[2018-01-15] MEDS: ASPIRIN 81 MG CHEW TAB CHEW SCH ×2 (09:55→14:53)
[2018-01-15] MEDS: ATORVASTATIN 40 MG TAB PO SCH ×2 (09:55→14:52)
[2018-01-15] MEDS: SODIUM CHLORIDE 0.9% FLUSH 10 ML FLUSH IV FLUSH SCH ×2 (09:56→21:23)
--- NOTE | 2018-01-15 09:57 | HHI.FPPN ---
Subjective Remarks Pt seen and examined bedside this morning. Overnight, pt had minimal urine and was shown to be retaining urine on u/s. Marquez catheter was attempted to be placed bedside and was a difficult placement by nursing. Resident on-call team attempted to place and was also unable. Pt had minimal bleeding until 6:30AM this morning when pt started oozing blood from urethra. The patient also appeared to be uncomfortable and in pain, although he cannot say where. No fever /chills. No dizziness, fatigue, confusion. (Shruthi Rodriguez MD R2) Objective Vitals Vital Signs Date Time Temp Pulse Resp B/P (MAP) Pulse Ox O2 Delivery O2 Flow Rate FiO2 01/15/18 04:00 98.4 99 18 110/60 (77) 97 01/15/18 04:00 96 01/15/18 00:00 87 01/15/18 00:00 98.1 90 18 108/55 (72) 98 01/14/18 22:39 95 Nasal Cannula 2.00 01/14/18 20:00 Nasal Cannula 2.00 01/14/18 20:00 97.9 86 18 103/68 (80) 95 01/14/18 16:20 98.3 97 16 106/65 (79) 90 01/14/18 12:00 98.7 95 20 114/62 (79) 98 01/14/18 10:05 96 Nasal Cannula 2.00 I/O 01/14/18 01/14/18 01/14/18 01/15/18 01/15/18 01/15/18 07:00 15:00 23:00 07:00 15:00 23:00 Intake Total 0 ml 920 ml 0 ml Output Total 1150 ml 350 ml 0 ml Balance -1150 ml -350 ml 920 ml 0 ml Intake Oral 0 ml 920 ml 0 ml Output Urine Total 1150 ml 350 ml 0 ml Bladder Scan Volume Amount 350 ml 475 ml 350 ml # Voids 0 # Bowel Movements 0 0 1 (Shruthi Rodriguez MD R2) Result Diagram: 01/15/18 0545 01/15/18544 Objective Remarks GENERAL: Patient appears uncomfortable, but not in acute distress SKIN: Warm and dry. HEAD: Atraumatic. Normocephalic. EYES: Pupils equal round. Extraocular motions intact. No scleral icterus. No injection or drainage. ENT: Nose without bleeding or purulent drainage. Airway patent. NECK: Supple, nontender, no meningeal signs. CARDIOVASCULAR: Regular rate and rhythm without murmurs RESPIRATORY: Good air movement bilaterally with crackles appreciated at the bases. GASTROINTESTINAL: Abdomen soft, non-tender, nondistended. No hepato-splenomegaly , or palpable masses. No guarding. MUSCULOSKELETAL: No joint tenderness, effusion, or edema noted. No calf tenderness. NEUROLOGICAL: Alert. Aphasic. Cranial nerves II through XII grossly intact. Generalized weakness of extremities. GENITOURINARY: Moderate amount of bright red blood around glans penis at the urethrile meatus. no marquez placed at this time (Shruthi Rodriguez MD R2) A/P Assessment and Plan Patient is a 72-year-old admitted with CHF exacerbation. He required BiPAP at time of admission with significant fluid overload complicated by hypotension. Weaned to 1 L nasal cannula, however, on 01/06 suffered worsening respiratory distress, needed to be intubated. Extubated 01/10. Improving clinically. Discharge Planning Pending decision on whether to anticoagulate given prostate bleed, possible today (Shruthi Rodriguez MD R2) Attending Attestation Patient seen, examined, and discussed with resident team. I agree with assessment and management as documented and discussed with me. Pt seen with team around 0815, with bleeding noted at urethral meatus. Urology called, and Dr Lambert placed Marquez. Warfarin and Heparin have been stopped. (Francoise House MD) Problem List: (1) Hemorrhage of prostate ICD Codes: N42.1 - Congestion and hemorrhage of prostate Status: Acute Plan: 2nd episode in 1 week, associated with catheter change Dr. Lambert went to bedside and evaluated patient, agreed that blood is oozing from the urethra due to prostate bleed The catheter was replaced and is to remain for 3-4 weeks DC Coumadin 3-4 weeks Follow-up in office as outpatient Continue Flomax (2) COPD (chronic obstructive pulmonary disease) ICD Codes: J44.9 - Chronic obstructive pulmonary disease Status: Chronic Plan: Status post acute hypercapnic respiratory failure due to COPD, possible nosocomial pneumonia, possible CHF component. Extubated 01/10. CXR 01/13: Cardiomegaly and findings of congestive heart failure. Findings similar to prior exam. Medications: * Continue Pulmicort BID, DuoNeb q6hr, furosemide 80 mg IV BID. * Zosyn (01/09-01/13). (3) CHF exacerbation ICD Codes: I50.9 - Heart failure, unspecified Status: Acute Plan: At presentation: Patient of Dr. Aquino, presenting with acute CHF exacerbation. * Echocardiogram showing EF less than 20%, severely dilated LV, mod to severe MV regurg, severe tricuspid regurg. * ACS workup negative. * Continue medications as ordered, for diuresis and cardiac benefits. Transition to PO meds in anticipation for discharge. * Continue aspirin, atorvastatin. * Prostate hemorrhage discussed with Dr. Aquino on 01/15; decision to DC Coumadin due to prostate hemorrhage. CHADS-VASC score of 7 score for this patient puts him at a stroke risk of 9.6% per year, however due to recurrent urethral bleeding the Coumadin will be stopped for the 3-4 weeks the catheter is placed. Follow-up with Dr. Aquino an office. Risks and benefits of stopping Coumadin were discussed. (4) Elevated troponin ICD Codes: R74.8 - Abnormal levels of other serum enzymes Status: Resolved Plan: EKG changes (no ST elevations) and elevated troponin on 01/09. Troponin improved overnight 01/09-->01/10. Likely secondary to kidney disease. Pt is a poor candidate for surgical intervention even if myocardial infarction were suspected. (5) SALIMA (acute kidney injury) ICD Codes: N17.9 - Acute kidney failure, unspecified Status: Acute Plan: Acute on chronic CKD, improving. Baseline creatinine is normal based on labs from September 2017. * Trend BMP. * Avoid nephrotoxic agents. * Careful hydration limits given fluid overload but likely kidneys will need some gentle hydration, no additional fluids for now. (6) Atrial fibrillation ICD Codes: I48.91 - Atrial fibrillation Status: Chronic Plan: Chronic A. fib, not with RVR at this time. - Holding Coumadin and all anticoagulation until reevaluated as outpatient Previously: warfarin 7.5 mg reportedly Saturday, Saturday, Saturday, and Saturday at home. (7) HTN (hypertension) ICD Codes: I10 - Essential (primary) hypertension Status: Chronic Plan: BP under good control. Continue medications as currently ordered. (8) Pacemaker ICD Codes: Z95.0 - Presence of cardiac pacemaker Status: Chronic Plan: Chronic. Continued monitoring via telemetry. (9) DM (diabetes mellitus) ICD Codes: E11.9 - Diabetes mellitus Status: Chronic Plan: Chronic, not on insulin. Takes glipizide 5 mg twice daily before meals. * Low-dose sliding scale Novolog while inpatient. 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 Will monitor symptoms Would benefit from PT while inpatient. (11) Gout ICD Codes: M10.9 - Gout, unspecified Status: Chronic Plan: No acute exacerbation. Holding home colchicine due to SALIMA (12) Fluids/Electrolytes/Nutrition/Prophylaxis Status: Acute Plan: Fluids: Fluid restrict given CHF, will monitor Electrolytes: f/u BMP and replete as needed Nutrition: Puree. Honey Thick. DVT Prophylaxis: SCDs only (Shruthi Rodriguez MD R2) Problem Qualifiers (1) CHF exacerbation: Qualified Codes: I50.23 - Acute on chronic systolic (congestive) heart failure (2) Atrial fibrillation: Qualified Codes: I48.2 - Chronic atrial fibrillation (3) HTN (hypertension): Qualified Codes: I10 - Essential (primary) hypertension (4) DM (diabetes mellitus): Shruthi Rodriguez MD R2 Jan 15, 2018 09:57 Francoise House MD Jan 15, 2018 16:37
[2018-01-15] MEDS: RESP: BUDESONIDE 0.5 MG/2 ML NEB NEB SCH ×2 (10:02→21:18)
[2018-01-15] MEDS ORDERED: CARV3.125 PO (10:12)
[2018-01-15] MEDS ORDERED: BUDE.5I NEB (10:12)
[2018-01-15] MEDS ORDERED: FURO40TA PO (10:12)
[2018-01-15] MEDS ORDERED: TAMS5CAP PO (10:12)
[2018-01-15] MEDS ORDERED: HYDR-3516 PO (10:12)
[2018-01-15] MEDS ORDERED: POTA10CA PO (10:12)
--- NOTE | 2018-01-15 10:12 | HHI.DCPOC ---
Discharge Care Plan Diagnosis: (1) SIRS (systemic inflammatory response syndrome) (2) Prostatitis (3) Atrial fibrillation (4) CHF exacerbation Goals to Promote Your Health * To prevent worsening of your condition and complications * To maintain your health at the optimal level Directions to Meet Your Goals Take your medications as prescribed Follow your dietary instruction Follow activity as directed Keep your appointments as scheduled Take your immunizations and boosters as scheduled If your symptoms worsen call your PCP, if no PCP go to Urgent Care Center or Emergency Room Smoking is Dangerous to Your Health. Avoid second hand smoke Call the 24-hour hour crisis hotline for domestic abuse at Shruthi Rodriguez MD R2 Jan 15, 2018 10:12
--- NOTE | 2018-01-15 10:13 | HHI.DS ---
Discharge Summary Admission Date Jan 01, 2018 at 16:11 Admitting Diagnosis CHF exacerbation/elevated troponin (1) Hemorrhage of prostate Plan: 2nd episode in 1 week, associated with catheter change Dr. Lambert went to bedside and evaluated patient, agreed that blood is oozing from the urethra due to prostate bleed The catheter was replaced and is to remain for 3-4 weeks DC Coumadin 3-4 weeks Follow-up in office as outpatient Continue Flomax ICD Codes: N42.1 - Congestion and hemorrhage of prostate Status: Acute (2) COPD (chronic obstructive pulmonary disease) Plan: Status post acute hypercapnic respiratory failure due to COPD, possible nosocomial pneumonia, possible CHF component. Extubated 01/10. CXR 01/13: Cardiomegaly and findings of congestive heart failure. Findings similar to prior exam. Medications: * Continue Pulmicort BID, DuoNeb q6hr, furosemide 80 mg IV BID. * Zosyn (01/09-01/13). ICD Codes: J44.9 - Chronic obstructive pulmonary disease Status: Chronic (3) CHF exacerbation Plan: At presentation: Patient of Dr. Aquino, presenting with acute CHF exacerbation. * Echocardiogram showing EF less than 20%, severely dilated LV, mod to severe MV regurg, severe tricuspid regurg. * ACS workup negative. * Continue medications as ordered, for diuresis and cardiac benefits. Transition to PO meds in anticipation for discharge. * Continue aspirin, atorvastatin. * Prostate hemorrhage discussed with Dr. Aquino on 01/15; decision to DC Coumadin due to prostate hemorrhage. CHADS-VASC score of 7 score for this patient puts him at a stroke risk of 9.6% per year, however due to recurrent urethral bleeding the Coumadin will be stopped for the 3-4 weeks the catheter is placed. Follow-up with Dr. Aquino an office. Risks and benefits of stopping Coumadin were discussed. ICD Codes: I50.9 - Heart failure, unspecified Status: Acute (4) Elevated troponin Plan: EKG changes (no ST elevations) and elevated troponin on 01/09. Troponin improved overnight 01/09-->01/10. Likely secondary to kidney disease. Pt is a poor candidate for surgical intervention even if myocardial infarction were suspected. ICD Codes: R74.8 - Abnormal levels of other serum enzymes Status: Resolved (5) SALIMA (acute kidney injury) Plan: Acute on chronic CKD, improving. Baseline creatinine is normal based on labs from September 2017. * Trend BMP. * Avoid nephrotoxic agents. * Careful hydration limits given fluid overload but likely kidneys will need some gentle hydration, no additional fluids for now. ICD Codes: N17.9 - Acute kidney failure, unspecified Status: Acute (6) Atrial fibrillation Plan: Chronic A. fib, not with RVR at this time. - Holding Coumadin and all anticoagulation until reevaluated as outpatient Previously: warfarin 7.5 mg reportedly Saturday, Saturday, Saturday, and Saturday at home. ICD Codes: I48.91 - Atrial fibrillation Status: Chronic (7) HTN (hypertension) Plan: BP under good control. Continue medications as currently ordered. ICD Codes: I10 - Essential (primary) hypertension Status: Chronic (8) Pacemaker Plan: Chronic. Continued monitoring via telemetry. ICD Codes: Z95.0 - Presence of cardiac pacemaker Status: Chronic (9) DM (diabetes mellitus) Plan: Chronic, not on insulin. Takes glipizide 5 mg twice daily before meals. * Low-dose sliding scale Novolog while inpatient. 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 Will monitor symptoms Would benefit from PT while inpatient. ICD Codes: I69.359 - Hemiparesis following cerebrovascular accident Status: Chronic (11) Gout Plan: No acute exacerbation. Holding home colchicine due to SALIMA ICD Codes: M10.9 - Gout, unspecified Status: Chronic (12) Fluids/Electrolytes/Nutrition/Prophylaxis Plan: Fluids: Fluid restrict given CHF, will monitor Electrolytes: f/u BMP and replete as needed Nutrition: Puree. Honey Thick. DVT Prophylaxis: SCDs only Status: Acute Brief History Patient is a 72 year old male with history significant for CVA, A fib on Coumadin, AICD, CHF, diabetes, who presents for shortness of breath. His is present who provides some history as well. [facility]. They both note that about 1-1/2 weeks ago the symptoms started up again notes that the patient had decreased appetite. Difficulty breathing has became progressively worse over this timeframe. He does not typically use oxygen at baseline but has in the past. Over the last week and a half he has been using about 2 L rate at home. This did not help. He does take Lasix at home and took a dose this morning he thinks. He did also take his antihypertensives this morning. He also has a CPAP machine that he uses "every now and then.". [employer] is Dr. Aquino and reportedly had last office visit with echo 1 month ago. Unknown last EF. states that he was admitted to [facility] about a month ago for similar symptoms and was treated for a few days with diuretics and was sent home. He does use oxygen at baseline but he did return back to baseline before discharge. His long history of CHF. At time of interview is on BiPAP and he states that he feels much better than he did at home. CBC/BMP: 01/15/18 0545 01/15/18 0545 Significant Findings Laboratory Tests Test 01/13/18 06:50 01/13/18 10:41 01/13/18 12:29 01/14/18 05:25 Red Blood Count 3.71 MIL/MM3 (4.50-5.90) 3.67 MIL/MM3 (4.50-5.90) Hemoglobin 11.1 GM/DL (13.0-17.0) 11.0 GM/DL (13.0-17.0) Hematocrit 33.8 % (39.0-51.0) 33.2 % (39.0-51.0) Neutrophils (%) (Auto) 73.0 % (16.0-70.0) Lymphocytes (%) (Auto) 7.3 % (9.0-44.0) Monocytes (%) (Auto) 16.7 % (0.0-8.0) Lymphocytes # (Auto) 0.7 TH/MM3 (1.0-4.8) Monocytes # (Auto) 1.5 TH/MM3 (0-0.9) Blood Urea Nitrogen 47 MG/DL (7-18) 46 MG/DL (7-18) 42 MG/DL (7-18) Creatinine 1.65 MG/DL (0.60-1.30) 1.63 MG/DL (0.60-1.30) 1.36 MG/DL (0.60-1.30) Random Glucose 228 MG/DL (74-106) 191 MG/DL (74-106) 169 MG/DL (74-106) 112 MG/DL (74-106) Albumin 2.3 GM/DL (3.4-5.0) 2.2 GM/DL (3.4-5.0) Sodium Level 129 MEQ/L (136-145) 131 MEQ/L (136-145) 135 MEQ/L (136-145) Potassium Level 2.8 MEQ/L (3.5-5.1) 3.0 MEQ/L (3.5-5.1) Chloride Level 89 MEQ/L (98-107) 91 MEQ/L (98-107) 94 MEQ/L (98-107) Estimat Glomerular Filtration Rate 50 ML/MIN (>89) 51 ML/MIN (>89) 63 ML/MIN (>89) Carbon Dioxide Level 32.3 MEQ/L (21.0-32.0) Test 01/14/18 08:40 01/15/18 05:45 Prothrombin Time 13.2 SEC (9.8-11.6) Red Blood Count 3.77 MIL/MM3 (4.50-5.90) Hemoglobin 11.3 GM/DL (13.0-17.0) Hematocrit 34.4 % (39.0-51.0) Blood Urea Nitrogen 40 MG/DL (7-18) Creatinine 1.33 MG/DL (0.60-1.30) Random Glucose 116 MG/DL (74-106) Sodium Level 133 MEQ/L (136-145) Chloride Level 91 MEQ/L (98-107) Carbon Dioxide Level 33.3 MEQ/L (21.0-32.0) Estimat Glomerular Filtration Rate 64 ML/MIN (>89) PE at Discharge GENERAL: Patient appears uncomfortable, but not in acute distress SKIN: Warm and dry. HEAD: Atraumatic. Normocephalic. EYES: Pupils equal round. Extraocular motions intact. No scleral icterus. No injection or drainage. ENT: Nose without bleeding or purulent drainage. Airway patent. NECK: Supple, nontender, no meningeal signs. CARDIOVASCULAR: Regular rate and rhythm without murmurs RESPIRATORY: Good air movement bilaterally with crackles appreciated at the bases. GASTROINTESTINAL: Abdomen soft, non-tender, nondistended. No hepato-splenomegaly , or palpable masses. No guarding. MUSCULOSKELETAL: No joint tenderness, effusion, or edema noted. No calf tenderness. NEUROLOGICAL: Alert. Aphasic. Cranial nerves II through XII grossly intact. Generalized weakness of extremities. GENITOURINARY: Moderate amount of bright red blood around glans penis at the urethrile meatus. no marquez placed at this time Pt Condition on Discharge: Stable Discharge Disposition: Discharge to SNF Discharge Instructions DIET: Follow Instructions for: Pureed Diet Speech Therapy-Diet Recommends: Honey Thickened Liquids, Pureed Activities you can perform: Regular-No Restrictions Shruthi Rodriguez MD R2 Jan 15, 2018 10:13
[2018-01-15] MEDS ORDERED: IODIXANOL 320 MG/ML 10 ML VIAL (for Rad CT) IVCONTRAST ONE (11:06)
--- NOTE | 2018-01-15 11:13 | RADRPT ---
EXAM DATE/TIME: 01/15/2018 10:58 [facility] COMPARISON: CT PULMONARY ANGIOGRAM, December 25, 2014, 14:54. INDICATIONS : Respiratory distress. IV CONTRAST: 75 cc Visipaque (iodixanol) IV RADIATION DOSE: 23.12 CTDIvol (mGy) MEDICAL HISTORY : Stroke. Cardiovascular disease Myocardial infarction.Hypertension. SURGICAL HISTORY : CABG Pacemaker.Coronary artery stent. ENCOUNTER: Initial ACUITY: 1 day PAIN SCALE: Non-responsive LOCATION: chest TECHNIQUE: Volumetric scanning of the chest was performed using a pulmonary embolism protocol MIP images were re constructed. Using automated exposure control and adjustment of the mA and/or kV according to patien t size, radiation dose was kept as low as reasonably achievable to obtain optimal diagnostic quality images. DICOM format image data is available electronically for review and comparison. Follow-up recommendations for detected pulmonary nodules are based at a minimum on nodule size and pa tient risk factors according to Fleischner Society Guidelines. FINDINGS: The heart is enlarged. Mild interstitial edema is present with trace pleural effusion on the right. Pacemaker implanted in the left chest. There is no axillary adenopathy. There is no mediastinal adenopathy. There is no central pulmonary emboli. There is no pericardial effusion. Minimal calcifications are seen in the small gallbladder. CONCLUSION: Moderate congestive failure without central pulmonary emboli. Robert Marie MD FACR on January 15, 2018 at 11:08 Board Certified Radiologist. This report was verified electronically.
[2018-01-15 11:14] LABS: AUTOMATED NEUTROPHIL # 13.4 TH/MM3 (1.8-7.7); BASOPHIL # 0.1 TH/MM3 (0-0.2); BASOPHIL % 0.5 % (0.0-2.0); EOSINOPHIL # 0.2 TH/MM3 (0-0.4); EOSINOPHIL % 1.3 % (0.0-4.0); HEMATOCRIT 34.4 % (39.0-51.0); HEMOGLOBIN 11.2 GM/DL (13.0-17.0); LYMPH % 1.8 % (9.0-44.0); LYMPHOCYTE # 0.3 TH/MM3 (1.0-4.8); MEAN CELL VOLUME 90.5 FL (80.0-100.0); MEAN CORPUSCULAR HEMOGLOBIN 29.6 PG (27.0-34.0); MEAN CORPUSCULAR HGB CONC 32.7 % (32.0-36.0); MEAN PLATELET VOLUME 7.9 FL (7.0-11.0); MONO % 2.3 % (0.0-8.0); MONOCYTE # 0.3 TH/MM3 (0-0.9); NEUT % 94.1 % (16.0-70.0); PLATELET COUNT 273 TH/MM3 (150-450); RED CELL DISTRIBUTION WIDTH 16.7 % (11.6-17.2); WHITE BLOOD COUNT 14.2 TH/MM3 (4.0-11.0)
--- NOTE | 2018-01-15 11:18 | RADRPT ---
EXAM DATE/TIME: 01/15/2018 10:54 [facility] COMPARISON: CT BRAIN W/O CONTRAST, August 11, 2013, 20:30. INDICATIONS : Stroke alert; altered mental status, lethargy. RADIATION DOSE: 37.08 CTDIvol (mGy) This report was called by Dr. Locke to Dr. Okeefe at 11: 10 AM on 01/15/18. MEDICAL HISTORY : Non-responsive. SURGICAL HISTORY : Non-responsive. ENCOUNTER: Initial ACUITY: 1 day PAIN SCALE: Non-responsive LOCATION: cranial TECHNIQUE: Multiple contiguous axial images were obtained of the head. Using automated exposure control and adj ustment of the mA and/or kV according to patient size, radiation dose was kept as low as reasonably a chievable to obtain optimal diagnostic quality images. DICOM format image data is available electro nically for review and comparison. FINDINGS: There is a large old stable left middle cerebral artery infarction. Much smaller old right middle cer ebral artery infarction is also noted. There is no acute hemorrhage, midline shift or extra-axial flu id collections. Ex vacuo dilatation of the left lateral ventricle and Wallerian degeneration of the l eft brianna are stable. Mild periventricular and subcortical white matter small vessel ischemic changes are noted bilaterally. CONCLUSION: 1. No acute hemorrhage, acute infarct, mass effect or extra-axial fluid collection. 2. Large old stable left middle cerebral artery infarct and much smaller old right middle cerebral ar madhavi infarct are noted. 3. Mild periventricular and subcortical white matter small vessel ischemic changes are noted. Papa Locke MD on January 15, 2018 at 11:05 Board Certified Radiologist. This report was verified electronically.
--- NOTE | 2018-01-15 11:29 | RADRPT ---
EXAM DATE/TIME: 01/15/2018 11:07 [facility] COMPARISON: CHEST SINGLE AP, January 08, 2018, 4:59. INDICATIONS : Short of breath MEDICAL HISTORY : Stroke. Cardiovascular disease Myocardial infarction.Hypertension SURGICAL HISTORY : CABG Pacemaker.Coronary artery stent ENCOUNTER: Subsequent ACUITY: 1 day PAIN SCORE: 0/10 LOCATION: chest FINDINGS: Pacemaker on the left. Sternal wires from previous bypass. Compensated cardiomegaly without failure . No pleural effusion or infiltrate. The portion of the bony skeleton visualized is unremarkable. CONCLUSION: Compensated cardiomegaly with pacer otherwise negative Robert Marie MD FACR on January 15, 2018 at 11:26 Board Certified Radiologist. This report was verified electronically.
[2018-01-15 11:32] LABS: INTERNATIONAL NORMALIZED RATIO 1.2 RATIO; PROTHROMBIN TIME - PATIENT 12.4 SEC (9.8-11.6)
[2018-01-15 12:05] LABS: TROPONIN I 0.84 NG/ML (0.02-0.05)
[2018-01-15] MEDS ORDERED: POTASSIUM CHLORIDE 10 MEQ CONTROLLED RELEASE TAB PO ONE (13:00)
--- NOTE | 2018-01-15 15:20 | MB ---
cc: Bill Lambert DO DATE: 01/15/2018 HISTORY OF PRESENT ILLNESS: Mr. Bowman is a 72-year-old male who presented with shortness of breath and lower extremity edema to the emergency room. He has a history of ischemic cardiomyopathy in the past along with CHF, atrial fibrillation, and COPD. During this admission, he had some gross hematuria and was bleeding around his catheter and was also on anticoagulation therapy with Coumadin. The Rolon was left in for a week and then it was removed by the medical staff. Urology had to be reconsulted to replace a 3-way Rolon catheter, which was done at the bedside today and the urine was pink-tinged at that time. There were no clots identified. The plan will be to leave the Rolon in for the next 3 weeks before making removal attempt to allow the area of the prostate to heal due to ongoing bleeding while being on anticoagulation therapy. PAST MEDICAL HISTORY: Includes again CHF, atrial fibrillation, coronary artery disease, chronic kidney disease, COPD, CVA, diabetes mellitus, DVT, hypertension, dyslipidemia, ischemic cardiomyopathy and osteoarthritis. PAST SURGICAL HISTORY: CABG in 2005, RCA stenting in 2014, ICD placement in the past. MEDICATIONS: Please refer to the chart. ALLERGIES: Please refer to the chart. FAMILY HISTORY: Denies any family history of prostate cancer. SOCIAL HISTORY: Former smoker. Denies alcohol or use of drugs. PHYSICAL EXAMINATION: VITAL SIGNS: Today, temperature 98.4, heart rate 99, respiratory rate 18, 110/60, 97% on room air. GENERAL: A well-developed, well-nourished, 72-year-old man in no acute distress. HEENT: Normocephalic, atraumatic. Pupils equal, round, reactive to light. Extraocular movements intact. NECK: Supple. HEART: Regular rate and rhythm. LUNGS: Clear. ABDOMEN: Soft, nontender, nondistended. GENITOURINARY: Uncircumcised phallus. Testes are descended. 3-way hematuria catheter placed at the bedside with some difficulty, irrigated until clear, 30 mL left in the balloon. EXTREMITIES: Show 1+ edema. NEUROLOGIC: Cranial nerves 2-12 are intact. LABORATORY DATA: White count is 14.2, hemoglobin 11.2, hematocrit 34.4, platelet count 273. Sodium 133, potassium 3.3, chloride 92, CO2 33.3, BUN of 40, creatinine 1.3, glucose of 168. Urinalysis showed many white cells with clumps. Urine culture on 01/06/2018 was negative. IMAGING STUDIES: Had a renal ultrasound on 01/11/2018 which showed decompression of the bladder after Orlon catheter placed with mild left hydronephrosis. ASSESSMENT: A 72-year-old male with prostatic bleeding on anticoagulation therapy with Rolon catheter placed at the bedside. PLAN: Maintain Rolon catheter for the next 3-4 months. If okay with Cardiology, would recommend holding the anticoagulation medication if acceptable. If not, we will just continue and observe. [facility] and followup in the office in 3-4 weeks. DO DERRICK Mota/BISHNU , 02:41 PM , 03:19 PM
--- NOTE | 2018-01-15 16:36 | MB ---
cc: Archana Okeefe MD DATE: 01/15/2018 HISTORY OF PRESENT ILLNESS: He is a 72-year-old seen in neurological consultation. Case discussed with stroke lead care manager earlier today when this consult was called. It was a Stroke Alert as the patient became poorly responsive with some tremoring and seizure-like activity when a triple bladder catheter was placed this morning. A CT brain was obtained immediately showing the old large left MCA infarct and a smaller right posterior MCA infarct/encephalomalacia. No acute findings noted. I reviewed the CD. The chart is reviewed. The patient is unable to provide history. He has a severe aphasia and a right hemiparesis. He mumbles a few words and according to the nursing staff, this is his baseline. He was asleep, but easily awakened. He has a spastic right hemiparesis. Reflexes are diminished, slightly brisker on the right with bilateral plantar extensor responses. He appeared in no distress. LABORATORY DATA: Recent labs seen. The white count today is 14.2, hemoglobin 11.2, platelets 273. Sodium 133, potassium 3.3, creatinine today 1.33, BUN 14. ASSESSMENT: Stroke Alert called when the patient had a neurologic change during or immediately after the bladder catheter was inserted. He may have had a syncopal/vasovagal episode, doubt of a true seizure and also suspect this was not a true transient ischemic accident or a stroke syndrome. He has been bleeding from his bladder and prostate and he was evidently not a candidate for t-PA. He actually regained baseline neurological status within half hour or so. He appears to be back to baseline. He normally takes Coumadin and INR today was 1.2. RECOMMENDATIONS: At this point, I do not think he is a candidate for any additional neurologic intervention. His long-term use of Coumadin ought to be a medical decision and he is going to be scheduled for a carotid ultrasound as well. He has had previous CT angio in the past showing left MCA M1 segment occlusion from 2005. Thank you for asking us to assist in his care. Archana Okeefe MD OFC/SB , 04:04 PM , 04:35 PM
--- NOTE | 2018-01-15 17:07 | HHI.FPPN ---
Addendum to progress note ADDENDUM Reason for addendum: Additonal documentation Additional information Late entry: Nursing called at 10:30AM for altered mental status, tachycardia, and tachypnea 30minutes following catheter insertion Pt seen and examined bedside. Pt was occasionally verbally response but could not follow commands or directly answer questions. He could not open his eyes on his own. When asked 'Do you feel like you are having a stroke again?" , patient responds that yes he does. He also appears to have labored breathing. PE: VS: HR 125, RR 35, O2 sat 96%, afebrile PLAN A/P: Pt with altered mental status, tachycardia, and tachypnea 30minutes following catheter insertion Differential includes stroke vs. PE. vs TX vs. vasovagal Shruthi Rodriguez MD R2 Jan 15, 2018 17:07
[2018-01-15] MEDS: ACETAMINOPHEN/HYDROcodone 325 MG/5 MG TAB PO PRN (18:49)
[2018-01-15] MEDS: CHLORHEXIDINE 0.12% (ORAL KIT) 15 ML CUP MT SCH (20:00)
[2018-01-15 21:01] LABS: AUTOMATED NEUTROPHIL # 13.4 TH/MM3 (1.8-7.7); BASOPHIL # 0.1 TH/MM3 (0-0.2); BASOPHIL % 0.5 % (0.0-2.0); EOSINOPHIL # 0.2 TH/MM3 (0-0.4); EOSINOPHIL % 1.2 % (0.0-4.0); HEMATOCRIT 32.4 % (39.0-51.0); HEMOGLOBIN 10.7 GM/DL (13.0-17.0); LYMPH % 2.4 % (9.0-44.0); LYMPHOCYTE # 0.4 TH/MM3 (1.0-4.8); MEAN CELL VOLUME 89.6 FL (80.0-100.0); MEAN CORPUSCULAR HEMOGLOBIN 29.4 PG (27.0-34.0); MEAN CORPUSCULAR HGB CONC 32.9 % (32.0-36.0); MEAN PLATELET VOLUME 8.1 FL (7.0-11.0); MONO % 3.7 % (0.0-8.0); MONOCYTE # 0.5 TH/MM3 (0-0.9); NEUT % 92.2 % (16.0-70.0); PLATELET COUNT 282 TH/MM3 (150-450); RED BLOOD COUNT 3.62 MIL/MM3 (4.50-5.90); RED CELL DISTRIBUTION WIDTH 16.7 % (11.6-17.2); WHITE BLOOD COUNT 14.6 TH/MM3 (4.0-11.0)
--- NOTE | 2018-01-15 21:43 | MG ---
cc: Shashi Rodriguez MD EEG RECORD #[id number] DATE OF : 1945 5-7 Hz activity 10-30 microvolts. Excessive frontal myogenic artifact occurring off and on followed by bursts of 2-3 Hz delta activity. EEG variability reactivity noted. Single lead EKG appeared to show sinus rhythm with possible pacer spikes. INTERPRETATION: Mild to moderate encephalopathy. Clinical correlation. Shashi Rodriguez MD MG/rt , 09:25 PM , 09:43 PM
--- NOTE | 2018-01-15 22:22 | RADRPT ---
EXAM DATE/TIME: 01/15/2018 21:12 [facility] COMPARISON: No previous studies available for comparison. INDICATIONS : Transient ischemic attack. MEDICAL HISTORY : Myocardial infarction. Congestive heart failure. Hypercholesterolemia. CVA. Coronary artery disease. Dysarthria. Chest pain. Afib. HTN. Asthma. Dyspnea. Enlarged prostate. Diabetes. Anticoagulant thera py, Heparin. SURGICAL HISTORY : CABG. Pacemaker. Coronary artery stent. Cardiac cath. ENCOUNTER: Initial ACUITY: 1 day PAIN SCORE: 0/10 LOCATION: Bilateral neck PEAK SYSTOLIC VELOCITIES (cm/sec): ICA/CCA RATIO: Right: 1.5 Left: 1.6 ICA: Right: 67 Left: 58 CCA: Right: 44 Left: 37 ECA: Right: 50 Left: 85 VERTEBRAL: Right: 43 antegrade Left: 53 antegrade Elevated flow velocities and ICA/CCA ratios have been found to correlate with increased degrees of vessel stenosis, calculated as percentage of diameter relative to a normal segment of distal ICA/CCA FINDINGS: RIGHT CAROTID: No significant stenosis is visualized. The waveforms are within normal limits. LEFT CAROTID: No significant stenosis is visualized. The waveforms are within normal limits. VERTEBRAL ARTERIES: Antegrade flow is seen in both vertebral arteries. MISCELLANEOUS: None. CONCLUSION: 1. Mild visible plaque in the carotid arteries bilaterally without hemodynamically significant stenos is. Vertebral artery flow is antegrade. Vipul Sherman MD on January 15, 2018 at 22:19 Board Certified Radiologist. This report was verified electronically.
[2018-01-16] VITALS (13 sets, daily range): BP systolic 94–118; BP diastolic 50–70; PULSE 90–106; RESP 18–26; TEMP 97.9–98.9; O2SAT 98–100
[2018-01-16 03:04] LABS: AUTOMATED NEUTROPHIL # 10.6 TH/MM3 (1.8-7.7); BASOPHIL # 0.1 TH/MM3 (0-0.2); BASOPHIL % 0.6 % (0.0-2.0); EOSINOPHIL # 0.4 TH/MM3 (0-0.4); EOSINOPHIL % 3.4 % (0.0-4.0); HEMATOCRIT 30.7 % (39.0-51.0); LYMPH % 3.6 % (9.0-44.0); LYMPHOCYTE # 0.4 TH/MM3 (1.0-4.8); MEAN CELL VOLUME 90.2 FL (80.0-100.0); MEAN CORPUSCULAR HEMOGLOBIN 29.3 PG (27.0-34.0); MEAN CORPUSCULAR HGB CONC 32.5 % (32.0-36.0); MONO % 3.9 % (0.0-8.0); MONOCYTE # 0.5 TH/MM3 (0-0.9); NEUT % 88.5 % (16.0-70.0); PLATELET COUNT 298 TH/MM3 (150-450); RED CELL DISTRIBUTION WIDTH 16.5 % (11.6-17.2)
[2018-01-16 03:27] LABS: ALBUMIN 2.2 GM/DL (3.4-5.0); ALT (GPT) 28 U/L (12-78); AST (GOT) 25 U/L (15-37); BICARBONATE 34.8 MEQ/L (21.0-32.0); BLOOD UREA NITROGEN 39 MG/DL (7-18); CALCIUM 9.4 MG/DL (8.5-10.1); CHLORIDE 95 MEQ/L (98-107); CREATININE 1.28 MG/DL (0.60-1.30); GLOMERULAR FILTRATION RATE 67 ML/MIN (>89); GLUCOSE,RANDOM 139 MG/DL (74-106); SODIUM (NA) 136 MEQ/L (136-145)
[2018-01-16 03:31] LABS: ALKALINE PHOSPHATASE 64 U/L (45-117); TOTAL PROTEIN 6.7 GM/DL (6.4-8.2)
[2018-01-16 04:21] LABS: TROPONIN I 0.68 NG/ML (0.02-0.05)
[2018-01-16] MEDS: ARTIFICIAL TEARS OPTH SOLN 15 ML BTL EACH EYE SCH ×3 (05:32→20:54)
[2018-01-16] MEDS: CHLORHEXIDINE 0.12% (ORAL KIT) 15 ML CUP MT SCH ×2 (08:00→19:35)
[2018-01-16] MEDS: INSULIN ASPART SUPPLEMENTAL SCALE SQ SCH ×4 (08:00→23:30)
[2018-01-16] MEDS: RESP: BUDESONIDE 0.5 MG/2 ML NEB NEB SCH ×2 (08:14→21:33)
[2018-01-16] MEDS: TOLNAFTATE 1% CREAM 15 GM TOPICAL SCH ×2 (09:00→20:54)
[2018-01-16] MEDS: SODIUM CHLORIDE 0.9% FLUSH 10 ML FLUSH IV FLUSH SCH ×2 (09:00→20:53)
[2018-01-16] MEDS: FUROSEMIDE 40 MG TAB PO SCH ×2 (09:19→17:55)
[2018-01-16] MEDS: CARVEDILOL 3.125 MG TAB PO SCH ×2 (09:19→20:53)
[2018-01-16] MEDS: DOCUSATE SODIUM 50 MG/SENNA 8.6 MG TAB PO SCH ×2 (09:19→20:54)
[2018-01-16] MEDS: POTASSIUM CHLORIDE 10 MEQ CAP PO SCH (09:19)
[2018-01-16] MEDS: ATORVASTATIN 40 MG TAB PO SCH (09:19)
[2018-01-16] MEDS: TAMSULOSIN HCL 0.4 MG CAP PO SCH (09:19)
[2018-01-16] MEDS: ASPIRIN 81 MG CHEW TAB CHEW SCH (09:19)
--- NOTE | 2018-01-16 10:29 | HHI.PR ---
Subjective Patient symptoms today Pt seen and examined. Urine clear. Objective Vital Signs Vital Signs Date Time Temp Pulse Resp B/P (MAP) Pulse Ox O2 Delivery O2 Flow Rate FiO2 01/16/18 08:15 100 Nasal Cannula 4.00 01/16/18 07:39 98.8 95 18 118/69 (85) 100 01/16/18 04:00 97.9 90 18 113/67 (82) 100 01/16/18 00:00 97.9 97 18 112/70 (84) 100 01/15/18 21:18 21 01/15/18 20:00 Nasal Cannula 2.00 01/15/18 20:00 98.0 86 17 103/65 (78) 100 01/15/18 16:00 99.2 97 20 106/63 (77) 97 01/15/18 12:00 98.7 101 20 102/59 (73) 100 01/15/18 10:45 96 2.00 Intake & Output 01/16/18 01/16/18 07:00 19:00 Intake Total 0 ml Output Total 6250 ml Balance -6250 ml Intake Oral 0 ml Output Urine Total 6250 ml # Bowel Movements 1 Result Diagram: 01/16/18 0234 01/16/18 0234 Imaging Last 24 hours Impressions Chest X-Ray 01/15/18 1035 Signed Impressions: Service Date/Time: Monday, January 15, 2018 11:07 - CONCLUSION: Compensated cardiomegaly with pacer otherwise negative Robert Marie MD FACR Objective Remarks Abd:soft,nt,nd Rolon with clear urine. Medications and IVs Current Medications Medications (Trade) Dose Ordered Sig/Kaila Route Start Time Stop Time Status Last Admin (NS Flush) 2 ml UNSCH PRN IV FLUSH 01/01/18 16:15 (NS Flush) 2 ml BID IV FLUSH 01/01/18 21:00 01/16/18 09:00 (Lipitor) 40 mg DAILY PO 01/02/18 09:00 01/16/18 09:19 (D50w (Vial) Inj) 50 ml UNSCH PRN IV PUSH 01/01/18 17:45 (Glucagon Inj) 1 mg UNSCH PRN OTHER 01/01/18 17:45 (Natalie-Colace) 1 tab BID PO 01/01/18 21:00 01/16/18 09:19 (Milk Of Magnesia Liq) 30 ml Q12H PRN PO 01/01/18 17:45 01/03/18 12:31 (Senokot) 17.2 mg Q12H PRN PO 01/01/18 17:45 (Dulcolax Supp) 10 mg DAILY PRN RECTAL 01/01/18 17:45 (Lactulose Liq) 30 ml DAILY PRN PO 01/01/18 17:45 (Flomax) 0.4 mg DAILY PO 01/02/18 15:00 01/16/18 09:19 (Tinactin 1% Cream) 1 applic Q12HR TOPICAL 01/02/18 21:00 01/16/18 09:00 (Hydrocortisone 1% Cream) 1 applic Q12H PRN TOPICAL 01/02/18 15:00 01/03/18 12:12 (Coreg) 3.125 mg Q12HR PO 01/06/18 09:00 01/16/18 09:19 (Peridex 0.12% Liq) 15 ml BID@08,20 MT 01/06/18 08:00 01/12/18 08:00 (Pulmicort Respule Neb) 0.5 mg Q12HR NEB NEB 01/06/18 20:00 01/16/18 08:14 (Tears Naturale Opth Soln) 1 drop Q8HR EACH EYE 01/06/18 14:00 01/16/18 05:32 (Aspirin Chew) 81 mg DAILY CHEW 01/06/18 09:00 01/16/18 09:19 (Tylenol 650 Mg/ 20 ml Liq) 650 mg Q6H PRN PO 01/06/18 08:15 01/06/18 22:08 (Albuterol Neb) 2.5 mg Q2HR NEB PRN NEB 01/07/18 16:15 01/15/18 10:02 (NovoLOG SUPPLEMENTAL SCALE) 1 ACHS SQ 01/10/18 17:00 01/16/18 08:00 ([place] 5-325 Mg) 1 tab Q6H PRN PO 01/10/18 12:15 01/15/18 18:49 (KCl) 20 meq DAILY PO 01/13/18 14:45 01/16/18 09:19 (Coumadin) 7.5 mg Q48H PO 01/13/18 20:00 Future Hold 01/13/18 22:27 (Ativan Inj) 1 mg Q4HR PRN IV PUSH 01/14/18 01:45 01/15/18 00:11 (Lasix) 40 mg BID@ PO 01/14/18 18:00 01/16/18 09:19 Assessment and Plan Assessment and Plan 72 y.o male with h/o gross hematuria on anticoagulation Advised to hold coumadin for now F/U in office in 3 weeks for void trial. Bill Lambert DO Jan 16, 2018 10:29
--- NOTE | 2018-01-16 10:47 | HHI.FPPN ---
Subjective Remarks Patient seen and examined bedside this morning. Patient is responsive and states that he feels fine. He appears to be back to baseline. No acute events overnight. Patient is breathing well on 2 L nasal cannula and in no acute distress. (Shruthi Rodriguez MD R2) Objective Vitals Vital Signs Date Time Temp Pulse Resp B/P (MAP) Pulse Ox O2 Delivery O2 Flow Rate FiO2 01/16/18 10:12 95 Nasal Cannula 2.00 01/16/18 10:12 90 01/16/18 08:15 100 Nasal Cannula 4.00 01/16/18 07:39 98.8 95 18 118/69 (85) 100 01/16/18 04:00 97.9 90 18 113/67 (82) 100 01/16/18 00:00 97.9 97 18 112/70 (84) 100 01/15/18 21:18 21 01/15/18 20:00 Nasal Cannula 2.00 01/15/18 20:00 98.0 86 17 103/65 (78) 100 01/15/18 16:00 99.2 97 20 106/63 (77) 97 01/15/18 12:00 98.7 101 20 102/59 (73) 100 01/15/18 10:45 96 2.00 I/O 01/15/18 01/15/18 01/15/18 01/16/18 01/16/18 01/16/18 07:00 15:00 23:00 07:00 15:00 23:00 Intake Total 0 ml 0 ml 0 ml Output Total 0 ml 2400 ml 6250 ml Balance 0 ml -2400 ml -6250 ml Intake Oral 0 ml 0 ml 0 ml Output Urine Total 0 ml 2400 ml 6250 ml Bladder Scan Volume Amount 475 ml # Bowel Movements 1 0 1 (Shruthi Rodriguez MD R2) Result Diagram: 01/16/18 0234 01/16/18 0234 Objective Remarks GENERAL: Patient appears comfortable, not in acute distress SKIN: Warm and dry. HEAD: Atraumatic. Normocephalic. EYES: Pupils equal round. Extraocular motions intact. No scleral icterus. No injection or drainage. ENT: Nose without bleeding or purulent drainage. Airway patent. NECK: Supple, nontender, no meningeal signs. CARDIOVASCULAR: Regular rate and rhythm without murmurs RESPIRATORY: Good air movement bilaterally with crackles appreciated at the bases. GASTROINTESTINAL: Abdomen soft, non-tender, nondistended. No hepato-splenomegaly , or palpable masses. No guarding. MUSCULOSKELETAL: No joint tenderness, effusion, or edema noted. No calf tenderness. NEUROLOGICAL: Alert. Aphasic. Cranial nerves II through XII grossly intact. Generalized weakness of extremities. GENITOURINARY: No blood from urethral meatus. Rolon is placed. No pain on palpation of the penis or movement of the Rolon. (Shruthi Rodriguez MD R2) A/P Assessment and Plan Patient is a 72-year-old admitted with CHF exacerbation. He required BiPAP at time of admission with significant fluid overload complicated by hypotension. Weaned to 1 L nasal cannula, however, on 01/06 suffered worsening respiratory distress, needed to be intubated. Extubated 01/10. Improving clinically. Discharge Planning Discharged to SNF today (Shruthi Rodriguez MD R2) Attending Attestation Patient seen and examined, discussed with resident team. I agree with assessment and management as documented and discussed with me. Pt without complaints. He reports he is more comfortable than yesterday. H/H stable. To SNF once authorized by his insurance. (Francoise House MD) Problem List: (1) Hemorrhage of prostate ICD Codes: N42.1 - Congestion and hemorrhage of prostate Status: Acute Plan: 2nd episode in 1 week, associated with catheter change Dr. Lambert went to bedside and evaluated patient, agreed that blood is oozing from the urethra due to prostate bleed The catheter was replaced and is to remain for 3-4 weeks DC Coumadin 3-4 weeks Follow-up in office as outpatient Continue Flomax (2) COPD (chronic obstructive pulmonary disease) ICD Codes: J44.9 - Chronic obstructive pulmonary disease Status: Chronic Plan: Status post acute hypercapnic respiratory failure due to COPD, possible nosocomial pneumonia, possible CHF component. Extubated 01/10. CXR 01/13: Cardiomegaly and findings of congestive heart failure. Findings similar to prior exam. Medications: * Continue Pulmicort BID, DuoNeb q6hr, furosemide 80 mg IV BID. * Zosyn (01/09-01/13). (3) CHF exacerbation ICD Codes: I50.9 - Heart failure, unspecified Status: Acute Plan: At presentation: Patient of Dr. Aquino, presenting with acute CHF exacerbation. * Echocardiogram showing EF less than 20%, severely dilated LV, mod to severe MV regurg, severe tricuspid regurg. * ACS workup negative. * Continue medications as ordered, for diuresis and cardiac benefits. Transition to PO meds in anticipation for discharge. * Continue aspirin, atorvastatin. * Prostate hemorrhage discussed with Dr. Aquino on 01/15; decision to DC Coumadin due to prostate hemorrhage. CHADS-VASC score of 7 score for this patient puts him at a stroke risk of 9.6% per year, however due to recurrent urethral bleeding the Coumadin will be stopped for the 3-4 weeks the catheter is placed. Follow-up with Dr. Aquino an office. Risks and benefits of stopping Coumadin were discussed. (4) Elevated troponin ICD Codes: R74.8 - Abnormal levels of other serum enzymes Status: Resolved Plan: EKG changes (no ST elevations) and elevated troponin on 01/09. Troponin improved overnight 01/09-->01/10. Likely secondary to kidney disease. Pt is a poor candidate for surgical intervention even if myocardial infarction were suspected. (5) SALIMA (acute kidney injury) ICD Codes: N17.9 - Acute kidney failure, unspecified Status: Acute Plan: Acute on chronic CKD, improving. Baseline creatinine is normal based on labs from September 2017. * Trend BMP. * Avoid nephrotoxic agents. * Careful hydration limits given fluid overload but likely kidneys will need some gentle hydration, no additional fluids for now. (6) Atrial fibrillation ICD Codes: I48.91 - Atrial fibrillation Status: Chronic Plan: Chronic A. fib, not with RVR at this time. - Holding Coumadin and all anticoagulation until reevaluated as outpatient Previously: warfarin 7.5 mg reportedly Saturday, Saturday, Saturday, and Saturday at home. (7) HTN (hypertension) ICD Codes: I10 - Essential (primary) hypertension Status: Chronic Plan: BP under good control. Continue medications as currently ordered. (8) Pacemaker ICD Codes: Z95.0 - Presence of cardiac pacemaker Status: Chronic Plan: Chronic. Continued monitoring via telemetry. (9) DM (diabetes mellitus) ICD Codes: E11.9 - Diabetes mellitus Status: Chronic Plan: Chronic, not on insulin. Takes glipizide 5 mg twice daily before meals. * Low-dose sliding scale Novolog while inpatient. 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 Will monitor symptoms Would benefit from PT while inpatient. Repeat stroke workup on 01/15 revealed only old MCA infarct, no new infarcts (11) Gout ICD Codes: M10.9 - Gout, unspecified Status: Chronic Plan: No acute exacerbation. Holding home colchicine due to SALIMA (12) Fluids/Electrolytes/Nutrition/Prophylaxis Status: Acute Plan: Fluids: Fluid restrict given CHF, will monitor Electrolytes: f/u BMP and replete as needed Nutrition: Puree. Honey Thick. DVT Prophylaxis: SCDs only (Shruthi Rodriguez MD R2) Problem Qualifiers (1) CHF exacerbation: Qualified Codes: I50.23 - Acute on chronic systolic (congestive) heart failure (2) Atrial fibrillation: Qualified Codes: I48.2 - Chronic atrial fibrillation (3) HTN (hypertension): Qualified Codes: I10 - Essential (primary) hypertension (4) DM (diabetes mellitus): Shruthi Rodriguez MD R2 Jan 16, 2018 10:47 Francoise House MD Jan 17, 2018 07:08
--- NOTE | 2018-01-16 18:18 | HHI.PR ---
Review/Management Daily Summary 01/16 no neuro sx recurrence spoke to RN and aid sleepy this pm but nothing unusual eeg nonepileptiform not a candidate for anticoagulation now due to bleeding will follow prn Subjective Subjective Comments sleepy but baseline per staff Active Medications Current Medications Medications (Trade) Dose Ordered Sig/Kaila Route Start Time Stop Time Status Last Admin (NS Flush) 2 ml UNSCH PRN IV FLUSH 01/01/18 16:15 (NS Flush) 2 ml BID IV FLUSH 01/01/18 21:00 01/16/18 09:00 (Lipitor) 40 mg DAILY PO 01/02/18 09:00 01/16/18 09:19 (D50w (Vial) Inj) 50 ml UNSCH PRN IV PUSH 01/01/18 17:45 (Glucagon Inj) 1 mg UNSCH PRN OTHER 01/01/18 17:45 (Natalie-Colace) 1 tab BID PO 01/01/18 21:00 01/16/18 09:19 (Milk Of Magnesia Liq) 30 ml Q12H PRN PO 01/01/18 17:45 01/03/18 12:31 (Senokot) 17.2 mg Q12H PRN PO 01/01/18 17:45 (Dulcolax Supp) 10 mg DAILY PRN RECTAL 01/01/18 17:45 (Lactulose Liq) 30 ml DAILY PRN PO 01/01/18 17:45 (Flomax) 0.4 mg DAILY PO 01/02/18 15:00 01/16/18 09:19 (Tinactin 1% Cream) 1 applic Q12HR TOPICAL 01/02/18 21:00 01/16/18 09:00 (Hydrocortisone 1% Cream) 1 applic Q12H PRN TOPICAL 01/02/18 15:00 01/03/18 12:12 (Coreg) 3.125 mg Q12HR PO 01/06/18 09:00 01/16/18 09:19 (Peridex 0.12% Liq) 15 ml BID@08,20 MT 01/06/18 08:00 01/12/18 08:00 (Pulmicort Respule Neb) 0.5 mg Q12HR NEB NEB 01/06/18 20:00 01/16/18 08:14 (Tears Naturale Opth Soln) 1 drop Q8HR EACH EYE 4/2/18 14:00 01/16/18 14:04 (Aspirin Chew) 81 mg DAILY CHEW 01/06/18 09:00 01/16/18 09:19 (Tylenol 650 Mg/ 20 ml Liq) 650 mg Q6H PRN PO 01/06/18 08:15 01/06/18 22:08 (Albuterol Neb) 2.5 mg Q2HR NEB PRN NEB 01/07/18 16:15 01/15/18 10:02 (NovoLOG SUPPLEMENTAL SCALE) 1 ACHS SQ 01/10/18 17:00 01/16/18 12:00 ([place] 5-325 Mg) 1 tab Q6H PRN PO 01/10/18 12:15 01/15/18 18:49 (KCl) 20 meq DAILY PO 01/13/18 14:45 01/16/18 09:19 (Coumadin) 7.5 mg Q48H PO 01/13/18 20:00 Future Hold 01/13/18 22:27 (Ativan Inj) 1 mg Q4HR PRN IV PUSH 01/14/18 01:45 01/15/18 00:11 (Lasix) 40 mg BID@,18 PO 01/14/18 18:00 01/16/18 17:55 Allergies Allergies Coded Allergies rivaroxaban (Verified Allergy, Unknown, 01/02/18) Uncoded Allergies UNKNOWN BLOOD THINNER ( Allergy, Intermediate, Hives, 04/30/16) Exam I&O / VS Vital Signs Date Time Temp Pulse Resp B/P (MAP) Pulse Ox O2 Delivery O2 Flow Rate FiO2 01/16/18 17:56 99 Nasal Cannula 2.00 01/16/18 16:00 98.4 98 24 110/50 (70) 99 01/16/18 13:55 90 01/16/18 13:41 99 Nasal Cannula 2.00 01/16/18 11:26 98.3 100 26 94/55 (68) 99 01/16/18 10:12 95 Nasal Cannula 2.00 01/16/18 10:12 90 01/16/18 08:15 100 Nasal Cannula 4.00 01/16/18 07:39 98.8 95 18 118/69 (85) 100 01/16/18 04:00 97.9 90 18 113/67 (82) 100 01/16/18 00:00 97.9 97 18 112/70 (84) 100 01/15/18 21:18 21 01/15/18 20:00 Nasal Cannula 2.00 01/15/18 20:00 98.0 86 17 103/65 (78) 100 Objective Radiology Results Last 48 hours Impressions Chest X-Ray 01/15/18 1035 Signed Impressions: Service Date/Time: Monday, January 15, 2018 11:07 - CONCLUSION: Compensated cardiomegaly with pacer otherwise negative Robert Marie MD FACR Head CT 01/15/18 0000 Signed Impressions: Service Date/Time: Monday, January 15, 2018 10:54 - CONCLUSION: 1. No acute hemorrhage, acute infarct, mass effect or extra-axial fluid collection. 2. Large old stable left middle cerebral artery infarct and much smaller old right middle cerebral artery infarct are noted. 3. Mild periventricular and subcortical white matter small vessel ischemic changes are noted. Papa Locke MD Carotid Artery Ultrasound 01/15/18 0000 Signed Impressions: Service Date/Time: Monday, January 15, 2018 21:12 - CONCLUSION: 1. Mild visible plaque in the carotid arteries bilaterally without hemodynamically significant stenosis. Vertebral artery flow is antegrade. Vipul Sherman MD CT Angiography 01/15/18 0000 Signed Impressions: Service Date/Time: Monday, January 15, 2018 10:58 - CONCLUSION: Moderate congestive failure without central pulmonary emboli. Robert Marie MD FACR Micro and Labs Laboratory Tests Test 01/15/18 20:15 01/16/18 02:34 White Blood Count 14.6 12.0 Red Blood Count 3.62 3.40 Hemoglobin 10.7 10.0 Hematocrit 32.4 30.7 Mean Corpuscular Volume 89.6 90.2 Mean Corpuscular Hemoglobin 29.4 29.3 Mean Corpuscular Hemoglobin Concent 32.9 32.5 Red Cell Distribution Width 16.7 16.5 Platelet Count 282 298 Mean Platelet Volume 8.1 8.0 Neutrophils (%) (Auto) 92.2 88.5 Lymphocytes (%) (Auto) 2.4 3.6 Monocytes (%) (Auto) 3.7 3.9 Eosinophils (%) (Auto) 1.2 3.4 Basophils (%) (Auto) 0.5 0.6 Neutrophils # (Auto) 13.4 10.6 Lymphocytes # (Auto) 0.4 0.4 Monocytes # (Auto) 0.5 0.5 Eosinophils # (Auto) 0.2 0.4 Basophils # (Auto) 0.1 0.1 CBC Comment DIFF FINAL DIFF FINAL Differential Comment Troponin I 0.72 0.68 Blood Urea Nitrogen 39 Creatinine 1.28 Random Glucose 139 Total Protein 6.7 Albumin 2.2 Calcium Level 9.4 Alkaline Phosphatase 64 Aspartate Amino Transf (AST/SGOT) 25 Alanine Aminotransferase (ALT/SGPT) 28 Total Bilirubin 1.0 Sodium Level 136 Potassium Level 3.4 Chloride Level 95 Carbon Dioxide Level 34.8 Anion Gap 6 Estimat Glomerular Filtration Rate 67 Date/Time Source Procedure Growth Status 01/06/18 20:31 Blood Peripheral Aerobic Blood Culture - Final NO GROWTH IN 5 DAYS Complete 01/06/18 20:31 Blood Peripheral Anaerobic Blood Culture - Final NO GROWTH IN 5 DAYS Complete 01/06/18 18:00 Nasal Aspirate Influenza Types A,B Antigen (MELIDA) - Final NEGATIVE FOR FLU A AND B ANTIGEN.... Complete 01/06/18 18:00 Urine Clean Catch Urine Culture - Final <10,000 CFU/ML GRAM NEGATIVE RENÉ Complete Archana Okeefe MD Jan 16, 2018 18:18
--- NOTE | 2018-01-16 18:47 | EKG ---
Date Performed: 01/15/2018 Time Performed: 11:21:38 PTAGE: 72 years EKG: Demand pacing Pacemaker rhythm - no further analysis Since the previous tracing, no signifi cant change noted Abnormal ECG PREVIOUS TRACING : 01/14/2018 01.19 DOCTOR: Jon Acuña Interpretating Date/Time 01/16/2018 18:45:00
[2018-01-16] MEDS: ACETAMINOPHEN/HYDROcodone 325 MG/5 MG TAB PO PRN (19:04)
[2018-01-17] VITALS (8 sets, daily range): BP systolic 90–111; BP diastolic 55–67; PULSE 98–110; RESP 16–24; TEMP 97.4–99.1; O2SAT 94–99
[2018-01-17] MEDS: ACETAMINOPHEN/HYDROcodone 325 MG/5 MG TAB PO PRN (02:49)
[2018-01-17] MEDS: ARTIFICIAL TEARS OPTH SOLN 15 ML BTL EACH EYE SCH ×2 (06:00→14:00)
[2018-01-17] MEDS: CHLORHEXIDINE 0.12% (ORAL KIT) 15 ML CUP MT SCH (08:00)
[2018-01-17] MEDS: INSULIN ASPART SUPPLEMENTAL SCALE SQ SCH ×3 (08:00→17:00)
[2018-01-17] MEDS: RESP: BUDESONIDE 0.5 MG/2 ML NEB NEB SCH (08:18)
[2018-01-17] MEDS: TOLNAFTATE 1% CREAM 15 GM TOPICAL SCH (09:00)
[2018-01-17] MEDS: SODIUM CHLORIDE 0.9% FLUSH 10 ML FLUSH IV FLUSH SCH (09:00)
[2018-01-17] MEDS: POTASSIUM CHLORIDE 10 MEQ CAP PO SCH (09:32)
[2018-01-17] MEDS: ATORVASTATIN 40 MG TAB PO SCH (09:32)
[2018-01-17] MEDS: DOCUSATE SODIUM 50 MG/SENNA 8.6 MG TAB PO SCH (09:32)
[2018-01-17] MEDS: CARVEDILOL 3.125 MG TAB PO SCH (09:32)
[2018-01-17] MEDS: ASPIRIN 81 MG CHEW TAB CHEW SCH (09:32)
[2018-01-17] MEDS: TAMSULOSIN HCL 0.4 MG CAP PO SCH (09:32)
[2018-01-17] MEDS: FUROSEMIDE 40 MG TAB PO SCH ×2 (09:33→17:30)
[2018-01-17 09:49] LABS: AUTOMATED NEUTROPHIL # 4.6 TH/MM3 (1.8-7.7); BASOPHIL # 0.1 TH/MM3 (0-0.2); EOSINOPHIL # 0.3 TH/MM3 (0-0.4); EOSINOPHIL % 4.3 % (0.0-4.0); HEMATOCRIT 30.9 % (39.0-51.0); HEMOGLOBIN 10.2 GM/DL (13.0-17.0); LYMPH % 9.9 % (9.0-44.0); LYMPHOCYTE # 0.6 TH/MM3 (1.0-4.8); MEAN CORPUSCULAR HEMOGLOBIN 29.7 PG (27.0-34.0); MEAN PLATELET VOLUME 7.8 FL (7.0-11.0); MONO % 12.6 % (0.0-8.0); MONOCYTE # 0.8 TH/MM3 (0-0.9); NEUT % 72.2 % (16.0-70.0); PLATELET COUNT 329 TH/MM3 (150-450); RED BLOOD COUNT 3.43 MIL/MM3 (4.50-5.90); RED CELL DISTRIBUTION WIDTH 16.8 % (11.6-17.2); WHITE BLOOD COUNT 6.4 TH/MM3 (4.0-11.0)
[2018-01-17 09:58] LABS: ALBUMIN 2.4 GM/DL (3.4-5.0); AST (GOT) 29 U/L (15-37); BICARBONATE 31.8 MEQ/L (21.0-32.0); BLOOD UREA NITROGEN 40 MG/DL (7-18); CALCIUM 9.3 MG/DL (8.5-10.1); CHLORIDE 95 MEQ/L (98-107); CREATININE 1.32 MG/DL (0.60-1.30); GLOMERULAR FILTRATION RATE 65 ML/MIN (>89); GLUCOSE,RANDOM 167 MG/DL (74-106); SODIUM (NA) 134 MEQ/L (136-145)
[2018-01-17 09:59] LABS: ALT (GPT) 31 U/L (12-78)
[2018-01-17 10:01] LABS: ALKALINE PHOSPHATASE 71 U/L (45-117)
[2018-01-17] MEDS ORDERED: NORC5TAB PO ×2 (17:39→17:41)
--- NOTE | 2018-01-17 18:46 | HHI.FPPN ---
Subjective Remarks Patient was seen and evaluated this morning. He reports feeling well. He denies chest pain, shortness of breath, nausea, vomiting, diarrhea and constipation. All questions were answered. (Zoe Goel MD R1) Objective Vitals Vital Signs Date Time Temp Pulse Resp B/P (MAP) Pulse Ox O2 Delivery O2 Flow Rate FiO2 01/17/18 16:00 97.4 98 16 91/55 (67) 99 01/17/18 11:33 110 01/17/18 11:33 96 Room Air 2.00 01/17/18 11:07 99.0 102 24 90/55 (67) 99 01/17/18 08:20 94 Nasal Cannula 2.00 01/17/18 07:36 98.9 105 22 96/61 (73) 96 01/17/18 04:06 106 01/17/18 04:00 Nasal Cannula 2.00 01/17/18 04:00 98.7 99 20 111/67 (82) 96 01/17/18 00:00 99.1 103 18 97/60 (72) 96 01/17/18 00:00 Nasal Cannula 2.00 01/16/18 23:49 103 01/16/18 21:34 98 Nasal Cannula 2.00 01/16/18 20:00 98.9 100 20 109/70 (83) 98 01/16/18 20:00 Nasal Cannula 2.00 01/16/18 19:44 106 01/16/18 18:39 100 I/O 01/16/18 01/16/18 01/16/18 01/17/18 01/17/18 01/17/18 07:00 15:00 23:00 07:00 15:00 23:00 Intake Total 0 ml 525 ml 300 ml Output Total 6250 ml 1250 ml 325 ml Balance -6250 ml -725 ml -25 ml Intake Oral 0 ml 525 ml 300 ml Output Urine Total 6250 ml 1250 ml 325 ml # Bowel Movements 1 2 (Zoe Goel MD R1) Result Diagram: 01/17/1892601/17/18926 Imaging Last 72 hours Impressions Chest X-Ray 01/15/18 1035 Signed Impressions: Service Date/Time: Monday, January 15, 2018 11:07 - CONCLUSION: Compensated cardiomegaly with pacer otherwise negative Robert Marie MD FACR Head CT 01/15/18 0000 Signed Impressions: Service Date/Time: Monday, January 15, 2018 10:54 - CONCLUSION: 1. No acute hemorrhage, acute infarct, mass effect or extra-axial fluid collection. 2. Large old stable left middle cerebral artery infarct and much smaller old right middle cerebral artery infarct are noted. 3. Mild periventricular and subcortical white matter small vessel ischemic changes are noted. Papa Locke MD Carotid Artery Ultrasound 01/15/18 0000 Signed Impressions: Service Date/Time: Monday, January 15, 2018 21:12 - CONCLUSION: 1. Mild visible plaque in the carotid arteries bilaterally without hemodynamically significant stenosis. Vertebral artery flow is antegrade. Vipul Sherman MD CT Angiography 01/15/18 0000 Signed Impressions: Service Date/Time: Monday, January 15, 2018 10:58 - CONCLUSION: Moderate congestive failure without central pulmonary emboli. Robert Marie MD FACR Objective Remarks GENERAL: Patient appears comfortable, not in acute distress. Receiving breathing treatment. SKIN: Warm and dry. HEAD: Atraumatic. Normocephalic. EYES: Pupils equal round. Extraocular motions intact. No scleral icterus. No injection or drainage. ENT: Nose without bleeding or purulent drainage. Airway patent. NECK: Supple, nontender, no meningeal signs. CARDIOVASCULAR: Regular rate and rhythm without murmurs RESPIRATORY: Good air movement anteriorly. GASTROINTESTINAL: Abdomen soft, non-tender, nondistended. No hepato-splenomegaly , or palpable masses. No guarding. MUSCULOSKELETAL: No joint tenderness, effusion, or edema noted. No calf tenderness. NEUROLOGICAL: Alert. Aphasic. Cranial nerves II through XII grossly intact. Generalized weakness of extremities. GENITOURINARY: No blood from urethral meatus. Rolon is placed. No pain on palpation of the penis or movement of the Rolon. Medications and IVs Current Medications Medications (Trade) Dose Ordered Sig/Kaila Route Start Time Stop Time Status Last Admin (NS Flush) 2 ml UNSCH PRN IV FLUSH 01/01/18 16:15 (NS Flush) 2 ml BID IV FLUSH 01/01/18 21:00 01/16/18 09:00 (Lipitor) 40 mg DAILY PO 01/02/18 09:00 01/17/18 09:32 (D50w (Vial) Inj) 50 ml UNSCH PRN IV PUSH 01/01/18 17:45 (Glucagon Inj) 1 mg UNSCH PRN OTHER 01/01/18 17:45 ([place]alie-Colace) 1 tab BID PO 01/01/18 21:00 01/17/18 09:32 (Milk Of Magnesia Liq) 30 ml Q12H PRN PO 01/01/18 17:45 01/03/18 12:31 (Senokot) 17.2 mg Q12H PRN PO 01/01/18 17:45 (Dulcolax Supp) 10 mg DAILY PRN RECTAL 01/01/18 17:45 (Lactulose Liq) 30 ml DAILY PRN PO 01/01/18 17:45 (Flomax) 0.4 mg DAILY PO 01/02/18 15:00 01/17/18 09:32 (Tinactin 1% Cream) 1 applic Q12HR TOPICAL 01/02/18 21:00 01/17/18 09:00 (Hydrocortisone 1% Cream) 1 applic Q12H PRN TOPICAL 01/02/18 15:00 01/03/18 12:12 (Coreg) 3.125 mg Q12HR PO 01/06/18 09:00 01/17/18 09:32 (Peridex 0.12% Liq) 15 ml BID@08,20 MT 01/06/18 08:00 01/17/18 08:00 (Pulmicort Respule Neb) 0.5 mg Q12HR NEB NEB 01/06/18 20:00 01/17/18 08:18 (Tears Naturale Opth Soln) 1 drop Q8HR EACH EYE 01/06/18 14:00 01/17/18 14:00 (Aspirin Chew) 81 mg DAILY CHEW 01/06/18 09:00 01/17/18 09:32 (Tylenol 650 Mg/ 20 ml Liq) 650 mg Q6H PRN PO 01/06/18 08:15 01/06/18 22:08 (Albuterol Neb) 2.5 mg Q2HR NEB PRN NEB 01/07/18 16:15 01/15/18 10:02 (NovoLOG SUPPLEMENTAL SCALE) 1 ACHS SQ 01/10/18 17:00 01/17/18 17:00 ([place] 5-325 Mg) 1 tab Q6H PRN PO 01/10/18 12:15 01/17/18 02:49 (KCl) 20 meq DAILY PO 01/13/18 14:45 01/17/18 09:32 (Coumadin) 7.5 mg Q48H PO 01/13/18 20:00 Future Hold 01/13/18 22:27 (Ativan Inj) 1 mg Q4HR PRN IV PUSH 01/14/18 01:45 01/15/18 00:11 (Lasix) 40 mg BID@18 PO 01/14/18 18:00 01/17/18 17:30 (Zoe Goel MD R1) Urinary Catheter: Yes Assessment to: Continue (Zoe Goel MD R1) Vascular Central Line Catheter: No (Zoe Goel MD R1) A/P Assessment and Plan Patient is a 72-year-old admitted with CHF exacerbation. He required BiPAP at time of admission with significant fluid overload complicated by hypotension. Weaned to 1 L nasal cannula, however, on 01/06 suffered worsening respiratory distress, needed to be intubated. Extubated 01/10. Improving clinically. Discharge Planning Discharged to SNF today (Zoe Goel MD R1) Attending Attestation Patient seen and examined, discussed with resident team. I agree with assessment and management as documented and discussed with me. Pt without complaints. Nursing with no new concerns. He denies SOB, chest pain. He feels ready for discharge to rehab. (Francoise House MD) Problem List: (1) Hemorrhage of prostate ICD Codes: N42.1 - Congestion and hemorrhage of prostate Status: Acute Plan: Hemorrhage associated with catheter change on 01/17. Repeat episode. Dr. Lambert went to bedside and evaluated patient, agreed that blood is oozing from the urethra due to prostate bleed. The catheter was replaced and is to remain for 3-4 weeks. Follow-up in office as outpatient. DC Coumadin 3-4 weeks. Continue Flomax. (2) COPD (chronic obstructive pulmonary disease) ICD Codes: J44.9 - Chronic obstructive pulmonary disease Status: Chronic Plan: S/p acute hypercapnic respiratory failure due to COPD, possible nosocomial pneumonia, possible CHF component. Extubated 01/10. CXR 01/13: Cardiomegaly and findings of congestive heart failure. Findings similar to prior exam. CXR 01/15: Compensated cardiomegaly with pacer otherwise negative. Medications: * Continue Pulmicort BID, DuoNeb q6hr, furosemide 80 mg IV BID. * Zosyn (01/09-01/13). (3) CHF exacerbation ICD Codes: I50.9 - Heart failure, unspecified Status: Acute Plan: At presentation: Patient of Dr. Aquino, presenting with acute CHF exacerbation. * Echocardiogram showing EF less than 20%, severely dilated LV, mod to severe MV regurg, severe tricuspid regurg. * ACS workup negative. * Continue medications as ordered, for diuresis and cardiac benefits. Transition to PO meds in anticipation for discharge. * Continue aspirin, atorvastatin. * Prostate hemorrhage discussed with Dr. Aquino on 01/15; decision to DC Coumadin due to prostate hemorrhage. CHADS-VASC score of 7, which puts patient at a stroke risk of 9.6% per year. However, due to recurrent urethral bleeding, the Coumadin will be stopped for the 3-4 weeks that the catheter remains in place. Follow-up with Dr. Aquino in office. Risks and benefits of stopping Coumadin were discussed. (4) Elevated troponin ICD Codes: R74.8 - Abnormal levels of other serum enzymes Status: Resolved Plan: EKG changes (no ST elevations) and elevated troponin on 01/09. Troponin improved overnight 01/09-->01/10. Likely secondary to kidney disease. Pt is a poor candidate for surgical intervention even if myocardial infarction were suspected. (5) SALIMA (acute kidney injury) ICD Codes: N17.9 - Acute kidney failure, unspecified Status: Acute Plan: Acute on chronic CKD, improving. Baseline creatinine is normal based on labs from September 2017. * Trend BMP. * Avoid nephrotoxic agents. * Careful hydration limits given fluid overload but likely kidneys will need some gentle hydration, no additional fluids for now. (6) Atrial fibrillation ICD Codes: I48.91 - Atrial fibrillation Status: Chronic Plan: Chronic A. fib, not with RVR at this time. * Holding Coumadin and all anticoagulation until reevaluated by urology as outpatient. Previously: warfarin 7.5 mg reportedly Saturday, Saturday, Saturday, and Saturday at home. (7) HTN (hypertension) ICD Codes: I10 - Essential (primary) hypertension Status: Chronic Plan: BP under good control. Continue medications as currently ordered. (8) Pacemaker ICD Codes: Z95.0 - Presence of cardiac pacemaker Status: Chronic Plan: Chronic. Continued monitoring via telemetry. (9) DM (diabetes mellitus) ICD Codes: E11.9 - Diabetes mellitus Status: Chronic Plan: Chronic, not on insulin. Takes glipizide 5 mg twice daily before meals. * Low-dose sliding scale Novolog while inpatient. 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 Will monitor symptoms Would benefit from PT while inpatient. Repeat stroke workup on 01/15 revealed only old MCA infarct, no new infarcts. (11) Gout ICD Codes: M10.9 - Gout, unspecified Status: Chronic Plan: No acute exacerbation. Holding home colchicine due to SALIMA (12) Fluids/Electrolytes/Nutrition/Prophylaxis Status: Acute Plan: Fluids: Fluid restrict given CHF, will monitor Electrolytes: f/u BMP and replete as needed Nutrition: Mechanical soft. NECTAR CONSISTENCY THICKENED LIQUIDS DVT Prophylaxis: SCDs only. (Zoe Goel MD R1) Problem Qualifiers (1) CHF exacerbation: Qualified Codes: I50.23 - Acute on chronic systolic (congestive) heart failure (2) Atrial fibrillation: Qualified Codes: I48.2 - Chronic atrial fibrillation (3) HTN (hypertension): Qualified Codes: I10 - Essential (primary) hypertension (4) DM (diabetes mellitus): Zoe Goel MD R1 Jan 17, 2018 18:46 Francoise House MD Jan 18, 2018 07:06
== END 2018-01-17 18:54 | DRG 280 ==
LOC: NEPE 13:46 → NEDA 16:11 → NEDH 20:28 → HCIS 01-02 13:14 → N03A 01-06 04:03 → N04B 01-11 11:49
PROVIDERS: ADMIT Family Medicine; ATTEND Family Medicine
PROC: 5A09357 Assistance with Respiratory Ventilation, Less than 24 Consecutive Hours, Continuous Positive Airway Pressure (ICD-10-PCS; 2018-01-01)
PROC: 5A1945Z Respiratory Ventilation, 24-96 Consecutive Hours (ICD-10-PCS; principal; 2018-01-06)
PROC: 0BH17EZ Insertion of Endotracheal Airway into Trachea, Via Natural or Artificial Opening (ICD-10-PCS; 2018-01-06)
PROC: 0T9B70Z Drainage of Bladder with Drainage Device, Via Natural or Artificial Opening (ICD-10-PCS; 2018-01-08)
DX: I13.0 Hypertensive heart and chronic kidney disease with heart failure and stage 1 through stage 4 chronic kidney disease, or unspecified chronic kidney disease (principal); I21.A1 Myocardial infarction type 2; I50.23 Acute on chronic systolic (congestive) heart failure; G93.40 Encephalopathy, unspecified; N17.9 Acute kidney failure, unspecified; I95.9 Hypotension, unspecified; J96.01 Acute respiratory failure with hypoxia; J96.02 Acute respiratory failure with hypercapnia; N13.8 Other obstructive and reflux uropathy; I69.351 Hemiplegia and hemiparesis following cerebral infarction affecting right dominant side; E11.22 Type 2 diabetes mellitus with diabetic chronic kidney disease; J44.1 Chronic obstructive pulmonary disease with (acute) exacerbation; T83.83XA Hemorrhage due to genitourinary prosthetic devices, implants and grafts, initial encounter; N18.3 Chronic kidney disease, stage 3 (moderate); I48.0 Paroxysmal atrial fibrillation; I69.320 Aphasia following cerebral infarction; I69.322 Dysarthria following cerebral infarction; I25.10 Atherosclerotic heart disease of native coronary artery without angina pectoris; I48.2 Chronic atrial fibrillation; M10.9 Gout, unspecified; I25.5 Ischemic cardiomyopathy; M19.90 Unspecified osteoarthritis, unspecified site; N40.1 Benign prostatic hyperplasia with lower urinary tract symptoms; R31.9 Hematuria, unspecified; E03.9 Hypothyroidism, unspecified; E78.00 Pure hypercholesterolemia, unspecified; I08.1 Rheumatic disorders of both mitral and tricuspid valves; B35.3 Tinea pedis; E83.39 Other disorders of phosphorus metabolism; E87.5 Hyperkalemia; E87.6 Hypokalemia; E88.09 Other disorders of plasma-protein metabolism, not elsewhere classified; R00.0 Tachycardia, unspecified; Z79.82 Long term (current) use of aspirin; Z95.0 Presence of cardiac pacemaker; I25.2 Old myocardial infarction; Z95.1 Presence of aortocoronary bypass graft; Z95.5 Presence of coronary angioplasty implant and graft; Z79.84 Long term (current) use of oral hypoglycemic drugs; Z79.01 Long term (current) use of anticoagulants; Z87.891 Personal history of nicotine dependence; Z95.810 Presence of automatic (implantable) cardiac defibrillator; Z86.718 Personal history of other venous thrombosis and embolism
CPT/HCPCS: 31500; 36600; 70450; 71045; 71046; 71275; 76775; 76937; 80048; 80053; 80202; 81001; 82550; 82570; 82805; 82947; 82948; 83605; 83735; 83880; 84100; 84132; 84300; 84443; 84484; 85025; 85027; 85384; 85610; 85730; 86077; 86850; 86870; 86900; 86901; 86902; 86920; 86922; 87040; 87070; 87077; 87086; 87205; 87449; 87641; 87804; 93005; 93306; 93880; 94002; 94003; 94150; 94640; 94664; 95819; J0610; J1120; J1630; J1644; J1815; J1940; J2060; J2270; J2543; J3010; J3370; J7040; J7613; J7626; Q9967

== ENCOUNTER 2018-01-24 11:54 | Emergency (ER) | payer OTHER, MEDICARE ==
[~2018-01-24 11:54] MED LIST changes: -ALFU10TA2 PO; -AMLO10TA2 PO; -AZIT250T3 PO; +BUDE.5I NEB; -CARV12.52 PO; +CARV3.125 PO; -LISI-519 PO; +NORC5TAB PO; +POTA10CA PO; -PRED20 PO; +TAMS5CAP PO; -TRAM50TA PO; -WARF-21 PO; -WARF-23 PO
[2018-01-24 12:12] VITALS: BP 115/55; PULSE 109; RESP 20; TEMP 98.3; O2SAT 99
[2018-01-24 14:30] LABS: BASOPHIL # 0.1 TH/MM3 (0-0.2); BASOPHIL % 0.9 % (0.0-2.0); EOSINOPHIL # 0.4 TH/MM3 (0-0.4); EOSINOPHIL % 3.2 % (0.0-4.0); HEMATOCRIT 33.2 % (39.0-51.0); HEMOGLOBIN 10.7 GM/DL (13.0-17.0); LYMPH % 11.8 % (9.0-44.0); LYMPHOCYTE # 1.3 TH/MM3 (1.0-4.8); MEAN CELL VOLUME 91.1 FL (80.0-100.0); MEAN CORPUSCULAR HEMOGLOBIN 29.4 PG (27.0-34.0); MEAN CORPUSCULAR HGB CONC 32.3 % (32.0-36.0); MEAN PLATELET VOLUME 7.4 FL (7.0-11.0); MONO % 13.3 % (0.0-8.0); MONOCYTE # 1.5 TH/MM3 (0-0.9); NEUT % 70.8 % (16.0-70.0); PLATELET COUNT 478 TH/MM3 (150-450); RED BLOOD COUNT 3.64 MIL/MM3 (4.50-5.90); RED CELL DISTRIBUTION WIDTH 16.9 % (11.6-17.2); WHITE BLOOD COUNT 11.2 TH/MM3 (4.0-11.0)
[2018-01-24 14:43] LABS: INTERNATIONAL NORMALIZED RATIO 1.1 RATIO; PROTHROMBIN TIME - PATIENT 11.2 SEC (9.8-11.6)
[2018-01-24 14:45] LABS: CALCIUM 9.6 MG/DL (8.5-10.1); CREATININE 1.4 MG/DL (0.60-1.30)
[2018-01-24 14:48] LABS: BACTERIA, URINE MANY /hpf; BILIRUBIN, URINE NEG (NEG); BLOOD, URINE LARGE (NEG); GLUCOSE,URINE NEG (NEG); KETONE, URINE NEG (NEG); NITRITE,URINE NEG (NEG); PH, URINE 6.5 (5.0-8.5); URINE LEUKOCYTE ESTERASE LARGE (NEG); WHITE BLOOD CELL CLUMPS MANY
[2018-01-24 14:49] LABS: URINE COLOR RED (YELLW/STRAW)
[2018-01-24 14:51] VITALS: BP 104/57; PULSE 109; RESP 18; TEMP 98.5; O2SAT 99
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
[2018-01-24] MEDS ORDERED: MACR100C2 PO (15:50)
[2018-01-24] MEDS ORDERED: NITROFURANTOIN MONOHYD MACROCR 100 MG CAP PO ONE (16:00)
== END 2018-01-24 17:25 | disposition home or self-care (01) ==
LOC: NEPE 11:54
DX: R31.0 Gross hematuria (principal); N39.0 Urinary tract infection, site not specified; B96.20 Unspecified Escherichia coli [E. coli] as the cause of diseases classified elsewhere; I11.0 Hypertensive heart disease with heart failure; I50.9 Heart failure, unspecified; I25.10 Atherosclerotic heart disease of native coronary artery without angina pectoris; I25.2 Old myocardial infarction; I48.91 Unspecified atrial fibrillation; E78.00 Pure hypercholesterolemia, unspecified; E11.9 Type 2 diabetes mellitus without complications; J45.909 Unspecified asthma, uncomplicated; Z86.73 Personal history of transient ischemic attack (TIA), and cerebral infarction without residual deficits; Z95.5 Presence of coronary angioplasty implant and graft; Z95.810 Presence of automatic (implantable) cardiac defibrillator; Z95.1 Presence of aortocoronary bypass graft; Z88.8 Allergy status to other drugs, medicaments and biological substances; Z79.899 Other long term (current) drug therapy
CPT/HCPCS: 80048; 81001; 85025; 85610; 85730; 87077; 87086; 87186; 99283